=== PATIENT | male | born 1945 | race Caucasian/White ===

== ENCOUNTER → 2018-02-13 12:03 | Outpatient (CLI) | payer MEDICARE, OTHER, SELFPAY ==
[2018-02-13 12:37] LABS: Absolute Lymphocyte Count 1.09 X10^3/ul (0.83-4.51); Absolute Neutrophil Count 3.2 X10^3/uL (2.0-7.7); Basophil# 0.01 X10^3/uL; Basophil% 0.2 % (0-1); Eosinophil# 0.12 X10^3/uL; Eosinophils% 2.5 % (0-5); Hemoglobin 14.1 g/dl (13.0-16.5); Lymphocyte # 1.09 X10^3/ul (4.0); Lymphocyte % 22.4 % (19-41); Mean Corp Hgb Conc 32.8 g/gl (32-36); Mean Corpuscular Hgb 29.6 pg (27.0-32.0); Mean Corpuscular Volume 90.1 fL (80-94); Mean Platelet Vol. 9.6 fl (6.2-12.0); Monocyte# 0.47 X10^3/uL; Monocyte% 9.7 % (0-10); Neutrophil # 3.18 X10^3/uL (2.7-7.7); Neutrophil % 65.2 % (47-70); POSITIVE COUNT NO; POSITIVE DIFFERENTIAL NO; POSITIVE MORPHOLOGY NO; Platelet Count 216 K/mm3 (150-450); RBC Distribution Width SD 45.6 fl (35.1-43.9); Red Blood Count 4.77 M/mm3 (4.6-6.2); White Blood Count 4.9 K/mm3 (4.4-11.0)
[2018-02-13 13:01] LABS: ALB/GLOB Ratio 1.1 RATIO (0.9-2.4); AST(SGOT) 22 U/L (15-37); Alanine Aminotransfer ALT/SGPT 26 U/L (16-61); Albumin, Serum 3.9 g/dL (3.2-5.0); Alkaline Phosphatase 37 U/L (45-117); Anion Gap 7 (5-15); BUN 19 mg/dL (7-18); BUN/Creat Ratio 14.1 RATIO (10-20); Calcium,Total 8.8 mg/dL (8.5-10.1); Chloride 103 mmol/L (98-107); Creatinine, Serum 1.35 mg/dL (0.70-1.30); EST Glomerular Filtration Rate 55 mL/min (>60); Est Glom Filt Rate - Afr Amer 67 mL/min (>60); Globulin 3.5 g/dL (2.2-4.2); Glucose 186 mg/dL (74-106); Potassium 3.8 mmol/L (3.5-5.1); Protein, Total 7.4 g/dL (6.4-8.2); Sodium Level 140 mmol/L (136-145)
[2018-02-13 14:23] LABS: Bilirubin, Direct 0.17 mg/dL (0.00-0.30)
[2018-02-16 03:07] LABS: QNTFERON TB Ag Minus Nil Value 0 IU/mL (.); QNTFERON TB Ag Value 0.03 IU/mL (.); QNTFERON TB Mitogen Value > 10.00 IU/mL (.); QNTFERON TB Nil Value 0.03 IU/mL (.)
[2018-02-16 08:43] LABS: QNTIFERON TB Gold Negative (Negative)
== END ==
PROVIDERS: Nurse Practitioner; Visit Provider Dermatology
DX: L40.0 Psoriasis vulgaris (principal); Z79.899 Other long term (current) drug therapy; L21.8 Other seborrheic dermatitis; L57.8 Other skin changes due to chronic exposure to nonionizing radiation
CPT/HCPCS: 36415; 80053; 82248; 85025; 86480

== ENCOUNTER → 2018-07-24 13:55 | Outpatient (CLI) | payer MEDICARE, OTHER, SELFPAY ==
[2018-07-24 15:39] LABS: Hemoglobin A1c 7.4 % (4.2-6.3)
[2018-07-24 15:43] LABS: AST(SGOT) 21 U/L (15-37); Alanine Aminotransfer ALT/SGPT 35 U/L (16-61); Albumin, Serum 3.4 g/dL (3.2-5.0); Alkaline Phosphatase 35 U/L (45-117); Anion Gap 10 (5-15); BUN 18 mg/dL (7-18); BUN/Creat Ratio 12.2 RATIO (10-20); Calcium,Total 8.9 mg/dL (8.5-10.1); Chloride 99 mmol/L (98-107); Creatinine, Serum 1.47 mg/dL (0.70-1.30); EST Glomerular Filtration Rate 50 mL/min (>60); Est Glom Filt Rate - Afr Amer 61 mL/min (>60); Globulin 3.5 g/dL (2.2-4.2); Glucose 413 mg/dL (74-106); Potassium 4.3 mmol/L (3.5-5.1); Protein, Total 6.9 g/dL (6.4-8.2); Sodium Level 137 mmol/L (136-145)
== END ==
PROVIDERS: Visit Provider Nurse Practitioner
DX: E10.49 Type 1 diabetes mellitus with other diabetic neurological complication (principal)
CPT/HCPCS: 36415; 80053; 83036

== ENCOUNTER 2018-09-20 12:21 | Inpatient (IN) | payer MEDICARE, OTHER, SELFPAY ==
[2018-09-20] VITALS (14 sets, daily range): BP systolic 92–153; BP diastolic 43–86; PULSE 63–80; RESP 14–22; TEMP 36.7–36.8; O2SAT 88–99; BMI 29.0; BMI 28.3
--- NOTE | 2018-09-20 13:06 | EKG12_ITS ---
Test Reason : WEAKNESS Blood Pressure : / mmHG Vent. Rate : 064 BPM Atrial Rate : 064 BPM P-R Int : 194 ms QRS Dur : 128 ms QT Int : 458 ms P-R-T Axes : 059 -50 146 degrees QTc Int : 472 ms Normal sinus rhythm Left axis deviation Left bundle branch block Abnormal ECG Confirmed by MARY MIRANDA, MARTELL ([id number]), editor trade journal GAURAV HAWKINS ([id number]) on 09/25/2018 11:34:02 AM Referred By: RIAN Confirmed By:MARTELL HERNANDEZ MD
[2018-09-20] MEDS: 0.9% Normal Saline 1,000 ML 1000 ML IV (13:15)
[2018-09-20 13:16] LABS: Bedside Glucose 185 mg/dL (70-110)
--- NOTE | 2018-09-20 13:20 | RAD_ITS ---
STUDY: X-RAY CHEST REASON FOR EXAM: Male, 73 years old. Cough. TECHNIQUE: PA and lateral chest COMPARISON: None. FINDINGS: Left pectoral pacer device with 2 wire leads. Clear lungs are mildly hyperinflated which may reflect underlying mild COPD. Correlate any smoking history. There is a small opacity projecting at the tip of the heart in the left lower lung in the frontal view. This is most likely to represent a small pericardial fat pad. There is no apparent infiltrate in the lateral view. Pneumonia is not suspected. The lungs are otherwise clear. Normal cardiomediastinal silhouette, rayna and pleural margins. No acute osseous or upper abdominal process. RAD/Chest PA and Lateral IMPRESSION: No acute cardiopulmonary process. No convincing radiographic evidence of acute pneumonia. Electronically Signed: Varun Juan, at 14:10 EST Tel , Service support ,
[2018-09-20 13:33] LABS: AST(SGOT) 138 U/L (15-37); Alanine Aminotransfer ALT/SGPT 50 U/L (16-61); Albumin, Serum 3.1 g/dL (3.2-5.0); Alkaline Phosphatase 30 U/L (45-117); Anion Gap 9 (5-15); BUN 28 mg/dL (7-18); BUN/Creat Ratio 14.4 RATIO (10-20); Bilirubin, Direct 0.29 mg/dL (0.00-0.30); Calcium,Total 8.5 mg/dL (8.5-10.1); Chloride 107 mmol/L (98-107); Creatinine, Serum 1.94 mg/dL (0.70-1.30); EST Glomerular Filtration Rate 36 mL/min (>60); Est Glom Filt Rate - Afr Amer 44 mL/min (>60); Globulin 3.7 g/dL (2.2-4.2); Glucose 190 mg/dL (74-106); Lipase 43 U/L (73-393); Potassium 3.8 mmol/L (3.5-5.1); Protein, Total 6.8 g/dL (6.4-8.2); Sodium Level 140 mmol/L (136-145)
[2018-09-20 13:39] LABS: Absolute Lymphocyte Count 0.63 X10^3/ul (0.83-4.51); Basophil# 0.01 X10^3/uL; Basophil% 0.1 % (0-1); Hematocrit 38.7 % (40-54); Hemoglobin 12.3 g/dl (13.0-16.5); Lymphocyte # 0.63 X10^3/ul (4.0); Lymphocyte % 5.9 % (19-41); Mean Corp Hgb Conc 31.8 g/gl (32-36); Mean Corpuscular Hgb 30.4 pg (27.0-32.0); Mean Corpuscular Volume 95.8 fL (80-94); Mean Platelet Vol. 10.1 fl (6.2-12.0); Monocyte# 0.99 X10^3/uL; Monocyte% 9.3 % (0-10); Neutrophil # 9.03 X10^3/uL (2.7-7.7); Neutrophil % 84.6 % (47-70); Platelet Count 174 K/mm3 (150-450); RBC Distribution Width CV 14.3 % (11.6-14.6); RBC Distribution Width SD 49.7 fl (35.1-43.9); Red Blood Count 4.04 M/mm3 (4.6-6.2); White Blood Count 10.7 K/mm3 (4.4-11.0)
[2018-09-20 13:43] LABS: POSITIVE COUNT NO; POSITIVE DIFFERENTIAL NO; POSITIVE MORPHOLOGY NO
[2018-09-20] MEDS: 0.9% Normal Saline 1,000 ML 150 ML IV (14:10)
[2018-09-20 14:16] LABS: Lactic Acid 2.3 mmol/L (0.4-2.0)
--- NOTE | 2018-09-20 14:32 | CT_ITS ---
STUDY: CT CHEST WITHOUT CONTRAST REASON FOR EXAM: Male, 73 years old. Cough, recent falls. History of myocardial infarction and pacemaker. RADIATION DOSAGE (If Supplied By Facility): CTDIvol = ( 19.28 ) mGy, DLP = ( 689.01 ) mGycm TECHNIQUE: Transaxial imaging was performed without the administration of intravenous contrast material. Coronal and sagittal 2-D MPR Individualized dose optimization techniques were used for this CT. COMPARISON: Chest x-ray 09/20/2018 FINDINGS: Supraclavicular: Normal. Thoracic body wall soft tissues: No acute process. Left pectoral pacer device. 2.7 cm lipoma overlying the base of the scapular spine superficial to the musculature. Upper abdomen: Macrolobulated simple appearing hepatic cyst, sharply circumscribed margins, central water density, 2.4 cm. Pancreatic atrophy. No acute process. Osseous structures: Benign hemangioma of T12. Mild kyphoscoliosis. Minimal thoracic spondylosis. Mild degenerative features of the left glenohumeral joint, moderate on the right. No acute osseous process. Mediastinum: There is circumferential thickening of the wall the distal 3rd of the esophagus which may reflect presence of reflux esophagitis. There is a minimal sliding hiatal hernia. Several small lymph nodes are present within the mediastinum without acute lymphadenopathy. Small calcifications are present in the rayna bilaterally consistent with old granulomatous disease. Lungs: Generalized hyperlucency consistent with underlying COPD without ayden features of paraseptal or centrilobular emphysema. The cardiac apex, pericardial fat pad, small focus of chronic-appearing atelectasis in the lingula. Left lower lobe medial basilar, patchy groundglass airspace opacities associated with bronchial wall thickening, suspicious for developing infiltrate, subsegmental. Left lower lobe lateral basilar solid pulmonary nodule measuring 3.8 mm. Mild bronchial wall thickening in the right middle lobe and basilar segments of the right lower lobe, chronic inflammatory. The bronchial wall thickening of the left lower lobe basilar segments is more prominent. Normal central airways. Heart: Normal heart size without pericardial effusion. Three-vessel coronary atherosclerosis. Pacer wires. Aorta: Nondilated, mild arch atherosclerosis. Pulmonary arteries: Nondilated. CT/Chest without Contrast IMPRESSION: Patchy subsegmental groundglass airspace opacities associated with prominent bronchial wall thickening in the medial basilar aspect of the left lower lobe (retrocardiac) suspicious for developing pneumonia. These mild opacities are not visible on the chest x-ray. Evidence of COPD. Three-vessel coronary atherosclerosis. The apparent density at the cardiac apex on chest x-ray today is consistent with a small focus of chronic-appearing lingular atelectasis and a pericardial fat pad. Best appreciated in the CT coronal views of the chest. Electronically Signed: Varun Juan, at 15:12 EST Tel , Service support ,
--- NOTE | 2018-09-20 15:58 | PCM.HP.STD ---
Problem List (1) CAP (community acquired pneumonia) Status: Acute Qualifiers: Laterality: left Lung location: lower lobe of lung Qualified Code(s): J18.1 - Lobar pneumonia, unspecified organism (2) Atherosclerotic heart disease of [place] coronary artery without angina pectoris Status: Chronic Qualifiers: [place] vs. transplanted heart: [place] heart Qualified Code(s): I25.10 - Atherosclerotic heart disease of [place] coronary artery without angina pectoris Comment: Per [facility] 03/11/2011 [facility] [place] (3) Sick sinus syndrome Status: Chronic (4) Hyperlipidemia due to type 1 diabetes mellitus Status: Chronic Comment: Chol 171, LDL 96, HDL 53, TRI 112 Tolerating medication without side effects. Taking as directed. (5) Hypertension Status: Chronic Qualifiers: Hypertension type: essential hypertension Qualified Code(s): I10 - Essential (primary) hypertension; I10 - Essential (primary) hypertension; I10 - Essential (primary) hypertension Comment: Controlled Taking medication as directed. Is active, tries to lower salt intake. 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 A1c 8.4 States he had labs done at the [facility]. Going sl high after breakfast so will change I/c ratio to 8.4 Sl low in afternoon sl will change 12n basal to 1.1 On statin. Snacks at night On arb. BP controlled. History of Present Illness Date of Admission: 09/20/18 Chief Complaint: Fall, feeling unwell - a couple of days The patient is a 73 year old M with past medical history of CAD, history of syncope, type 1 diabetes with peripheral neuropathy, mild dementia who comes in with complaints of feeling unwell ongoing for a couple of days. Patient came for his endocrinology appointment with nurse practitioner ROMY conti and had complained of feeling unwell ongoing for a couple of days. He had a prior upper respiratory illness and occasional cough. Denied any fever or chills. Has occasional dizziness. He had a fall this morning while sitting at the edge of the bed. He denied losing consciousness. This has happened before. Denied any chest pain or worsening shortness of breath. He admits that he cannot taking in a deep breath. Vitals in the ED showed temperature of 98.0F, heart rate 79, blood pressure 92/43, respiratory rate was 18, SPO2 was 88% initially on room air, improved to 95% on 2 L of oxygen. Admitting blood work showed RBC count of 10.7, hemoglobin 12.3, platelets 174, sodium 140, potassium 3.8, chloride 107, bicarb 24, BUN 28, creatinine 1.94, baseline creatinine of 1.2, lactic acid 2.3, elevated total bilirubin to 1.20, AST 138, troponin was 0.084. 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 Left bundle branch block (Chronic) Hyperlipidemia due to type 1 diabetes mellitus (Chronic) Chol 171, LDL 96, HDL 53, TRI 112 Tolerating medication without side effects. Taking as directed. Hypertension (Chronic) Controlled Taking medication as directed. Is active, tries to lower salt intake. 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 A1c 8.4 States he had labs done at the [facility]. Going sl high after breakfast so will change I/c ratio to 8.4 Sl low in afternoon sl will change 12n basal to 1.1 On statin. Snacks at night On arb. BP controlled. Medical History: Medical History (Last Reviewed 08/21/18 @ 12:51 by Samantha Walker) Secondary pulmonary arterial hypertension (Chronic) I27.21 Atherosclerotic heart disease of [place] coronary artery without angina pectoris (Chronic) I25.10 Per [facility] 03/11/2011 [facility] [place] ferry terminal agent current use of insulin (Chronic) Z79.4 Insulin infusion pump Sick sinus syndrome (Chronic) I49.5 Hypertension (Chronic) I10 Hyperlipidemia (Chronic) E78.5 REcent labs from [facility] not available and he will have them drawn tomorrow. Diabetes type 1, controlled (Acute) E10.9 Dx : age 28 last exacerbation : DKA : 10/20 Hypoglycemic episode : 09/20 ER visit : 10/20 Left bundle branch block (Chronic) I44.7 Sebaceous cyst L72.3 BPH (benign prostatic hyperplasia) N40.0 Non-ST elevation PA (NSTEMI) I21.4 03/11/2011 [facility] [place] Seborrheic dermatitis L21.9 Acute coronary syndrome I24.9 Syncopal episodes R55 Allergies No Known Allergies Allergy (Verified 09/20/18 12:26) Home Medications: Ambulatory Orders Medication Instructions Recorded Aspirin E.C. [Ecotrin] 81 mg PO DAILY 09/20/18 Atorvastatin Calcium [Lipitor] 80 mg PO QHS 09/20/18 Buspirone HCl 10 mg PO DAILY 09/20/18 Cholecalciferol (Vitamin D3) 2,000 unit PO DAILY 09/20/18 [Vitamin D3] Donepezil HCl 10 mg PO DAILY 09/20/18 Finasteride [Proscar] 5 mg PO DAILY 09/20/18 Gabapentin [Neurontin] 400 - 800 mg PO QHS 09/20/18 Insulin Lispro [Humalog Kwikpen] 0 pump SQ UD 09/20/18 Losartan Potassium [Cozaar] 100 mg PO DAILY 09/20/18 Secukinumab [Cosentyx Syringe] 300 mg SQ QMONTH 09/20/18 Tamsulosin HCl [Flomax] 0.4 mg PO DAILY 09/20/18 Surgical History: Surgical History (Last Reviewed 08/21/18 @ 12:51 by Samantha Walker) Presence of cardiac pacemaker (Resolved) Onset Date: 07/20/15 Z95.0 07/20/[address] Del Cid @ [facility] History of appendectomy Z90.49 History of left heart catheterization Onset Date: ~2010 Z98.890 Surgical History: appendectomy, pacemaker implantation, - - Left heart cath Psychiatric History: No pertinent psych hx Lives: With Family Smoking Status: Former smoker Tobacco Use: Non-smoker Alcohol: None Drugs: None - *Family History Paternal Family History: Family History (Last Reviewed 08/21/18 @ 12:51 by Samantha Walker) Father Diabetes Mother CAD (coronary artery disease) Brother Diabetes Sister Hypothyroid History Items: Stroke Maternal Family History: Family History (Last Reviewed 08/21/18 @ 12:51 by Samantha Walker) Father Diabetes Mother CAD (coronary artery disease) Brother Diabetes Sister Hypothyroid History Items: Heart Disease - [place] Sibling Family History: Family History (Last Reviewed 08/21/18 @ 12:51 by Samantha Walker) Father Diabetes Mother CAD (coronary artery disease) Brother Diabetes Sister Hypothyroid History Items: - - Hypothyroid Review of Systems Constitutional: Reports: Anorexia, Malaise, Weakness. Denies: Chills, Fever, Night Sweats, Weight Change Eyes: Denies: Blurred vision, Cataracts, Conjunctivae Inflammation, Pain, Vision Change HEENT: Denies: Difficulty Hearing, Difficulty Swallowing, Head Aches, Hearing Changes, Sinus Congestion, Sinus Drainage Cardiovascular: Denies: Chest Pain, Claudication, Chest Pressure, Chest Tightness, Orthopnea, Palpitations, Paroxysmal Noc. Dyspnea Respiratory: Reports: Cough, Shortness of Breath, Shortness of breath at rest, Shortness of breath upon exertion. Denies: Sputum production Gastrointestinal: Denies: Abdominal Pain, Constipation, Hematemesis, Nausea, Vomiting Genitourinary: Reports: Incontinence. Denies: Dysuria, Frequency Musculoskeletal: Denies: Joint Pain, Joint stiffness, Joint swelling, Joint Tenderness Skin: Denies: Dryness, Rash, Wounds Neurological: Denies: Difficulty swallowing, Focal weakness, Numbness, Tingling Psychiatric: Denies: Anxiety, Depression, Homicidal Ideations, Suicidal Ideations Hematologic/ Lymphatic: Denies: Easy Bruising, Easy Bleeding VTE Information - Inpt Only VTE Present on Admission: No VTE Pharm Prophylaxis ordered?: Yes Patient Problems: Active and Suspected Problems (Last Reviewed 08/21/18 @ 12:51 by Samantha Walker) CAP (community acquired pneumonia) (Acute) - Physical Exam General: Alert, Oriented x3, Cooperative, No apparent distress, - - Appears comfortable on 2 L of oxygen HEENT: Atraumatic, PERRLA, EOMI, Normocephalic Oral: Moist Mucosa Neck: Supple, No JVD, Negative Carotid Bruits Lungs: Normal air movement, Diminished Cardiovascular: Regular rate, Regular Rhythm, Normal S1, Normal S2, No murmurs Abdomen: Bowel Sounds Present, Soft, Non Tender, Non-Distended, No Hepato-splenomegaly Extremities: No edema Skin: - - Superficial abrasion to the right medial knee Musculoskeletal: No Tenderness to Palpation of Joints or Extremities Lymphatic: No Cervical, Supraclavicular, or Inguinal Adenopathy Neurological: Cranial nerves II-XII grossly intact, Neuro grossly intact Psych/Mental Status: Normal Affect, Appropriate Vital Signs Temp Pulse Resp BP Pulse Ox 98.0 F 68 14 114/52 L 95 09/20/18 12:22 09/20/18 15:14 09/20/18 15:00 09/20/18 15:14 09/20/18 15:00 Oxygen Flow Rate (L/min) 2 Oxygen Delivery Method Nasal Cannula Weight: 97.522 kg Body Mass Index (BMI) 28.3 Finger Stick Blood Glucose 185 Laboratory Tests Past 24 Hrs 09/20/18 09/20/18 09/20/18 13:05 13:05 13:05 WBC 10.7 RBC 4.04 L Hgb 12.3 L Hct 38.7 L MCV 95.8 H MCH 30.4 MCHC 31.8 L RDW 14.3 RDW Differential 49.7 H Plt Count 174 MPV 10.1 Immature Gran % (Auto) 0.100 Neut % (Auto) 84.6 H Lymph % (Auto) 5.9 L [place] % (Auto) 9.3 Eos % (Auto) 0.0 Baso % (Auto) 0.1 Absolute Neuts (auto) 9.0 H Absolute Lymphs (auto) 0.63 L Total Counted Not Reportable Sodium 140 Potassium 3.8 Chloride 107 Carbon Dioxide 24.0 Anion Gap 9 BUN 28 H Creatinine 1.94 H Estim Creat Clear Calc 38.90 Est GFR (MDRD) Af Amer 44 L Est GFR (MDRD) Non-Af 36 L BUN/Creatinine Ratio 14.4 Glucose 190 H Lactic Acid Calcium 8.5 Total Bilirubin 1.20 H Direct Bilirubin 0.29 AST 138 H ALT 50 Alkaline Phosphatase 30 L Troponin I 0.084 H Total Protein 6.8 Albumin 3.1 L Globulin 3.7 Lipase 43 L Acetone Level NEGATIVE 09/20/18 13:40 WBC RBC Hgb Hct MCV MCH MCHC RDW RDW Differential Plt Count MPV Immature Gran % (Auto) Neut % (Auto) Lymph % (Auto) [place] % (Auto) Eos % (Auto) Baso % (Auto) Absolute Neuts (auto) Absolute Lymphs (auto) Total Counted Sodium Potassium Chloride Carbon Dioxide Anion Gap BUN Creatinine Estim Creat Clear Calc Est GFR (MDRD) Af Amer Est GFR (MDRD) Non-Af BUN/Creatinine Ratio Glucose Lactic Acid 2.3 H Calcium Total Bilirubin Direct Bilirubin AST ALT Alkaline Phosphatase Troponin I Total Protein Albumin Globulin Lipase Acetone Level POC Glucose 09/20/18 13:12 POC Glucose 185 H Assessment/Plan All Active Problems (Last Reviewed 08/21/18 @ 12:51 by Samantha Walker) CAP (community acquired pneumonia) (Acute) Syncope and collapse (Acute) Presence of cardiac pacemaker (Resolved 07/20/15) Diabetes type 1, controlled (Acute) 73 year old M with past medical history of CAD, history of syncope, type 1 diabetes with peripheral neuropathy, mild dementia who comes in with complaints of feeling unwell ongoing for a couple of days. He sustained a fall this morning. Denies syncope. 1. Acute hypoxic respiratory insufficiency secondary to community-acquired pneumonia, 2 L of oxygen, not on oxygen at home, will wean off oxygen to maintain SPO2 more than 94%, encourage use of incentive spirometer 2. Acute Left CAP, likely related to gram-positive organism, started on IV ceftriaxone and azithromycin, continue same, blood cultures pending, urine Legionella and streptococcal antigen Breathing treatments as needed 3. Elevated troponin, history of CAD, likely second to demand ischemia, EKG appears unchanged from before, no acute ST changes, will trend troponins 4. RAHUL secondary to dehydration, baseline creatinine 1.2, admitted creatinine 1.90, will continue on IV fluids, repeat labs in a.m. 5. Elevated Lactic acidosis secondary to hypoxia, not due to sepsis, will trend 6. History of fall, debility, unclear if syncope, not orthostatic, will continue IV fluids, PT and OT to evaluate and treat 7. Type I DM, on insulin pump, will continue insulin pump, also Accu-Cheks as well as low dose insulin sliding scales 8. Hypertension, relatively low blood pressure on admission, family states patient has been running low, on losartan 100 mg p.o. daily, will decrease losartan to 50 mg p.o. daily and monitor 9. Hyperlipidemia, on statin 10.Dementia, mild, on Aricept 11. Abrasion to the medial right knee secondary to fall, topical wound management 12. DVT prophylaxis - Heparin SC Code Visit Inpatient E&M: 49196 Init Hosp L3
[2018-09-20] MEDS: Ipratropium/Albuterol Sulfate 3 ML AMPUL.NEB INHALATION ×2 (16:01→19:12)
--- NOTE | 2018-09-20 16:01 | ED.VISSUMM ---
- ER Visit Summary Date of Service: 09/20/18 Chief Complaint: Weakness History of Present Illness: The patient is a 73 M who presents to the emergency department generalized weakness. He is from the [place] area. 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 He is a type I diabetic on an insulin pump. The patient noted to have a cough for the past 4 days. Today he felt very weak and he sustained a fall but did not injure herself in the fall. He notes polyuria polydipsia. Former smoker. Denies any fevers. Physical Examination: Afebrile noted 86% on room air blood pressure 103/51. 95% on nasal cannula. Gen: Well-nourished well-developed Head: Normocephalic atraumatic Eyes: Perrl EOMI ENT: TMs clear no rhinorrhea moist mucous membranes Neck: Supple no lymphadenopathy no JVD nontender CVS: Regular rate rhythm no murmurs normal S1-S2 Respiratory: No distress moist rhonchorous cough. Rhonchi left lower lobe chest nontender Abdomen: Soft nontender nondistended normal bowel sounds no masses Back: Nontender Extremity: Nontender no edema Skin: Normal color no rash Neuro: alert orientated ?3 CN II-XII intact normal strength sensation reflexes gait cerebellar Psych: Normal affect normal mood Test Results: EG sinus at a rate of 64. White count is normal. Lactic acid is slightly elevated. Chest x-ray appears to have a left lower lobe infiltrate however is being read as a possible fat pad. His creatinine is elevated off baseline at 1.9. Troponin 0 0.084. I suspect that this is a result of hypoxemia and elevated creatinine. No chest pain and does not show any EKG changes. Noncontrast CT shows infiltrate Emergency Department Course and Treatment: Received IV fluids. His blood pressure is better. He also received a DuoNeb Rocephin and azithromycin. Plan is admission into the hospital Impression: 1. Pneumonia 2. Hypoxemia 3. Sepsis 4. Acute kidney injury This note was generated with [employer] dictation software. It may contain incorrect words, spelling, and punctuation that were not noted in review of the chart prior to signing ED Disposition - Plan for ED Patient: Chief Complaint: Weakness Referrals: [facility] [Primary Care Provider] -
--- NOTE | 2018-09-20 16:04 | ED.DCSUM_ITS ---
- ER Visit Summary Date of Service: 09/20/18 Chief Complaint: Weakness History of Present Illness: The patient is a 73 M who presents to the emergency department generalized weakness. He is from the [place] area. 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 He is a type I diabetic on an insulin pump. The patient noted to have a cough for the past 4 days. Today he felt very weak and he sustained a fall but did not injure herself in the fall. He notes polyuria polydipsia. Former smoker. Denies any fevers. Physical Examination: Afebrile noted 86% on room air blood pressure 103/51. 95% on nasal cannula. Gen: Well-nourished well-developed Head: Normocephalic atraumatic Eyes: Perrl EOMI ENT: TMs clear no rhinorrhea moist mucous membranes Neck: Supple no lymphadenopathy no JVD nontender CVS: Regular rate rhythm no murmurs normal S1-S2 Respiratory: No distress moist rhonchorous cough. Rhonchi left lower lobe chest nontender Abdomen: Soft nontender nondistended normal bowel sounds no masses Back: Nontender Extremity: Nontender no edema Skin: Normal color no rash Neuro: alert orientated ?3 CN II-XII intact normal strength sensation reflexes gait cerebellar Psych: Normal affect normal mood Test Results: EG sinus at a rate of 64. White count is normal. Lactic acid is slightly elevated. Chest x-ray appears to have a left lower lobe infiltrate however is being read as a possible fat pad. His creatinine is elevated off baseline at 1.9. Troponin 0 0.084. I suspect that this is a result of hypoxemia and elevated creatinine. No chest pain and does not show any EKG changes. Noncontrast CT shows infiltrate Emergency Department Course and Treatment: Received IV fluids. His blood pressure is better. He also received a DuoNeb Rocephin and azithromycin. Plan is admission into the hospital Impression: 1. Pneumonia 2. Hypoxemia 3. Sepsis 4. Acute kidney injury This note was generated with [employer] dictation software. It may contain incorrect words, spelling, and punctuation that were not noted in review of the chart prior to signing ED Disposition - Plan for ED Patient: Chief Complaint: Weakness Referrals: [facility] [Primary Care Provider] -
--- NOTE | 2018-09-20 16:13 | NURSING ---
MED SURG CAP, SEPSIS PAINTSIL
--- NOTE | 2018-09-20 16:31 | ED.RN ---
PT'S INSULIN PUMP BEEPING, SAYING BASAL RATE BEING HELD. PT CHECKED OWN BS, 58. GIVEN OJ AND SANDWICH, PT REPORTS FEELING BETTER. WILL CHECK BS SHORTLY.
[2018-09-20 17:46] LABS: Reflex Lactate? Y
[2018-09-20] MEDS: Glucerna Shake 120 ML LIQUID PO ×2 (18:38→21:08)
[2018-09-20] MEDS: 0.9% Normal Saline 1,000 ML 100 ML IV (18:39)
[2018-09-20 18:47] LABS: Lactic Acid 1.2 mmol/L (0.4-2.0)
[2018-09-20 19:27] LABS: Color, Urine Yellow (Yellow); Glucose, Dipstick 50 mg/dl (Normal); Ketone-Dipstick Negative (Negative); Leukocyte Esterase-Dipstick 25 /ul (Negative); Nitrite-Dipstick Negative (Negative); Occult Blood-Urine 250 /ul (Negative); Protein-Dipstick 100 mg/dl (Negative); Urine Clarity Sl. Cloudy (Clear); Urine Urobilinogen 1 mg/dl (Normal)
[2018-09-20 19:28] LABS: Urine Bilirubin Dipstick 1 mg/dL (Negative)
[2018-09-20 20:00] LABS: Bacteria RARE /hpf (None Seen); Mucous, Urine RARE /hpf (<or=2+); Red Blood Cells-Urine 0-5 SEEN /hpf (0-5); Squamous Epithelial Cells - UA 0-5 SEEN /hpf (0-5); White Blood Cells 0-5 SEEN /hpf (0-5)
[2018-09-20] MEDS: Atorvastatin Calcium 80 MG Tablet PO (21:08)
[2018-09-20] MEDS: Heparin Injection (Vial) 5,000 UNIT/ML VIAL 5000 UNIT SC (21:08)
[2018-09-21] VITALS (16 sets, daily range): BP systolic 138–163; BP diastolic 53–70; PULSE 59–89; RESP 16–18; TEMP 36.3–36.8; O2SAT 94–96
[2018-09-21] MEDS: Fluticasone 0.05% 1 SPRAY NASAL.SRY NASAL ×3 (02:21→22:37)
[2018-09-21] MEDS: MELATONIN 10 MG TABLET 5 MG PO ×2 (02:22→22:35)
[2018-09-21] MEDS: 0.9% Normal Saline 1,000 ML 100 ML IV (05:33)
[2018-09-21] MEDS: Heparin Injection (Vial) 5,000 UNIT/ML VIAL 5000 UNIT SC ×3 (05:35→22:41)
[2018-09-21 06:37] LABS: Absolute Lymphocyte Count 0.83 X10^3/ul (0.83-4.51); Absolute Neutrophil Count 6.2 X10^3/uL (2.0-7.7); Basophil# 0.01 X10^3/uL; Basophil% 0.1 % (0-1); Eosinophil# 0.01 X10^3/uL; Eosinophils% 0.1 % (0-5); Hematocrit 35.9 % (40-54); Hemoglobin 11.4 g/dl (13.0-16.5); Lymphocyte # 0.83 X10^3/ul (4.0); Lymphocyte % 10.8 % (19-41); Mean Corp Hgb Conc 31.8 g/gl (32-36); Mean Corpuscular Hgb 30.7 pg (27.0-32.0); Mean Corpuscular Volume 96.8 fL (80-94); Mean Platelet Vol. 10.2 fl (6.2-12.0); Monocyte# 0.67 X10^3/uL; Monocyte% 8.7 % (0-10); Neutrophil # 6.19 X10^3/uL (2.7-7.7); Neutrophil % 80.2 % (47-70); Platelet Count 167 K/mm3 (150-450); RBC Distribution Width CV 14.3 % (11.6-14.6); RBC Distribution Width SD 48.7 fl (35.1-43.9); Red Blood Count 3.71 M/mm3 (4.6-6.2); White Blood Count 7.7 K/mm3 (4.4-11.0)
[2018-09-21 06:42] LABS: POSITIVE COUNT NO; POSITIVE DIFFERENTIAL NO; POSITIVE MORPHOLOGY NO
[2018-09-21 06:58] LABS: Anion Gap 8 (5-15); BUN 25 mg/dL (7-18); BUN/Creat Ratio 18.8 RATIO (10-20); Calcium,Total 8.1 mg/dL (8.5-10.1); Chloride 110 mmol/L (98-107); Creatinine, Serum 1.33 mg/dL (0.70-1.30); EST Glomerular Filtration Rate 56 mL/min (>60); Est Glom Filt Rate - Afr Amer 68 mL/min (>60); Estimated Creatinine Clearance 56.74 ml/min; Glucose 215 mg/dL (74-106); Sodium Level 145 mmol/L (136-145)
[2018-09-21] MEDS: Acetaminophen 325 MG Tablet 650 MG PO ×2 (07:59→22:33)
[2018-09-21] MEDS: Aspirin E.C. 81 MG Tablet PO (09:13)
[2018-09-21] MEDS: busPIRone 5 MG Tablet 10 MG PO (09:13)
[2018-09-21] MEDS: Losartan Potassium 50 MG Tablet PO (09:13)
[2018-09-21] MEDS: Ceftriaxone 1 GM/50 ML BAG IV (09:13)
[2018-09-21] MEDS: Finasteride 5 MG Tablet PO (09:13)
[2018-09-21] MEDS: Donepezil HCl 10 MG Tablet PO (09:13)
[2018-09-21] MEDS: Glucerna Shake 120 ML LIQUID PO ×4 (09:14→22:32)
[2018-09-21] MEDS: Tamsulosin HCl 0.4 MG Capsule PO (09:14)
[2018-09-21] MEDS: Ipratropium/Albuterol Sulfate 3 ML AMPUL.NEB INHALATION ×3 (10:56→18:35)
[2018-09-21] MEDS: Morphine 2 MG/ML Syringe IV (11:40)
[2018-09-21 11:41] LABS: Bedside Glucose 253 mg/dL (70-110)
[2018-09-21] MEDS: guaiFENesin 10 ML UDC (200MG/10ML) PO ×2 (12:15→22:39)
--- NOTE | 2018-09-21 12:41 | PCM.PROGNOTE ---
Patient Problems: Active and Suspected Problems (Last Reviewed 08/21/18 @ 12:51 by Samantha Walker) CAP (community acquired pneumonia) (Acute) Subjective: Pt reports that he is feeling better. Didn't sleep well last pm. Morphine helped with body aches and Robitussin helped with cough. He states he has had 1 fall and he actually slid OOB. Off all supplemental O2 with SpO2 of 96%. - Physical Exam General: Alert, Oriented x3, Cooperative, No apparent distress, Well developed, Well nourished, - - up in chair, brother at bedside, watching [employer] football game, appears comfortable HEENT: Atraumatic, PERRLA, EOMI, Normocephalic, EAC Clear, Lymphadenopathy - mild anterior cervical chain LAD Oral: Moist Mucosa, No Gingival or Mucosal Lesions/ Ulcerations, - - fair dentition Neck: Supple, No JVD, Negative Carotid Bruits Lungs: Clear to auscultation, Normal air movement, No rhonchi, No wheeze, No rales, - - no use of accesory mm, no SOB Cardiovascular: Regular rate, Regular Rhythm, Normal S1, Normal S2, No murmurs, No Ectopic Activity, No rub noted, No Gallop Abdomen: Bowel Sounds Present, Soft, Non Tender, Non-Distended, No Hepato-splenomegaly, No hernias noted - insulin pump needle in R abdomen Extremities: No clubbing, No cyanosis, No edema, Capillary Refill Less than 3 Seconds, No Calf Tenderness, Peripheral Pulses Normal Skin: No rashes, No breakdown Musculoskeletal: No Tenderness to Palpation of Joints or Extremities, No Muscle Wasting Lymphatic: Cervical Adenopathy Neurological: Cranial nerves II-XII grossly intact, Neuro grossly intact, - - no sensory losses in feet Psych/Mental Status: Normal Affect, Appropriate, - - very leasatn, Alert and oriented to time, place, person, mood and affect Vital Signs Temp Pulse Resp BP Pulse Ox 97.3 F L 59 L 18 163/53 H 96 09/21/18 11:30 09/21/18 11:30 09/21/18 11:30 09/21/18 11:30 09/21/18 11:30 Oxygen Flow Rate (L/min) 2 Oxygen Delivery Method Room Air Weight: 97.4 kg Body Mass Index (BMI) 28.3 Finger Stick Blood Glucose 59 Intake and Output for Last 24 Hours 09/19/18 09/20/18 09/21/18 23:59 23:59 23:59 Intake Total 3321 / 3321 Balance 3321 / 3321 Microbiology Past 72 Hours 09/20/18 17:11 Respiratory Panel (PCR) - Final Mucosa - Nasopharyngeal Rhinovirus 09/20/18 19:00 Streptococcus pneumoniae Antigen (M - Final Urine, Clean Catch 09/20/18 19:00 Legionella Antigen - Final Urine, Clean Catch Laboratory Tests Past 24 Hrs 09/20/18 09/20/18 09/20/18 13:05 13:05 13:05 WBC 10.7 RBC 4.04 L Hgb 12.3 L Hct 38.7 L MCV 95.8 H MCH 30.4 MCHC 31.8 L RDW 14.3 RDW Differential 49.7 H Plt Count 174 MPV 10.1 Immature Gran % (Auto) 0.100 Neut % (Auto) 84.6 H Lymph % (Auto) 5.9 L [place] % (Auto) 9.3 Eos % (Auto) 0.0 Baso % (Auto) 0.1 Absolute Neuts (auto) 9.0 H Absolute Lymphs (auto) 0.63 L Total Counted Not Reportable Sodium 140 Potassium 3.8 Chloride 107 Carbon Dioxide 24.0 Anion Gap 9 BUN 28 H Creatinine 1.94 H Estim Creat Clear Calc 38.90 Est GFR (MDRD) Af Amer 44 L Est GFR (MDRD) Non-Af 36 L BUN/Creatinine Ratio 14.4 Glucose 190 H Lactic Acid Calcium 8.5 Total Bilirubin 1.20 H Direct Bilirubin 0.29 AST 138 H ALT 50 Alkaline Phosphatase 30 L Troponin I 0.084 H Total Protein 6.8 Albumin 3.1 L Globulin 3.7 Lipase 43 L Urine Color Urine Clarity Urine pH Ur Specific [place] Urine Protein Urine Glucose (UA) Urine Ketones Urine Occult Blood Urine Nitrite Urine Bilirubin Urine Urobilinogen Ur Leukocyte Esterase Urine RBC Urine WBC Ur Squamous Epith Cells Urine Bacteria Urine Mucus Acetone Level NEGATIVE 09/20/18 09/20/18 09/20/18 13:40 18:10 19:00 WBC RBC Hgb Hct MCV MCH MCHC RDW RDW Differential Plt Count MPV Immature Gran % (Auto) Neut % (Auto) Lymph % (Auto) [place] % (Auto) Eos % (Auto) Baso % (Auto) Absolute Neuts (auto) Absolute Lymphs (auto) Total Counted Sodium Potassium Chloride Carbon Dioxide Anion Gap BUN Creatinine Estim Creat Clear Calc Est GFR (MDRD) Af Amer Est GFR (MDRD) Non-Af BUN/Creatinine Ratio Glucose Lactic Acid 2.3 H 1.2 Calcium Total Bilirubin Direct Bilirubin AST ALT Alkaline Phosphatase Troponin I Total Protein Albumin Globulin Lipase Urine Color Yellow Urine Clarity Sl. Cloudy Urine pH 5.0 Ur Specific [place] 1.020 Urine Protein 100 H Urine Glucose (UA) 50 H Urine Ketones Negative Urine Occult Blood 250 H Urine Nitrite Negative Urine Bilirubin 1 H Urine Urobilinogen 1 H Ur Leukocyte Esterase 25 H Urine RBC 0-5 SEEN Urine WBC 0-5 SEEN Ur Squamous Epith Cells 0-5 SEEN Urine Bacteria RARE Urine Mucus RARE Acetone Level 09/21/18 09/21/18 06:05 06:05 WBC 7.7 RBC 3.71 L Hgb 11.4 L Hct 35.9 L MCV 96.8 H MCH 30.7 MCHC 31.8 L RDW 14.3 RDW Differential 48.7 H Plt Count 167 MPV 10.2 Immature Gran % (Auto) 0.100 Neut % (Auto) 80.2 H Lymph % (Auto) 10.8 L [place] % (Auto) 8.7 Eos % (Auto) 0.1 Baso % (Auto) 0.1 Absolute Neuts (auto) 6.2 Absolute Lymphs (auto) 0.83 Total Counted Not Reportable Sodium 145 Potassium 4.0 Chloride 110 H Carbon Dioxide 27.0 Anion Gap 8 BUN 25 H Creatinine 1.33 H Estim Creat Clear Calc 56.74 Est GFR (MDRD) Af Amer 68 Est GFR (MDRD) Non-Af 56 L BUN/Creatinine Ratio 18.8 Glucose 215 H Lactic Acid Calcium 8.1 L Total Bilirubin Direct Bilirubin AST ALT Alkaline Phosphatase Troponin I Total Protein Albumin Globulin Lipase Urine Color Urine Clarity Urine pH Ur Specific [place] Urine Protein Urine Glucose (UA) Urine Ketones Urine Occult Blood Urine Nitrite Urine Bilirubin Urine Urobilinogen Ur Leukocyte Esterase Urine RBC Urine WBC Ur Squamous Epith Cells Urine Bacteria Urine Mucus Acetone Level POC Glucose 09/21/18 09/20/18 11:35 13:12 POC Glucose 253 H 185 H Medical Necessity - Tobacco Use Smoking Status: Former smoker Tobacco Use: Cigarettes Assessment/Plan All Active Problems (Last Reviewed 08/21/18 @ 12:51 by Samantha Walker) CAP (community acquired pneumonia) (Acute) Syncope and collapse (Acute) Presence of cardiac pacemaker (Resolved 07/20/15) Diabetes type 1, controlled (Acute) 1. Acute Hypoxemic Respiratory Failure 2/2 Rhinovirus +/- CAP -d/c azithro -will continue CTX for now--> if blood cx are neg will d/c tomorrow -Resp PCR is + for Rhinovirus -guaifenesin for cough -duonebs 4 x/day -wean --> now 96% on RA -strep pneumo and legionella antigens are neg 2. Lactic Acidosis-mild -resolved 3. RAHUL on CKD stage 3 -baseline Creat 1.2 -trending back down 4. DM-1 pump dependent -A1c 8.4 -has pump and continuing to manage with pump -follow with Endo as outpt 5. Indeterminate troponin -in setting of RAHUL -suspect some stress-induced ischemia--> repeat stat -EKG stable 6. CAD/HTN/HPL -continue Statin -continue Losartan -continue ASA 7. SSS -pacer dependent 8. BPH -continue Flomax 9. 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 Falls -PT/OT consulted 11. R Medial knee abrasion -topical wound care -no s/o infection 12. Dementia -continue Aricept 13. Depression -continue Buspar 14. Vitamin D Deficiency -continue replacement 15. DVT Prophylaxis -heparin sub q 16. Dispo -possible d/c tomorrow depending on PT/OT input Code Visit Inpatient E&M: 90187 Subs Hosp L3 OBSV E&M: 92707 Initial observation care L3
[2018-09-21] MEDS: 0.9% Normal Saline 1,000 ML 50 ML IV (15:10)
--- NOTE | 2018-09-21 16:42 | NURSING ---
REINFORCEMENT GIVEN ON DIET/MEALS. PT STATED @ DINNER THAT HE DIDNT WANT TO EAT BECAUSE MY SUGAR WAS HIGH
[2018-09-21] MEDS: Atorvastatin Calcium 80 MG Tablet PO (22:32)
[2018-09-22 03:13] VITALS: BP 161/79; PULSE 60; RESP 18; TEMP 36.7; O2SAT 97
[2018-09-22 04:07] VITALS: PULSE 71
[2018-09-22] MEDS: guaiFENesin 10 ML UDC (200MG/10ML) PO (04:28)
--- NOTE | 2018-09-22 05:47 | NURSING ---
pt found out that his [id number] passed. Pt would like to be dc'd [place] so he can be with his sister. Pt declined having a electron beam welder come to visit him.
[2018-09-22] MEDS: Heparin Injection (Vial) 5,000 UNIT/ML VIAL 5000 UNIT SC (05:49)
[2018-09-22 06:55] VITALS: PULSE 60; RESP 16; O2SAT 97
[2018-09-22] MEDS: Ipratropium/Albuterol Sulfate 3 ML AMPUL.NEB INHALATION (06:55)
[2018-09-22 08:00] VITALS: PULSE 60
[2018-09-22 08:19] LABS: Absolute Lymphocyte Count 0.68 X10^3/ul (0.83-4.51); Absolute Neutrophil Count 2.8 X10^3/uL (2.0-7.7); Basophil# 0.01 X10^3/uL; Basophil% 0.2 % (0-1); Eosinophil# 0.04 X10^3/uL; Hematocrit 36.5 % (40-54); Hemoglobin 11.5 g/dl (13.0-16.5); Lymphocyte # 0.68 X10^3/ul (4.0); Mean Corp Hgb Conc 31.5 g/gl (32-36); Mean Corpuscular Hgb 30.1 pg (27.0-32.0); Mean Corpuscular Volume 95.5 fL (80-94); Mean Platelet Vol. 9.5 fl (6.2-12.0); Monocyte# 0.45 X10^3/uL; Monocyte% 11.2 % (0-10); Neutrophil # 2.82 X10^3/uL (2.7-7.7); Neutrophil % 70.4 % (47-70); Platelet Count 178 K/mm3 (150-450); RBC Distribution Width CV 14.2 % (11.6-14.6); RBC Distribution Width SD 49.8 fl (35.1-43.9); Red Blood Count 3.82 M/mm3 (4.6-6.2)
[2018-09-22 08:21] LABS: POSITIVE COUNT NO; POSITIVE DIFFERENTIAL NO; POSITIVE MORPHOLOGY NO
[2018-09-22 09:11] LABS: Anion Gap 7 (5-15); BUN 18 mg/dL (7-18); BUN/Creat Ratio 17.8 RATIO (10-20); Calcium,Total 8.3 mg/dL (8.5-10.1); Chloride 109 mmol/L (98-107); Creatinine, Serum 1.01 mg/dL (0.70-1.30); EST Glomerular Filtration Rate 77 mL/min (>60); Est Glom Filt Rate - Afr Amer 93 mL/min (>60); Estimated Creatinine Clearance 74.71 ml/min; Glucose 140 mg/dL (74-106); Potassium 3.4 mmol/L (3.5-5.1); Sodium Level 143 mmol/L (136-145)
[2018-09-22] MEDS: Fluticasone 0.05% 1 SPRAY NASAL.SRY NASAL (09:52)
[2018-09-22] MEDS: Ceftriaxone 1 GM/50 ML BAG IV (09:52)
[2018-09-22] MEDS: Donepezil HCl 10 MG Tablet PO (09:52)
[2018-09-22] MEDS: Aspirin E.C. 81 MG Tablet PO (09:52)
[2018-09-22] MEDS: Losartan Potassium 50 MG Tablet PO (09:52)
[2018-09-22] MEDS: Finasteride 5 MG Tablet PO (09:52)
--- NOTE | 2018-09-22 09:54 | PCM.DC.SUM ---
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 Left bundle branch block (Chronic) Hyperlipidemia due to type 1 diabetes mellitus (Chronic) Chol 171, LDL 96, HDL 53, TRI 112 Tolerating medication without side effects. Taking as directed. Hypertension (Chronic) Controlled Taking medication as directed. Is active, tries to lower salt intake. 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 A1c 8.4 States he had labs done at the OR. Going sl high after breakfast so will change I/c ratio to 8.4 Sl low in afternoon sl will change 12n basal to 1.1 On statin. Snacks at night On arb. BP controlled. Hospital Course and Treatment Imaging Results: CT Chest Patchy subsegmental groundglass airspace opacities associated with prominent bronchial wall thickening in the medial basilar aspect of the left lower lobeEvidence of COPD. Three-vessel coronary atherosclerosis CXR No acute cardiopulmonary process. No convincing radiographic evidence of acute pneumonia. Social Work Operations: None Procedures: EKG Summary of Care Provided: Mr Sapp is a 73 year old M with past medical history of CAD, history of syncope, type 1 diabetes with peripheral neuropathy and mild dementia who presented to the ED on 09/20/18 with complaints of feeling unwell ongoing for a couple of days. Patient came to [place] for his endocrinology appointment (lives in [place] with his daughter and 7 children) with nurse practitioner ROMY Beckman and had complained of feeling unwell. He stated that this had been ongoing for a couple of days. He had a prior upper respiratory illness and occasional cough. Denied any fever or chills. He c/o occasional dizziness and had a fall this morning while sitting at the edge of the bed. He denied losing consciousness or hitting his head. He reported that he was not able to take in a deep breath. Vitals in the ED showed temperature of 98.0F, heart rate 79, blood pressure 92/43, respiratory rate was 18, SPO2 was 88% initially on room air, improved to 95% on 2 L of oxygen. he was admitted to the [facility] and was placed on CAP coverage. Viral panel came back positive for Rhinovirus and without fever, chills or infiltrate it was felt that he most likely did not have PNA and ABX were discontinued. He was weaned to RA and SpO2 was stable in the upper 90's for the rest of his stay. He was managed with supportive care otherwise. PT evaluated the pt and reported that he was safe for home without the need for further therapies. Pt was discharged home in stable condition. Patient Problems: Active and Suspected Problems (Last Reviewed 08/21/18 @ 12:51 by Samantha Walker) Viral respiratory illness (Acute) Subjective: Pt upset this am as he found out at 6 pm that his [id number] . He is anxious to get home. States that otherwise he is feeling ok other than occasional cough. - Physical Exam General: Alert, Oriented x3, Cooperative, No apparent distress, - - up to chair, PT at bedside preparing to work with him HEENT: Atraumatic, PERRLA, EOMI, Normocephalic, EAC Clear Oral: Moist Mucosa, No Gingival or Mucosal Lesions/ Ulcerations Neck: Supple, No JVD, Negative Carotid Bruits, No Nodes, Trachea Midline, Thyroid Normal Size and Texture Lungs: Clear to auscultation, Normal air movement, No rhonchi, No wheeze, No rales Cardiovascular: Regular rate, Regular Rhythm, Normal S1, Normal S2, No murmurs, No Ectopic Activity, No rub noted, No Gallop Abdomen: Bowel Sounds Present, Soft, Non Tender, Non-Distended, No Hepato-splenomegaly, No hernias noted Extremities: No clubbing, No cyanosis, No edema Skin: No rashes, No breakdown Musculoskeletal: No Tenderness to Palpation of Joints or Extremities, No Muscle Wasting Lymphatic: No Cervical, Supraclavicular, or Inguinal Adenopathy Neurological: Cranial nerves II-XII grossly intact, Neuro grossly intact, Gait narrow based and stable Psych/Mental Status: Normal Affect, Appropriate, - - pleasant but obviously upset which is appropriate for the situation, Alert and oriented to time, place, person, mood and affect Vital Signs Temp Pulse Resp BP Pulse Ox 98.1 F 60 16 161/79 H 97 09/22/18 03:13 09/22/18 06:55 09/22/18 06:55 09/22/18 03:13 09/22/18 06:55 Oxygen Flow Rate (L/min) 2 Oxygen Delivery Method Room Air Weight: 97.4 kg Body Mass Index (BMI) 28.3 Finger Stick Blood Glucose 59 Intake and Output for Last 24 Hours 09/20/18 09/21/18 09/22/18 23:59 23:59 23:59 Intake Total 5182 / 5182 349 / 349 Balance 5182 / 5182 349 / 349 Microbiology Past 72 Hours 09/20/18 17:11 Respiratory Panel (PCR) - Final Mucosa - Nasopharyngeal Rhinovirus 09/20/18 19:00 Streptococcus pneumoniae Antigen (M - Final Urine, Clean Catch 09/20/18 19:00 Legionella Antigen - Final Urine, Clean Catch Laboratory Tests Past 24 Hrs 09/21/18 09/22/18 09/22/18 13:17 08:05 08:05 WBC 4.0 L RBC 3.82 L Hgb 11.5 L Hct 36.5 L MCV 95.5 H MCH 30.1 MCHC 31.5 L RDW 14.2 RDW Differential 49.8 H Plt Count 178 MPV 9.5 Immature Gran % (Auto) 0.200 Neut % (Auto) 70.4 H Lymph % (Auto) 17.0 L [place] % (Auto) 11.2 H Eos % (Auto) 1.0 Baso % (Auto) 0.2 Absolute Neuts (auto) 2.8 Absolute Lymphs (auto) 0.68 L Total Counted Not Reportable Sodium 143 Potassium 3.4 L Chloride 109 H Carbon Dioxide 27.0 Anion Gap 7 BUN 18 Creatinine 1.01 Estim Creat Clear Calc 74.71 Est GFR (MDRD) Af Amer 93 Est GFR (MDRD) Non-Af 77 BUN/Creatinine Ratio 17.8 Glucose 140 H Calcium 8.3 L Troponin I 0.029 POC Glucose 09/21/18 11:35 POC Glucose 253 H Discharge Diet: Low fat/ Low Cholesterol, Carb Control Diet Discharge Activity: Return to Normal Activity May resume sexual activity in: No Restrictions Call your doctor if you observe: Fever of 101 or Higher, Shortness of breath, Dizziness, Chest pain Home Medications: Medications to take at Discharge Aspirin E.C. [Ecotrin] 81 mg PO DAILY 09/20/18 Atorvastatin Calcium [Lipitor] 80 mg PO QHS 09/20/18 Buspirone HCl 10 mg PO DAILY 09/20/18 Cholecalciferol (Vitamin D3) [Vitamin D3] 2,000 unit PO DAILY 09/20/18 Donepezil HCl 10 mg PO DAILY 09/20/18 Finasteride [Proscar] 5 mg PO DAILY 09/20/18 Gabapentin [Neurontin] 400 - 800 mg PO QHS 09/20/18 Insulin Lispro [Humalog Kwikpen] 0 pump SQ UD 09/20/18 Losartan Potassium [Cozaar] 100 mg PO DAILY 09/20/18 Secukinumab [Cosentyx Syringe] 300 mg SQ QMONTH 09/20/18 Tamsulosin HCl [Flomax] 0.4 mg PO DAILY 09/20/18 Primary Care Physician: [facility] [Primary Care Provider] - Disposition: Home Patient Condition:: Stable Medical Necessity - Tobacco Use Smoking Status: Former smoker Tobacco Use: Cigarettes Meaningful Use Info Meaningful Use Diagnoses (Choose all that apply): None applicable
[2018-09-22 10:00] VITALS: BP 170/69; PULSE 68; RESP 18; TEMP 36.6; O2SAT 97
--- NOTE | 2018-09-22 10:03 | DS.PCM_ITS ---
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 Left bundle branch block (Chronic) Hyperlipidemia due to type 1 diabetes mellitus (Chronic) Chol 171, LDL 96, HDL 53, TRI 112 Tolerating medication without side effects. Taking as directed. Hypertension (Chronic) Controlled Taking medication as directed. Is active, tries to lower salt in take. 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 A1c 8.4 States he had labs done at the [place]. Going sl high after breakfast so will change I/c ratio to 8.4 Sl low in afternoon sl will change 12n basal to 1.1 On statin. Snacks at night On arb. BP controlled. Hospital Course and Treatment Imaging Results: CT Chest Patchy subsegmental groundglass airspace opacities associated with prominent bronchial wall thickening in the medial basilar aspect of the left lower lobeEvidence of COPD. Three-vessel coronary atherosclerosis CXR No acute cardiopulmonary process. No convincing radiographic evidence of acute pneumonia. Social Work Operations: None Procedures: EKG Summary of Care Provided: Mr Sapp is a 73 year old M with past medical history of CAD, history of syncope, type 1 diabetes with peripheral neuropathy and mild dementia who presented to the ED on 09/20/18 with complaints of feeling unwell ongoing for a couple of days. Patient came to [place] for his endocrinology appointment (lives in [place] with his daughter and 7 children) with nurse practitioner ROMY Beckman and had complained of feeling unwell. He stated that this had been ongoing for a couple of days. He had a prior upper respiratory illness and occasional cough. Denied any fever or chills. He c/o occasional dizziness and had a fall this morning while sitting at the edge of the bed. He denied losing consciousness or hitting his head. He reported that he was not able to take in a deep breath. Vitals in the ED showed temperature of 98.0F, heart rate 79, blood pressure 92/43, respiratory rate was 18, SPO2 was 88% initially on room air, improved to 95% on 2 L of oxygen. he was admitted to the [facility] and was placed on CAP coverage. Viral panel came back positive for Rhinovirus and without fever, chills or infiltrate it was felt that he most likely did not have PNA and ABX were discontinued. He was weaned to RA and SpO2 was stable in the upper 90's for the rest of his stay. He was managed with supportive care otherwise. PT evaluated the pt and reported that he was safe for home without the need for further therapies. Pt was discharged home in stable condition. Patient Problems: Active and Suspected Problems (Last Reviewed 08/21/18 @ 12:51 by Samantha Walker) Viral respiratory illness (Acute) Subjective: Pt upset this am as he found out at 6 pm that his [id number] . He is anxious to get home. States that otherwise he is feeling ok other than occasional cough. - Physical Exam General: Alert, Oriented x3, Cooperative, No apparent distress, - - up to chair, PT at bedside preparing to work with him HEENT: Atraumatic, PERRLA, EOMI, Normocephalic, EAC Clear Oral: Moist Mucosa, No Gingival or Mucosal Lesions/ Ulcerations Neck: Supple, No JVD, Negative Carotid Bruits, No Nodes, Trachea Midline, Thyroid Normal Size and Texture Lungs: Clear to auscultation, Normal air movement, No rhonchi, No wheeze, No rales Cardiovascular: Regular rate, Regular Rhythm, Normal S1, Normal S2, No murmurs, No Ectopic Activity, No rub noted, No Gallop Abdomen: Bowel Sounds Present, Soft, Non Tender, Non-Distended, No Hepato-spleno megaly, No hernias noted Extremities: No clubbing, No cyanosis, No edema Skin: No rashes, No breakdown Musculoskeletal: No Tenderness to Palpation of Joints or Extremities, No Muscle Wasting Lymphatic: No Cervical, Supraclavicular, or Inguinal Adenopathy Neurological: Cranial nerves II-XII grossly intact, Neuro grossly intact, Gait narrow based and stable Psych/Mental Status: Normal Affect, Appropriate, - - pleasant but obviously upset which is appropriate for the situation, Alert and oriented to time, place, person, mood and affect Vital Signs Temp Pulse Resp BP Pulse Ox 98.1 F 60 16 161/79 H 97 09/22/18 03:13 09/22/18 06:55 09/22/18 06:55 09/22/18 03:13 09/22/18 06:55 Oxygen Flow Rate (L/min) 2 Oxygen Delivery Method Room Air Weight: 97.4 kg Body Mass Index (BMI) 28.3 Finger Stick Blood Glucose 59 Intake and Output for Last 24 Hours 09/20/18 09/21/18 09/22/18 23:59 23:59 23:59 Intake Total 5182 / 5182 349 / 349 Balance 5182 / 5182 349 / 349 Microbiology Past 72 Hours 09/20/18 17:11 Respiratory Panel (PCR) - Final Mucosa - Nasopharyngeal Rhinovirus 09/20/18 19:00 Streptococcus pneumoniae Antigen (M - Final Urine, Clean Catch 09/20/18 19:00 Legionella Antigen - Final Urine, Clean Catch Laboratory Tests Past 24 Hrs 09/21/18 09/22/18 09/22/18 13:17 08:05 08:05 WBC 4.0 L RBC 3.82 L Hgb 11.5 L Hct 36.5 L MCV 95.5 H MCH 30.1 MCHC 31.5 L RDW 14.2 RDW Differential 49.8 H Plt Count 178 MPV 9.5 Immature Gran % (Auto) 0.200 Neut % (Auto) 70.4 H Lymph % (Auto) 17.0 L [place] % (Auto) 11.2 H Eos % (Auto) 1.0 Baso % (Auto) 0.2 Absolute Neuts (auto) 2.8 Absolute Lymphs (auto) 0.68 L Total Counted Not Reportable Sodium 143 Potassium 3.4 L Chloride 109 H Carbon Dioxide 27.0 Anion Gap 7 BUN 18 Creatinine 1.01 Estim Creat Clear Calc 74.71 Est GFR (MDRD) Af Amer 93 Est GFR (MDRD) Non-Af 77 BUN/Creatinine Ratio 17.8 Glucose 140 H Calcium 8.3 L Troponin I 0.029 POC Glucose 11/17/18 11:35 POC Glucose 253 H Discharge Diet: Low fat/ Low Cholesterol, Carb Control Diet Discharge Activity: Return to Normal Activity May resume sexual activity in: No Restrictions Call your doctor if you observe: Fever of 101 or Higher, Shortness of breath, Dizziness, Chest pain Home Medications: Medications to take at Discharge Aspirin E.C. [Ecotrin] 81 mg PO DAILY 09/20/18 Atorvastatin Calcium [Lipitor] 80 mg PO QHS 09/20/18 Buspirone HCl 10 mg PO DAILY 09/20/18 Cholecalciferol (Vitamin D3) [Vitamin D3] 2,000 unit PO DAILY 09/20/18 Donepezil HCl 10 mg PO DAILY 09/20/18 Finasteride [Proscar] 5 mg PO DAILY 09/20/18 Gabapentin [Neurontin] 400 - 800 mg PO QHS 09/20/18 Insulin Lispro [Humalog Kwikpen] 0 pump SQ UD 09/20/18 Losartan Potassium [Cozaar] 100 mg PO DAILY 09/20/18 Secukinumab [Cosentyx Syringe] 300 mg SQ QMONTH 09/20/18 Tamsulosin HCl [Flomax] 0.4 mg PO DAILY 09/20/18 Primary Care Physician: [facility] [Primary Care Provider] - Disposition: Home Patient Condition:: Stable Medical Necessity - Tobacco Use Smoking Status: Former smoker Tobacco Use: Cigarettes Meaningful Use Info Meaningful Use Diagnoses (Choose all that apply): None applicable
--- NOTE | 2018-09-22 11:26 | DCINST_ITS ---
- Discharge Diagnoses Current Active Problems: Current Active and Chronic Problems (Last Reviewed 08/21/18 @ 12:51 by Samantha Walker) Viral respiratory illness (Acute) You will use the following diet at home:: Calorie/Carbohydrate Controlled (specify 1200, 1400, etc), Cardiac Your food should be the consistency of: Regular Your liquids should be the consistency of: Regular/Thin Discharge Activity: Return to Normal Activity May resume sexual activity in: No Restrictions Call your doctor if you observe: Fever of 101 or Higher, Shortness of breath, Dizziness, Chest pain Allergies/Adverse Reactions: Allergies No Known Allergies Allergy (Verified 09/20/18 12:26) Medications to take at Discharge Aspirin E.C. [Ecotrin] 81 mg PO DAILY 09/20/18 Atorvastatin Calcium [Lipitor] 80 mg PO QHS 09/20/18 Buspirone HCl 10 mg PO DAILY 09/20/18 Cholecalciferol (Vitamin D3) [Vitamin D3] 2,000 unit PO DAILY 09/20/18 Donepezil HCl 10 mg PO DAILY 09/20/18 Finasteride [Proscar] 5 mg PO DAILY 09/20/18 Gabapentin [Neurontin] 400 - 800 mg PO QHS 09/20/18 Insulin Lispro [Humalog Kwikpen] 0 pump SQ UD 09/20/18 Losartan Potassium [Cozaar] 100 mg PO DAILY 09/20/18 Secukinumab [Cosentyx Syringe] 300 mg SQ QMONTH 09/20/18 Tamsulosin HCl [Flomax] 0.4 mg PO DAILY 09/20/18 Fluticasone 0.05% [Flonase Nasal [place]] 1 spray NASAL BID nasal.sry 09/22/18 [facility] [[facility] Provider] - Test Results: Test results from this visit will be discussed in further detail at your follow- up appointment, if applicable.
[2018-09-22] MEDS: busPIRone 5 MG Tablet 10 MG PO (12:00)
[2018-09-22] MEDS: Tamsulosin HCl 0.4 MG Capsule PO (12:00)
--- NOTE | 2018-09-27 09:26 | CASEMGMT ---
[facility] Discharge Follow-up Phone Call: JANI: Darien Strata: 3 Call Date: 09/27/18 Discharge Date: 09/22/18 Time of Call: 1626 Duration: 3 minutes ? Admitting Diagnosis: Rhinovirus URTI This RN CALOS contacted pt via telephone in regard to followup s/p discharge. Pt receptive to call and stated he has been doing well since discharge. Denied any breathing issues, questions regarding his discharge instructions and health status, or difficulty with his medications. Pt states he lives with his daughter and seven grandchildren who are available to help him as needed. Pt states he has been driving without difficulty. Pt denied any further questions, concerns or needs.
== END 2018-09-22 12:09 | disposition home or self-care (01) | DRG 189 ==
LOC: ED 14:21 → MS3 16:38
PROVIDERS: Admitting Provider Internal Medicine; Emergency Provider Emergency Medicine; Visit Provider Internal Medicine
DX: J96.01 Acute respiratory failure with hypoxia (principal); N17.9 Acute kidney failure, unspecified; E87.2 Acidosis; J20.6 Acute bronchitis due to rhinovirus; I25.10 Atherosclerotic heart disease of native coronary artery without angina pectoris; E10.42 Type 1 diabetes mellitus with diabetic polyneuropathy; E86.0 Dehydration; F03.90 Unspecified dementia, unspecified severity, without behavioral disturbance, psychotic disturbance, mood disturbance, and anxiety; E78.5 Hyperlipidemia, unspecified; N40.0 Benign prostatic hyperplasia without lower urinary tract symptoms; E55.9 Vitamin D deficiency, unspecified; Z96.41 Presence of insulin pump (external) (internal); S80.211A Abrasion, right knee, initial encounter; W19.XXXA Unspecified fall, initial encounter; Z87.891 Personal history of nicotine dependence; Z79.4 Long term (current) use of insulin; Z95.0 Presence of cardiac pacemaker; I27.21 Secondary pulmonary arterial hypertension; I44.7 Left bundle-branch block, unspecified; F32.9 Major depressive disorder, single episode, unspecified; I10 Essential (primary) hypertension
CPT/HCPCS: 36415; 71046; 71250; 80048; 80076; 81001; 82009; 82962; 83605; 83690; 84484; 85025; 87040; 87449; 87633; 93005; 94640; 97162; 97166; 97530; 97802; 99284; J7030; J0696

== ENCOUNTER 2019-02-03 13:33 | Emergency (ER) | payer MEDICARE, OTHER, SELFPAY ==
[2019-01-17 09:50] VITALS: BMI 29.1
[2019-02-03 13:35] VITALS: BP 169/102; PULSE 60; RESP 14; TEMP 36.4; O2SAT 99; BMI 29.0
[2019-02-03 13:46] LABS: Bedside Glucose 220 mg/dL (70-110)
--- NOTE | 2019-02-03 14:23 | EKG12_ITS ---
Test Reason : Blood Pressure : / mmHG Vent. Rate : 060 BPM Atrial Rate : 060 BPM P-R Int : 158 ms QRS Dur : 138 ms QT Int : 496 ms P-R-T Axes : 046 -58 071 degrees QTc Int : 496 ms Normal sinus rhythm Left axis deviation Left bundle branch block Abnormal ECG Confirmed by FABIAN MIRANDA, THEODORA ([id number]), metropolitan editor HUSSEIN FLANNERY ([id number]) on 02/07/2019 11:27:53 AM Referred By: RIAN Confirmed By:THEODORA PERALTA MD
--- NOTE | 2019-02-03 14:26 | ED.DCSUM_ITS ---
- ER Visit Summary Date of Service: 02/03/19 Chief Complaint: Dizziness, hyperglycemia History of Present Illness: The patient is a 73 M who presents with dizziness and hyperglycemia that began this morning. Patient states his dizziness feels like he is off balance. Patient states that he has had episodes of hypoglycemia in the past but has never had dizziness with it. Patient denies any headaches. Patient admits to some urinary frequency but denies any dysuria or hematuria. Patient denies any polydipsia. Patient denies any fevers or chills. Patient admits to nausea but denies any vomiting. Physical Examination: Vital signs are stable. Patient is afebrile. Patient is in no acute distress. Oral mucosa is pink and moist. Neck is supple. Trachea is midline. There is no JVD noted. Heart was regular rate and rhythm. Lungs are clear and equal bilateral. Abdomen is soft. Bowel sounds are normal. There is no tenderness. There is no guarding noted. Skin is warm dry. Cranial nerves II through XII are intact. There are no focal motor or sensory deficits noted. The remaining physical exam is within normal limits. Test Results: CBC showed a slight anemia with a hemoglobin of 12.8. Metabolic profile shows slightly elevated glucose of 242. Urinalysis showed ketones of 50 and glucose of 1000 but no evidence of urinary tract infection. Troponin was less than 0.015. Serum ketones were negative. EKG showed normal sinus rhythm with a rate of 60. There is a left bundle branch block pattern noted. There are no acute ST or T wave changes. CT scan of the brain was obtained. There is no acute intracranial abnormality. Emergency Department Course and Treatment: Patient was given a dose of Antivert here. Patient felt better and was able to ambulate on reevaluation. Patient was given a prescription for Antivert. Patient was instructed to continue to monitor his blood sugars. Patient was instructed to follow-up with his primary care physician in 5-7 days. Patient was instructed to return if worse in any way. Patient and his family understood and were agreeable with the plan. All questions were answered. Disposition: Discharge home Impression: 1. Vertigo 2. Hyperglycemia This note was generated with [employer] software. It may contain incorrect words, spelling, and punctuation that were not noted in review of the chart prior to signing ED Disposition - Plan for ED Patient: Disposition: Home or Assisted Living Diagnosis: Hyperglycemia, Vertigo Instructions: ED Hyperglycemia Diabetic, ED Vertigo Unspecified Prescriptions: Meclizine HCl [Antivert] 25 mg PO TID PRN PRN #20 tab PRN Reason: Dizziness [facility]errals: [facility] [Primary [facility] Provider] - 3-5 Days
[2019-02-03 14:44] VITALS: BP 144/62; BP 147/58; BP 154/65; PULSE 60; PULSE 62; PULSE 71
[2019-02-03 14:48] LABS: Bacteria 0 SEEN /hpf (None Seen); Mucous, Urine 0 SEEN /hpf (<or=2+); Red Blood Cells-Urine 0 SEEN /hpf (0-5); Squamous Epithelial Cells - UA 0 SEEN /hpf (0-5); White Blood Cells 0 SEEN /hpf (0-5)
[2019-02-03 14:51] LABS: Color, Urine Yellow (Yellow); Glucose, Dipstick 1000 mg/dl (Normal); Ketone-Dipstick 50 mg/dl (Negative); Leukocyte Esterase-Dipstick Negative /ul (Negative); Nitrite-Dipstick Negative (Negative); Occult Blood-Urine Negative /ul (Negative); Protein-Dipstick 30 mg/dl (Negative); Specific Gravity, Urine 1.005 (1.002-1.030); Urine Bilirubin Dipstick Negative (Negative); Urine Clarity Clear (Clear); Urine Urobilinogen Normal (Normal)
[2019-02-03 14:55] LABS: Absolute Lymphocyte Count 0.74 X10^3/ul (0.83-4.51); Absolute Neutrophil Count 5.7 X10^3/uL (2.0-7.7); Basophil# 0.02 X10^3/uL; Basophil% 0.3 % (0-1); Eosinophil# 0.03 X10^3/uL; Eosinophils% 0.4 % (0-5); Hematocrit 38.6 % (40-54); Hemoglobin 12.8 g/dl (13.0-16.5); Lymphocyte # 0.74 X10^3/ul (4.0); Lymphocyte % 10.5 % (19-41); Mean Corp Hgb Conc 33.2 g/gl (32-36); Mean Corpuscular Hgb 29.8 pg (27.0-32.0); Mean Corpuscular Volume 89.8 fL (80-94); Mean Platelet Vol. 9.4 fl (6.2-12.0); Monocyte# 0.57 X10^3/uL; Monocyte% 8.1 % (0-10); Neutrophil # 5.68 X10^3/uL (2.7-7.7); Neutrophil % 80.6 % (47-70); POSITIVE COUNT NO; POSITIVE DIFFERENTIAL NO; POSITIVE MORPHOLOGY NO; Platelet Count 226 K/mm3 (150-450); RBC Distribution Width CV 13.8 % (11.6-14.6); RBC Distribution Width SD 44.9 fl (35.1-43.9); White Blood Count 7.1 K/mm3 (4.4-11.0)
[2019-02-03 15:03] LABS: AST(SGOT) 29 U/L (15-37); Alanine Aminotransfer ALT/SGPT 29 U/L (16-61); Albumin, Serum 3.4 g/dL (3.2-5.0); Alkaline Phosphatase 31 U/L (45-117); Anion Gap 6 (5-15); BUN 20 mg/dL (7-18); Calcium,Total 8.3 mg/dL (8.5-10.1); Chloride 105 mmol/L (98-107); Creatinine, Serum 1.05 mg/dL (0.70-1.30); EST Glomerular Filtration Rate 74 mL/min (>60); Est Glom Filt Rate - Afr Amer 89 mL/min (>60); Estimated Creatinine Clearance 71.87 ml/min; Globulin 3.3 g/dL (2.2-4.2); Glucose 242 mg/dL (74-106); Potassium 4.3 mmol/L (3.5-5.1); Protein, Total 6.7 g/dL (6.4-8.2); Sodium Level 136 mmol/L (136-145)
[2019-02-03] MEDS: Meclizine HCl 25 MG Tablet PO (16:10)
[2019-02-03 16:13] VITALS: BP 148/65; PULSE 61; RESP 14; O2SAT 92
--- NOTE | 2019-02-03 16:22 | CT_ITS ---
STUDY: CT BRAIN WITHOUT CONTRAST REASON FOR EXAM: Male, 73 years old. Dizziness and hyperglycemia RADIATION DOSAGE (If Supplied By Facility): CTDIvol = ( 44.99 ) mGy, DLP = ( 762.36 ) mGycm TECHNIQUE: Transaxial CT imaging of the brain was performed without administration of intravenous contrast material. Individualized dose optimization techniques were used for this CT. COMPARISON: No relevant priors. FINDINGS: Normal soft tissue structures. Normal calvarium. Bilateral lens replacements. Normal size ventricles and extra-axial spaces for the patient's age. There are areas of decreased attenuation within the white matter tracts of the supratentorial brain, consistent with microvascular disease changes. Normal age-related changes of the basal ganglia. Normal brainstem. Normal cerebellum. There is no intracranial hemorrhage. There are no findings of an acute ischemic infarction. Normal visualized paranasal sinuses. CT/Brain/Head without Contrast IMPRESSION: No CT evidence of acute infarct or hemorrhage. If there is clinical concern for hyperacute ischemia that is not evident by CT, MRI should be considered if possible. Electronically Signed: Gilbert Chery MD at 17:10 EDT Tel , Service support ,
== END 2019-02-03 17:37 | disposition home or self-care (01) ==
PROVIDERS: Emergency Provider Emergency Medicine
DX: R42 Dizziness and giddiness (principal); E11.65 Type 2 diabetes mellitus with hyperglycemia; I10 Essential (primary) hypertension; E78.00 Pure hypercholesterolemia, unspecified; N40.0 Benign prostatic hyperplasia without lower urinary tract symptoms; I44.7 Left bundle-branch block, unspecified
CPT/HCPCS: 70450; 80053; 81001; 82009; 82962; 84484; 85025; 93005; 99285; J7030; A4216

== ENCOUNTER 2019-03-16 19:42 | Emergency (ER) | payer MEDICARE, OTHER, SELFPAY ==
[2019-03-16 19:44] VITALS: BP 123/58; PULSE 63; RESP 16; TEMP 36.5; O2SAT 94; BMI 28.5
--- NOTE | 2019-03-16 20:23 | RAD_ITS ---
STUDY: X-RAY - PELVIS AND RIGHT HIP REASON FOR EXAM: Male, 74 years old. Trauma TECHNIQUE: 3 views of the pelvis and hip. COMPARISON: None. FINDINGS: There is a non-specific bowel gas pattern. A small spring is seen overlying the mid pelvic region. Normal bilateral iliac wings, sacroiliac joints and visualized sacrum. Normal bilateral superior and inferior pubic rami. Normal pubic symphysis. Normal bilateral ischial tuberosities. There are mild arthritic changes of the left and right hips. There is no evidence of fracture, dislocation, or lytic or blastic osseous process. The soft tissues are unremarkable. RAD/HIP, UNI W/ Pelvis 2-3 Views IMPRESSION: Mild arthritic changes of the left and right hips. There is no evidence of fracture of the right hip or bony pelvis. Electronically Signed: Campos Gonzalez MD at 20:41 EDT , Service support ,
--- NOTE | 2019-03-16 21:07 | DCINST.ED_ITS ---
ED Disposition - Plan for ED Patient: Instructions: ED Contusion Hip Prescriptions: Hydrocodone Bitart/Apap 5-325 [[place] 5MG-325MG] 1 tablet PO Q6H PRN PRN 3 Days #10 tablet PRN Reason: Pain [facility]errals: [facility] [Primary [facility] Provider] -
--- NOTE | 2019-03-16 21:10 | ED.VISSUMM ---
- ER Visit Summary Date of Service: 03/16/19 Chief Complaint: Right hip pain History of Present Illness: The patient is a 74 M presenting with right hip pain. Patient states this started on . He states he was stepping off a boat and fell out of the boat hitting his right hip on the concrete. He did not hit his head or lose consciousness. He has been walking with a cane but states the pain has been progressively worsening. He denies other injuries. He has not taken anything for the pain at home other than ibuprofen. He is not on anticoagulants. Physical Examination: Vitals are stable. Patient is afebrile. Alert no acute distress. HEENT exam is unremarkable. Neck is nontender Lungs are clear and equal bilaterally. Heart is regular rate and rhythm. Abdomen is soft nontender nondistended. Extremities right lateral hip tenderness to palpation. No pain with logrolling. Skin is warm and dry. No focal neurologic deficit. Remainder of exam is unremarkable. Emergency Department Course and Treatment: Right hip x-ray shows mild arthritic changes of the left and right hips. There is no evidence of fracture of the right hip or bony pelvis. Patient was given [place] in the ED. He is able to ambulate with his cane with a limp. He declines admission for MRI. He will follow-up with his doctor tomorrow. He is advised importance of close follow-up. He is advised to return to ED for worsening complaints. Disposition: Discharge home Impression: Right hip contusion This note was generated with [employer] dictation software. It may contain incorrect words, spelling, and punctuation that were not noted in review of the chart prior to signing ED Disposition - Plan for ED Patient: Instructions: ED Contusion Hip Prescriptions: Hydrocodone Bitart/Apap 5-325 [[place] 5MG-325MG] 1 tablet PO Q6H PRN PRN 3 Days #10 tablet PRN Reason: Pain [facility]errals: [facility] [Primary [facility]] -
[2019-03-16] MEDS: HYDROcodone Bitartrate/Apap 5/325 Tablet PO (21:18)
[2019-03-16 21:20] VITALS: BP 149/100; PULSE 66; RESP 17
== END 2019-03-16 21:29 | disposition home or self-care (01) ==
LOC: ED 20:17
PROVIDERS: Emergency Provider Emergency Medicine
DX: S70.01XA Contusion of right hip, initial encounter (principal); V94.0XXA Hitting object or bottom of body of water due to fall from watercraft, initial encounter; Y93.9 Activity, unspecified; Y92.89 Other specified places as the place of occurrence of the external cause; Y99.9 Unspecified external cause status; I25.10 Atherosclerotic heart disease of native coronary artery without angina pectoris; E11.9 Type 2 diabetes mellitus without complications; I10 Essential (primary) hypertension; E78.00 Pure hypercholesterolemia, unspecified; Z72.0 Tobacco use
CPT/HCPCS: 73502; 99283

== ENCOUNTER 2019-03-17 14:11 | Emergency (ER) | payer MEDICARE, OTHER, SELFPAY ==
[2019-03-16 19:44] VITALS: BMI 28.5
[2019-03-17 14:12] VITALS: BP 146/76; PULSE 63; RESP 16; TEMP 36.2; O2SAT 96; BMI 29.5
--- NOTE | 2019-03-17 14:40 | ED.DCSUM_ITS ---
History of Present Illness Chief Complaint: Lower Extremity Injury Informant: Patient Occurred: Days Onset: Days Location: Day right groin yesterday right greater trochanteric region Current Severity: Mild Maximum Severity: Moderate Worsened by: Weightbearing Relieved by: Rest Associated Symptoms: Negative for: Parasthesia, Weakness, Loss of Funtion Narrative: Patient is an elderly male with multiple medical problems who was seen yesterday and had x-rays of his hip which were read as negative for any acute pathology. X-rays were reviewed and they reveal arthritis. Patient denies fever, chills night sweats. Patient denies dysuria, frequency, urgency hematuria. Patient denies trauma since yesterday. Patient denies symptoms of claudication. Prior similar symptoms: Yes Recent Illness/Hospitalization: Yes Past Medical History - Allergies and Home Meds Allergies/Adverse Reactions: Allergies No Known Allergies Allergy (Verified 02/03/19 13:35) Primary Care Physician: [place] [Primary Care Provider] - Prior records reviewed: Yes Surgical History: appendectomy, pacemaker implantation, - - Left heart cath Lives: Alone Smoking Status: Former smoker Alcohol: None - Family History Paternal Family History: Family History (Last Reviewed 01/08/19 @ 13:22 by Dorothy Mcbride) Father Diabetes Mother CAD (coronary artery disease) Brother Diabetes Sister Hypothyroid Family History: Reports: Stroke Maternal Family History: Family History (Last Reviewed 01/08/19 @ 13:22 by Dorothy Mcbride) Father Diabetes Mother CAD (coronary artery disease) Brother Diabetes Sister Hypothyroid Family History: Reports: Heart Disease - [place] Sibling Family History: Family History (Last Reviewed 01/08/19 @ 13:22 by Dorothy Mcbride) Father Diabetes Mother CAD (coronary artery disease) Brother Diabetes Sister Hypothyroid Family History: Reports: - - Hypothyroid Review of Systems General: Denies: Chills, Fever, Malaise, Sweats Genitourinary: Denies: Dysuria, Hematuria, Frequency Musculoskeletal: Reports: Extremity Pain - Right groin. Denies: Myalgias, Arthralgias, Neck pain, Back pain, Swelling Skin: Denies: Rash, Wounds Neurological: Denies: Weakness, Parasthesia, Numbness Physical Exam Vital Signs/Narrative: Vital Signs Temp Pulse Resp BP Pulse Ox 03/17/19 14:12 97.2 F L 63 16 146/76 H 96 Inital Vital Signs reviewed: Yes - Extremity Exam Right Pelvis: Negative for: Abrasion, Contusion, Deformity, Edema, Hematoma, Limited ROM, - Right Hip: Negative for: Abrasion, Contusion, Deformity, Edema, Hematoma, Limited ROM, - - There is pain palpation over the right greater trochanteric bursa. Right Femur: Negative for: Abrasion, Contusion, Deformity, Edema, Hematoma, Limited ROM, - - She complains of no discomfort with flexion extension of the hip. Minimal discomfort with axial loading. Right Knee: Negative for: Abrasion, Contusion, Deformity, Edema, Hematoma, Limited ROM, - Right Tib fib: Negative for: Abrasion, Contusion, Deformity, Edema, Hematoma, Limited ROM, - Right Foot: Negative for: Abrasion, Contusion, Deformity, Edema, Hematoma, Limited ROM, - General: Well nourished, Well developed Head: Normocephalic, Atraumatic Cardiovascular: Regular rate, Regular rhythm, No murmurs, Normal S1, Normal S2 Respiratory: No distress, CTA bilaterally Skin: Normal color, No rash, - - There is stigmata of peripheral arterial disease Neurological: Alert, Oriented x3, Cranial nerves II-XII grossly intact, Normal Strength, Normal Sensation, Normal DTR Psychological: Normal affect Diagnostic/Tx/Re-eval - Medical Decision Making Patient states he fell. When seen yesterday he complained of pain laterally. Today he complains of pain in the groin. In my opinion patient most likely has a traumatic bursitis from his fall causing his lateral pain and the groin pain is secondary to arthritic changes involving the hip joints. Patient was given treatment options. He does not wish systemic steroids because his blood sugars become markedly elevated and difficult to control. Last time he was injected with a steroid he required hospitalization because of elevated blood sugar. He is not a candidate for NSAIDs either. Recommend he follow-up with his primary care physician and orthopedist. ED Disposition - Plan for ED Patient: Disposition: Home or Assisted Living Diagnosis: Osteoarthritis of right hip Instructions: ED Degenerative Joint Disease [facility]errals: [facility] [Primary [facility]] - As Needed
[2019-03-17 15:06] VITALS: BP 139/61; PULSE 60; RESP 15; O2SAT 97
== END 2019-03-17 15:09 | disposition home or self-care (01) ==
LOC: ED 14:47
PROVIDERS: Emergency Provider Emergency Medicine
DX: M16.11 Unilateral primary osteoarthritis, right hip (principal); Z87.891 Personal history of nicotine dependence; Z95.0 Presence of cardiac pacemaker
CPT/HCPCS: 99282

== ENCOUNTER 2020-03-28 19:10 | Emergency (ER) | payer MEDICARE, SELFPAY ==
[2020-03-23 14:58] VITALS: BMI 29.2
[2020-03-28 19:12] VITALS: BP 157/80; PULSE 60; RESP 16; TEMP 36.7; O2SAT 94; BMI 29.7
--- NOTE | 2020-03-28 19:37 | CT_ITS ---
STUDY: CT BRAIN WITHOUT CONTRAST REASON FOR EXAM: Male, 75 years old. PT STATED FALL, LACERATION TO FOREHEAD RADIATION DOSAGE (If Supplied By Facility): CTDIvol = ( 44.99 ) mGy, DLP = ( 779.24 ) mGycm TECHNIQUE: Transaxial CT imaging of the brain was performed without administration of intravenous contrast material. Individualized dose optimization techniques were used for this CT. COMPARISON: Prior study of 02/03/2019 FINDINGS: There is scalp swelling of the left frontal region. Normal calvarium. There is mild cerebral atrophy with widening of the extra-axial spaces and ventricular dilatation. There are areas of decreased attenuation within the white matter tracts of the supratentorial brain, consistent with microvascular disease changes. Normal basal ganglia and thalami. Normal brainstem. Normal cerebellum. There is no intracranial hemorrhage. There are no findings of an acute ischemic infarction. Normal visualized paranasal sinuses. CT/Brain/Head without Contrast IMPRESSION: Chronic involutional changes of the brain. There is no evidence of intracranial hemorrhage or calvarial fracture. Findings are similar to the previous study. Electronically Signed: Campos Gonzalez MD at 20:33 EDT , Service support ,
[2020-03-28 19:42] VITALS: RESP 16
--- NOTE | 2020-03-28 19:42 | ED.VIS.GEN ---
History of Present Illness Chief Complaint: Fall Informant: Patient Onset: Today Narrative: Patient misstepped and fell down he tried to brace himself with his bilateral forearms extended. He ended up with his hands underneath his chest and his face hit the concrete. He notes abrasions to the nose and the mid forehead. He notes a skin tear to the right dorsum of the wrist. He has a slight amount of discomfort in the right wrist but most of his concern is of the left wrist where he has problems supinating and putting pressure on the wrist. He also notes bilateral knee abrasions. He tells me his last tetanus shot was about 5 years ago. No loss of consciousness. He denies any neck pain or back pain. No chest pain or abdominal pain. Past Medical History - Allergies and Home Meds Allergies/Adverse Reactions: Allergies No Known Allergies Allergy (Verified 03/28/20 19:12) Primary Care Physician: [place] [Primary Care Provider] - Surgical History: appendectomy, pacemaker implantation, - - Left heart cath Smoking Status: Former smoker - Family History Paternal Family History: Family History (Last Reviewed 03/23/20 @ 14:[address] Jake Vital MD) Father Diabetes Arthritis Cancer CVA (cerebral vascular accident) Skin cancer Mother CAD (coronary artery disease) Arthritis Parkinsons disease Brother Diabetes Kidney disease Sister Hypothyroid Family History: Reports: Stroke Maternal Family History: Family History (Last Reviewed 03/23/20 @ 14:[address] Jake Vital MD) Father Diabetes Arthritis Cancer CVA (cerebral vascular accident) Skin cancer Mother CAD (coronary artery disease) Arthritis Parkinsons disease Brother Diabetes Kidney disease Sister Hypothyroid Family History: Reports: Heart Disease - [place] Sibling Family History: Family History (Last Reviewed 03/23/20 @ 14:[address] Jake Vital MD) Father Diabetes Arthritis Cancer CVA (cerebral vascular accident) Skin cancer Mother CAD (coronary artery disease) Arthritis Parkinsons disease Brother Diabetes Kidney disease Sister Hypothyroid Family History: Reports: - - Hypothyroid Review of Systems General: Denies: Chills, Fever, Sweats Eyes: Denies: Visual changes - bilaterally, Diplopia ENT: Denies: Rhinorrhea, Sore throat Cardiovascular: Denies: Chest pain, Palpitations Respiratory: Denies: Dyspnea, Cough, Dyspnea on exertion Gastrointestinal: Denies: Abdominal pain, Nausea, Vomiting, Diarrhea, Melena, Hematochezia Genitourinary: Denies: Dysuria, Hematuria, Frequency Musculoskeletal: Denies: Back pain, Extremity Pain Skin: Denies: Rash, Wounds Neurological: Denies: Headache, Weakness, Numbness Physical Exam Vital Signs/Narrative: Vital Signs Temp Pulse Resp BP Pulse Ox 03/28/20 19:12 98.0 F 60 16 157/80 H 94 Inital Vital Signs reviewed: Yes General: Well nourished, Well developed, No Acute Distress Head: Normocephalic, Trauma - There is a large mid forehead skin abrasion. There is abrasion to the nose. No septal hematoma Eyes: Perrl, EOMI ENT: Moist mucous membranes, No rhinorrhea Neck: Supple, Nontender Cardiovascular: Regular rate, Regular rhythm, No murmurs Respiratory: No distress, CTA bilaterally, Chest nontender Abdomen: Soft, Nontender, Nondistended, Normal bowel sounds Back: Nontender, Normal Inspection Extremities: Tenderness - Bilateral knee abrasions without effusion or tenderness to palpation and is able to bear weight. Left greater than right wrist pain at the level of the distal radius. Mild swelling on the left. There is a 1 cm skin tear on the right dorsum of the wrist. Skin: Normal color, No rash Neurological: Alert, Oriented x3, Cranial nerves II-XII grossly intact, Normal Strength, Normal Sensation Psychological: Normal affect, Normal Mood Diagnostic/Tx/Re-eval - Medical Decision Making X-rays of bilateral wrist were negative. CT of the head was negative. His wounds were cleansed and dressed. No sutures were needed. We will place a left Velcro splint on the left wrist. He states he does not want one for the right. ED Disposition - Plan for ED Patient: Disposition: Home or Assisted Living Diagnosis: Fall, Strain of both wrists, Facial abrasion, Forehead contusion, Knee abrasion, Tear of skin of right wrist Instructions: ED SOFT TISSUE CONTUSION, ED Abrasion, ED Sprain Wrist [facility]errals[facility] [Primary [facility]] - 10-14 Days if not better
--- NOTE | 2020-03-28 20:26 | RAD_ITS ---
STUDY: X-RAY - RIGHT WRIST REASON FOR EXAM: Male, 75 years old. Fall today. Tried to catch himself, injuring bilateral wrists. Right wrist pain. TECHNIQUE: 3 view(s) of the wrist were obtained. COMPARISON: None. FINDINGS: Normal visualized distal radius and ulna. Normal radiocarpal articulation. Normal distal radioulnar articulation. Normal carpal bones. Normal carpal articulations. Normal carpometacarpal articulation of the thumb. Normal second through fifth carpometacarpal articulations. Normal visualized metacarpal bones. The soft tissue structures are unremarkable. RAD/Wrist min 3 Views IMPRESSION: Normal x-ray examination of the wrist. Electronically Signed: Campos Gonzalez MD at 20:56 EDT , Service support ,
--- NOTE | 2020-03-28 20:26 | RAD_ITS ---
STUDY: X-RAY - LEFT WRIST REASON FOR EXAM: Male, 75 years old. Fall today. Tried to catch himself, injuring bilateral wrists. Left wrist pain. TECHNIQUE: 3 view(s) of the wrist were obtained. COMPARISON: None. FINDINGS: Normal visualized distal radius and ulna. Normal radiocarpal articulation. Normal distal radioulnar articulation. Normal carpal bones. Normal carpal articulations. Normal carpometacarpal articulation of the thumb. Normal second through fifth carpometacarpal articulations. Normal visualized metacarpal bones. The soft tissue structures are unremarkable. RAD/Wrist min 3 Views IMPRESSION: Normal x-ray examination of the wrist. Electronically Signed: Campos Gonzalez MD at 20:58 EDT , Service support ,
[2020-03-28 21:11] VITALS: PULSE 74; RESP 15; O2SAT 97
== END 2020-03-28 21:19 | disposition home or self-care (01) ==
PROVIDERS: Emergency Provider Emergency Medicine
DX: S66.912A Strain of unspecified muscle, fascia and tendon at wrist and hand level, left hand, initial encounter (principal); S66.911A Strain of unspecified muscle, fascia and tendon at wrist and hand level, right hand, initial encounter; W19.XXXA Unspecified fall, initial encounter; S00.83XA Contusion of other part of head, initial encounter; S00.81XA Abrasion of other part of head, initial encounter; S80.219A Abrasion, unspecified knee, initial encounter; S61.511A Laceration without foreign body of right wrist, initial encounter; Z95.0 Presence of cardiac pacemaker
CPT/HCPCS: 70450; 73110; 99283

== ENCOUNTER 2020-06-02 13:44 | Emergency (ER) | payer OTHER, MEDICARE, SELFPAY ==
[2020-04-20 10:24] VITALS: BMI 29.7
[2020-06-02 13:46] VITALS: BP 130/70; PULSE 64; RESP 16; TEMP 37.2; O2SAT 96; BMI 29.8
--- NOTE | 2020-06-02 14:12 | RAD_ITS ---
STUDY: X-RAY CHEST REASON FOR EXAM: Male, 75 years old. SHORT OF BREATH, CONFUSION, DIABETIC TECHNIQUE: Single AP portable view of the chest. COMPARISON: Comparison is made with prior examination dated 09/20/2018. FINDINGS: EKG electrodes are seen. The lungs are clear and expanded. There is no demonstrated pleural abnormality. Normal size heart. Normal mediastinum and rayna. Normal visualized pulmonary arteries. There is atherosclerotic calcification of the aortic arch with tortuosity. Normal visualized thoracic spine. A left-sided chamber pacemaker is seen. Normal visualized ribs, clavicles, and shoulders. There is no demonstrated abnormality of the visualized soft tissue structures of the upper abdomen. RAD/Chest 1 View (Portable) IMPRESSION: No acute abnormality is seen. Electronically Signed: Diogenes Mitchell, at 15:27 EDT , Service support ,
--- NOTE | 2020-06-02 14:12 | EKG12_ITS ---
Test Reason : SOB/COUGH Blood Pressure : / mmHG Vent. Rate : 060 BPM Atrial Rate : 060 BPM P-R Int : 180 ms QRS Dur : 146 ms QT Int : 472 ms P-R-T Axes : 026 -58 108 degrees QTc Int : 472 ms Normal sinus rhythm Left axis deviation Left bundle branch block Abnormal ECG Confirmed by MARY MIRANDA, MARTELL ([id number]), deputy editor in chief HUSSEIN FLANNERY ([id number]) on 06/08/2020 8:48:37 AM Referred By: HENRI Confirmed By:MARTELL HERNANDEZ MD
--- NOTE | 2020-06-02 14:13 | ED.DCSUM_ITS ---
History of Present Illness Chief Complaint: General Illness Informant: Patient, Family Onset: Weeks Context: Gradual Onset Current Severity: Mild Maximum Severity: Moderate Narrative: Patient presents with daughter secondary to generalized weakness and intermittent low blood pressures. She states she last visited him 2 weeks ago and noted that he was weak and was having difficulty walking. She states on the phone he is not quite been himself and been intermittently confused. She visited again today and noted symptoms were still ongoing and brought him to the emergency room. He does have a blood pressure cuff at home that he will use intermittently. Blood pressures have been reading in the 80s and 90s systolic. They are not sure if the cuff is accurate. Patient denies recent fall. He denies chest pain or shortness of breath. He denies cough. No nausea, vomiting, or diarrhea. He does report urinary frequency at night. - Past Medical History (1) Atherosclerotic heart disease of [place] coronary artery without angina pectoris Status: Chronic (2) Diabetes Status: Chronic (3) Essential (primary) hypertension Status: Chronic (4) History of permanent cardiac pacemaker placement Status: Chronic Comment: 07/20/2015 (5) Hyperlipidemia Status: Chronic (6) Left bundle branch block Status: Chronic (7) Sick sinus syndrome Status: Chronic Past Medical History - Allergies and Home Meds Allergies/Adverse Reactions: Allergies No Known Allergies Allergy (Verified 06/02/20 13:46) Primary Care Physician: [place] [place] [Primary Care Provider] - Prior records reviewed: Yes Surgical History: appendectomy, pacemaker implantation, - - Left heart cath Lives: Alone Smoking Status: Former smoker - Family History Paternal Family History: Family History (Last Reviewed 04/20/20 @ 10:[address] Jake Vital MD) Father Diabetes Arthritis Cancer CVA (cerebral vascular accident) Skin cancer Mother CAD (coronary artery disease) Arthritis Parkinsons disease Brother Diabetes Kidney disease Sister Hypothyroid Family History: Reports: Stroke Maternal Family History: Family History (Last Reviewed 04/20/20 @ 10:[address] Jake Vital MD) Father Diabetes Arthritis Cancer CVA (cerebral vascular accident) Skin cancer Mother CAD (coronary artery disease) Arthritis Parkinsons disease Brother Diabetes Kidney disease Sister Hypothyroid Family History: Reports: Heart Disease - [place] Sibling Family History: Family History (Last Reviewed 04/20/20 @ 10:[address] Jake Vital MD) Father Diabetes Arthritis Cancer CVA (cerebral vascular accident) Skin cancer Mother CAD (coronary artery disease) Arthritis Parkinsons disease Brother Diabetes Kidney disease Sister Hypothyroid Family History: Reports: - - Hypothyroid Review of Systems General: Denies: Chills, Fever Eyes: Denies: Visual changes - bilaterally ENT: Denies: Bilateral ear pain Cardiovascular: Denies: Chest pain, Palpitations Respiratory: Denies: Dyspnea, Cough Gastrointestinal: Denies: Abdominal pain, Nausea, Vomiting, Diarrhea Musculoskeletal: Reports: Back pain. Denies: Extremity Pain Skin: Denies: Rash Neurological: Reports: Weakness Hematologic: Denies: Easy bruising, Easy bleeding Allergy: Denies: Uticaria Physical Exam Vital Signs/Narrative: Vital Signs Temp Pulse Resp BP Pulse Ox 06/02/20 13:46 98.9 F 64 16 130/70 H 96 Inital Vital Signs reviewed: Yes General: Well nourished, Well developed Head: Normocephalic ENT: Moist mucous membranes Neck: Supple Cardiovascular: Regular rate, Regular rhythm Respiratory: No distress, CTA bilaterally Abdomen: Soft, Nontender, Normal bowel sounds Back: Nontender Extremities: Nontender Skin: Normal color Neurological: Alert, Oriented x3, Normal Strength, Normal Sensation, - - No focal neurologic deficits. Psychological: Normal affect Diagnostic/Tx/Re-eval Impressions Chest X-Ray 06/02/20 14:12 IMPRESSION: No acute abnormality is seen. Electronically Signed: Diogenes Stephen, at 15:27 EDT , Service support , 06/02/20 14:12 Chest 1 View (Portable) [RAD] Stat Laboratory Results 06/02/20 06/02/20 06/02/20 14:26 14:41 14:41 WBC 4.7 RBC 4.05 L Hgb 12.4 L Hct 37.4 L MCV 92.3 MCH 30.6 MCHC 33.2 RDW Std Deviation 47.5 H RDW Coeff of Digna 14.1 Plt Count 212 MPV 9.4 Immature Gran % (Auto) 0.200 Neut % (Auto) 59.7 Lymph % (Auto) 19.3 Lipscomb % (Auto) 17.0 H Eos % (Auto) 3.2 Baso % (Auto) 0.6 Absolute Neuts (auto) 2.8 Absolute Lymphs (auto) 0.91 Nucleated RBC % 0 Sodium 139 Potassium 4.0 Chloride 108 H Carbon Dioxide 27.0 Anion Gap 4 L BUN 44 H Creatinine 1.31 H Estim Creat Clear Calc 54.30 Est GFR (MDRD) Af Amer 69 Est GFR (MDRD) Non-Af 57 L BUN/Creatinine Ratio 33.6 H Glucose 42 L* Calcium 9.0 Troponin I < 0.015 Urine Color Urine Clarity Urine pH Ur Specific [place] Urine Protein Urine Glucose (UA) Urine Ketones Urine Occult Blood Urine Nitrite Urine Bilirubin Urine Urobilinogen Ur Leukocyte Esterase Urine RBC Urine WBC Ur Squamous Epith Cells Urine Bacteria Urine Mucus COVID-19 (VISHNU) Negative POC Glucose 06/02/20 06/02/20 15:30 16:30 WBC RBC Hgb Hct MCV MCH MCHC RDW Std Deviation RDW Coeff of Digna Plt Count MPV Immature Gran % (Auto) Neut % (Auto) Lymph % (Auto) Lipscomb % (Auto) Eos % (Auto) Baso % (Auto) Absolute Neuts (auto) Absolute Lymphs (auto) Nucleated RBC % Sodium Potassium Chloride Carbon Dioxide Anion Gap BUN Creatinine Estim Creat Clear Calc Est GFR (MDRD) Af Amer Est GFR (MDRD) Non-Af BUN/Creatinine Ratio Glucose Calcium Troponin I Urine Color Yellow Urine Clarity Clear Urine pH 6.0 Ur Specific [place] 1.010 Urine Protein Negative Urine Glucose (UA) Normal Urine Ketones Negative Urine Occult Blood Negative Urine Nitrite Negative Urine Bilirubin Negative Urine Urobilinogen Normal Ur Leukocyte Esterase Negative Urine RBC 0 SEEN Urine WBC 0 SEEN Ur Squamous Epith Cells 0 SEEN Urine Bacteria 0 SEEN Urine Mucus 0 SEEN COVID-19 (VISHNU) POC Glucose 32 L* - EKG Initial EKG Interpretation: Sinus Rhythm - Sinus at 60 with left bundle branch block. No acute ischemia. Unchanged when compared to prior. - Medical Decision Making Patient's blood sugar was reportedly 74 in triage on arrival. By the time blood work was obtained blood sugars were in the 30s and 40s. He was given D50 and a meal. Patient states his blood sugars were high this morning in the 340 range. He gave himself insulin to cover this and then did not eat his lunch. In addition to this his creatinine is elevated and I believe he is dehydrated. He is given a liter of IV fluids. We did check the patient's blood glucose meter as well as his home blood pressure cuff against ours to ensure that they are working appropriately. Patient is to keep a journal of his blood sugars, blood pressures, and how he is feeling and follow-up with his doctor within the next several days. Patient and daughter at bedside are updated and in agreement with this plan. ED Disposition - Plan for ED Patient: Disposition: Home or Assisted Living Diagnosis: Hypoglycemia, Generalized weakness Instructions: ED Weakness UKO, ED HYPOGLYCEMIA Insulin Rxn [facility] [Primary Care Provider] - 3-5 Days
[2020-06-02] MEDS: 0.9% Normal Saline 1,000 ML 15 ML IV (14:44)
[2020-06-02 14:57] LABS: Absolute Lymphocyte Count 0.91 X10^3/uL (0.83-4.51); Absolute Neutrophil Count 2.8 X10^3/uL (2.0-7.7); Basophil# 0.03 X10^3/uL; Basophil% 0.6 % (0-1); Eosinophil# 0.15 X10^3/uL; Eosinophils% 3.2 % (0-5); Hematocrit 37.4 % (40-54); Hemoglobin 12.4 g/dL (13.0-16.5); Lymphocyte # 0.91 X10^3/ul (4.0); Lymphocyte % 19.3 % (19-41); Mean Corp Hgb Conc 33.2 g/dL (32-36); Mean Corpuscular Hgb 30.6 pg (27.0-32.0); Mean Corpuscular Volume 92.3 fL (80-94); Mean Platelet Vol. 9.4 fl (6.2-12.0); NRBC Flagged by Analyzer 0 % (0-5); Neutrophil # 2.81 X10^3/uL (2.7-7.7); Neutrophil % 59.7 % (47-70); Platelet Count 212 K/mm3 (150-450); RBC Distribution Width CV 14.1 % (11.6-14.6); RBC Distribution Width SD 47.5 fl (35.1-43.9); Red Blood Count 4.05 M/mm3 (4.6-6.2); White Blood Count 4.7 K/mm3 (4.4-11.0)
[2020-06-02 15:29] LABS: Anion Gap 4 (5-15); BUN 44 mg/dL (7-18); BUN/Creat Ratio 33.6 RATIO (10-20); Chloride 108 mmol/L (98-107); Creatinine, Serum 1.31 mg/dL (0.70-1.30); EST Glomerular Filtration Rate 57 mL/min (>60); Est Glom Filt Rate - Afr Amer 69 mL/min (>60); Glucose 42 mg/dL (74-106); Sodium Level 139 mmol/L (136-145)
[2020-06-02 15:35] LABS: Bedside Glucose 32 mg/dL (70-110)
[2020-06-02] MEDS: Dextrose 50%-Water 25 GM/50 ML DISP.SYRIN IV (15:37)
[2020-06-02 16:36] VITALS: BP 156/54; PULSE 65; RESP 18; O2SAT 96
[2020-06-02 16:47] LABS: Bacteria 0 SEEN /hpf (None Seen); Mucous, Urine 0 SEEN /hpf (<or=2+); Red Blood Cells-Urine 0 SEEN /hpf (0-5); Squamous Epithelial Cells - UA 0 SEEN /hpf (0-5); White Blood Cells 0 SEEN /hpf (0-5)
[2020-06-02 16:51] LABS: Color, Urine Yellow (Yellow); Glucose, Dipstick Normal (Normal); Ketone-Dipstick Negative (Negative); Leukocyte Esterase-Dipstick Negative /ul (Negative); Nitrite-Dipstick Negative (Negative); Occult Blood-Urine Negative /ul (Negative); Protein-Dipstick Negative (Negative); Urine Bilirubin Dipstick Negative (Negative); Urine Clarity Clear (Clear); Urine Urobilinogen Normal (Normal)
[2020-06-02 18:43] VITALS: BP 134/59; PULSE 63; RESP 18
[2020-06-02 18:47] VITALS: BP 134/59; PULSE 67; RESP 17
== END 2020-06-02 18:54 | disposition home or self-care (01) ==
PROVIDERS: Emergency Provider Emergency Medicine
DX: E11.649 Type 2 diabetes mellitus with hypoglycemia without coma (principal); R53.1 Weakness; I25.10 Atherosclerotic heart disease of native coronary artery without angina pectoris; I10 Essential (primary) hypertension; E78.5 Hyperlipidemia, unspecified; Z79.4 Long term (current) use of insulin; Z79.899 Other long term (current) drug therapy; Z87.891 Personal history of nicotine dependence
CPT/HCPCS: 71045; 80048; 81001; 82962; 84484; 85025; 87635; 93005; 94799; 96361; 96374; 99284; J7030; J7040; A4216; U0003

== ENCOUNTER 2020-12-30 09:09 | Outpatient (RCR) | payer MEDICARE, SELFPAY | END 2020-12-30 23:59 | LOC: IMMUN 09:09 | PROVIDERS: Visit Provider Family Medicine | DX: Z23 Encounter for immunization (principal) | CPT/HCPCS: 0011A; 0012A; 91301 ==

== ENCOUNTER 2021-04-07 18:54 | Emergency (ER) | payer MEDICARE, SELFPAY ==
[2021-02-04 13:39] VITALS: BMI 29.9
[2021-04-07 18:55] VITALS: BP 182/87; PULSE 65; RESP 15; TEMP 36.4; O2SAT 98; BMI 29.8
--- NOTE | 2021-04-07 19:14 | EX.ED.DYSGE1 ---
HPI History of Present Illness Chief Complaint: Rash Informant: patient Onset/Context/Timing Onset: Days (8) Context: Gradual Onset Timing: Continuous Quality: painful/sore Location: right scalp and neck Current Severity: Severe Maximum Severity: Severe Worsened by: touching area Relieved by: Nothing Associated Symptoms Associated Symptoms: none Narrative Narrative: Patient has had a painful rash on the right side of his scalp and neck that has been present now for about 8 days. 2 days ago he was seen at [facility] urgent care, they told him it look like shingles and no prescriptions were given. He states he needs something for the pain because he cannot tolerate it. He denies any other symptoms. There has been no discharge from the rash. He had chickenpox long ago, and had the shingles vaccine last year. He is not sure which vaccine he received. He is a type I diabetic. He denies any recent illness or injury. He denies any vision changes or eye pain/symptoms, same with his ear no changes or symptoms/pain there. [facility] Medical History (Updated 04/07/21 @ 19:[address] 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 Essential (primary) hypertension History of non-ST elevation myocardial infarction (NSTEMI) (2010) Hyperlipidemia Hyperlipidemia due to type 1 diabetes mellitus Left bundle branch block correction current use of insulin Sebaceous cyst Seborrheic dermatitis Secondary pulmonary arterial hypertension Sick sinus syndrome Syncopal episodes Syncope and collapse Home Medications aspirin 81 mg PO DAILY 09/20/18 [History Last Taken 03/16/19] atorvastatin 80 mg PO QHS 09/20/18 [History Last Taken 03/15/19] losartan 100 mg PO DAILY 09/20/18 [History Last Taken 03/16/19] tamsulosin 0.4 mg PO DAILY 09/20/18 [History Last Taken 03/16/19] gabapentin 400 mg capsule 400 mg PO BID cap 03/23/20 [History Last Taken Unknown] glucagon HCl 1 mg solution for injection 1 mg SC Q20M PRN 03/23/20 [History Last Taken Unknown] insulin lispro 100 unit/mL subcutaneous solution See Rx Instructions SC DAILY ml 03/23/20 [History Last Taken Unknown] menthol 4 % topical cream % TOPICAL 03/23/20 [History Last Taken Unknown] finasteride 5 mg PO DAILY 03/28/20 [History Last Taken Unknown] tremafya SC DIRECTED 12/10/20 [History Last Taken Unknown] hydrocodone-acetaminophen 1 tab PO Q6H PRN PRN 4 Days #16 tablet 04/07/21 [Rx Last Taken Unknown] Allergy/AdvReac Type Severity Reaction Status Date / Time No Known Allergies Allergy Verified 04/07/21 18:57 Family History Father Diabetes Arthritis Cancer CVA (cerebral vascular accident) Skin cancer Mother CAD (coronary artery disease) Arthritis Parkinsons disease Brother Diabetes Kidney disease Sister Hypothyroid Surgical History (Updated 02/16/21 @ 18:11 by Aria Guajardo) H/O hernia repair History of appendectomy History of left heart catheterization (2010) 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) Social History (Updated 02/04/21 @ 14:[address] Jake Vital MD) Smoking Status: Former smoker second hand exposure: No alcohol intake: current alcohol intake frequency: a few times a month substance use type: does not use caffeine: Yes what type of physical activity do you participate in: other frequency: 1-2 times per week ROS ROS ED Constitutional Constitutional ED: Denies chills or fever(s) Eyes Eyes: Denies change in vision, diplopia, discharge from eye(s), eye pain or irritation ENT ENT ED: Denies discharge from eye(s), ear pain, headache(s), lip swelling, mouth pain or sore throat Musculoskeletal Musculoskeletal: Reports other Details: pain at rash location, no extremity pain or myalgias Integumentary Reports rash; Denies abscess or Abrasions Neurologic Neurologic: Reports paresthesias; Denies headache(s) or weakness EXAM Physical Exam Const Vital Signs: 04/07/21 18:55 Temperature 97.6 F L Temperature Source Temporal Pulse Rate 65 Respiratory Rate 15 Blood Pressure 182/87 H Blood Pressure Mean 118 Pulse Ox 98 Oxygen Delivery Method Room Air Positive well nourished and well developed General Appearance ED: well developed and NAD HEENT Reports external ears normal, EAC's normal and TM's clear HEENT Narrative: Tenderness right parieto-occipital scalp and right lateral neck, where there is papular erythematous very tender superficially rash with a couple of scabbed vesicles. Does not go beyond the midline anteriorly or posteriorly. No facial or ear involvement. tenderness; Negative for trauma Tympanic Membrane ED: Yes TM's clear Eyes PERRL and EOMs intact bilaterally Eyes Narrative: Normal conjunctivae. No gross abnormality on conjunctivae or cornea bilaterally. Neck no lymphadenopathy and supple Neck Narrative: Tender at rash only superficially. No abscess. General: tenderness Chest Wall inspection of chest normal and palpation of chest normal Resp normal respiratory effort and clear to auscultation bilaterally Neuro oriented x3 and CN's II-XII intact bilaterally Neuro Narrative: Decrease sensation in feet, chronic, stable Sensorium / Orientation: alert Motor Exam: strength 5/5 throughout Psych mental status grossly normal and activity/motor behavior normal Skin Skin Narrative: Rash noted to right posterior parietal scalp and right lateral neck. See above. No rash noted elsewhere. MDM MDM MDM Narrative Medical decision making narrative: Clinically this rash is consistent with herpes zoster into bordering dermatomes. It does not appear to involve the ear at all, although pulling on the ear moves the scalp posteriorly on which the rash exists, causing pain there. His EAC is normal. His eye and face are normal and he does not appear to have zoster ophthalmicus. He is outside of the window that steroids and Valtrex will be helpful. He is given some hydrocodone and prescription for it, we discussed constipation and taking a stool softener, and follow-up. He is comfortable with that plan. Discharge Plan Triage Chief Complaint: Rash ED Provider: Isaac Paulino Dx/Rx/DC Orders Clinical Impression: Herpes zoster Instructions: ED Shingles (Herpes Zoster) Prescriptions: New hydrocodone-acetaminophen [hydrocodone-acetaminophen] 1 TABLET tablet 1 tab PO Q6H PRN PRN (Reason: Pain) 4 Days Qty: 16 RF: 0 No Action menthol 4 % cream TOPICAL RF: 0 Glucagon (HCl) Emergency Kit 1 mg recon soln 1 mg SC Q20M PRN (Reason: blood sugar) RF: 0 insulin lispro [Humalog U-100 Insulin] 100 unit/mL solution See Rx Instructions SC DAILY RF: 0 tremafya SC DIRECTED RF: 0 losartan 100 MG tablet 100 mg PO DAILY RF: 0 atorvastatin 80 MG tablet 80 mg PO QHS RF: 0 tamsulosin 0.4 MG capsule 0.4 mg PO DAILY RF: 0 aspirin 81 MG tablet 81 mg PO DAILY RF: 0 gabapentin 400 mg capsule 400 mg PO BID RF: 0 finasteride 5 MG tablet 5 mg PO DAILY RF: 0 [facility] [facility] [facility] [[facility]] - 1-2 Weeks Disposition Disposition: Home, self care
[2021-04-07] MEDS: HYDROcodone Bitartrate/Apap 5/325 Tablet PO (19:23)
== END 2021-04-07 19:34 | disposition home or self-care (01) ==
LOC: ED 19:29
PROVIDERS: Emergency Provider Emergency Medicine
DX: B02.9 Zoster without complications (principal); I25.10 Atherosclerotic heart disease of native coronary artery without angina pectoris; I10 Essential (primary) hypertension; E78.5 Hyperlipidemia, unspecified; E10.40 Type 1 diabetes mellitus with diabetic neuropathy, unspecified; Z79.4 Long term (current) use of insulin; Z79.899 Other long term (current) drug therapy; Z87.891 Personal history of nicotine dependence
CPT/HCPCS: 99282

== ENCOUNTER 2021-04-12 13:26 | Emergency (ER) | payer MEDICARE, SELFPAY ==
[2021-04-12 13:27] VITALS: BP 159/72; PULSE 68; RESP 15; TEMP 36.4; O2SAT 95; BMI 29.2
--- NOTE | 2021-04-12 14:00 | EX.ED.DYSGE1 ---
HPI History of Present Illness Chief Complaint: Rash Informant: patient Narrative Narrative: Patient is a 76-year-old male with history of type 1 diabetes mellitus with neuropathy resenting with continued painful rash associated with shingles. The rash been present for over 10 days. Patient was seen in our ER 4 days ago for the same complaint. At that time he was diagnosed with shingles and given a prescription for Vilas. Patient is already on gabapentin for his peripheral neuropathy. He has associated headache from his scalp lesions and pain. Denies any fever or chills. Is been members at the bedside is worried there is anything else I can do for him. His PCP is in [place] through the [place]. patient has chronic ringing in his ears which is unchanged. He denies any pain in his ears. He denies any vision changes. No other complaints. 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 Essential (primary) hypertension History of non-ST elevation myocardial infarction (NSTEMI) (2010) Hyperlipidemia Hyperlipidemia due to type 1 diabetes mellitus Left bundle branch block terminal manager current use of insulin Sebaceous cyst Seborrheic dermatitis Secondary pulmonary arterial hypertension Sick sinus syndrome Syncopal episodes Syncope and collapse Home Medications aspirin 81 mg PO DAILY 09/20/18 [History Last Taken 03/16/19] atorvastatin 80 mg PO QHS 09/20/18 [History Last Taken 03/15/19] losartan 100 mg PO DAILY 09/20/18 [History Last Taken 03/16/19] tamsulosin 0.4 mg PO DAILY 09/20/18 [History Last Taken 03/16/19] gabapentin 400 mg capsule 400 mg PO BID cap 03/23/20 [History Last Taken Unknown] glucagon HCl 1 mg solution for injection 1 mg SC Q20M PRN 03/23/20 [History Last Taken Unknown] insulin lispro 100 unit/mL subcutaneous solution See Rx Instructions SC DAILY ml 03/23/20 [History Last Taken Unknown] menthol 4 % topical cream % TOPICAL 03/23/20 [History Last Taken Unknown] finasteride 5 mg PO DAILY 03/28/20 [History Last Taken Unknown] tremafya SC DIRECTED 12/10/20 [History Last Taken Unknown] hydrocodone-acetaminophen 1 tab PO Q6H PRN PRN 4 Days #16 tablet 04/07/21 [Rx Last Taken Unknown] flash glucose sensor #2 ea 04/08/21 [Rx Last Taken Unknown] hydrocodone-acetaminophen 1 tab PO Q6H PRN 3 Days #12 tab 04/12/21 [Rx Last Taken Unknown] Allergy/AdvReac Type Severity Reaction Status Date / Time No Known Allergies Allergy Verified 04/12/21 13:30 Family History Father Diabetes Arthritis Cancer CVA (cerebral vascular accident) Skin cancer Mother CAD (coronary artery disease) Arthritis Parkinsons disease Brother Diabetes Kidney disease Sister Hypothyroid Surgical History H/O hernia repair History of appendectomy History of left heart catheterization (2010) 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) Social History Smoking Status: Former smoker second hand exposure: No alcohol intake: current alcohol intake frequency: a few times a month substance use type: does not use caffeine: Yes what type of physical activity do you participate in: other frequency: 1-2 times per week ROS ROS ED Constitutional Constitutional ED: Denies chills, fever(s) or malaise Eyes Eyes: Denies blurry vision or loss of vision ENT ENT ED: Denies rhinorrhea or sore throat Cardiovascular Cardiovascular: Denies chest pain or dizziness Respiratory/Chest Respiratory/Chest: Denies cough or dyspnea Gastrointestinal Gastrointestinal: Denies nausea or vomiting Genitourinary Genitourinary ED: Denies dysuria or hematuria Musculoskeletal Musculoskeletal: Denies arthralgias or myalgias Integumentary Reports rash; Denies wounds Neurologic Neurologic: Reports headache(s); Denies focal weakness, paresthesias or weakness Psychiatric Psychiatric: Denies anxiety or behavioral changes EXAM Physical Exam Const Vital Signs: 04/12/21 13:27 Temperature 97.6 F L Temperature Source Temporal Pulse Rate 68 Respiratory Rate 15 Blood Pressure 159/72 H Blood Pressure Mean 101 Pulse Ox 95 Oxygen Delivery Method Room Air Positive well nourished, well developed and no apparent distress General Appearance ED: well developed HEENT Reports normocephalic HEENT Narrative: Cerumen impaction including the right panic membrane. Normal left tympanic membrane. Normal ear canals. atraumatic; Negative for tenderness Nose: no nasal discharge General Ear: hearing grossly impaired External Ear: external ears normal Mouth ED: Yes moist mucous membranes abnormal Mouth: moist mucous membranes abnormal Eyes PERRL and EOMs intact bilaterally Neck full ROM, no lymphadenopathy, supple, no meningeal signs and no JVD Neck Narrative: Normal range of motion Chest Wall inspection of chest normal Resp normal respiratory effort and normal air movement Cardio regular rate and regular rhythm GI normal to inspection, nondistended, normoactive bowel sounds Extremity normal to inspection and full ROM Neuro oriented x3 and no focal motor deficits Sensorium / Orientation: alert Psych mental status grossly normal and thought process normal Skin no wounds Skin Narrative: Erythematous, crusted over vesicular lesions extended from the right occipital scalp, over the right neck and towards the right shoulder. It is in a dermatomal distribution. It does not appear superinfected. There is no associated drainage. Rash is consistent with shingles. MDM MDM MDM Narrative Medical decision making narrative: Patient evaluated for painful rash on the right scalp, neck and shoulder. It is consistent with herpes zoster. I do not think it superinfected at this time. The lesions appear to be crusting over. He does not have any systemic symptoms. Patient be given another prescription for Vilas for pain control and instructed to increase his gabapentin. He is given referral to dermatology. He is encouraged to follow-up with his primary care doctor. He is counseled that this could take weeks if not months to resolve. At this time he is too far out to benefit from antiviral therapy. Patient is counseled on signs and symptoms requiring return to the emergency room. Patient verbalizes agreement and understand this plan. Patient discharged home in stable and improved condition. Discharge Plan Triage Chief Complaint: Rash ED Provider: Sasha Manzano Dx/Rx/DC Orders Clinical Impression: Herpes zoster Instructions: ED Shingles (Herpes Zoster) Prescriptions: New hydrocodone-acetaminophen 5-325 mg tablet 1 tab PO Q6H PRN (Reason: pain) 3 Days Qty: 12 RF: 0 No Action menthol 4 % cream TOPICAL RF: 0 Glucagon (HCl) Emergency Kit 1 mg recon soln 1 mg SC Q20M PRN (Reason: blood sugar) RF: 0 insulin lispro [Humalog U-100 Insulin] 100 unit/mL solution See Rx Instructions SC DAILY RF: 0 tremafya SC DIRECTED RF: 0 losartan 100 MG tablet 100 mg PO DAILY RF: 0 atorvastatin 80 MG tablet 80 mg PO QHS RF: 0 tamsulosin 0.4 MG capsule 0.4 mg PO DAILY RF: 0 aspirin 81 MG tablet 81 mg PO DAILY RF: 0 gabapentin 400 mg capsule 400 mg PO BID RF: 0 finasteride 5 MG tablet 5 mg PO DAILY RF: 0 hydrocodone-acetaminophen [hydrocodone-acetaminophen] 1 TABLET tablet 1 tab PO Q6H PRN PRN (Reason: Pain) 4 Days Qty: 16 RF: 0 (DME) FreeStyle Wilma 2 Sensor Kit See Rx Instructions .ROUTE .MEDSUPPLY Qty: 2 RF: 8 Primary Care Provider: [facility],[place] Referrals: Haim Beltre MD [STAFF PHYSICIAN] - [facility],[place] [Primary Care Provider] - Activity Restrictions/Additional Instructions: Increase your gabapentin to 3 times a day to help with the pain. Take daily MiraLAX or other stool softener to help with opioid and induced constipation. Follow-up with your primary care doctor and I have also referred you to a inside technical sales representative to follow-up with for your shingles. You may try [id number] topical lidocaine spray or ointments to help with the pain as well. Disposition Disposition: Home, self care
[2021-04-12] MEDS: HYDROcodone Bitartrate/Apap 5/325 Tablet PO (14:20)
[2021-04-12 14:30] VITALS: RESP 18
== END 2021-04-12 14:31 | disposition home or self-care (01) ==
PROVIDERS: Emergency Provider Emergency Medicine
DX: B02.9 Zoster without complications (principal); E10.40 Type 1 diabetes mellitus with diabetic neuropathy, unspecified; I25.10 Atherosclerotic heart disease of native coronary artery without angina pectoris; I10 Essential (primary) hypertension; E78.5 Hyperlipidemia, unspecified; Z79.4 Long term (current) use of insulin; Z79.899 Other long term (current) drug therapy; Z87.891 Personal history of nicotine dependence
CPT/HCPCS: 99283

== ENCOUNTER 2021-04-19 12:48 | Emergency (ER) | payer OTHER, MEDICARE, SELFPAY ==
[2021-04-19 12:49] VITALS: BP 179/66; PULSE 61; RESP 16; TEMP 36.6; O2SAT 95; BMI 29.8
--- NOTE | 2021-04-19 13:11 | EX.ED.DYSGE1 ---
HPI History of Present Illness Chief Complaint: Headache Narrative Narrative: The patient has zoster involving the right side of his head and neck for 3 weeks indicates he has diabetes insulin-dependent well generally well controlled he has basically been doing well at home but has persistent intense pain related to the zoster he has been seen by his physicians he states he was told to continue with his gabapentin for the zoster pain for the last 3 weeks he has had intermittent increases of the pain and the gabapentin not helping today the pain intensified and he was brought in. 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 Essential (primary) hypertension History of non-ST elevation myocardial infarction (NSTEMI) (2010) Hyperlipidemia Hyperlipidemia due to type 1 diabetes mellitus Left bundle branch block detention current use of insulin Sebaceous cyst Seborrheic dermatitis Secondary pulmonary arterial hypertension Sick sinus syndrome Syncopal episodes Syncope and collapse Home Medications aspirin 81 mg PO DAILY 09/20/18 [History Last Taken 03/16/19] atorvastatin 80 mg PO QHS 09/20/18 [History Last Taken 03/15/19] losartan 100 mg PO DAILY 09/20/18 [History Last Taken 03/16/19] tamsulosin 0.4 mg PO DAILY 09/20/18 [History Last Taken 03/16/19] gabapentin 400 mg capsule 400 mg PO BID cap 03/23/20 [History Last Taken Unknown] glucagon HCl 1 mg solution for injection 1 mg SC Q20M PRN 03/23/20 [History Last Taken Unknown] insulin lispro 100 unit/mL subcutaneous solution See Rx Instructions SC DAILY ml 03/23/20 [History Last Taken Unknown] menthol 4 % topical cream % TOPICAL 03/23/20 [History Last Taken Unknown] finasteride 5 mg PO DAILY 03/28/20 [History Last Taken Unknown] tremafya SC DIRECTED 12/10/20 [History Last Taken Unknown] hydrocodone-acetaminophen 1 tab PO Q6H PRN PRN 4 Days #16 tablet 04/07/21 [Rx Last Taken Unknown] flash glucose sensor #2 ea 04/08/21 [Rx Last Taken Unknown] hydrocodone-acetaminophen 1 tab PO Q6H PRN 3 Days #12 tab 04/12/21 [Rx Last Taken Unknown] ondansetron 4 mg PO Q8H PRN PRN #10 tab 04/19/21 [Rx Last Taken Unknown] oxycodone-acetaminophen 1 tab PO Q6H PRN PRN 5 Days #20 tablet 04/19/21 [Rx Last Taken Unknown] Allergy/AdvReac Type Severity Reaction Status Date / Time No Known Allergies Allergy Verified 04/19/21 12:52 Family History Father Diabetes Arthritis Cancer CVA (cerebral vascular accident) Skin cancer Mother CAD (coronary artery disease) Arthritis Parkinsons disease Brother Diabetes Kidney disease Sister Hypothyroid Surgical History H/O hernia repair History of appendectomy History of left heart catheterization (2010) 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) Social History Smoking Status: Former smoker second hand exposure: No alcohol intake: current alcohol intake frequency: a few times a month substance use type: does not use caffeine: Yes what type of physical activity do you participate in: other frequency: 1-2 times per week ROS ROS ED ROS Narrative Right-sided scalp and neck pain related to zoster otherwise no complaints Constitutional Constitutional ED: Reports subjective, sweats and other; Denies chills, fever(s) or weight loss Eyes Eyes: Denies blurry vision or change in vision ENT ENT ED: Denies ear pain Cardiovascular Cardiovascular: Denies chest pain or palpitations Respiratory/Chest Respiratory/Chest: Denies dyspnea Gastrointestinal Gastrointestinal: Denies abdominal pain, nausea or vomiting Genitourinary Genitourinary ED: Denies dysuria or hematuria Musculoskeletal Musculoskeletal: Denies arthralgias or myalgias Integumentary Reports rash; Denies abscess Neurologic Neurologic: Denies weakness Psychiatric Psychiatric: Denies anxiety or depression Endocrine Endocrinology: Denies polydipsia or polyuria Allergic/Immunologic Allergic/Immunologic ED: Denies urticaria EXAM Physical Exam Narrative Exam Narrative: The patient's vital signs are unremarkable physical exam is unremarkable neurologic exam unremarkable NIH 0 he has healed scabbed zoster lesions to the right side of his scalp down the right side of the neck stops at the level of the clavicle there is no active lesions his neck is supple his HEENT exam is otherwise unremarkable his mental status functional status neurologic status and tone unremarkable Const Vital Signs: 04/19/21 12:49 Temperature 97.9 F Temperature Source Oral Pulse Rate 61 Respiratory Rate 16 Blood Pressure 179/66 H Blood Pressure Mean 103 Pulse Ox 95 Oxygen Delivery Method Room Air MDM MDM MDM Narrative Medical decision making narrative: I had a long conversation with the patient discussed differential discussed brain CT scan does not wish to proceed with that he simply wants of the for the pain he reports the gabapentin is not helping, at this time is treated with morphine Zofran be discharged on Percocet he will follow up outpatient providers tomorrow and return for change in symptomatology he again assures me other than the pain he feels fine and yesterday was able to sleep for a long period of time for the first time in and he wants to go home Home stable Final impression herpes zoster 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 Discharge Plan Triage Chief Complaint: Headache ED Provider: Bienvenido Toussaint Dx/Rx/DC Orders Clinical Impression: HZV (herpes zoster virus) post herpetic neuralgia Instructions: ED Shingles (Herpes Zoster) Prescriptions: New oxycodone-acetaminophen [oxycodone-acetaminophen] 1 TABLET tablet 1 tab PO Q6H PRN PRN (Reason: pain) 5 Days Qty: 20 RF: 0 ondansetron [ondansetron] 4 MG tablet 4 mg PO Q8H PRN PRN (Reason: Nausea) Qty: 10 RF: 0 No Action menthol 4 % cream TOPICAL RF: 0 Glucagon (HCl) Emergency Kit 1 mg recon soln 1 mg SC Q20M PRN (Reason: blood sugar) RF: 0 insulin lispro [Humalog U-100 Insulin] 100 unit/mL solution See Rx Instructions SC DAILY RF: 0 tremafya SC DIRECTED RF: 0 losartan 100 MG tablet 100 mg PO DAILY RF: 0 atorvastatin 80 MG tablet 80 mg PO QHS RF: 0 tamsulosin 0.4 MG capsule 0.4 mg PO DAILY RF: 0 aspirin 81 MG tablet 81 mg PO DAILY RF: 0 gabapentin 400 mg capsule 400 mg PO BID RF: 0 finasteride 5 MG tablet 5 mg PO DAILY RF: 0 hydrocodone-acetaminophen [hydrocodone-acetaminophen] 1 TABLET tablet 1 tab PO Q6H PRN PRN (Reason: Pain) 4 Days Qty: 16 RF: 0 hydrocodone-acetaminophen 5-325 mg tablet 1 tab PO Q6H PRN (Reason: pain) 3 Days Qty: 12 RF: 0 (DME) [employer] 2 Sensor Kit See Rx Instructions .ROUTE .MEDSUPPLY Qty: 2 RF: 8 [facility] Care Provider: [facility] Referrals: [facility] [Primary Care Provider] -
[2021-04-19] MEDS: Ketorolac 15 MG/ML Vial IV (13:21)
[2021-04-19] MEDS: Ondansetron 4 MG/2 ML Vial IV (13:21)
[2021-04-19] MEDS: morphine 8 MG/ML Syringe IV (13:21)
[2021-04-19 14:10] VITALS: BP 171/77; PULSE 61; RESP 18; O2SAT 96
== END 2021-04-19 14:11 | disposition home or self-care (01) ==
LOC: ED 13:20
PROVIDERS: Emergency Provider Emergency Medicine
DX: B02.29 Other postherpetic nervous system involvement (principal); I25.10 Atherosclerotic heart disease of native coronary artery without angina pectoris; I10 Essential (primary) hypertension; E78.5 Hyperlipidemia, unspecified; E10.9 Type 1 diabetes mellitus without complications; Z79.4 Long term (current) use of insulin; Z79.899 Other long term (current) drug therapy; Z87.891 Personal history of nicotine dependence
CPT/HCPCS: 96361; 96374; 96375; 99285; J7040; A4216; J2405

== ENCOUNTER 2021-05-02 23:58 | Emergency (ER) | payer OTHER, MEDICARE, SELFPAY ==
[2021-04-29 14:32] VITALS: BMI 29.8
[2021-05-02 23:58] VITALS: BP 142/82; PULSE 60; RESP 18; TEMP 36.3; O2SAT 100; BMI 29.1
--- NOTE | 2021-05-03 01:21 | EDS_ITS ---
HPI History of Present Illness Chief Complaint: Other, Pain/Inj Onset/Context/Timing Onset: Days and Weeks Current Severity: Severe Maximum Severity: Severe Narrative Narrative: Patient is a 76-year-old male multiple comorbidities including diabetes and heart disease who presents to the emergency department with persistent shingles pain. The patient is been seen here 4 times for similar c omplaints. He states that he was on analgesics which did seem to help, but is not had any for 5 days. He states over the past 2 days, the pain is come back. He describes it as a burning pain on the back of his neck. He denies fever or chills. He denies chest pain or shortness of breath. He does have an appointment with this physician on Sunday. 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 Essential (primary) hypertension History of non-ST elevation myocardial infarction (NSTEMI) (2010) Hyperlipidemia Hyperlipidemia due to type 1 diabetes mellitus Left bundle branch block shelter current use of insulin Sebaceous cyst Seborrheic dermatitis Secondary pulmonary arterial hypertension Sick sinus syndrome Syncopal episodes Syncope and collapse Home Medications aspirin 81 mg PO QHS 09/20/18 [History Last Taken 03/16/19] atorvastatin 80 mg PO QHS 09/20/18 [History Last Taken 03/15/19] losartan 100 mg PO DAILY 09/20/18 [History Last Taken 03/16/19] tamsulosin 0.4 mg PO DAILY 09/20/18 [History Last Taken 03/16/19] gabapentin 400 mg capsule 400 mg PO BID cap 03/23/20 [History Last Taken Unknown] glucagon HCl 1 mg solution for injection 1 mg SC Q20M PRN 03/23/20 [History Last Taken Unknown] insulin lispro 100 unit/mL subcutaneous solution See Rx Instructions SC DAILY ml 03/23/20 [History Last Taken Unknown] menthol 4 % topical cream 1 applic TOPICAL DAILY 03/23/20 [History Last Taken Unknown] finasteride 5 mg PO DAILY 03/28/20 [History Last Taken Unknown] tremafya SC DIRECTED 12/10/20 [History Last Taken Unknown] flash glucose sensor #2 ea 04/08/21 [Rx Last Taken Unknown] ondansetron 4 mg PO Q8H PRN PRN #10 tab 04/19/21 [Rx Last Taken Unknown] oxycodone-acetaminophen 1 tab PO Q6H PRN PRN 5 Days #20 tablet 04/19/21 [Rx Last Taken Unknown] oxycodone-acetaminophen 1 tab PO Q6H PRN PRN 3 Days #12 tablet 05/03/21 [Rx Last Taken Unknown] Allergy/AdvReac Type Severity Reaction Status Date / Time No Known Allergies Allergy Verified 04/29/21 14:32 Family History Father Diabetes Arthritis Cancer CVA (cerebral vascular accident) Skin cancer Mother CAD (coronary artery disease) Arthritis Parkinsons disease Brother Diabetes Kidney disease Sister Hypothyroid Surgical History H/O hernia repair History of appendectomy History of left heart catheterization (2010) 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) Social History Smoking Status: Former smoker second hand exposure: No alcohol intake: current alcohol intake frequency: a few times a month substance use type: does not use caffeine: Yes what type of physical activity do you participate in: other frequency: 1-2 times per week ROS ROS ED Constitutional Constitutional ED: Denies chills or fever(s) Eyes Eyes: Denies blurry vision or change in vision ENT ENT ED: Denies ear pain or sore throat Cardiovascular Cardiovascular: Denies chest pain or palpitations Respiratory/Chest Respiratory/Chest: Denies cough, dyspnea or dyspnea on exertion Gastrointestinal Gastrointestinal: Denies abdominal pain, nausea or vomiting Genitourinary Genitourinary ED: Denies dysuria or urinary frequency Musculoskeletal Musculoskeletal: Denies arthralgias or myalgias Integumentary Denies rash Neurologic Neurologic: Denies headache(s) or paresthesias Psychiatric Psychiatric: Denies anxiety or depression Endocrine Endocrinology: Denies polydipsia or polyuria Allergic/Immunologic Allergic/Immunologic ED: Denies urticaria EXAM Physical Exam Const Vital Signs: 05/02/21 23:58 Temperature 97.3 F L Temperature Source Temporal Pulse Rate 60 Respiratory Rate 18 Blood Pressure 142/82 H Blood Pressure Mean 102 Pulse Ox 100 Oxygen Delivery Method Room Air Positive well nourished and well developed General Appearance ED: well developed HEENT Reports normocephalic, head/scalp atraumatic and moist mucous membranes HEENT Narrative: Patient had shingles outbreak the posterior neck and upper right shoulder. They are well-healed. He is very sensitive to any touch. There is normal pulses. There is no abscess. Eyes PERRL and EOMs intact bilaterally Neck no lymphadenopathy and supple General: Negative for tenderness Chest Wall inspection of chest normal Resp normal respiratory effort and clear to auscultation bilaterally Cardio regular rate, regular rhythm and no murmurs GI normal to inspection, nondistended, normoactive bowel sounds Palpation: Negative for tender, guarding or rebound tenderness present Back/Spine no CVA tenderness Cervical Spine: Negative for cervical spine tenderness Thoracic Spine / Upper Back: Negative for thoracic spinal tenderness Extremity normal to inspection General Extremety ED: Negative for tenderness Neuro oriented x3 and CN's II-XII intact bilaterally Neuro Narrative: No focal deficits appreciated. Sensorium / Orientation: alert Psych mental status grossly normal Skin no rashes or lesions noted, no wounds and skin turgor normal MDM MDM MDM Narrative Medical decision making narrative: Patient presents with exacerbation of postherpetic neuralgia. He is given a dose of IM morphine. I am to start the patient on low-dose gabapentin and short course of analgesics until he can follow-up with his primary care. He is comfortable with this. Impression 1. Postherpetic neuralgia Discharge Plan Triage Chief Complaint: Other, Pain/Inj ED Provider: Elio De Dios Dx/Rx/DC Orders Clinical Impression: HZV (herpes zoster virus) post herpetic neuralgia Instructions: ED Shingles (Herpes Zoster) Prescriptions: New oxycodone-acetaminophen [oxycodone-acetaminophen] 1 TABLET tablet 1 tab PO Q6H PRN PRN (Reason: Pain) 3 Days Qty: 12 RF: 0 No Action menthol 4 % cream 1 applic TOPICAL DAILY RF: 0 Glucagon (HCl) Emergency Kit 1 mg recon soln 1 mg SC Q20M PRN (Reason: blood sugar) RF: 0 insulin lispro [Humalog U-100 Insulin] 100 unit/mL solution See Rx Instructions SC DAILY RF: 0 tremafya SC DIRECTED RF: 0 losartan 100 MG tablet 100 mg PO DAILY RF: 0 atorvastatin 80 MG tablet 80 mg PO QHS RF: 0 tamsulosin 0.4 MG capsule 0.4 mg PO DAILY RF: 0 aspirin 81 MG tablet 81 mg PO QHS RF: 0 gabapentin 400 mg capsule 400 mg PO BID RF: 0 finasteride 5 MG tablet 5 mg PO DAILY RF: 0 oxycodone-acetaminophen [oxycodone-acetaminophen] 1 TABLET tablet 1 tab PO Q6H PRN PRN (Reason: pain) 5 Days Qty: 20 RF: 0 ondansetron [ondansetron] 4 MG tablet 4 mg PO Q8H PRN PRN (Reason: Nausea) Qty: 10 RF: 0 (DME) [employer]ma 2 Sensor Kit See Rx Instructions .ROUTE .MEDSUPPLY Qty: 2 RF: 8 [facility] Care Provider[facility] [facility] [facility] [Primary Care Provider] -
[2021-05-03] MEDS: Morphine 4 MG/ML Syringe 6 MG IM (01:30)
== END 2021-05-03 03:38 | disposition home or self-care (01) ==
LOC: ED 05-03 01:39
PROVIDERS: Emergency Provider Emergency Medicine
DX: B02.29 Other postherpetic nervous system involvement (principal); I25.10 Atherosclerotic heart disease of native coronary artery without angina pectoris; I10 Essential (primary) hypertension; E78.5 Hyperlipidemia, unspecified; E10.49 Type 1 diabetes mellitus with other diabetic neurological complication; Z79.4 Long term (current) use of insulin; Z79.899 Other long term (current) drug therapy; Z87.891 Personal history of nicotine dependence
CPT/HCPCS: 96372; 99283

== ENCOUNTER 2021-05-27 12:24 | Emergency (ER) | payer OTHER, MEDICARE, SELFPAY ==
[2021-05-27 12:25] VITALS: RESP 16
[2021-05-27 12:26] VITALS: BP 99/46; PULSE 65; RESP 20; TEMP 36.6; O2SAT 100; BMI 30.7
[2021-05-27 12:53] LABS: Absolute Lymphocyte Count 0.48 X10^3/uL (0.83-4.51); Absolute Neutrophil Count 2.8 X10^3/uL (2.0-7.7); Basophil# 0.03 X10^3/uL; Basophil% 0.8 % (0-1); Eosinophil# 0.09 X10^3/uL; Eosinophils% 2.3 % (0-5); Hematocrit 30.5 % (40-54); Hemoglobin 9.8 g/dL (13.0-16.5); Lymphocyte # 0.48 X10^3/ul (0.83-4.51); Lymphocyte % 12.1 % (19-41); Mean Corp Hgb Conc 32.1 g/dL (32-36); Mean Corpuscular Hgb 30.3 pg (27.0-32.0); Mean Corpuscular Volume 94.4 fL (80-94); Mean Platelet Vol. 9.1 fl (6.2-12.0); Monocyte# 0.57 X10^3/uL; Monocyte% 14.4 % (0-10); NRBC Flagged by Analyzer 0 % (0-5); Neutrophil # 2.78 X10^3/uL (2.7-7.7); Neutrophil % 69.9 % (47-70); POSITIVE DIFFERENTIAL YES; Platelet Count 211 K/mm3 (150-450); RBC Distribution Width SD 48.2 fl (35.1-43.9); Red Blood Count 3.23 M/mm3 (4.6-6.2)
[2021-05-27 13:05] LABS: Anion Gap 8 (5-15); BUN 30 mg/dL (7-18); BUN/Creat Ratio 19.2 RATIO (10-20); Calcium,Total 8.8 mg/dL (8.5-10.1); Chloride 106 mmol/L (98-107); Creatinine, Serum 1.56 mg/dL (0.70-1.30); EST Glomerular Filtration Rate 46 mL/min (>60); Est Glom Filt Rate - Afr Amer 56 mL/min (>60); Estimated Creatinine Clearance 44.91 ml/min; Glucose 69 mg/dL (74-106); Sodium Level 140 mmol/L (136-145)
[2021-05-27 13:09] LABS: Differential Indicated SCAN CRITERIA MET
[2021-05-27 13:16] LABS: Platelet Estimate ADEQUATE (ADEQ); Red Cell Morphology NORM C+C NORMAL (NORM C&C)
[2021-05-27 13:26] LABS: Bedside Glucose 150 mg/dL (70-110)
[2021-05-27 14:29] VITALS: BP 151/52; PULSE 64; RESP 18; O2SAT 97
[2021-05-27 15:10] LABS: Bacteria 0 SEEN /hpf (None Seen); Mucous, Urine 0 SEEN /hpf (<or=2+); Red Blood Cells-Urine 0 SEEN /hpf (0-5)
[2021-05-27 15:13] LABS: Color, Urine Yellow (Yellow); Glucose, Dipstick 50 mg/dl (Normal); Ketone-Dipstick Negative (Negative); Leukocyte Esterase-Dipstick 25 /ul (Negative); Nitrite-Dipstick Negative (Negative); Occult Blood-Urine Negative /ul (Negative); Protein-Dipstick 15 mg/dl (Negative); Urine Bilirubin Dipstick Negative (Negative); Urine Clarity Clear (Clear); Urine Urobilinogen Normal (Normal)
[2021-05-27 15:20] LABS: Squamous Epithelial Cells - UA 0-5 SEEN /hpf (0-5); White Blood Cells 0-5 SEEN /hpf (0-5)
--- NOTE | 2021-05-27 15:24 | EX.ED.DYSGE1 ---
HPI History of Present Illness Chief Complaint: Hypoglycemia Informant: patient, family and EMS Onset/Context/Timing Onset: Today Narrative Narrative: Patient drove himself to local hardware store today, and while he was shopping in the aisle, he started to feel a little lightheaded. It progressively got worse, and he was feeling weak, went to the store clerk cashier and asked for a place to sit down, and they called EMS to help him. He did not fully pass out, EMS checked his blood sugar and it was low. They gave him an IV and D50, and brought it up and it is lower now in the ER. The patient is awake. He has no other focal symptoms. He has an insulin pump, he has not turned it off which we did here. Information that was obtained later --the patient had a blood sugar of 80 before he went to bed last night and then when he woke up it was 330, so as a result of this he injected a dose of Humalog in addition to the insulin pump that he has. He ate breakfast, but it was mainly eggs and suarez with no other carbohydrate containing foods or beverages. 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 Essential (primary) hypertension History of non-ST elevation myocardial infarction (NSTEMI) (2010) Hyperlipidemia Hyperlipidemia due to type 1 diabetes mellitus Left bundle branch block shelter current use of insulin Sebaceous cyst Seborrheic dermatitis Secondary pulmonary arterial hypertension Sick sinus syndrome Syncopal episodes Syncope and collapse Home Medications aspirin 81 mg PO QHS 09/20/18 [History Last Taken 03/16/19] atorvastatin 80 mg PO QHS 09/20/18 [History Last Taken 03/15/19] losartan 100 mg PO DAILY 09/20/18 [History Last Taken 03/16/19] tamsulosin 0.4 mg PO DAILY 09/20/18 [History Last Taken 03/16/19] gabapentin 400 mg capsule 400 mg PO BID cap 03/23/20 [History Last Taken Unknown] glucagon HCl 1 mg solution for injection 1 mg SC Q20M PRN 03/23/20 [History Last Taken Unknown] insulin lispro 100 unit/mL subcutaneous solution See Rx Instructions SC DAILY ml 03/23/20 [History Last Taken Unknown] menthol 4 % topical cream 1 applic TOPICAL DAILY 03/23/20 [History Last Taken Unknown] finasteride 5 mg PO DAILY 03/28/20 [History Last Taken Unknown] flash glucose sensor #2 ea 04/08/21 [Rx Last Taken Unknown] guselkumab [Tremfya] 100 mg SUBCUT X1 05/27/21 [History Last Taken Unknown] walker #1 ea 05/27/21 [Rx Last Taken Unknown] Allergy/AdvReac Type Severity Reaction Status Date / Time No Known Allergies Allergy Verified 05/27/21 12:25 Family History Father Diabetes Arthritis Cancer CVA (cerebral vascular accident) Skin cancer Mother CAD (coronary artery disease) Arthritis Parkinsons disease Brother Diabetes Kidney disease Sister Hypothyroid Surgical History H/O hernia repair History of appendectomy History of left heart catheterization (2010) 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) Social History Smoking Status: Former smoker second hand exposure: No alcohol intake: current alcohol intake frequency: a few times a month substance use type: does not use caffeine: Yes what type of physical activity do you participate in: other frequency: 1-2 times per week EXAM Physical Exam Const Vital Signs: 05/27/21 12:25 05/27/21 12:26 05/27/21 14:29 Temperature 97.8 F Temperature Source Oral Pulse Rate 65 64 Respiratory Rate 16 20 H 18 Respiratory Effort Normal Non-Labored Respiratory Pattern Normal Blood Pressure 99/46 L 151/52 H Blood Pressure Mean 63 85 Pulse Ox 100 97 Oxygen Delivery Method Room Air Room Air 05/27/21 15:52 Temperature Temperature Source Pulse Rate 63 Respiratory Rate 17 Respiratory Effort Respiratory Pattern Blood Pressure 124/96 H Blood Pressure Mean Pulse Ox 97 Oxygen Delivery Method MDM MDM MDM Narrative Medical decision making narrative: The work-up is unremarkable, he has chronic renal insufficiency, urine shows no evidence of infection. Given the history I suspect this was iatrogenic hypoglycemia due to getting too much insulin. After we had him drink orange juice and eat something, we got his sugar up to 150. We explained to the patient that if he feels hypoglycemic, the first thing he needs to do is turn off his insulin pump and check his blood sugar. He was under the impression that the insulin pump should never ever be turned off. I advised him to turn it off, check his sugar until he recovers, and then he may resume it as I advise he can do now. Family states that he has been in the ER recurrently recently, many times due to falls. He walks with a cane, he states he has weak legs, and is able to get around with a cane but does have falls. He lives on his own, performs activities of daily living on his own, and drives. He states he was going to visit his brother after his trip to the hardware store today. The family is pushing for admission for rehab. However, after discussing with the hospitalist, they agree that given his abilities at this time, he will not be a candidate for inpatient rehab. His primary care is the [facility] clinic at [place]. I am having social work to meet with them to see if they can help arrange for outpatient evaluation. He has never had an MRI of his low back for instance, to see if spinal stenosis is present which could cause his muscle weakness. There is no indication for that emergently today, nor is there medical reason to admit him at this time. I did write him for a walker and encouraged him to use it as initially he was very resistant to this. Lab Data Attestation: I reviewed the patient's lab results. Labs: Laboratory Results - last 24 hr 05/27/21 05/27/21 05/27/21 12:37 12:37 13:22 WBC 4.0 L RBC 3.23 L Hgb 9.8 L Hct 30.5 L MCV 94.4 H MCH 30.3 MCHC 32.1 RDW Std Deviation 48.2 H RDW Coeff of Digna 14.0 Plt Count 211 MPV 9.1 Immature Gran % (Auto) 0.500 Neut % (Auto) 69.9 Lymph % (Auto) 12.1 L [place] % (Auto) 14.4 H Eos % (Auto) 2.3 Baso % (Auto) 0.8 Absolute Neuts (auto) 2.8 Absolute Lymphs (auto) 0.48 L Nucleated RBC % 0 Differential Comment Platelet Estimate ADEQUATE RBC Morphology NORM C+C Sodium 140 Potassium 4.0 Chloride 106 Carbon Dioxide 26.0 Anion Gap 8 BUN 30 H Creatinine 1.56 H Estim Creat Clear Calc 44.91 Est GFR (MDRD) Af Amer 56 L Est GFR (MDRD) Non-Af 46 L BUN/Creatinine Ratio 19.2 Glucose 69 L Calcium 8.8 Urine Color Urine Clarity Urine pH Ur Specific [place] Urine Protein Urine Glucose (UA) Urine Ketones Urine Occult Blood Urine Nitrite Urine Bilirubin Urine Urobilinogen Ur Leukocyte Esterase Urine RBC Urine WBC Ur Squamous Epith Cells Urine Bacteria Urine Mucus POC Glucose 150 H 05/27/21 15:05 WBC RBC Hgb Hct MCV MCH MCHC RDW Std Deviation RDW Coeff of Digna Plt Count MPV Immature Gran % (Auto) Neut % (Auto) Lymph % (Auto) [place] % (Auto) Eos % (Auto) Baso % (Auto) Absolute Neuts (auto) Absolute Lymphs (auto) Nucleated RBC % Differential Comment Platelet Estimate RBC Morphology Sodium Potassium Chloride Carbon Dioxide Anion Gap BUN Creatinine Estim Creat Clear Calc Est GFR (MDRD) Af Amer Est GFR (MDRD) Non-Af BUN/Creatinine Ratio Glucose Calcium Urine Color Yellow Urine Clarity Clear Urine pH 6.0 Ur Specific [place] 1.010 Urine Protein 15 H Urine Glucose (UA) 50 H Urine Ketones Negative Urine Occult Blood Negative Urine Nitrite Negative Urine Bilirubin Negative Urine Urobilinogen Normal Ur Leukocyte Esterase 25 H Urine RBC 0 SEEN Urine WBC 0-5 SEEN Ur Squamous Epith Cells 0-5 SEEN Urine Bacteria 0 SEEN Urine Mucus 0 SEEN POC Glucose Discharge Plan Triage Chief Complaint: Hypoglycemia ED Provider: Isaac Paulino Dx/Rx/DC Orders Clinical Impression: Hypoglycemic reaction to insulin, Muscle weakness of lower extremity Instructions: ED Diabetic Insulin Reaction Prescriptions: New (DME) mingo Misc See Rx Instructions .ROUTE .MEDSUPPLY Qty: 1 RF: 0 No Action menthol 4 % cream 1 applic TOPICAL DAILY RF: 0 Glucagon (HCl) Emergency Kit 1 mg recon soln 1 mg SC Q20M PRN (Reason: blood sugar) RF: 0 insulin lispro [Humalog U-100 Insulin] 100 unit/mL solution See Rx Instructions SC DAILY RF: 0 losartan 100 MG tablet 100 mg PO DAILY RF: 0 atorvastatin 80 MG tablet 80 mg PO QHS RF: 0 tamsulosin 0.4 MG capsule 0.4 mg PO DAILY RF: 0 aspirin 81 MG tablet 81 mg PO QHS RF: 0 gabapentin 400 mg capsule 400 mg PO BID RF: 0 finasteride 5 MG tablet 5 mg PO DAILY RF: 0 Tremfya 100 mg/mL Syringe 100 mg SUBCUT X1 RF: 0 (DME) [employer] Wilma 2 Sensor Kit See Rx Instructions .ROUTE .MEDSUPPLY Qty: 2 RF: 8 [facility] [facility] [Primary Care Provider] - As soon as possible Disposition Disposition: Home, Self Care
[2021-05-27 15:52] VITALS: BP 124/96; PULSE 63; RESP 17; O2SAT 97
[2021-05-27 17:30] LABS: Bedside Glucose 122 mg/dL (70-110)
--- NOTE | 2021-05-27 17:47 | CM.ED ---
CESAR Note Referral Source: MD Referral Reason: In home services for support CESAR was advised by MD that patient's daughter is requesting to speak to social work for support. CESAR met with patient and his daughter. Patient gave consent to speak to his daughter. Patient's daughter, Barbi, resides in [place]. She is active in patient's care however she said that patient has good days and bad days. Barbi said that she has told patient that he should not drive anymore and he has agreed to that. [facility] [facility] Barbi said that she called [facility] and patient does not qualify as he is not on medicaid and the programs he would be eligible for are wait list. Barbi inquired about assistance to determine how patient is functioning at home and could help with cleaning. CESAR explained that assistance for cleaning is self pay which is approximately $20/hour. Barbi said that she has had the discussion with patient about beginning to look for assisted living. Patient said that his landlords like him and he enjoys where he lives. CESAR provided emotional support. CESAR provided the following information: 1) C[facility]AR called [facility] [place] and left voice mail for Cinthya who is Sandi Mosquera's nurse and explained patient was seen today at the Emergency Room. Requested follow up appointment via voice mail. Provided [facility] with patient's phone number. CESAR also told daughter, Barbi, to follow up with patient's [facility] provider for appointment and she verbalized understanding. CESAR encouraged patient's daughter to speak to patient's PCP about home health referral. 2) wrote prescription for walker. CESAR spoke to patient and his daughter and they had no preference regarding DME providers. CESAR called [facility] and spoke to Felicity. CESAR faxed the prescription to Felicity and on the fax said to call family with the copay prior to filling the request. CESAR also had told Felicity to call family for copay amount. Felicity said that since it was late in the day the prescription for a walker could not be filled today. Confirmation of fax received. [facility] will follow up with family. Family aware. 3)CESAR provided patient's daughter with information on [facility] but she had already contacted them 4) CESAR discussed the [facility] and their role. Patient and daughter in agreement with referral. CESAR sent email to Crispin Hickman RN Clinical [employer] making the referral. 5) SW provided patient with information on Senior Program through [facility] which includes discounts for DME through [employer]. Patient in agreement with referral. 6) SW spoke to patient about Senior Outreach Referral Form through [employer]. Patient in agreement with referral to Senior Outreach. Fax sent to [employer] and fax confirmation received. 7) SW educated patient and family on the [facility] transportation assistance program and provided them with handout information on program. 8) SW discussed medic alert badge and patient and daughter said that patient has medic alert at home. Daughter and patient said that it would be hooked up today. SW reviewed all the information provided. Family and patient appreciative. No further issues or concerns voiced. RN and MD updated. Laisha MEDEL
[2021-05-30 12:29] LABS: Pathologist Review Reviewed
--- NOTE | 2021-05-31 11:19 | CM.ED ---
CESAR Note: SW received email from [facility] provider, Crispin. Crispin advised that they do not serve [facility]. SW then called patient and inquired as to how he is feeling. He said that he is feeling so much better. SW explained that CCN does not go to [place] however, this loan underwriter had made referral for him to [facility] Senior Outreach program so their staff will be contacting him. Patient verbalized understanding. Again, patient said that he is feeling so much better. No issues or concerns voiced by patient. Plan: Patient has been referred to [facility] for Senior Outreach Program Laisha MEDEL
== END 2021-05-27 17:37 | disposition home or self-care (01) ==
PROVIDERS: Emergency Provider Emergency Medicine
DX: E10.649 Type 1 diabetes mellitus with hypoglycemia without coma (principal); T38.3X5A Adverse effect of insulin and oral hypoglycemic [antidiabetic] drugs, initial encounter; M62.81 Muscle weakness (generalized); I25.10 Atherosclerotic heart disease of native coronary artery without angina pectoris; I10 Essential (primary) hypertension; E78.5 Hyperlipidemia, unspecified; E10.40 Type 1 diabetes mellitus with diabetic neuropathy, unspecified; Z79.4 Long term (current) use of insulin; Z96.41 Presence of insulin pump (external) (internal); Z79.899 Other long term (current) drug therapy; Z87.891 Personal history of nicotine dependence
CPT/HCPCS: 80048; 81001; 82962; 85025; 99284; A4216

== ENCOUNTER → 2021-07-12 14:05 | Outpatient (CLI) | payer MEDICARE, SELFPAY ==
[2021-07-12 15:00] LABS: Absolute Lymphocyte Count 0.64 X10^3/uL (0.83-4.51); Basophil# 0.03 X10^3/uL; Basophil% 0.7 % (0-1); Eosinophil# 0.15 X10^3/uL; Eosinophils% 3.4 % (0-5); Hematocrit 35.6 % (40-54); Hemoglobin 11.6 g/dL (13.0-16.5); Lymphocyte # 0.64 X10^3/ul (0.83-4.51); Lymphocyte % 14.7 % (19-41); Mean Corp Hgb Conc 32.6 g/dL (32-36); Mean Corpuscular Hgb 30.6 pg (27.0-32.0); Mean Corpuscular Volume 93.9 fL (80-94); Mean Platelet Vol. 9.7 fl (6.2-12.0); Monocyte# 0.55 X10^3/uL; Monocyte% 12.6 % (0-10); NRBC Flagged by Analyzer 0 % (0-5); Neutrophil # 2.97 X10^3/uL (2.7-7.7); Neutrophil % 68.4 % (47-70); Platelet Count 211 K/mm3 (150-450); RBC Distribution Width CV 13.6 % (11.6-14.6); RBC Distribution Width SD 46.3 fl (35.1-43.9); Red Blood Count 3.79 M/mm3 (4.6-6.2); White Blood Count 4.4 K/mm3 (4.4-11.0)
[2021-07-12 15:34] LABS: Vitamin B12 384 pg/mL (211-911)
[2021-07-16 05:07] LABS: QNTFERON TB Mitogen Value 0.55 IU/mL (.); QNTFERON TB1+ Ag Value 0.07 IU/mL (.); QNTFERON TB2+ Ag Value 0.05 IU/mL (.)
[2021-07-16 13:58] LABS: QNTIFERON TB Positive Criteria Indeterminate (Negative)
== END ==
PROVIDERS: Dermatology; Referring Provider Nurse Practitioner Family; Visit Provider Nurse Practitioner Family
DX: E55.9 Vitamin D deficiency, unspecified (principal); M62.81 Muscle weakness (generalized); Z79.899 Other long term (current) drug therapy
CPT/HCPCS: 36415; 82306; 82607; 85025; 86480

== ENCOUNTER → 2021-10-14 12:20 | Outpatient (CLI) | payer MEDICARE, SELFPAY ==
[2021-10-18 14:09] LABS: QNTFERON TB Mitogen Value 1.84 IU/mL (.); QNTFERON TB Nil Value 0.04 IU/mL (.); QNTFERON TB1+ Ag Value 0.06 IU/mL (.); QNTFERON TB2+ Ag Value 0.07 IU/mL (.)
[2021-10-18 15:33] LABS: QNTIFERON TB Positive Criteria Negative (Negative)
== END ==
PROVIDERS: PCP Internal Medicine Endocrinology, Diabetes & Metabolism; Referring Provider Dermatology; Visit Provider Dermatology
DX: Z79.899 Other long term (current) drug therapy (principal)
CPT/HCPCS: 36415; 86480

== ENCOUNTER 2021-11-10 10:30 | Outpatient (RCR) | payer MEDICARE, SELFPAY ==
--- NOTE | 2021-07-27 15:55 | HP.PTEVAL ---
Patient's Visit Information CONSUELO NEVILLE is a 76 year old M referred to Physical Therapy by JAVID Hood with a diagnosis of Generalized weakness.. Date of Evaluation: 07/27/21 Physical Therapist: Luther Warner, GENESIST, OCS, CSCS - Visit Plan Frequency: 3x /Week Duration: 6 Months Plan: 3x/week for 4-6 weeks for. Balance safety education and recommend use of wh walker. strengthening LE and core and progress to home as tolerated. Gait progression distance,s teps to tolerance and as safety allows. Montior need for further recommendations on AD depending on how leg giving out improves. - Subjective Has electric WC that sons bought him and uses ti to get back to PT. Legs are getting weaker. They really went weak as he had shingles and was down about two months in beginning of the summer and he could not walk. Was at [employer] and used WC to get him there. Tried to go to bathroom and ont he way back his legs stopped working and peopole had to hold him up and drag to chair. That was not a long walk. Then it happened again. Went to [facility] ont [facility] [address] home and could not walk all the way in and legs gave out. That did not happen prior to that day. It was just wekness. That was about a month ago. Has been walking about 150 feet since and get tired. No regular ex. Lives alone, one story that he needs. One big step to get in and he uses cane and doorframe. Basic ADLs are done I, he walks in the house. Has a fall here and there. legs gave out at the hardware store one time. Crawled out to the [employer] and they called the squad, had low sugar at the time. Is on pump for diabetes. Doctor at [place] wanted MRI done in town. Diabetic doctor ordering MRI. Spends day watching TV. Sleep is OK. Not employed. Pain is not an issue. Uses a straight cane to get around. Shower and bath I. LB hurts now and then. Feet have neuroapthy and takes gabapentin. - Objective Electric zero turn WC to get back to PT today I with some difficulty with controls as it is new for him but he can control it I with UE. Has wh walker but does not use. Sit to stadn trasnfer requires UE I. bed trasnfer I. Stand without AD I but wobbly. romberg eo 30, ec wobbly and 22. Stadn with cane mod I. UE AROM WNL and strength 4-. Walk with cane mod I at first for 120 feet then started to get weak in legs and needed Min A for catching toe and feeling like legs giving out. reflexes 2/3 patella B and 0/3 achilles. Sensation LE forefeet numb and feet at deficit, ankle up WNL to gross light touch. Strength ankles 4- with good aROM, knees 4- with AROM WNL, Very tight in HS and quads and hip flexors.. Hip strength abd 3, ext 3, flexion 3+. Posture is hunched FW and some hip flexion and knee flexion. - SLR, - slump test. No tremors or tonal abnormalities. - Hoffmans. - Balance/Special Test Scores Functional Gait Assessment Score: 14 % Disability: 53.3400 Lower Extremity Functional Score: 21 - Goals Goal 1:: Walk in and out of PT with cane without fatigue and I Goal Time Frame: 4-6 Weeks Goal 2:: FGA to diminish fallr isk Goal Time Frame: 4-6 Weeks Goal 3:: I( appropirate ex to limit future problems Goal Time Frame: 4-6 Weeks Goal 4:: LEFS 50 score to improve mobility. Goal Time Frame: 4-6 Weeks - Rehabilitation Potential Physical Therapy Diagnosis: Weakness LE neruopathic vs sedentary. Rehabilitation Potential: Questionable - Anticipated Interventions Patient/Client Instruction: Educate patient on: Condition, Risk Factors For the Purpose of:: To improve gait and locomotor functions, To improve safety with gait, To improve safety Therapeutic Exercise to Include: Strength training, Gait and locomotor training For the Purpose of:: To increase tolerance to activity/condition/position, To improve gait and locomotor functions, To improve balance, To improve safety with gait, To improve safety Thank you for the opportunity to evaluate your patient. For Medicare and Medicare HMO plans, please review the plan of care and approve it. It will need to be FAXED BACK to us at [phone] for Medicare purposes. For Medicare only, by signing this I certify the plan of care. Please let me know if there are questions or concerns regarding this plan of care. Physician Signature: Date:
--- NOTE | 2021-09-08 11:29 | HP.PTREVAL ---
Gina An, ELVA-C, It has been my pleasure to treat CONSUELO Amado COVERT over the last 12 visits for Generalized weakness.. Please see the progress note below for an update on the physical therapy plan of care! Subjective: Im about a half. Feeling a little stronger but not much. Not using scooter anymore. Will use it at trade show this weekend. Still not getting around like he wants to. No falls lately. Using cane to get around most of time but not needed when he feels good. Does HEP 2-3x/week. To electronics maintenance technician in October. Objective/Function: Feeling OK but blood glucose alarm off at 68 today and given apple juice. Walks with cane today somewhat unsteady but i hate that walker . Walks without it for. FGa today. FGA is +5 today. Trasnfers I. Gait with cane mod I today. Overall better as he came in without scooter today compared to day one but still unsteady(blood sugar vs balanec). Still some work to do with balance and progress but improved. Appropriate to continue with fair prognosis with HEP compliance. Goals appropriate for another POC. Pt had 2 apple juice and serving of cookies today to bring sugar from 64 up to 85 by the time he left. Then was walking much better. Plan Plan: continue 2x/week for 4 weeks, emphasized HEP to patient 5-6x/week. work on gait balance and progress strengthening. Balance/Gait/Functional tests - Balance/Special Test Scores Functional Gait Assessment Score: 19 % Disability: 36.6700 Lower Extremity Functional Score: 23 Goals Goal 1:: Walk in and out of PT with cane without fatigue and I Goal Time Frame: 4-6 Weeks Goal Progress: Goal Met Goal 2:: FGA to diminish fallr isk Goal Time Frame: 4-6 Weeks Goal Progress: Progressing Goal 3:: I( appropirate ex to limit future problems Goal Time Frame: 4-6 Weeks Goal Progress: now and then compliant Goal 4:: LEFS 50 score to improve mobility. Goal Time Frame: 4-6 Weeks Goal Progress: Not Progressing Anticipated Interventions Patient/Client Instruction: Educate patient on: Condition, Risk Factors For the Purpose of:: To improve gait and locomotor functions, To improve safety with gait, To improve safety Therapeutic Exercise to Include: Strength training, Gait and locomotor training For the Purpose of:: To increase tolerance to activity/condition/position, To improve gait and locomotor functions, To improve balance, To improve safety with gait, To improve safety Please do not hesitate to contact me at [phone] by phone or if you have questions or concerns regarding this new plan of care! Sincerely, Luther Warner, DPT, OCS, CSCS
--- NOTE | 2021-09-08 11:38 | HP.PTREVAL_ITS ---
Gina An, ELVA-C, It has been my pleasure to treat CONSUELO Amado COVERT over the last 12 visits for Generalized weakness.. Please see the progress note below for an update on the physical therapy plan of care! Subjective: Im about a half. Feeling a little stronger but not much. Not using scooter anymore. Will use it at trade show this weekend. Still not getting around like he wants to. No falls lately. Using cane to get around most of time but not needed when he feels good. Does HEP 2-3x/week. To transfusion nurse in October. Objective/Function: Feeling OK but blood glucose alarm off at 68 today and given apple juice. Walks with cane today somewhat unsteady but i hate that walker . Walks without it for. FGa today. FGA is +5 today. Trasnfers I. Gait with cane mod I today. Overall better as he came in without scooter today compared to day one but still unsteady(blood sugar vs balanec). Still some work to do w ith balance and progress but improved. Appropriate to continue with fair prognosis with HEP compliance. Goals appropriate for another POC. Pt had 2 apple juice and serving of cookies today to bring sugar from 64 up to 85 by the time he left. Then was walking much better. Left with Blood glucose at 100. Plan Plan: continue 2x/week for 4 weeks, emphasized HEP to patient 5-6x/week. work on gait balance and progress strengthening. Balance/Gait/Functional tests - Balance/Special Test Scores Functional Gait Assessment Score: 19 % Disability: 36.6700 Lower Extremity Functional Score: 23 Goals Goal 1:: Walk in and out of PT with cane without fatigue and I Goal Time Frame: 4-6 Weeks Goal Progress: Goal Met Goal 2:: FGA to diminish fallr isk Goal Time Frame: 4-6 Weeks Goal Progress: Progressing Goal 3:: I( appropirate ex to limit future problems Goal Time Frame: 4-6 Weeks Goal Progress: now and then compliant Goal 4:: LEFS 50 score to improve mobility. Goal Time Frame: 4-6 Weeks Goal Progress: Not Progressing Anticipated Interventions Patient/Client Instruction: Educate patient on: Condition, Risk Factors For the Purpose of:: To improve gait and locomotor functions, To improve safety with gait, To improve safety Therapeutic Exercise to Include: Strength training, Gait and locomotor training For the Purpose of:: To increase tolerance to activity/condition/position, To improve gait and locomotor functions, To improve balance, To improve safety with gait, To improve safety Please do not hesitate to contact me at [phone] by phone or if you have questions or concerns regarding this new plan of care! Sincerely, Luther Warner, DPT, OCS, CSCS
--- NOTE | 2021-10-11 11:21 | HP.PTREVAL_ITS ---
Gina An, ELVA-C, It has been my pleasure to treat CONSUELO Amado COVERT over the last 20 visits for Generalized weakness.. Please see the progress note below for an update on the physical therapy plan of care! Subjective: Feeling better than 3 weeks. Getting around easier. No falls an dno cane or walker needed. Activities at home by himself are normal. HEP: im doing some of them, step ups and dialy sink exercises. [facility]. Objective/Function: FGA improved again and patient moving around smoother and with less hesitation. I with gait in and out of PT. Steps are reciprocal with 1- 2 rails but still tends to put half of foot on step. Overall impriving mobility and willing to continue to work toward I [address] program which is appropriate with fair prognosis. Plan Plan: 2x/week for 3-4 weeks to work on getting patient I in gym with LE and core strengthening machines and attempt progression to I. Ensure patient continue with current standing HEP. Balance/Gait/Functional tests - Balance/Special Test Scores Functional Gait Assessment Score: 22 % Disability: 26.6700 Lower Extremity Functional Score: 39 TUG Test Time Seconds: 12 Tug Test: <20 sec.=mostly independent 30 Second Chair Rise Test Seconds: 8 Goals Goal 1:: Walk in and out of PT with cane without fatigue and I Goal Time Frame: 4-6 Weeks Goal Progress: Goal Met Goal 2:: FGA to diminish fallr isk Goal Time Frame: 4-6 Weeks Goal Progress: Goal Met Goal 3:: I( appropirate ex to limit future problems Goal Time Frame: 4-6 Weeks Goal Progress: Goal Met Goal 4:: LEFS 50 score to improve mobility. Goal Time Frame: 4-6 Weeks Goal Progress: improved. Goal 5:: 12 on 20 sec sit to stand test and <10 sec TUG Goal Time Frame: 2-4 Weeks Goal 6:: I approp Gym program to be then completed via [address] for core adn LE strength. Goal Time Frame: 2-4 Weeks Anticipated Interventions Patient/Client Instruction: Educate patient on: Condition, Risk Factors For the Purpose of:: To improve gait and locomotor functions, To improve safety with gait, To improve safety Therapeutic Exercise to Include: Strength training, Gait and locomotor training For the Purpose of:: To increase tolerance to activity/condition/position, To improve gait and locomotor functions, To improve balance, To improve safety with gait, To improve safety Please do not hesitate to contact me at [phone] by phone or if you have questions or concerns regarding this new plan of care! Sincerely, Luther Warner, DPT, OCS, CSCS
--- NOTE | 2021-11-10 11:05 | HP.PTDCSUM ---
It has been my pleasure to treat CONSUELO Amado COVERT referred by Gina An, ELVA-C, with the diagnosis of Generalized weakness. for a total of 28 visit(s). Discharge Date: 11/10/21 Please see the following information for a summary of their discharge status. Subjective: I am in no unusual pain. To doctor on the 11/14. getting better and can walk better. No falls lately. One LOB when sugar went low. Activities are pretty normal. Is a [employer] member adn can continue himself. Back hurts pretty regularly and doctor said R LE Pain Intensity (Out of 10): Unrated % Improvement: 75 Objective/Function: TUG improved by 2 seconds. 30 sec sit to stadn by 2 reps. Pt feels comfortable doing exercises in the gym on his own and adding back ext ex. Ready to be done. Goal 1:: Walk in and out of PT with cane without fatigue and I Goal Progress: Goal Met Goal 2:: FGA to diminish fallr isk Goal Progress: Goal Met Goal 3:: I( appropirate ex to limit future problems Goal Progress: Goal Met Goal 4:: LEFS 50 score to improve mobility. Goal Progress: improved. Goal 5:: 12 on 20 sec sit to stand test and <10 sec TUG Goal Progress: Progressing Goal 6:: I approp Gym program to be then completed via [employer] for core adn LE strength. Goal Progress: Goal Met Plan: d/c Discharge Comments: Pt to continue I in gym via [employer]. If there are questions or concerns regarding this patient's physical therapy, please feel free to call me at [phone]. Thank you for the referral of this patient. Sincerely, Luther Warner, DPT, OCS, CSCS Balance/Gait/Functional tests - Balance/Special Test Scores Functional Gait Assessment Score: 22 % Disability: 26.6700 Lower Extremity Functional Score: 57 TUG Test Time Seconds: 11 Tug Test: <20 sec.=mostly independent 30 Second Chair Rise Test Seconds: 10
== END 2021-11-10 19:00 | disposition home or self-care (01) ==
LOC: PT 10:30
PROVIDERS: PCP Internal Medicine Endocrinology, Diabetes & Metabolism; Referring Provider Nurse Practitioner Family; Visit Provider Nurse Practitioner Family
DX: M62.81 Muscle weakness (generalized) (principal)
CPT/HCPCS: 97110; 97162; 97164

== ENCOUNTER 2022-01-24 16:23 | Outpatient (CLI) | payer MEDICARE, SELFPAY ==
--- NOTE | 2022-01-24 16:35 | RAD_ITS ---
STUDY: CHEST SERIES OF 1541 HOURS ON 01/24/2022 REASON FOR EXAM: 76-year-old male with dyspnea on exertion. TECHNIQUE: A standard PA and lateral chest series was performed per protocol. COMPARISON: 06/02/2020. FINDINGS: Mild demineralization. No cardiomegaly. No heart failure. Dual lead left-sided pacemaker with distal leads in expected positions. No pulmonary infiltrates, atelectasis, effusion, or pulmonary mass lesions. Borderline emphysema. Mild bosselation of the right hemidiaphragm--normal variant. No significant interval change since the previous study of 06/02/2020. RAD/Chest PA and Lateral IMPRESSION: 1. Borderline emphysema. 2. No pulmonary infiltrates, atelectasis, effusion, or pulmonary mass lesions. 3. No cardiomegaly or heart failure. 4. Dual lead pacemaker with distal leads in expected positions, unchanged since the previous study of 06/02/2020. Electronically Signed: Bradly Daniel MD at 21:24 EDT ,
[2022-01-24 17:12] LABS: Absolute Lymphocyte Count 0.62 X10^3/uL (0.83-4.51); Absolute Neutrophil Count 3.2 X10^3/uL (2.0-7.7); Basophil# 0.03 X10^3/uL; Basophil% 0.6 % (0-1); Eosinophil# 0.13 X10^3/uL; Eosinophils% 2.8 % (0-5); Hematocrit 37.8 % (40-54); Hemoglobin 13.1 g/dL (13.0-16.5); Lymphocyte # 0.62 X10^3/ul (0.83-4.51); Lymphocyte % 13.4 % (19-41); Mean Corp Hgb Conc 34.7 g/dL (32-36); Mean Corpuscular Hgb 30.7 pg (27.0-32.0); Mean Corpuscular Volume 88.5 fL (80-94); Mean Platelet Vol. 9.2 fl (6.2-12.0); Monocyte# 0.61 X10^3/uL; Monocyte% 13.2 % (0-10); NRBC Flagged by Analyzer 0 % (0-5); Neutrophil # 3.23 X10^3/uL (2.7-7.7); Neutrophil % 69.8 % (47-70); Platelet Count 208 K/mm3 (150-450); RBC Distribution Width CV 14.2 % (11.6-14.6); RBC Distribution Width SD 45.4 fl (35.1-43.9); Red Blood Count 4.27 M/mm3 (4.6-6.2); White Blood Count 4.6 K/mm3 (4.4-11.0)
[2022-01-24 17:26] LABS: Anion Gap 4 (5-15); BUN 22 mg/dL (7-18); Calcium,Total 9.2 mg/dL (8.5-10.1); Chloride 109 mmol/L (98-107); Creatinine, Serum 1.47 mg/dL (0.70-1.30); EST Glomerular Filtration Rate 50 mL/min (>60); Est Glom Filt Rate - Afr Amer 60 mL/min (>60); Glucose 221 mg/dL (74-106); Magnesium 2.4 mg/dL (1.6-2.6); Potassium 4.7 mmol/L (3.5-5.1); Sodium Level 141 mmol/L (136-145)
[2022-01-24 17:28] LABS: BNP,B-Type NATRIURETIC PEPTIDE 77.2 pg/mL (0-100)
== END 2022-01-24 23:59 | disposition home or self-care (01) ==
LOC: RAD 16:27 → LAB 16:48
PROVIDERS: PCP Internal Medicine Endocrinology, Diabetes & Metabolism; Referring Provider Nurse Practitioner Gerontology; Visit Provider Nurse Practitioner Gerontology
DX: R06.00 Dyspnea, unspecified (principal)
CPT/HCPCS: 36415; 71046; 80048; 83735; 83880; 85025

== ENCOUNTER → 2022-03-30 | Outpatient (CLI) | payer MEDICARE, SELFPAY ==
--- NOTE | 2022-03-30 10:41 | ECHOD_ITS ---
Reason For Study: MENDOZA Procedure This was a 2D Doppler, Color Flow transthoracic echocardiogram. Exam performed in department. Left Ventricle Normal LV size. Mild concentric left ventricular hypertrophy. Left ventricular systolic function is normal. The estimated ejection fraction is 55 %. Stage 1 diastolic dysfunction. No regional wall motion abnormalities noted. Right Ventricle Normal RV size. ICD or pacer leads identified within the right ventricle. Normal systolic function. Atria Normal left atrium. Normal right atrium. Bubble contrast study negative for right to left interatrial shunt. Mitral Valve Normal mitral valve. Tricuspid Valve Normal tricuspid valve. Mild tricuspid valve insufficiency. Aortic Valve Normal aortic valve. Pulmonic Valve Normal pulmonic valve. Great Vessels Normal aortic root. The pulmonary artery is normal size. Normal inferior vena cava. Pericardium/Pleural No pericardial effusion. Medication 22 gauge I.V. with prn adaptor inserted into left arm. Performed a rapid injection of agitated mix of 9 cc saline and 1cc air to assess for atrial septal defect. MMode/2D Measurements & Calculations LVIDd: 4.4 cm IVSd: 1.3 cm Ao root diam: 3.5 cm LVIDs: 2.6 cm LVPWd: 1.4 cm RVDd: 2.8 cm FS: 40.9 % LAV(MOD-sp2): 53.9 ml LVAd ap4: 24.0 cm2 SV(MOD-sp4): 5.5 ml LVLd ap4: 6.5 cm EDV(MOD-sp4): 74.1 ml EDV(sp4-el): 75.7 ml LVAs ap4: 23.8 cm2 LVLs ap4: 7.1 cm ESV(MOD-sp4): 68.6 ml ESV(sp4-el): 68.0 ml EF(MOD-sp4): 7.4 % EF(sp4-el): 10.2 % SV(sp4-el): 7.7 ml LA A4 area: 14.3 cm2 RA A4 area: 11.3 cm2 Doppler Measurements & Calculations MV E max jerome: 62.4 cm/sec Lat Peak E' Jerome: 48.7 cm/sec Med Peak E' Jerome: 6.5 cm/sec MV A max jerome: 93.6 cm/sec E/E' lat: 1.3 E/E' med: 9.6 MV E/A: 0.67 Ao V2 max: 116.5 cm/sec PA V2 max: 136.8 cm/sec TR max jerome: 217.1 cm/sec Ao max P.4 mmHg TR max P.8 mmHg ECHO/Echo Complete Interpretation Summary Normal LV size. Left ventricular systolic function is normal. The estimated ejection fraction is 55 %. Bubble contrast study negative for right to left interatrial shunt. Stage 1 diastolic dysfunction. Mild concentric left ventricular hypertrophy. Ordering Physician: Gricel Etienne Referring Physician: Gricel Etienne Performed By: Ruby Albert RCS
== END | disposition home or self-care (01) ==
LOC: CVS 10:39
PROVIDERS: PCP Internal Medicine Endocrinology, Diabetes & Metabolism; Referring Provider Nurse Practitioner Gerontology; Visit Provider Nurse Practitioner Gerontology
DX: R06.09 Other forms of dyspnea (principal)
CPT/HCPCS: 93306

== ENCOUNTER → 2022-11-17 | Outpatient (CLI) | payer OTHER, SELFPAY ==
[2022-11-17 12:32] LABS: Hematocrit 34.2 % (40-54); Mean Corp Hgb Conc 32.2 g/dL (32-36); Mean Corpuscular Hgb 31.3 pg (27.0-32.0); Mean Corpuscular Volume 97.2 fL (80-94); Mean Platelet Vol. 9.6 fl (6.2-12.0); Platelet Count 224 K/mm3 (150-450); RBC Distribution Width CV 13.5 % (11.6-14.6); RBC Distribution Width SD 48.1 fl (35.1-43.9); Red Blood Count 3.52 M/mm3 (4.6-6.2); White Blood Count 5.8 K/mm3 (4.4-11.0)
[2022-11-17 13:07] LABS: Anion Gap 5 (5-15); BUN 39 mg/dL (7-18); BUN/Creat Ratio 20.7 RATIO (10-20); Calcium,Total 9.3 mg/dL (8.5-10.1); Chloride 106 mmol/L (98-107); Creatinine, Serum 1.88 mg/dL (0.70-1.30); EST Glomerular Filtration Rate 37 mL/min (>60); Est Glom Filt Rate - Afr Amer 45 mL/min (>60); Glucose 103 mg/dL (74-106); Magnesium 2.3 mg/dL (1.6-2.6); Potassium 3.9 mmol/L (3.5-5.1); Sodium Level 136 mmol/L (136-145)
== END | disposition home or self-care (01) ==
PROVIDERS: PCP Internal Medicine Endocrinology, Diabetes & Metabolism; Visit Provider Nurse Practitioner Family
DX: R11.10 Vomiting, unspecified (principal); E10.649 Type 1 diabetes mellitus with hypoglycemia without coma; R19.7 Diarrhea, unspecified; R42 Dizziness and giddiness; M62.81 Muscle weakness (generalized)
CPT/HCPCS: 36415; 80048; 83735; 85027

== ENCOUNTER 2022-11-19 12:48 | Observation (INO) | payer OTHER, SELFPAY ==
[2022-11-19] VITALS (7 sets, daily range): BP systolic 113–141; BP diastolic 48–86; PULSE 60–69; RESP 15–18; TEMP 35.9–36.6; O2SAT 97–100; BMI 31.9
--- NOTE | 2022-11-19 13:24 | CT_ITS ---
INDICATION: Dizziness EXAMINATION: CT BRAIN - CT Head or Brain W/O Contrast Injection TECHNIQUE: Multiple axial images were obtained of the head without intravenous contrast. A radiation dose optimization technique was used for this scan. IV Contrast dosage and agent: None. COMPARISON: March 28, 2020 FINDINGS: BRAIN PARENCHYMA: No intra- or extra-axial hemorrhage. No evidence of acute infarct. No intracranial mass or mass effect. There is preservation of the carranza/white matter interface. Posterior fossa structures are unremarkable. CSF SPACES: Appropriate for age. No hydrocephalus. Basal cisterns are patent. CALVARIUM, SKULL BASE, PARANASAL SINUSES AND MASTOID AIR CELLS: Clear. No discrete lytic or blastic abnormalities. ORBITS: Both globes, extraocular muscles, optic nerves and retrobulbar fat appear unremarkable. CT/Brain/Head without Contrast IMPRESSION: No acute intracranial process. Electronically Signed: Lyndsey Linares MD at 14:07 EST ,
--- NOTE | 2022-11-19 13:26 | EKG12_ITS ---
Test Reason : DIZZINESS Blood Pressure : / mmHG Vent. Rate : 060 BPM Atrial Rate : 060 BPM P-R Int : 254 ms QRS Dur : 140 ms QT Int : 450 ms P-R-T Axes : 000 -59 103 degrees QTc Int : 450 ms Atrial-paced rhythm with prolonged AV conduction Left axis deviation Left bundle branch block Abnormal ECG Confirmed by MARY MIRANDA, MARTELL ([id number]), editorial cartoonist HUSSEIN FLANNERY ([id number]) on 11/21/2022 9:29:43 AM Referred By: Confirmed By:MARTELL HERNANDEZ MD
--- NOTE | 2022-11-19 13:33 | EX.ED.DYSGE1 ---
HPI History of Present Illness Chief Complaint: Weakness Informant: patient Onset/Context/Timing Onset: Yesterday Context: Gradual Onset Timing: Continuous Quality: Lightheaded, spinning sensation Location: Generalized Worsened by: Standing Relieved by: Rest Narrative Narrative: Patient presents with dizziness that began yesterday. Patient states that it has gradually gotten worse. Patient states he is worse with standing and better when he lays flat. Patient describes it as feeling lightheaded but also describes it as a spinning sensation. Patient states his symptoms are generalized. Patient states he fell yesterday. Patient states his symptoms are similar to a prior episode of vertigo he has had in the past. Patient is diabetic. Patient states EMS checked his blood sugar and it was 212. His insulin pump read 145 at that time. Patient admits to some shortness of breath. Patient admits to some nausea and vomiting with the dizziness. Patient denies any fevers or chills. Patient denies any headaches. Patient denies any tinnitus or hearing changes. 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 Sebaceous cyst Seborrheic dermatitis Secondary pulmonary arterial hypertension Sick sinus syndrome Syncopal episodes Syncope and collapse Vitamin D deficiency Home Medications aspirin 81 mg tablet,delayed release 81 mg PO QHS 09/20/18 [History Last Taken 03/16/19] atorvastatin 80 mg tablet 80 mg PO QHS 09/20/18 [History Last Taken 03/15/19] tamsulosin 0.4 mg capsule 0.4 mg PO DAILY 09/20/18 [History Last Taken 03/16/19] gabapentin 400 mg capsule 400 mg PO BID 03/23/20 [History Last Taken Unknown] glucagon HCl 1 mg solution for injection (Glucagon (HCl) Emergency Kit) 1 mg subcut Q20M PRN blood sugar 03/23/20 [History Last Taken Unknown] insulin lispro 100 unit/mL subcutaneous solution (Humalog U-100 Insulin) See Rx Instructions subcut DAILY 03/23/20 [History Last Taken Unknown] menthol 4 % topical cream 1 applic topical DAILY 03/23/20 [History Last Taken Unknown] finasteride 5 mg tablet 5 mg PO DAILY 03/28/20 [History Last Taken Unknown] flash glucose sensor (FreeStyle [place] 2 Sensor kit) #2 ea 04/08/21 [Rx Last Taken Unknown] walker #1 ea 05/27/21 [Rx Last Taken Unknown] blood sugar diagnostic (Jule Gameuch Verio test strips) #150 ea 10/31/21 [Rx Last Taken Unknown] ferrous sulfate 325 mg (65 mg iron) tablet 325 mg PO DAILY 01/06/22 [History Last Taken Unknown] amlodipine 5 mg tablet 5 mg PO DAILY 01/25/22 [History Last Taken Unknown] spironolactone 25 mg tablet 25 mg PO DAILY 01/25/22 [History Last Taken Unknown] guselkumab 100 mg/mL subcutaneous syringe (Tremfya) 100 mg subcut Q8W 04/04/22 [History Last Taken Unknown] acetaminophen 500 mg tablet 500 mg PO Q6H PRN 07/03/22 [History Last Taken Unknown] losartan 100 mg tablet 50 mg PO BID 11/08/22 [History Last Taken Unknown] Allergy/AdvReac Type Severity Reaction Status Date / Time No Known Allergies Allergy Verified 11/19/22 12:52 Family History (Reviewed 10/06/22 @ 10:08 by Ayden Castaneda AMM[employer]ITION COMPONENTS INSPECTOR, AMMUNITION COMPONENTS INSPECTOR-C) Father Diabetes Arthritis Cancer CVA (cerebral vascular accident) Skin cancer Mother CAD (coronary artery disease) Arthritis Parkinsons disease Brother Diabetes Kidney disease Sister Hypothyroid Surgical History H/O hernia repair History of appendectomy History of left heart catheterization (2010) 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) Social History Smoking Status: Former smoker how long ago did patient quit smokin second hand exposure: No alcohol intake: current alcohol intake frequency: holidays/special occasions only substance use type: does not use caffeine: Yes Type: coffee Number of servings: 2 what type of physical activity do you participate in: other frequency: 1-2 times per week ROS ROS ED Constitutional Constitutional ED: Denies chills or fever(s) Eyes Eyes: Denies blurry vision or change in vision ENT ENT ED: Denies rhinorrhea or sore throat Cardiovascular Cardiovascular: Denies chest pain or palpitations Respiratory/Chest Respiratory/Chest: Reports dyspnea; Denies cough Gastrointestinal Gastrointestinal: Reports nausea and vomiting Genitourinary Genitourinary ED: Denies dysuria or hematuria Musculoskeletal Musculoskeletal: Reports back pain; Denies neck pain Integumentary Denies abscess or rash Neurologic Neurologic: Denies headache(s) or weakness Allergic/Immunologic Allergic/Immunologic ED: Denies mouth swelling or urticaria EXAM Physical Exam Const Vital Signs: 11/19/22 12:50 11/19/22 12:53 11/19/22 14:07 Temperature 96.7 F L Temperature Source Temporal Pulse Rate 63 Pulse Rate [Lying] 60 Pulse Rate [Sitting (for 1 minute prior to obtaining)] 68 Pulse Rate [Standing (for 1 minute prior to obtaining)] 66 Respiratory Rate 18 Respiratory Effort Short of Breath Blood Pressure 137/60 H Blood Pressure [Lying] 116/63 Blood Pressure [Sitting (for 1 minute prior to obtaining)] 117/61 Blood Pressure [Standing (for 1 minute prior to obtaining)] 113/48 L Blood Pressure Mean 85 Blood Pressure Mean [Lying] 80 Blood Pressure Mean [Sitting (for 1 minute prior to obtaining)] 79 Blood Pressure Mean [Standing (for 1 minute prior to obtaining)] 69 Pulse Ox 100 Oxygen Delivery Method Room Air 11/19/22 14:55 Temperature Temperature Source Pulse Rate 60 Pulse Rate [Lying] Pulse Rate [Sitting (for 1 minute prior to obtaining)] Pulse Rate [Standing (for 1 minute prior to obtaining)] Respiratory Rate 15 Respiratory Effort Blood Pressure Blood Pressure [Lying] Blood Pressure [Sitting (for 1 minute prior to obtaining)] Blood Pressure [Standing (for 1 minute prior to obtaining)] Blood Pressure Mean Blood Pressure Mean [Lying] Blood Pressure Mean [Sitting (for 1 minute prior to obtaining)] Blood Pressure Mean [Standing (for 1 minute prior to obtaining)] Pulse Ox 98 Oxygen Delivery Method Room Air Positive well nourished and well developed General Appearance ED: well developed and NAD HEENT Reports moist mucous membranes Eyes PERRL and EOMs intact bilaterally Eyes Narrative: There is some mild nystagmus with right lateral gaze. This did reproduce patient's dizziness. Neck supple and no JVD Resp normal respiratory effort and clear to auscultation bilaterally Cardio regular rate and regular rhythm GI normal to inspection, nondistended, normoactive bowel sounds and non-tender Palpation: soft Extremity normal to inspection General Extremety ED: Negative for edema or tenderness General Extremity: Negative for edema Neuro oriented x3, CN's II-XII intact bilaterally and no sensory deficits noted Sensorium / Orientation: alert Motor Exam: strength 5/5 throughout Psych mental status grossly normal Skin no rashes or lesions noted MDM MDM MDM Narrative Medical decision making narrative: Patient was given normal saline. CBC was obtained and was reviewed. There is mild anemia with hemoglobin of 11.1 and hematocrit 33.7. Prior outpatient results were reviewed and were consistent. Comprehensive metabolic profile was obtained. BUN was slightly elevated at 39 and creatinine was 1.75. Prior outpatient labs were reviewed and were similar to today's values. Glucose was 143. Electrolytes were within normal limits. Anion gap was normal. High-sensitivity troponin was obtained and was reviewed. This was normal at 7. Urinalysis was obtained and was reviewed. There is no evidence of urinary tract infection or hematuria. CT scan of the brain was obtained. There is no acute intracranial abnormality. This was interpreted by the radiologist and was independently reviewed by myself. EKG was obtained. On my interpretation, there is a paced rhythm with a rate of 60. There is a left bundle branch block pattern noted. There are no acute ST or T wave changes noted. DC interval was 254 ms. QRS interval was 140 ms. QTc interval was 450 ms. There is left axis deviation at -59. Patient was given a dose of Valium and Tylenol. On reevaluation, patient states his dizziness is better. Patient will be ambulated to make sure he can ambulate without difficulty. Patient was unsteady with ambulation. Nurse reported the patient almost fell while trying to ambulate. Patient does live at home by himself. Because of this, case was discussed with the hospitalist. She will admit the patient for observation. Patient understood and was agreeable with the plan. All questions were answered. Lab Data Attestation: I reviewed the patient's lab results. Labs: Laboratory Results - last 24 hr 11/19/22 11/19/22 11/19/22 13:08 13:08 14:20 WBC 4.7 RBC 3.50 L Hgb 11.1 L Hct 33.7 L MCV 96.3 H MCH 31.7 MCHC 32.9 RDW Std Deviation 47.9 H RDW Coeff of Digna 13.6 Plt Count 220 MPV 9.3 Immature Gran % (Auto) 0.400 Neut % (Auto) 68.7 Lymph % (Auto) 12.2 L [place] % (Auto) 13.9 H Eos % (Auto) 4.2 Baso % (Auto) 0.6 Absolute Neuts (auto) 3.3 Absolute Lymphs (auto) 0.58 L Nucleated RBC % 0 Differential Comment SCANNED Sodium 138 Potassium 4.3 Chloride 109 H Carbon Dioxide 23.0 Anion Gap 6 BUN 39 H Creatinine 1.75 H Estim Creat Clear Calc 39.42 Est GFR (MDRD) Af Amer 49 L Est GFR (MDRD) Non-Af 40 L BUN/Creatinine Ratio 22.3 H Glucose 143 H Calcium 9.0 Total Bilirubin 0.40 AST 11 L ALT 20 Alkaline Phosphatase 34 L Troponin I High Sens 7 Total Protein 6.9 Albumin 3.3 Globulin 3.6 Albumin/Globulin Ratio 0.9 Urine Color Yellow Urine Clarity Clear Urine pH 6.0 Ur Specific [place] 1.010 Urine Protein Negative Urine Glucose (UA) Normal Urine Ketones Negative Urine Occult Blood Negative Urine Nitrite Negative Urine Bilirubin Negative Urine Urobilinogen Normal Ur Leukocyte Esterase Negative Urine RBC 0 SEEN Urine WBC 0 SEEN Ur Squamous Epith Cells 0 SEEN Urine Bacteria 0 SEEN Urine Mucus 0 SEEN Radiography Diagnostic Testing: Clinical Impression(s) from Imaging Studies Brain CT 11/19/22 13:24 IMPRESSION: No acute intracranial process. Electronically Signed: Lyndsey Linares MD at 14:07 EST , EKG Initial EKG: Attestation: I personally reviewed and interpreted this EKG as follows: Interpretation: Paced (At 60), LBBB and Non-Specific ST Changes Prior EKG tracings: available for review Prior: Unchanged (06/02/2020) Discharge Plan Dx/Rx/DC Orders Clinical Impression: Vertigo, Ataxia Disposition Disposition: [facility]
[2022-11-19 13:43] LABS: Absolute Lymphocyte Count 0.58 X10^3/uL (0.83-4.51); Absolute Neutrophil Count 3.3 X10^3/uL (2.0-7.7); Basophil# 0.03 X10^3/uL; Basophil% 0.6 % (0-1); Eosinophils% 4.2 % (0-5); Hematocrit 33.7 % (40-54); Hemoglobin 11.1 g/dL (13.0-16.5); Lymphocyte # 0.58 X10^3/ul (0.83-4.51); Lymphocyte % 12.2 % (19-41); Mean Corp Hgb Conc 32.9 g/dL (32-36); Mean Corpuscular Hgb 31.7 pg (27.0-32.0); Mean Corpuscular Volume 96.3 fL (80-94); Mean Platelet Vol. 9.3 fl (6.2-12.0); Monocyte# 0.66 X10^3/uL; Monocyte% 13.9 % (0-10); NRBC Flagged by Analyzer 0 % (0-5); Neutrophil # 3.25 X10^3/uL (2.7-7.7); Neutrophil % 68.7 % (47-70); POSITIVE DIFFERENTIAL YES; Platelet Count 220 K/mm3 (150-450); RBC Distribution Width CV 13.6 % (11.6-14.6); RBC Distribution Width SD 47.9 fl (35.1-43.9); White Blood Count 4.7 K/mm3 (4.4-11.0)
[2022-11-19 14:02] LABS: ALB/GLOB Ratio 0.9 RATIO (0.9-2.4); AST(SGOT) 11 U/L (15-37); Alanine Aminotransfer ALT/SGPT 20 U/L (16-61); Albumin, Serum 3.3 g/dL (3.2-5.0); Alkaline Phosphatase 34 U/L (45-117); Anion Gap 6 (5-15); BUN 39 mg/dL (7-18); BUN/Creat Ratio 22.3 RATIO (10-20); Chloride 109 mmol/L (98-107); Creatinine, Serum 1.75 mg/dL (0.70-1.30); EST Glomerular Filtration Rate 40 mL/min (>60); Est Glom Filt Rate - Afr Amer 49 mL/min (>60); Estimated Creatinine Clearance 39.42 ml/min; Globulin 3.6 g/dL (2.2-4.2); Glucose 143 mg/dL (74-106); Potassium 4.3 mmol/L (3.5-5.1); Protein, Total 6.9 g/dL (6.4-8.2); Sodium Level 138 mmol/L (136-145); Troponin-I HS 7 pg/mL (3.0-78.0)
[2022-11-19 14:33] LABS: Differential Indicated SCAN CRITERIA MET
[2022-11-19 14:33] LABS: Bacteria 0 SEEN /hpf (None Seen); Mucous, Urine 0 SEEN /hpf (<or=2+); Red Blood Cells-Urine 0 SEEN /hpf (0-5); Squamous Epithelial Cells - UA 0 SEEN /hpf (0-5); White Blood Cells 0 SEEN /hpf (0-5)
[2022-11-19 14:38] LABS: Color, Urine Yellow (Yellow); Glucose, Dipstick Normal (Normal); Ketone-Dipstick Negative (Negative); Leukocyte Esterase-Dipstick Negative /ul (Negative); Nitrite-Dipstick Negative (Negative); Occult Blood-Urine Negative /ul (Negative); Protein-Dipstick Negative (Negative); Urine Bilirubin Dipstick Negative (Negative); Urine Clarity Clear (Clear); Urine Urobilinogen Normal (Normal)
[2022-11-19] MEDS: 0.9% Normal Saline 1,000 ML 1000 ML IV (14:46)
[2022-11-19 14:49] LABS: Differential Comment SCANNED
[2022-11-19] MEDS: diazePAM 5 MG Tablet 2.5 MG PO (15:31)
[2022-11-19] MEDS: Acetaminophen 500 MG Tablet 1000 MG PO (16:14)
--- NOTE | 2022-11-19 16:22 | ED.RN ---
this nurse and pt daughter attempted to walk pt. Pt very unsteady and stating My legs feel like jello. Assisted back to bed x2 assist.
--- NOTE | 2022-11-19 16:33 | NURSING ---
MED SURG OBS WHITE VERTIGO, ATAXIA
--- NOTE | 2022-11-19 17:50 | PCM.HP.STD ---
HPI - General General Date of Admission: 11/19/22 Date of Service: 11/19/22 Chief Complaint: Vertigo, dizziness. HPI Narrative GThe patient is a 77 y/o M w/ PMHx: Nonobstructive CAD, SANJANA, CKD stage III unclear subtype, Obesity, CAD, Chronic normocytic anemia, BPH, Diabetes mellitus type II, HTN, HLD, Hx Syncopal events, Hx sick sinus syndrome s/p pacemaker status, Former tobacco use who presents to the [facility] ED on 11/19/22 with history of onset of dizziness with lightheadedness and spinning type sensation worse with activity with fall the day prior similar to a previous episode of benign positional vertigo in the past with called EMS secondary to recurrent symptoms with blood sugar at that time to 12 although his insulin pump at that time reportedly read 145 with associated nausea and emesis but no recent URI type symptoms otherwise nor any recent hearing changes or marked headaches prompting eventual ED evaluation. He does report that his symptoms are somewhat improved if he rests but worse with any activity attempts. Patient is also reports that recently he does not live near his [id number] and son who live in the room and has been less active as they had 7 children to constantly keep him moving and since then feels more achy and does have some lumbar back discomfort. He notes he does not drive anymore but is interested in activities which were discussed at length and encouraged him to look into possible rides for Silver sneakers. Work-up in the ED included T96.7, heart rate 63, BP 137/60, respiratory rate 18, under percent room air, orthostatic vital signs with unchanged marked heart rate, unchanged marked blood pressure assessment, CBC with WBCs 4.7, 11.1, MCV 96.3, platelet 220 with lymphopenia, CMP with chloride 109, BUN/creat 39/1.75, glucose 143, AST 11, alk phos 34 otherwise not marked appearing, initial troponin 7, CT of the brain with no acute intracranial findings, EKG with paced rhythm with left bundle branch block with no acute evidence of ischemia, rapid COVID and influenza antigens negative, urinalysis unremarkable. In the ED patient ministered 1 L normal saline well as Tylenol 1000 mg p.o. x1 and Valium 2.5 mg p.o. x1. In the ED patient initially improved with Valium and plan discharge to home with follow-up with primary care however upon attempted ambulation patient had recurrent vertiginous symptoms prompting decision for short course admission. 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 Essential (primary) hypertension History of non-ST elevation myocardial infarction (NSTEMI) (2010) Hyperlipidemia Hyperlipidemia due to type 1 diabetes mellitus Left bundle branch block care home current use of insulin Sebaceous cyst Seborrheic dermatitis Secondary pulmonary arterial hypertension Sick sinus syndrome Syncopal episodes Syncope and collapse Vitamin D deficiency Home Medications aspirin 81 mg tablet,delayed release 81 mg PO QHS 09/20/18 [History Last Taken 11/18/22] atorvastatin 80 mg tablet 80 mg PO QHS 09/20/18 [History Last Taken 11/18/22] tamsulosin 0.4 mg capsule 0.4 mg PO DAILY 09/20/18 [History Last Taken 11/18/22] gabapentin 400 mg capsule 400 mg PO BID 03/23/20 [History Last Taken 11/18/22] glucagon HCl 1 mg solution for injection (Glucagon (HCl) Emergency Kit) 1 mg subcut Q20M PRN blood sugar 03/23/20 [History Last Taken Unknown] insulin lispro 100 unit/mL subcutaneous solution (Humalog U-100 Insulin) See Rx Instructions subcut DAILY 03/23/20 [History Last Taken Unknown] menthol 4 % topical cream 1 applic topical DAILY 03/23/20 [History Last Taken Unknown] finasteride 5 mg tablet 5 mg PO DAILY 03/28/20 [History Last Taken 11/18/22] flash glucose sensor (FreeStyle Wilma 2 Sensor kit) #2 ea 04/08/21 [Rx Last Taken Unknown] walker #1 ea 05/27/21 [Rx Last Taken Unknown] blood sugar diagnostic ([employer] [facility] Verio test strips) #150 ea 10/31/21 [Rx Last Taken Unknown] ferrous sulfate 325 mg (65 mg iron) tablet 325 mg PO DAILY 01/06/22 [History Last Taken 11/18/22] amlodipine 5 mg tablet 5 mg PO DAILY 01/25/22 [History Last Taken 11/18/22] spironolactone 25 mg tablet 25 mg PO DAILY 01/25/22 [History Last Taken Unknown] guselkumab 100 mg/mL subcutaneous syringe (Tremfya) 100 mg subcut Q8W 04/04/22 [History Last Taken Unknown] acetaminophen 500 mg tablet 500 mg PO Q6H PRN pain 07/03/22 [History Last Taken 11/19/22] losartan 100 mg tablet 50 mg PO BID 11/08/22 [History Last Taken 11/18/22] Allergy/AdvReac Type Severity Reaction Status Date / Time No Known Allergies Allergy Verified 11/19/22 12:52 Family History (Reviewed 10/06/22 @ 10:08 by Ayden Castaneda REHABILITATION ENGINEER, REHABILITATION ENGINEER-C) Father Diabetes Arthritis Cancer CVA (cerebral vascular accident) Skin cancer Mother CAD (coronary artery disease) Arthritis Parkinsons disease Brother Diabetes Kidney disease Sister Hypothyroid Surgical History H/O hernia repair History of appendectomy History of left heart catheterization (2010) 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) Social History (Updated 11/19/22 @ 17:[address] Shazia Acosta MD) household members: none Smoking Status: Former smoker how long ago did patient quit smokin second hand exposure: No alcohol intake: current alcohol intake frequency: holidays/special occasions only substance use type: does not use caffeine: Yes Type: coffee Number of servings: 2 what type of physical activity do you participate in: other frequency: 1-2 times per week ROS ROS Narrative Admission Review of Systems: CONSTITUTIONAL: No weight loss, fever, chills, +weakness or fatigue. HEENT: + Vertiginous symptoms. Eyes: No visual loss, blurred vision, double vision or yellow sclerae. Ears, Nose, Throat: No hearing loss, sneezing, congestion, runny nose or sore throat. SKIN: No rash or itching, lesions, wounds. CARDIOVASCULAR: No chest pain, chest pressure or chest discomfort, palpitations, edema, orthopnea, syncopal events. RESPIRATORY: No shortness of breath, cough or sputum, wheezing, hemoptysis. GASTROINTESTINAL: + anorexia, nausea, vomiting, No diarrhea, abdominal pain, melena, BRBPR. GENITOURINARY: No dysuria, frequency, urgency or retention. NEUROLOGICAL:+ Vertiginous symptoms. No headache, syncope, paralysis, ataxia, numbness or tingling in the extremities, focal weakness, change in bowel or bladder control, seizure. MUSCULOSKELETAL: + muscle, back pain, joint pain or stiffness. HEMATOLOGIC: + anemia, bleeding or bruising. LYMPHATICS: No enlarged nodes. No history of splenectomy. PSYCHIATRIC: No history of depression or anxiety. ENDOCRINOLOGIC: No reports of sweating, cold or heat intolerance. No polyuria or polydipsia. ALLERGIES: No history of asthma, hives, eczema or rhinitis. Vital Signs Vital Signs Vital Signs: 11/19/22 12:50 11/19/22 12:53 11/19/22 14:07 Temperature 96.7 F L Temperature Source Temporal Pulse Rate 63 Pulse Rate [Lying] 60 Pulse Rate [Sitting (for 1 minute prior to obtaining)] 68 Pulse Rate [Standing (for 1 minute prior to obtaining)] 66 Respiratory Rate 18 Respiratory Effort Short of Breath Blood Pressure 137/60 H Blood Pressure [Lying] 116/63 Blood Pressure [Sitting (for 1 minute prior to obtaining)] 117/61 Blood Pressure [Standing (for 1 minute prior to obtaining)] 113/48 L Blood Pressure Mean 85 Blood Pressure Mean [Lying] 80 Blood Pressure Mean [Sitting (for 1 minute prior to obtaining)] 79 Blood Pressure Mean [Standing (for 1 minute prior to obtaining)] 69 Pulse Ox 100 Oxygen Delivery Method Room Air 11/19/22 14:55 11/19/22 16:00 Temperature Temperature Source Pulse Rate 60 67 Pulse Rate [Lying] Pulse Rate [Sitting (for 1 minute prior to obtaining)] Pulse Rate [Standing (for 1 minute prior to obtaining)] Respiratory Rate 15 15 Respiratory Effort Blood Pressure 141/86 H Blood Pressure [Lying] Blood Pressure [Sitting (for 1 minute prior to obtaining)] Blood Pressure [Standing (for 1 minute prior to obtaining)] Blood Pressure Mean 104 Blood Pressure Mean [Lying] Blood Pressure Mean [Sitting (for 1 minute prior to obtaining)] Blood Pressure Mean [Standing (for 1 minute prior to obtaining)] Pulse Ox 98 98 Oxygen Delivery Method Room Air Room Air Weight Weight: 235 lb 7.259 oz Body Mass Index (BMI) 31.9 Physical Exam Narrative Physical Examination: General: Awake, alert, oriented x 3 and cooperative, seated upright in the ED bed, notes feeling improved, able to sit upright with no nystagmus or any recurrent significant vertiginous symptoms, still feeling fatigued and mildly nauseated but less than initial ED evaluation Skin: Normal color, normal turgor, no icterus, no cyanosis except for mild bilateral lower extremity chronic venous stasis skin changes. HEENT: AT/NC, EOMI, PERRLA, dry MM, no carotid bruits or JVD noted. Lungs: Mildly diminished, greater bases, poor effort, no rales, ronchi or wheezing. Heart: Paced/regular rate and rhythm; no gallop, rub audible. Abdomen: Soft, obese, NTTP, ND, mildly hyperactive BS, no HSM. Extremities: No cyanosis, clubbing, or larry, see skin a. Neurological: Patient awake, alert, oriented as noted, cognitive function intact; pupils equally reactive to light and accommodation, cranial nerves II-XII grossly normal, moving all 4 extremities, no focal deficits, strength moderately globally creased but improving secondary to recent significant vertiginous symptoms, no reproducible nystagmus or vertiginous symptoms at this time. Psychiatric: Affect appears fatigued, no acute evidence of depressive or anxiety feelings. Results Lab / Micro Data Result Diagrams: 11/19/22 13:08 11/19/22 13:08 Labs: Laboratory Results - last 24 hr 11/19/22 13:08: WBC 4.7, RBC 3.50 L, Hgb 11.1 L, Hct 33.7 L, MCV 96.3 H, MCH 31.7, MCHC 32.9, RDW Std Deviation 47.9 H, RDW Coeff of Digna 13.6, Plt Count 220, MPV 9.3, Immature Gran % (Auto) 0.400, Neut % (Auto) 68.7, Lymph % (Auto) 12.2 L, [place] % (Auto) 13.9 H, Eos % (Auto) 4.2, Baso % (Auto) 0.6, Absolute Neuts (auto) 3.3, Absolute Lymphs (auto) 0.58 L, Nucleated RBC % 0, Differential Comment SCANNED 11/19/22 13:08: Sodium 138, Potassium 4.3, Chloride 109 H, Carbon Dioxide 23.0, Anion Gap 6, BUN 39 H, Creatinine 1.75 H, Estim Creat Clear Calc 39.42, Est GFR (MDRD) Af Amer 49 L, Est GFR (MDRD) Non-Af 40 L, BUN/Creatinine Ratio 22.3 H, Glucose 143 H, Calcium 9.0, Total Bilirubin 0.40, AST 11 L, ALT 20, Alkaline Phosphatase 34 L, Troponin I High Sens 7, Total Protein 6.9, Albumin 3.3, Globulin 3.6, Albumin/Globulin Ratio 0.9 11/19/22 14:20: Urine Color Yellow, Urine Clarity Clear, Urine pH 6.0, Ur Specific [place] 1.010, Urine Protein Negative, Urine Glucose (UA) Normal, Urine Ketones Negative, Urine Occult Blood Negative, Urine Nitrite Negative, Urine Bilirubin Negative, Urine Urobilinogen Normal, Ur Leukocyte Esterase Negative, Urine RBC 0 SEEN, Urine WBC 0 SEEN, Ur Squamous Epith Cells 0 SEEN, Urine Bacteria 0 SEEN, Urine Mucus 0 SEEN Micro: Microbiology 11/19/22 14:20 Nasal Secretion SARS-CoV-2 & FLU Antigen (Rapid) - Final Radiology Impression Brain CT 11/19/22 13:24 IMPRESSION: No acute intracranial process. Electronically Signed: Lyndsey Linares MD at 14:07 EST , Assessment & Plan Assessment/Plan (1) Vertigo: PLAN: Plan The patient is a 77 y/o M w/ PMHx: Nonobstructive CAD, SANJANA, CKD stage III unclear subtype, Obesity, CAD, Chronic normocytic anemia, BPH, Diabetes mellitus type II, HTN, HLD, Hx Syncopal events, Hx sick sinus syndrome s/p pacemaker status, Former tobacco use who presents to the [facility] ED on 11/19/22 with history of onset of dizziness with lightheadedness and spinning type sensation worse with activity with fall the day prior similar to a previous episode of benign positional vertigo in the past with called EMS secondary to recurrent symptoms with blood sugar at that time to 12 although his insulin pump at that time reportedly read 145 with associated nausea and emesis but no recent URI type symptoms otherwise nor any recent hearing changes or marked headaches prompting eventual ED evaluation. #1. Falls, vertigo with previous history benign positional vertigo: EKG in ED w/ paced rhythm with left bundle branch block with no acute evidence of ischemia, CT of the brain with no acute intracranial finding, troponin 7. Will admit to [facility], will initiate low-dose meclizine scheduled regimen although if not effective may transition to low-dose Valium maintain on fall precautions, continue judicious hydration, as needed antiemetic regimen, PT/OT consultation to ascertain stability and discharge needs or potentially if necessary to arrange vestibular therapy. If ongoing symptoms despite intervention although this presentation is consistent with his prior presentations with BPPV if not resolved may necessitate MRI if pacemaker compatible. #2. Chronic Kidney Disease Stage III, unclear subtype: Admission BUN/Cr 39/1.75, baseline renal function since 2020 1.4-1.8, repeat BMP in AM. #3. Chronic normocytic anemia/iron deficiency anemia: Admission hemoglobin 11.1, stable, baseline appears primarily previously 11-12, most recently prior 11/17/2022 hemoglobin 11, continue to trend, continue iron supplementation. #4. Diabetes mellitus type II with chronic neuropathy: Following with Dr. Vital with pump in place, Will continue home insulin pump regimen per its current protocol, ADA diet, accu check assessment per his pump only with continued sliding scale per his pump regimen, continue patient home gabapentin regimen. #5. Nonobstructive CAD: History of prior NSTEMI 2010, cardiac catheterization at that time with moderate disease in the LAD with medical therapy recommended, will continue aspirin, statin, hypertensive regimen as noted. #6. Hypertension: Continue home regimen including losartan, amlodipine, spironolactone with hold parameters as needed, PRN hydralazine. #7. Hyperlipidemia: We will continue patient on statin therapy. #8. BPH: We will continue patient home Flomax and finasteride regimen however cautiously given presentation history. #9. History sick sinus syndrome: Status post pacemaker placement. #10. Former tobacco use: Encourage continued tobacco cessation. #11. Obesity: Weight loss and lifestyle changes encouraged. #12. SANJANA: CPAP nightly. #13. DVT prophylaxis: SCDs, Lovenox. #14. CODE status: Patient RAVINDER is his [id number] who is present as well as a son and living will is currently in place. Discussed CODE status at length including difference between FULL code, DNR-CCA and DNR-CC status. Following discussions about the differences in these status, requested Full Code status. Advanced Care Planning Face to Face Time: 17 minutes. Admission Evaluation Time spent evaluating chart, patient history, patient evaluation, care planning and discussion with specialists: 56 minutes. Charges/Coding Visit Charges Inpatient E&M: 03937 Init Hosp L2 Procedures Hospitalists Procedures: 46407 Advncd Care Plan 30 Min
[2022-11-19] MEDS: Meclizine 12.5 MG Tablet PO ×2 (17:57→21:34)
[2022-11-19] MEDS: 0.9% Normal Saline 1,000 ML 100 ML IV (17:57)
[2022-11-19] MEDS: 0.9% Saline Lock 10 ML Syringe IV (17:58)
--- NOTE | 2022-11-19 20:00 | NURSING ---
BG 207, pt states he will receive 2.8u of insulin per insulin pump.
[2022-11-19 20:16] LABS: Bedside Glucose 207 mg/dL (74-106)
[2022-11-19] MEDS: Atorvastatin Calcium 80 MG Tablet PO (21:34)
[2022-11-19] MEDS: Aspirin E.C. 81 MG Tablet PO (21:34)
[2022-11-19] MEDS: Losartan Potassium 50 MG Tablet PO (21:34)
[2022-11-19] MEDS: Gabapentin 400 MG Capsule PO (21:36)
[2022-11-20] MEDS: 0.9% Normal Saline 1,000 ML 100 ML IV ×2 (02:15→11:50)
[2022-11-20 02:19] VITALS: BP 141/58; PULSE 64; RESP 18; TEMP 36.7; O2SAT 99
[2022-11-20] MEDS: Meclizine 12.5 MG Tablet PO ×2 (05:46→14:27)
[2022-11-20 06:11] LABS: Bedside Glucose 79 mg/dL (74-106)
[2022-11-20 06:41] LABS: Absolute Lymphocyte Count 0.54 X10^3/uL (0.83-4.51); Absolute Neutrophil Count 2.9 X10^3/uL (2.0-7.7); Basophil# 0.03 X10^3/uL; Basophil% 0.7 % (0-1); Eosinophil# 0.21 X10^3/uL; Eosinophils% 4.9 % (0-5); Hematocrit 31.3 % (40-54); Hemoglobin 10.3 g/dL (13.0-16.5); Lymphocyte # 0.54 X10^3/ul (0.83-4.51); Lymphocyte % 12.6 % (19-41); Mean Corp Hgb Conc 32.9 g/dL (32-36); Mean Corpuscular Hgb 31.4 pg (27.0-32.0); Mean Corpuscular Volume 95.4 fL (80-94); Mean Platelet Vol. 9.6 fl (6.2-12.0); NRBC Flagged by Analyzer 0 % (0-5); Neutrophil # 2.89 X10^3/uL (2.7-7.7); Neutrophil % 67.3 % (47-70); POSITIVE DIFFERENTIAL YES; Platelet Count 200 K/mm3 (150-450); RBC Distribution Width CV 13.4 % (11.6-14.6); RBC Distribution Width SD 47.6 fl (35.1-43.9); Red Blood Count 3.28 M/mm3 (4.6-6.2); White Blood Count 4.3 K/mm3 (4.4-11.0)
[2022-11-20 06:58] LABS: Differential Indicated SCAN CRITERIA MET
[2022-11-20 07:17] LABS: ALB/GLOB Ratio 0.9 RATIO (0.9-2.4); AST(SGOT) 9 U/L (15-37); Alanine Aminotransfer ALT/SGPT 19 U/L (16-61); Albumin, Serum 2.9 g/dL (3.2-5.0); Alkaline Phosphatase 29 U/L (45-117); Anion Gap 9 (5-15); BUN 33 mg/dL (7-18); BUN/Creat Ratio 24.4 RATIO (10-20); Calcium,Total 8.4 mg/dL (8.5-10.1); Chloride 112 mmol/L (98-107); Creatinine, Serum 1.35 mg/dL (0.70-1.30); EST Glomerular Filtration Rate 55 mL/min (>60); Est Glom Filt Rate - Afr Amer 66 mL/min (>60); Estimated Creatinine Clearance 51.09 ml/min; Globulin 3.3 g/dL (2.2-4.2); Glucose 73 mg/dL (74-106); Potassium 4.8 mmol/L (3.5-5.1); Protein, Total 6.2 g/dL (6.4-8.2); Sodium Level 143 mmol/L (136-145)
[2022-11-20 08:19] VITALS: BP 127/56; PULSE 62; RESP 17; TEMP 36.6; O2SAT 96
--- NOTE | 2022-11-20 08:42 | PN.HOSP_ITS ---
Subjective Subjective Dizziness improved but did feel dizzy when he got up earlier today. Objective Data Objective Data Vital Signs: Vital Signs Temp Pulse Resp BP Pulse Ox O2 Del Method 36.7 C 64 18 141/58 H 99 Room Air 11/20/22 02:19 11/20/22 02:19 11/20/22 02:19 11/20/22 02:19 11/20/22 02:19 11/20/22 02:19 Oxygen Delivery Method Room Air Weight: 104.7 kg Body Mass Index (BMI) 31.9 Intake & Output: Intake and Output for Last 24 Hours 11/18/22 11/19/22 11/20/22 23:59 23:59 23:59 Intake Total 1000 / 1500 1930 / 1930 Output Total 1950 / 1949 Balance 1000 / 900 - / 20 Lab / Micro Data Result Diagrams: 11/20/22 05:38 11/20/22 05:38 Labs: Laboratory Results - last 24 hr 11/19/22 13:08: WBC 4.7, RBC 3.50 L, Hgb 11.1 L, Hct 33.7 L, MCV 96.3 H, MCH 31.7, MCHC 32.9, RDW Std Deviation 47.9 H, RDW Coeff of Digna 13.6, Plt Count 220, MPV 9.3, Immature Gran % (Auto) 0.400, Neut % (Auto) 68.7, Lymph % (Auto) 12.2 L , [place] % (Auto) 13.9 H, Eos % (Auto) 4.2, Baso % (Auto) 0.6, Absolute Neuts (auto) 3.3, Absolute Lymphs (auto) 0.58 L, Nucleated RBC % 0, Differential Comment SCANNED 11/19/22 13:08: Sodium 138, Potassium 4.3, Chloride 109 H, Carbon Dioxide 23.0, Anion Gap 6, BUN 39 H, Creatinine 1.75 H, Estim Creat Clear Calc 39.42, Est GFR (MDRD) Af Amer 49 L, Est GFR (MDRD) Non-Af 40 L, BUN/Creatinine Ratio 22.3 H, Glucose 143 H, Calcium 9.0, Total Bilirubin 0.40, AST 11 L, ALT 20, Alkaline Phosphatase 34 L, Troponin I High Sens 7, Total Protein 6.9, Albumin 3.3, Globulin 3.6, Albumin/Globulin Ratio 0.9 11/19/22 14:20: Urine Color Yellow, Urine Clarity Clear, Urine pH 6.0, Ur Specif ic [place] 1.010, Urine Protein Negative, Urine Glucose (UA) Normal, Urine Ketones Negative, Urine Occult Blood Negative, Urine Nitrite Negative, Urine Bilirubin Negative, Urine Urobilinogen Normal, Ur Leukocyte Esterase Negative, Urine RBC 0 SEEN, Urine WBC 0 SEEN, Ur Squamous Epith Cells 0 SEEN, Urine Bacteria 0 SEEN, Urine Mucus 0 SEEN 11/19/22 19:53: POC Glucose 207 H 11/20/22 05:38: WBC 4.3 L, RBC 3.28 L, Hgb 10.3 L, Hct 31.3 L, MCV 95.4 H, MCH 31.4, MCHC 32.9, RDW Std Deviation 47.6 H, RDW Coeff of Digna 13.4, Plt Count 200, MPV 9.6, Immature Gran % (Auto) 0.500, Neut % (Auto) 67.3, Lymph % (Auto) 12.6 L , [place] % (Auto) 14.0 H, Eos % (Auto) 4.9, Baso % (Auto) 0.7, Absolute Neuts (auto) 2.9, Absolute Lymphs (auto) 0.54 L, Nucleated RBC % 0, Diff Path Review March11/20/22 05:38: Sodium 143, Potassium 4.8, Chloride 112 H, Carbon Dioxide 22.0, Anion Gap 9, BUN 33 H, Creatinine 1.35 H, Estim Creat Clear Calc 51.09, Est GFR (MDRD) Af Amer 66, Est GFR (MDRD) Non-Af 55 L, BUN/Creatinine Ratio 24.4 H, Glucose 73 L, Calcium 8.4 L, Total Bilirubin 0.50, AST 9 L, ALT 19, Alkaline Phosphatase 29 L, Total Protein 6.2 L, Albumin 2.9 L, Globulin 3.3, Albumin/Globulin Ratio 0.9 11/20/22 05:48: POC Glucose 79 Micro: Microbiology 11/19/22 14:20 Nasal Secretion SARS-CoV-2 & FLU Antigen (Rapid) - Final Radiography Diagnostic Testing: Radiology Impression Brain CT 11/19/22 13:24 IMPRESSION: No acute intracranial process. Electronically Signed: Lyndsey Linares MD at 14:07 EST , Physical Exam Const alert and no apparent distress HEENT HEENT Narrative: Right lateral nystagmus. [place] performed bilaterally and was negative bilaterally for any reproducible dizziness. Assessment & Plan Assessment/Plan (1) Vertigo: PLAN: Falls, vertigo with previous history benign positional vertigo: EKG in ED w/ paced rhythm with left bundle branch block with no acute evidence of ischemia, CT of the brain with no acute intracranial finding, troponin 7. Will admit to [place], will initiate low-dose meclizine scheduled regimen although if not effective may transition to low-dose Valium maintain on fall precautions, continue judicious hydration, as needed antiemetic regimen, PT/OT consultation to ascertain stability and discharge needs or potentially if necessary to arrange vestibular therapy. If ongoing symptoms despite intervention although this presentation is consistent with his prior presentations with BPPV if not resolved may necessitate MRI if pacemaker compatible. Seen by therapy and recommended outpatient therapy for vestibular rehab. Will discharge with as needed meclizine. PLAN: Plan Chronic conditions * Chronic Kidney Disease Stage III, unclear subtype: Admission BUN/Cr 39/1.75, baseline renal function since 2020 1.4-1.8, repeat BMP in AM. * Chronic normocytic anemia/iron deficiency anemia: Admission hemoglobin 11.1, stable, baseline appears primarily previously 11-12, most recently prior 11/17/2022 hemoglobin 11, continue to trend, continue iron supplementation. * Diabetes mellitus type II with chronic neuropathy: Following with Dr. Vital with pump in place, Will continue home insulin pump regimen per its current protocol, ADA diet, accu check assessment per his pump only with continued sliding scale per his pump regimen, continue patient home gabapentin regimen. * Nonobstructive CAD: History of prior NSTEMI 2010, cardiac catheterization at that time with moderate disease in the LAD with medical therapy recommended, will continue aspirin, statin, hypertensive regimen as noted. * Hypertension: Continue home regimen including losartan, amlodipine, spironolactone with hold parameters as needed, PRN hydralazine. * Hyperlipidemia: We will continue patient on statin therapy. * BPH: We will continue patient home Flomax and finasteride regimen however cautiously given presentation history. * History sick sinus syndrome: Status post pacemaker placement. * Former tobacco use: Encourage continued tobacco cessation. * Obesity: Weight loss and lifestyle changes encouraged. * SANJANA: CPAP nightly. CODE status: Patient RAVINDER is his [id number] who is present as well as a son and living will is currently in place. Discussed CODE status at length including difference between FULL code, DNR-CCA and DNR-CC status. Following discussions about the differences in these status, requested Full Code status.
[2022-11-20] MEDS: Enoxaparin 40 MG/0.4 ML Syringe SC (08:50)
[2022-11-20] MEDS: Tamsulosin HCl 0.4 MG Capsule PO (08:50)
[2022-11-20] MEDS: Losartan Potassium 50 MG Tablet PO (08:50)
[2022-11-20] MEDS: Gabapentin 400 MG Capsule PO (08:50)
[2022-11-20] MEDS: amLODIPine 5 MG Tablet PO (08:50)
[2022-11-20] MEDS: Finasteride 5 MG Tablet PO (08:51)
[2022-11-20] MEDS: Spironolactone 25 MG Tablet PO (08:51)
[2022-11-20] MEDS: Insulin Bolus Pump SC (08:54)
[2022-11-20 11:53] VITALS: O2SAT 95
[2022-11-20 12:25] LABS: Bedside Glucose 142 mg/dL (74-106)
[2022-11-20 13:38] LABS: Pathologist Review Reviewed
[2022-11-20 14:35] VITALS: BP 133/67; PULSE 77; RESP 15; TEMP 36.5; O2SAT 94
--- NOTE | 2022-11-20 14:39 | NURSING ---
DAUGHTER GALI IS BRINGING PTS INSULILN IN. PT ASKING ABOUT LUNCH INSULIN, BLOOD SUGAR WAS 142. THIS NURSE HAD ASKED EARLIER WHO WAS PTS ORDERING DR FOR INSULIN SO, IF NEEDED, WE COULD GET ORDERS FOR INSULIN BASED ON WHAT HE CURRENTLY USES.
--- NOTE | 2022-11-20 15:14 | PCM.DC ---
Discharge Instructions Diet Discharge Diet: 1999 Calorie Control Diet Follow Up Care Test Results: Test results from this visit will be discussed in further detail at your follow-up appointment, if applicable. Discharge Plan Admission Admit Date/Time: 11/19/22 16:27 Primary Reason for Your Visit: vertigo Attending Provider: Luther Griffin Primary Care Provider: [facility],[place] Consulting Providers: Shazia Acosta Discharge Orders/Prescriptions Prescriptions: New meclizine 12.5 mg Tablet 12.5 mg PO TID PRN (Reason: dizziness) Qty: 20 0RF Continued menthol 4 % cream 1 applic TOPICAL DAILY Glucagon (HCl) Emergency Kit 1 mg recon soln 1 mg SC Q20M PRN (Reason: blood sugar) Rx Instructions: until target blood sugar attained insulin lispro [Humalog U-100 Insulin] 100 unit/mL solution See Rx Instructions SC DAILY Rx Instructions: via pump subcut daily; ferrous sulfate 325 mg (65 mg iron) tablet 325 mg PO DAILY acetaminophen 500 mg tablet 500 mg PO Q6H PRN (Reason: pain) atorvastatin 80 MG tablet 80 mg PO QHS tamsulosin 0.4 MG capsule 0.4 mg PO DAILY aspirin 81 MG tablet 81 mg PO QHS gabapentin 400 mg capsule 400 mg PO BID finasteride 5 MG tablet 5 mg PO DAILY (DME) walker Misc See Rx Instructions .ROUTE .MEDSUPPLY Qty: 1 0RF Rx Instructions: As directed Tremfya 100 mg/mL syringe 100 mg SUBCUT Q8W Rx Instructions: every 8 weeks (DME) FreeStyle Wilma 2 Sensor Kit See Rx Instructions .ROUTE .MEDSUPPLY Qty: 2 8RF Rx Instructions: As directed (DME) OneTouch Verio test strips Strip See Rx Instructions .ROUTE .MEDSUPPLY Qty: 150 12RF Rx Instructions: 5 times daily spironolactone 25 mg tablet 25 mg PO DAILY Hold Instructions: dizzy after vomiting and diarrhea Rx Instructions: pt. states this has been discontinued amlodipine 5 mg tablet 5 mg PO DAILY losartan 100 mg tablet 50 mg PO BID Other Ambulatory Orders: Physical Therapy Evaluation (Routine) Location: None Selected Ordered By: Dr. Luther Griffin Referrals / Follow Up: [facility] [Primary Care Provider] - Within 2 Weeks Disposition Disposition (needs filled in before D/C Order can be placed): Home, Self Care
--- NOTE | 2022-11-20 15:19 | DS.PCM_ITS ---
Providers Date of Admission: 11/19/22 Primary Care Physician: [facility] Reason For Visit: VERTIGO, SUSPECTED BPPV Diagnosis Discharge Diagnosis (1) Vertigo: Status: Acute Code(s): R42 - Dizziness and giddiness Plan: Falls, vertigo with previous history benign positional vertigo: EKG in ED w/ paced rhythm with left bundle branch block with no acute evidence of ischemia, CT of the brain with no acute intracranial finding, troponin 7. Will admit to [facility], will initiate low-dose meclizine scheduled regimen although if not effective may transition to low-dose Valium maintain on fall precautions, continue charito cious hydration, as needed antiemetic regimen, PT/OT consultation to ascertain stability and discharge needs or potentially if necessary to arrange vestibular therapy. If ongoing symptoms despite intervention although this presentation is consistent with his prior presentations with BPPV if not resolved may necessitate MRI if pacemaker compatible. Seen by therapy and recommended outpatient therapy for vestibular rehab. Will discharge with as needed meclizine. Plan Chronic conditions * Chronic Kidney Disease Stage III, unclear subtype: Admission BUN/Cr 39/1.75, baseline renal function since 2020 1.4-1.8, repeat BMP in AM. * Chronic normocytic anemia/iron deficiency anemia: Admission hemoglobin 11.1, stable, baseline appears primarily previously 11-12, most recently prior 11/17/2022 hemoglobin 11, continue to trend, continue iron supplementation. * Diabetes mellitus type II with chronic neuropathy: Following with Dr. Vital with pump in place, Will continue home insulin pump regimen per its current protocol, ADA diet, accu check assessment per his pump only with continued sliding scale per his pump regimen, continue patient home gabapentin regimen. * Nonobstructive CAD: History of prior NSTEMI 2010, cardiac catheterization at that time with moderate disease in the LAD with medical therapy recommended, will continue aspirin, statin, hypertensive regimen as noted. * Hypertension: Continue home regimen including losartan, amlodipine, sp ironolactone with hold parameters as needed, PRN hydralazine. * Hyperlipidemia: We will continue patient on statin therapy. * BPH: We will continue patient home Flomax and finasteride regimen however ca utiously given presentation history. * History sick sinus syndrome: Status post pacemaker placement. * Former tobacco use: Encourage continued tobacco cessation. * Obesity: Weight loss and lifestyle changes encouraged. * SANJANA: CPAP nightly. CODE status: Patient HCPOA is his [id number] who is present as well as a son and living will is currently in place. Discussed CODE status at length including difference between FULL code, DNR-CCA and DNR-CC status. Following discussions about the differences in these status, requested Full Code status. Medications at Discharge Home Medications aspirin 81 mg tablet,delayed release 81 mg PO QHS 09/20/18 atorvastatin 80 mg tablet 80 mg PO QHS 09/20/18 tamsulosin 0.4 mg capsule 0.4 mg PO DAILY 09/20/18 gabapentin 400 mg capsule 400 mg PO BID 03/23/20 glucagon HCl 1 mg solution for injection (Glucagon (HCl) Emergency Kit) 1 mg subcut Q20M PRN blood sugar 03/23/20 insulin lispro 100 unit/mL subcutaneous solution (Humalog U-100 Insulin) See Rx Instructions subcut DAILY 03/23/20 menthol 4 % topical cream 1 applic topical DAILY 03/23/20 finasteride 5 mg tablet 5 mg PO DAILY 03/28/20 flash glucose sensor (Rotech HealthcareStyle Wilma 2 Sensor kit) #2 ea 04/08/21 walker #1 ea 05/27/21 blood sugar diagnostic (OneTouch Verio test strips) #150 ea 10/31/21 ferrous sulfate 325 mg (65 mg iron) tablet 325 mg PO DAILY 01/06/22 amlodipine 5 mg tablet 5 mg PO DAILY 01/25/22 spironolactone 25 mg tablet 25 mg PO DAILY 01/25/22 guselkumab 100 mg/mL subcutaneous syringe (Tremfya) 100 mg subcut Q8W 04/04/22 acetaminophen 500 mg tablet 500 mg PO Q6H PRN pain 07/03/22 losartan 100 mg tablet 50 mg PO BID 11/08/22 meclizine 12.5 mg tablet 12.5 mg PO TID PRN dizziness #20 tabs 11/20/22 Hospital Course Operations None Procedures None Summary of Care Provided Minutes Spent on Discharge: 28 Weight / BMI Weight Weight: 104.7 kg Body Mass Index (BMI) 31.9 ABG / Lab / Microbiology Data Result Diagrams: 11/20/22 05:38 11/20/22 05:38 Laboratory: Laboratory Results - last 24 hr 11/19/22 19:53: POC Glucose 207 H 11/20/22 05:38: WBC 4.3 L, RBC 3.28 L, Hgb 10.3 L, Hct 31.3 L, MCV 95.4 H, MCH 31.4, MCHC 32.9, RDW Std Deviation 47.6 H, RDW Coeff of Digna 13.4, Plt Count 200, MPV 9.6, Immature Gran % (Auto) 0.500, Neut % (Auto) 67.3, Lymph % (Auto) 12.6 L , [place] % (Auto) 14.0 H, Eos % (Auto) 4.9, Baso % (Auto) 0.7, Absolute Neuts (auto) 2.9, Absolute Lymphs (auto) 0.54 L, Nucleated RBC % 0, Diff Path Review Reviewed 11/20/22 05:38: Sodium 143, Potassium 4.8, Chloride 112 H, Carbon Dioxide 22.0, Anion Gap 9, BUN 33 H, Creatinine 1.35 H, Estim Creat Clear Calc 51.09, Est GFR (MDRD) Af Amer 66, Est GFR (MDRD) Non-Af 55 L, BUN/Creatinine Ratio 24.4 H, Glucose 73 L, Calcium 8.4 L, Total Bilirubin 0.50, AST 9 L, ALT 19, Alkaline Phosphatase 29 L, Total Protein 6.2 L, Albumin 2.9 L, Globulin 3.3, Albumin/Globulin Ratio 0.9 11/20/22 05:48: POC Glucose 79 11/20/22 11:46: POC Glucose 142 H Microbiology: Microbiology 11/19/22 14:20 Nasal Secretion SARS-CoV-2 & FLU Antigen (Rapid) - Final D/C Instructions Discharge Diet: 1999 Calorie Control Diet Meaningful Use Info Meaningful Use Diagnoses (Choose all that apply): None applicable Discharge Plan Admission Admit Date/Time: 11/19/22 16:27 Primary Reason for Your Visit: vertigo Attending Provider: Luther Griffin Primary Care Provider: [facility] Consulting Providers: Shazia Acosta Discharge Orders/Prescriptions Prescriptions: New meclizine 12.5 mg Tablet 12.5 mg PO TID PRN (Reason: dizziness) Qty: 20 0RF Continued menthol 4 % cream 1 applic TOPICAL DAILY Glucagon (HCl) Emergency Kit 1 mg recon soln 1 mg SC Q20M PRN (Reason: blood sugar) Rx Instructions: until target blood sugar attained insulin lispro [Humalog U-100 Insulin] 100 unit/mL solution See Rx Instructions SC DAILY Rx Instructions: via pump subcut daily; ferrous sulfate 325 mg (65 mg iron) tablet 325 mg PO DAILY acetaminophen 500 mg tablet 500 mg PO Q6H PRN (Reason: pain) atorvastatin 80 MG tablet 80 mg PO QHS tamsulosin 0.4 MG capsule 0.4 mg PO DAILY aspirin 81 MG tablet 81 mg PO QHS gabapentin 400 mg capsule 400 mg PO BID finasteride 5 MG tablet 5 mg PO DAILY (DME) mingo Sol See Rx Instructions .ROUTE .MEDSUPPLY Qty: 1 0RF Rx Instructions: As directed Tremfya 100 mg/mL syringe 100 mg SUBCUT Q8W Rx Instructions: every 8 weeks (DME) FreeStyle Wilma 2 Sensor Kit See Rx Instructions .ROUTE .MEDSUPPLY Qty: 2 8RF Rx Instructions: As directed (DME) OneTouch Verio test strips Strip See Rx Instructions .ROUTE .MEDSUPPLY Qty: 150 12RF Rx Instructions: 5 times daily spironolactone 25 mg tablet 25 mg PO DAILY Hold Instructions: dizzy after vomiting and diarrhea Rx Instructions: pt. states this has been discontinued amlodipine 5 mg tablet 5 mg PO DAILY losartan 100 mg tablet 50 mg PO BID Other Ambulatory Orders: Physical Therapy Evaluation (Routine) Location: None Selected Ordered By: Dr. Luther Griffin Referrals / [facility] [Primary Care Provider] - Within 2 Weeks Disposition Disposition (needs filled in before D/C Order can be placed): Home, Self Care Charges/Coding Visit Charges Inpatient E&M: 63113 Disch Hosp
--- NOTE | 2022-11-20 16:03 | CASEMGMT ---
RN CM in to pt room to discuss dc planning. Pt is agreeable to vestibular therapy at [facility]. He states he does not drive and is agreeable to using the [facility] transportation. Provided pt with signed rx. Pt denies further needs.
== END 2022-11-20 16:36 | disposition home or self-care (01) ==
LOC: ED 16:34 → MS3 16:39
PROVIDERS: Admitting Provider Family Medicine; Emergency Provider Emergency Medicine
DX: R27.0 Ataxia, unspecified (principal); E10.40 Type 1 diabetes mellitus with diabetic neuropathy, unspecified; E10.22 Type 1 diabetes mellitus with diabetic chronic kidney disease; N18.30 Chronic kidney disease, stage 3 unspecified; I25.10 Atherosclerotic heart disease of native coronary artery without angina pectoris; E78.5 Hyperlipidemia, unspecified; D50.9 Iron deficiency anemia, unspecified; I12.9 Hypertensive chronic kidney disease with stage 1 through stage 4 chronic kidney disease, or unspecified chronic kidney disease; I44.7 Left bundle-branch block, unspecified; R06.02 Shortness of breath; Z87.891 Personal history of nicotine dependence; I25.2 Old myocardial infarction; N40.0 Benign prostatic hyperplasia without lower urinary tract symptoms; Z79.899 Other long term (current) drug therapy; Z79.82 Long term (current) use of aspirin; E66.9 Obesity, unspecified; Z68.31 Body mass index [BMI] 31.0-31.9, adult; G47.33 Obstructive sleep apnea (adult) (pediatric)
CPT/HCPCS: 36415; 70450; 80053; 81001; 82962; 84484; 85025; 87428; 93005; 96360; 96361; 96372; 97162; 97166; 99221; 99285; J7030; A4216; G0378

== ENCOUNTER 2022-12-11 15:06 | Inpatient (IN) | payer MEDICARE, SELFPAY ==
[2022-12-11] VITALS (7 sets, daily range): BP systolic 111–128; BP diastolic 63–71; PULSE 60–71; RESP 14–26; TEMP 36.6–36.8; O2SAT 96–100; BMI 31.1; BMI 31.7
--- NOTE | 2022-12-11 15:20 | CT_ITS ---
STUDY: CT BRAIN WITHOUT CONTRAST REASON FOR EXAM: Male, 77 years old. Vertigo, aphasia RADIATION DOSAGE (If Supplied By Facility): CTDIvol = ( 44.99 ) mGy, DLP = ( 812.98 ) mGycm TECHNIQUE: Transaxial CT imaging of the brain was performed without administration of intravenous contrast material. Individualized dose optimization techniques were used for this CT. COMPARISON: Comparison is made with prior study dated 05/19/2023. FINDINGS: Normal soft tissue structures. Normal calvarium. There is mild cerebral atrophy with widening of the extra-axial spaces and ventricular dilatation. There are areas of decreased attenuation within the white matter tracts of the supratentorial brain, consistent with microvascular disease changes. Normal basal ganglia and thalami. Normal brainstem. Normal cerebellum. There is no intracranial hemorrhage. There are no findings of an acute ischemic infarction. Atherosclerotic calcification of the vertebral arteries and cavernous portions of the internal carotid arteries bilaterally. Normal visualized paranasal sinuses. CT/Brain/Head without Contrast IMPRESSION: Chronic involutional changes of the brain. Electronically Signed: Diogenes Mitchell MD at 15:45 EST ,
--- NOTE | 2022-12-11 15:21 | EKG12_ITS ---
Test Reason : WEAKNESS Blood Pressure : / mmHG Vent. Rate : 060 BPM Atrial Rate : 060 BPM P-R Int : 236 ms QRS Dur : 138 ms QT Int : 442 ms P-R-T Axes : 068 -54 102 degrees QTc Int : 442 ms Atrial-paced rhythm with prolonged AV conduction Left axis deviation Left bundle branch block Abnormal ECG Confirmed by MARY MIRANDA, MARTELL ([id number]), video effects editor HUSSEIN FLANNERY ([id number]) on 12/12/2022 8:41:22 AM Referred By: GEORGE Confirmed By:MARTELL HERNANDEZ MD
[2022-12-11] MEDS: 0.9% Normal Saline 1,000 ML 1000 ML IV (15:24)
[2022-12-11 15:33] LABS: Absolute Lymphocyte Count 0.61 X10^3/uL (0.83-4.51); Basophil# 0.04 X10^3/uL; Basophil% 0.7 % (0-1); Eosinophil# 0.17 X10^3/uL; Hematocrit 32.7 % (40-54); Hemoglobin 10.4 g/dL (13.0-16.5); Lymphocyte # 0.61 X10^3/ul (0.83-4.51); Lymphocyte % 10.9 % (19-41); Mean Corp Hgb Conc 31.8 g/dL (32-36); Mean Corpuscular Hgb 31.2 pg (27.0-32.0); Mean Corpuscular Volume 98.2 fL (80-94); Mean Platelet Vol. 9.7 fl (6.2-12.0); Monocyte# 0.81 X10^3/uL; Monocyte% 14.5 % (0-10); NRBC Flagged by Analyzer 0 % (0-5); Neutrophil # 3.95 X10^3/uL (2.7-7.7); Neutrophil % 70.5 % (47-70); Platelet Count 218 K/mm3 (150-450); RBC Distribution Width CV 13.8 % (11.6-14.6); RBC Distribution Width SD 49.4 fl (35.1-43.9); Red Blood Count 3.33 M/mm3 (4.6-6.2); White Blood Count 5.6 K/mm3 (4.4-11.0)
--- NOTE | 2022-12-11 15:37 | RAD_ITS ---
STUDY: X-RAY CHEST REASON FOR EXAM: Male, 77 years old. CAD TECHNIQUE: Single AP portable view of the chest. COMPARISON: Comparison is made with prior study dated 01/25/2000. FINDINGS: EKG electrodes are seen. Hyperinflation. The lungs are clear. There is no demonstrated pleural abnormality. Normal size heart. A left-sided dual-chamber pacemaker is seen. Normal mediastinum and rayna. Normal visualized pulmonary arteries. There is atherosclerotic calcification of the aortic arch with tortuosity. Normal visualized thoracic spine. Normal visualized ribs, clavicles, and shoulders. There is no demonstrated abnormality of the visualized soft tissue structures of the upper abdomen. RAD/Chest 1 View (Portable) IMPRESSION: Hyperinflation. The lungs are clear. There has been no change since prior study. Electronically Signed: Diogenes Mitchell MD at 15:51 EST ,
[2022-12-11 15:59] LABS: ALB/GLOB Ratio 0.9 RATIO (0.9-2.4); AST(SGOT) 81 U/L (15-37); Alanine Aminotransfer ALT/SGPT 40 U/L (16-61); Albumin, Serum 3.4 g/dL (3.2-5.0); Alkaline Phosphatase 32 U/L (45-117); Anion Gap 6 (5-15); BUN 42 mg/dL (7-18); BUN/Creat Ratio 22.6 RATIO (10-20); Calcium,Total 8.9 mg/dL (8.5-10.1); Chloride 113 mmol/L (98-107); Creatinine, Serum 1.86 mg/dL (0.70-1.30); EST Glomerular Filtration Rate 38 mL/min (>60); Est Glom Filt Rate - Afr Amer 46 mL/min (>60); Estimated Creatinine Clearance 37.08 ml/min; Globulin 3.7 g/dL (2.2-4.2); Glucose 141 mg/dL (74-106); Potassium 4.4 mmol/L (3.5-5.1); Protein, Total 7.1 g/dL (6.4-8.2); Sodium Level 141 mmol/L (136-145)
[2022-12-11 16:01] LABS: Troponin-I HS 15074 pg/mL (3.0-78.0)
--- NOTE | 2022-12-11 16:09 | EX.ED.DYSGE1 ---
HPI History of Present Illness Chief Complaint: Neuro S/Sx Narrative Narrative: 77-year-old male past medical history of pacemaker, vertigo for which she is being treated with a rehabilitation presents with multiple complaints, feeling of tiredness, and difficulty concentrating/finding words at times since , almost 5 days ago. He denies any headache. He states that he went to rehab for his vertigo today, and they commented that he did not look well. He states he feels very tired and fatigued. He denies any chest pain or shortness of breath, no fevers or chills, no cough, no dysuria or hematuria, no exacerbating or alleviating factors. He denies any leg swelling, he just states that he does not feel well. He thought maybe he was having difficulty with speech a few days ago, but he lives at home alone and does not really have anyone to talk to during the day. 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 MENDOZA (dyspnea on exertion) Essential (primary) hypertension Herpes zoster History of non-ST elevation myocardial infarction (NSTEMI) (2010) Hyperlipidemia Hyperlipidemia due to type 1 diabetes mellitus Hypoglycemic reaction to insulin HZV (herpes zoster virus) post herpetic neuralgia Insulin pump titration Left bundle branch block joint terminal attack controller current use of insulin Muscle weakness of lower extremity Obesity Obstructive sleep apnea Presence of insulin pump Sebaceous cyst Seborrheic dermatitis Secondary pulmonary arterial hypertension Sick sinus syndrome Syncopal episodes Syncope and collapse Type 1 diabetes mellitus without complications Vertigo Vitamin D deficiency Home Medications aspirin 81 mg tablet,delayed release 81 mg PO QHS 09/20/18 [History Last Taken 11/18/22] atorvastatin 80 mg tablet 80 mg PO QHS 09/20/18 [History Last Taken 11/18/22] tamsulosin 0.4 mg capsule 0.4 mg PO DAILY 09/20/18 [History Last Taken 11/18/22] gabapentin 400 mg capsule 400 mg PO BID 03/23/20 [History Last Taken 11/18/22] glucagon HCl 1 mg solution for injection (Glucagon (HCl) Emergency Kit) 1 mg subcut Q20M PRN blood sugar 03/23/20 [History Last Taken Unknown] insulin lispro 100 unit/mL subcutaneous solution (Humalog U-100 Insulin) See Rx Instructions subcut DAILY 03/23/20 [History Last Taken Unknown] menthol 4 % topical cream 1 applic topical DAILY 03/23/20 [History Last Taken Unknown] finasteride 5 mg tablet 5 mg PO DAILY 03/28/20 [History Last Taken 11/18/22] flash glucose sensor (FreeStyle Wilma 2 Sensor kit) #2 ea 04/08/21 [Rx Last Taken Unknown] walker #1 ea 05/27/21 [Rx Last Taken Unknown] blood sugar diagnostic (The Simpleuch Verio test strips) #150 ea 10/31/21 [Rx Last Taken Unknown] ferrous sulfate 325 mg (65 mg iron) tablet 325 mg PO DAILY 01/06/22 [History Last Taken 11/18/22] amlodipine 5 mg tablet 5 mg PO DAILY 01/25/22 [History Last Taken 11/18/22] spironolactone 25 mg tablet 25 mg PO DAILY 01/25/22 [History Last Taken Unknown] guselkumab 100 mg/mL subcutaneous syringe (Tremfya) 100 mg subcut Q8W 04/04/22 [History Last Taken Unknown] acetaminophen 500 mg tablet 500 mg PO Q6H PRN pain 07/03/22 [History Last Taken 11/19/22] losartan 100 mg tablet 50 mg PO BID 11/08/22 [History Last Taken 11/18/22] meclizine 12.5 mg tablet 12.5 mg PO TID PRN dizziness #20 tabs 11/20/22 [Rx Last Taken Unknown] Allergy/AdvReac Type Severity Reaction Status Date / Time No Known Allergies Allergy Verified 12/11/22 15:12 Family History Father Diabetes Arthritis Cancer CVA (cerebral vascular accident) Skin cancer Mother CAD (coronary artery disease) Arthritis Parkinsons disease Brother Diabetes Kidney disease Sister Hypothyroid Surgical History H/O hernia repair History of appendectomy History of left heart catheterization (2010) 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) Social History household members: none Smoking Status: Former smoker how long ago did patient quit smokin second hand exposure: No alcohol intake: current alcohol intake frequency: holidays/special occasions only substance use type: does not use caffeine: Yes Type: coffee Number of servings: 2 what type of physical activity do you participate in: other frequency: 1-2 times per week ROS ROS ED ROS Narrative Constitutional: No fever, no chills. Positive fatigue and malaise. HEENT: No sore throat. No neck pain. No loss of vision. No rhinorrhea. Cardiovascular: No chest pain. No palpitations. No pedal edema. Respiratory: No cough, no shortness of breath. Abdominal: No abdominal pain. No nausea. No vomiting. Genitourinary: No dysuria. No hematuria. Musculoskeletal: No myalgias. No arthralgias. Neurologic: No headaches. No dizziness. No lightheadedness. Problems with concentration, sometimes has problems finding words. Skin: No rash. No change in color. Psychiatric: No depression. No anxiety. EXAM Physical Exam Narrative Exam Narrative: Afebrile. Vital signs noted. HEENT: Normocephalic. Atraumatic. PERRL, EOMI. Neck soft and supple. No point tenderness or step off. Cardiovascular: Regular rate and rhythm with borderline bradycardia. No murmurs, rubs, or gallops appreciated. Respiratory: No tachypnea. Lungs clear to auscultation bilaterally. Gastrointestinal: Abdomen soft, nontender, with normoactive bowel sounds. No rebound or guarding. Neurological: Awake. Alert. Nonfocal, nonlateralizing. NIH stroke scale is 0. Skin: No rash. Normal color. No pallor. Musculoskeletal: No pedal edema. Full range of motion extremities. Const Vital Signs: 12/11/22 15:09 12/11/22 15:22 12/11/22 16:23 Temperature 98.1 F Temperature Source Oral Pulse Rate 60 64 Respiratory Rate 18 14 Respiratory Effort Normal Respiratory Pattern Normal Blood Pressure 112/71 112/63 Blood Pressure Mean 84 79 Pulse Ox 98 96 Oxygen Delivery Method Room Air Room Air MDM MDM MDM Narrative Medical decision making narrative: Comprehensive work-up was pursued. His NIH stroke scale is 0. I am not concerned for lateralizing stroke, and he is outside the 24-hour window for tPA. CT of the brain was obtained. I reviewed the imaging and interpreted as no evidence of hemorrhage. I reviewed the radiology report which shows chronic involutional changes of the brain. Chest x-ray interpreted by myself shows no pneumothorax or pneumonia. I reviewed his laboratory work and he has normal white count of 5.6, hemoglobin stable but anemic at 10.4, platelet count normal at 218. CMP shows chloride slightly elevated at 113 with a normal sodium of 141 and a normal potassium of 4.4. Glucose is appropriately elevated at 141 with a normal anion gap of 6. His BUN is elevated at 42 and he has a chronic kidney injury with a creatinine of 1.86 today. Of most significance is his high-sensitivity troponin which is elevated at 15,074. I do think this is too high to be attributed to his chronic kidney injury/renal insufficiency. EKG was obtained and interpreted by myself which shows a paced rhythm at 60 bpm. He was given an aspirin and started on heparin. I discussed the patient with Dr. Rodriguez on for cardiology. He agrees with aspirin and heparin including bolus. I then discussed patient with Dr. Acosta for admission to the PCU. Patient is in stable condition. Lab Data Attestation: I reviewed the patient's lab results. Labs: Laboratory Results - last 24 hr 12/11/22 12/11/22 12/11/22 15:25 15:25 16:10 WBC 5.6 RBC 3.33 L Hgb 10.4 L Hct 32.7 L MCV 98.2 H MCH 31.2 MCHC 31.8 L RDW Std Deviation 49.4 H RDW Coeff of Digna 13.8 Plt Count 218 MPV 9.7 Immature Gran % (Auto) 0.400 Neut % (Auto) 70.5 H Lymph % (Auto) 10.9 L [place] % (Auto) 14.5 H Eos % (Auto) 3.0 Baso % (Auto) 0.7 Absolute Neuts (auto) 4.0 Absolute Lymphs (auto) 0.61 L Nucleated RBC % 0 PT 14.5 INR 1.2 APTT 29.1 Sodium 141 Potassium 4.4 Chloride 113 H Carbon Dioxide 22.0 Anion Gap 6 BUN 42 H Creatinine 1.86 H Estim Creat Clear Calc 37.08 Est GFR (MDRD) Af Amer 46 L Est GFR (MDRD) Non-Af 38 L BUN/Creatinine Ratio 22.6 H Glucose 141 H Calcium 8.9 Total Bilirubin 0.40 AST 81 H ALT 40 Alkaline Phosphatase 32 L Troponin I High Sens 21907 H* Total Protein 7.1 Albumin 3.4 Globulin 3.7 Albumin/Globulin Ratio 0.9 Radiography Diagnostic Testing: Clinical Impression(s) from Imaging Studies Brain CT 12/11/22 15:20 IMPRESSION: Chronic involutional changes of the brain. Electronically Signed: Diogenes Mitchell MD at 15:45 EST , Chest X-Ray 12/11/22 15:37 IMPRESSION: Hyperinflation. The lungs are clear. There has been no change since prior study. Electronically Signed: Diogenes Mitchell MD at 15:51 EST , Discharge Plan Dx/Rx/DC Orders Clinical Impression: Non-ST elevation RI (NSTEMI), Malaise and fatigue, Difficulty concentrating, Chronic kidney disease (CKD) Disposition Disposition: Acute Care [facility]
[2022-12-11 16:29] LABS: International Normalized Ratio 1.2; Partial Thromboplast Time 29.1 Seconds (24.1-36.2); Prothrombin Time (Protime)PT. 14.5 SECONDS (11.7-14.9)
[2022-12-11] MEDS: Aspirin 81 MG TAB.CHEW 324 MG PO (16:31)
[2022-12-11] MEDS: Heparin Injection (Vial) 5,000 UNIT/ML VIAL 4000 UNIT IV (16:32)
[2022-12-11] MEDS: HEPARIN/D5w 25,000 UNITS 25,000 UNITS/250 ML IV.SOLN. 10 UNITS CONT INF (16:32)
--- NOTE | 2022-12-11 16:38 | ED.RN ---
HEPARIN IV PUSH 4000U VERIFIED BY Pratima BLUM RN. HEPARIN DRIP 1000U/HR VERIFIED BY BOSSMAN ECKERT
--- NOTE | 2022-12-11 16:53 | PCM.HP.STD ---
HPI - General General Date of Admission: 12/11/22 Date of Service: 12/11/22 Chief Complaint: Fatigue, malaise, possible altered speech versus expressive. HPI Narrative The patient is a 77 y/o M w/ PMHx: Nonobstructive CAD, SANJANA, CKD stage III unclear subtype, Obesity, CAD, Chronic normocytic anemia, BPH, Diabetes mellitus type II, HTN, HLD, Hx Syncopal events, Hx sick sinus syndrome s/p pacemaker status, Former tobacco use, recent 11/19/22-11/20/22 admission for vertigious sypmtoms with improvement with discharge to home with course of meclizine who now re-presents to the [facility] ED on 12/11/22 with history of increased fatigue, difficulty concentrating and finding words since nearly of the week prior with no headache and upon evaluation for therapy today for his vertiginous symptoms appeared significantly unwell although denied any recent chest discomfort, dyspnea, fevers or chills, cough, dysuria and prompting referral to the ED for evaluation. Patient reported at ED initial presentation that he felt as though he was having some difficulty with his speech a few days ago but he does not really talk to a lot of people as he lives at home alone. Per ED physician NIH stroke scale was 0 however patient was outside the 24-hour window for tPA. Work-up in the ED included T98.1, heart rate 60, BP 112/71, respiratory rate 18, 98% oxygenation, CBC WC 5.6, hemoglobin 10.4, MCV 98.2, platelet 218 with lymphopenia, unremarkable coags, CMP with chloride 113, BUN/creatinine 42/1.86, glucose 141, AST/ALT 81/40, alk phos 32, T. bili 0.41, troponin 26148, chest x-ray with hyperinflation with no acute cardiopulmonary findings, CT brain with chronic involutional changes with no evidence of any recent acute ischemic infarct or subacute infarct, EKG with paced rhythm with no acute evidence of ischemia. Patient was discussed with kennel manager dog track Dr. Rodriguez with plan administration of aspirin and initiation of heparin drip with planned evaluation. 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 MENDOZA (dyspnea on exertion) Essential (primary) hypertension Herpes zoster History of non-ST elevation myocardial infarction (NSTEMI) (2010) Hyperlipidemia Hyperlipidemia due to type 1 diabetes mellitus Hypoglycemic reaction to insulin HZV (herpes zoster virus) post herpetic neuralgia Insulin pump titration Left bundle branch block USP current use of insulin Muscle weakness of lower extremity Obesity Obstructive sleep apnea Presence of insulin pump Sebaceous cyst Seborrheic dermatitis Secondary pulmonary arterial hypertension Sick sinus syndrome Syncopal episodes Syncope and collapse Type 1 diabetes mellitus without complications Vertigo Vitamin D deficiency Home Medications aspirin 81 mg tablet,delayed release 81 mg PO QHS HEART HEALTH 09/20/18 [History Last Taken 12/11/22] atorvastatin 80 mg tablet 80 mg PO QHS CHOLESTEROL 09/20/18 [History Last Taken 12/10/22] tamsulosin 0.4 mg capsule 0.4 mg PO DAILY PROSTATE 09/20/18 [History Last Taken 12/11/22] gabapentin 400 mg capsule 400 mg PO BID PAIN 03/23/20 [History Last Taken 12/11/22] glucagon HCl 1 mg solution for injection (Glucagon (HCl) Emergency Kit) 1 mg subcut Q20M PRN blood sugar 03/23/20 [History Last Taken 1 Year Ago ~12/11/21] insulin lispro 100 unit/mL subcutaneous solution (Humalog U-100 Insulin) See Rx Instructions subcut DAILY DM 03/23/20 [History Last Taken 12/11/22] finasteride 5 mg tablet 5 mg PO DAILY . 03/28/20 [History Last Taken 12/11/22] amlodipine 5 mg tablet 5 mg PO DAILY . 01/25/22 [History Last Taken 12/11/22] acetaminophen 500 mg tablet 500 mg PO Q6H PRN pain 07/03/22 [History Last Taken 12/11/22] losartan 100 mg tablet 50 mg PO BID . 11/08/22 [History Last Taken 12/11/22] meclizine 12.5 mg tablet 12.5 mg PO TID PRN dizziness #20 tabs 11/20/22 [Rx Last Taken 12/11/22] diazepam 2 mg tablet 2 mg PO TID PRN PRN Vertigo 12/11/22 [History Last Taken 12/11/22] Allergy/AdvReac Type Severity Reaction Status Date / Time No Known Allergies Allergy Verified 12/11/22 15:12 Family History Father Diabetes Arthritis Cancer CVA (cerebral vascular accident) Skin cancer Mother CAD (coronary artery disease) Arthritis Parkinsons disease Brother Diabetes Kidney disease Sister Hypothyroid Surgical History H/O hernia repair History of appendectomy History of left heart catheterization (2010) 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) Social History household members: none Smoking Status: Former smoker how long ago did patient quit smokin second hand exposure: No alcohol intake: current alcohol intake frequency: holidays/special occasions only substance use type: does not use caffeine: Yes Type: coffee Number of servings: 2 what type of physical activity do you participate in: other frequency: 1-2 times per week ROS ROS Narrative Admission Review of Systems: CONSTITUTIONAL: No weight loss, fever, chills, +weakness or fatigue. HEENT: + Recent prior vertiginous symptoms improved since prior presentation. Eyes: No visual loss, blurred vision, double vision or yellow sclerae. Ears, Nose, Throat: No hearing loss, sneezing, congestion, runny nose or sore throat. SKIN: No rash or itching, lesions, wounds. CARDIOVASCULAR: No chest pain, chest pressure or chest discomfort, palpitations, edema, orthopnea, syncopal events. RESPIRATORY: No shortness of breath, cough or sputum, wheezing, hemoptysis. GASTROINTESTINAL: + anorexia, No nausea, vomiting, diarrhea, abdominal pain, melena, BRBPR. GENITOURINARY: No dysuria, frequency, urgency or retention. NEUROLOGICAL:+ Recent prior vertiginous symptoms improved since prior presentation, subjective report of possible expressive aphasia, No headache, syncope, paralysis, ataxia, numbness or tingling in the extremities, focal weakness, change in bowel or bladder control, seizure. MUSCULOSKELETAL: + muscle, back pain, joint pain or stiffness. HEMATOLOGIC: + anemia, bleeding or bruising. LYMPHATICS: No enlarged nodes. No history of splenectomy. PSYCHIATRIC: No history of depression or anxiety. ENDOCRINOLOGIC: No reports of sweating, cold or heat intolerance. No polyuria or polydipsia. ALLERGIES: No history of asthma, hives, eczema or rhinitis. Vital Signs Vital Signs Vital Signs: 12/11/22 15:09 12/11/22 15:22 12/11/22 16:23 Temperature 98.1 F Temperature Source Oral Pulse Rate 60 64 Respiratory Rate 18 14 Respiratory Effort Normal Respiratory Pattern Normal Blood Pressure 112/71 112/63 Blood Pressure Mean 84 79 Pulse Ox 98 96 Oxygen Delivery Method Room Air Room Air Weight Weight: 229 lb 15.074 oz Body Mass Index (BMI) 31.1 Physical Exam Narrative HearingPhysical Examination: General: Awake, alert, oriented x 3 and cooperative, seated upright in the ED bed, extremely fatigued no obvious evidence of any expressive aphasia at this time. Skin: Normal color, normal turgor, no icterus, no cyanosis except for mild bilateral lower extremity chronic venous stasis skin changes. HEENT: AT/NC, EOMI, PERRLA, mildly dry MM, no carotid bruits or JVD noted. Lungs: Mildly diminished, greater bases, poor effort, no rales, ronchi or wheezing. Heart: Paced/regular rate and rhythm; no gallop, rub audible. Abdomen: Soft, obese, NTTP, ND, normal BS, no HSM. Extremities: No cyanosis, no clubbing, no marked peripheral pitting edema, see skin Neurological: Patient awake, alert, oriented as noted, cognitive function intact; pupils equally reactive to light and accommodation, cranial nerves II-XII grossly normal, moving all 4 extremities, no focal deficits, strength moderately to severely global decrease secondary to acute presentation with significant fatigue, malaise. Psychiatric: Affect appears fatigued, no acute evidence of depressive or anxiety feelings. Results Lab / Micro Data Result Diagrams: 12/11/22 15:25 12/11/22 15:25 Labs: Laboratory Results - last 24 hr 12/11/22 15:25: WBC 5.6, RBC 3.33 L, Hgb 10.4 L, Hct 32.7 L, MCV 98.2 H, MCH 31.2, MCHC 31.8 L, RDW Std Deviation 49.4 H, RDW Coeff of Digna 13.8, Plt Count 218, MPV 9.7, Immature Gran % (Auto) 0.400, Neut % (Auto) 70.5 H, Lymph % (Auto) 10.9 L, [place] % (Auto) 14.5 H, Eos % (Auto) 3.0, Baso % (Auto) 0.7, Absolute Neuts (auto) 4.0, Absolute Lymphs (auto) 0.61 L, Nucleated RBC % 0 12/11/22 15:25: Sodium 141, Potassium 4.4, Chloride 113 H, Carbon Dioxide 22.0, Anion Gap 6, BUN 42 H, Creatinine 1.86 H, Estim Creat Clear Calc 37.08, Est GFR (MDRD) Af Amer 46 L, Est GFR (MDRD) Non-Af 38 L, BUN/Creatinine Ratio 22.6 H, Glucose 141 H, Calcium 8.9, Total Bilirubin 0.40, AST 81 H, ALT 40, Alkaline Phosphatase 32 L, Troponin I High Sens 68714 H*, Total Protein 7.1, Albumin 3.4, Globulin 3.7, Albumin/Globulin Ratio 0.9 12/11/22 16:10: PT 14.5, INR 1.2, APTT 29.[address] 12/11/22 15:20 IMPRESSION: Chronic involutional changes of the brain. Electronically Signed: Diogenes Mitchell MD at 15:45 EST , Chest X-Ray 12/11/22 15:37 IMPRESSION: Hyperinflation. The lungs are clear. There has been no change since prior study. Electronically Signed: Diogenes Mitchell MD at 15:51 EST , Assessment & Plan Assessment/Plan (1) Non-ST elevation ID (NSTEMI): PLAN: Plan The patient is a 77 y/o M w/ PMHx: Nonobstructive CAD, SANJANA, CKD stage III unclear subtype, Obesity, CAD, Chronic normocytic anemia, BPH, Diabetes mellitus type II, HTN, HLD, Hx Syncopal events, Hx sick sinus syndrome s/p pacemaker status, Former tobacco use, recent 11/19/22-11/20/22 admission for vertigious sypmtoms with improvement with discharge to home with course of meclizine who now re-presents to the [facility] ED on 12/11/22 with history of increased fatigue, difficulty concentrating and finding words since nearly of the week prior with no headache and upon evaluation for therapy today for his vertiginous symptoms appeared significantly unwell although denied any recent chest discomfort, dyspnea, fevers or chills, cough, dysuria and prompting referral to the ED for evaluation. #1. Acute NSTEMI presumed type I: EKG in ED w/ paced rhythm with no acute evidence of, CXR w/ no acute cardiopulmonary. Trop elevated, 11/09/2006 for. Will admit to PCU, maintain on a monitored bed, continue serial cardiac enzymes and EKGs. Obtain magnesium level upon admission. Continue heparin drip initiated in the ED. Continue medical management. Echocardiogram requested. Cardiology consulted, will continue judicious hydration overnight in case of planned cardiac catheterization with n.p.o. status at midnight. ASA, NG, morphine. #2. Altered speech, potential expressive aphasia with recent vertiginous symptoms concerning for possible stroke LOW SUSPICION, suspect secondary to primarily #1; however, given symptoms reported as ongoing for at least 2 to 3 days would expect subacute findings on CT head and there are no findings: EKG in ED w/ paced rhythm no acute evidence of ischemia, CT of the brain with no acute intracranial finding nor any evidence of any recent subacute findings. To be cautious however we will plan repeat CT of the head in 24 hours and in the interim we will maintain on judicious hydration. Given timeline we will continue his hypertensive regimen as well as a statin therapy. Will maintain on aspirin as well as heparin drip is noted. Repeat echo given acute NSTEMI requested and as noted above. PT/OT/ST consulted. May consider neurology consultation in addition #3. Chronic Kidney Disease Stage III, unclear subtype: Admission BUN/Cr 42/1.86, baseline renal function since 2020 1.4-1.8, repeat BMP in AM. #4. Chronic normocytic anemia/iron deficiency anemia: Admission hemoglobin 10.4, stable, baseline appears primarily previously 11-12, most recently prior mildly decreased from prior, if continues to trend downward will obtain guaiac to be cautious, will continue iron supplementation. #5. Diabetes mellitus type II with chronic neuropathy: Following with Dr. Vital with pump in place, Will continue home insulin pump regimen per its current protocol, ADA diet, accu check assessment per his pump only with continued sliding scale per his pump regimen, continue patient home gabapentin regimen. #6. Nonobstructive CAD: History of prior NSTEMI 2010, cardiac catheterization at that time with moderate disease in the LAD with medical therapy recommended, current presentation is noted #1 with acute NSTEMI, will continue aspirin, statin, ARB, not on BB therapy, unclear if issues prior with bradycardia, has pacemaker status, will hold on addition pending Cardiology assessment given #1 as noted. #7. Hypertension: Continue home regimen including losartan, amlodipine, spironolactone with hold parameters as needed, PRN hydralazine. #8. Hyperlipidemia: We will continue patient on statin therapy. #9. BPH: We will continue patient home Flomax and finasteride regimen however cautiously given presentation history. #10. History sick sinus syndrome: Status post pacemaker placement, interrogation requested. #11. Former tobacco use: Encourage continued tobacco cessation. #12. Obesity: Weight loss and lifestyle changes encouraged. #13. SANJANA: CPAP nightly. #14. DVT prophylaxis: SCDs, heparin drip is noted. #15. CODE status: Patient RAVINDER is his [id number] who is present as well as a son and living will is currently in place. Discussed CODE status at length including difference between FULL code, DNR-CCA and DNR-CC status. Following discussions about the differences in these status, requested Full Code status. Admission Evaluation Time spent evaluating chart, patient history, patient evaluation, care planning and discussion with specialists: 75 minutes. Charges/Coding Visit Charges Inpatient E&M: 46802 Init Hosp L3
--- NOTE | 2022-12-11 17:20 | CON.PCM.CA_ITS ---
Assessment & Plan Assessment/Plan (1) Non-ST elevation [place] (NSTEMI): PLAN: He does have a history of a non-ST elevation myocardial infarction. My recommendation at this time would be cardiac catheterization in a.m. He will be started on intravenous heparin and aspirin. Risk benefits alternatives of been explained to him he understands and agrees to proceed. (2) History of permanent cardiac pacemaker placement: PLAN: He does have a history of a permanent pacemaker implantation. The plan will be to continue him on the current medical therapy as well as device evaluation. No major changes will be made. (3) Essential (primary) hypertension: PLAN: He has a history of hypertension and his blood pressure appears to be under fair control. I will not recommend any particular changes at this time. Thank you for allowing me to participate in the care of your patient. Please don't hesitate to call if any issues arise. HPI Consult Data Date of Consult: 12/11/22 HPI Narrative HPI Narrative: CONSUELO NEVILLE, is a 77 M who presents for a visit to the emergency room, he complains of nausea generalized not feeling well and shortness of breath. He was recently admitted to the hospital in November of this year and was treated as an outpatient for dizziness with meclizine and apparently had some minimal improvement. He has a history of non-ST elevation myocardial infarction in 2010 while in [place].? His cardiac catheterization had demonstrated moderate disease in the left anterior descending artery and medical therapy was recommended.? In 2014 he had a syncopal episode and required a dual-chamber pacemaker to be placed for sick sinus syndrome.? He also has a history of hypertension, hyperlipidemia, and diabetes type 1. He?now re-presents to the [facility] emergency room with increasing fatigue, difficulty concentrating and finding words but denied any headache or chest discomfort. He was mildly short of breath and had some nausea. Initially there was concern as to whether he had had a cerebrovascular event but his NIH stroke scale was 0. Work-up in the ED included T98.1, heart rate 60, BP 112/71, respiratory rate 18, 98% oxygenation, CBC WC 5.6, hemoglobin 10.4, MCV 98.2, platelet 218 with lymphopenia, unremarkable coags, CMP with chloride 113, BUN/creatinine 42/1.86, glucose 141, AST/ALT 81/40, alk phos 32, T. bili 0.41, troponin 73468, chest x-ray with hyperinflation with no acute cardiopulmonary findings, CT brain with chronic involutional changes with no evidence of any recent acute ischemic infarct or subacute infarct, EKG with paced rhythm with no acute evidence of ischemia.? [facility] Medical History (Updated 12/11/22 @ 17:[address] 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 MENDOZA (dyspnea on exertion) Essential (primary) hypertension Herpes zoster History of non-ST elevation myocardial infarction (NSTEMI) (2010) Hyperlipidemia Hyperlipidemia due to type 1 diabetes mellitus Hypoglycemic reaction to insulin HZV (herpes zoster virus) post herpetic neuralgia Insulin pump titration 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 Muscle weakness of lower extremity Obesity Obstructive sleep apnea Presence of insulin pump Sebaceous cyst Seborrheic dermatitis Secondary pulmonary arterial hypertension Sick sinus syndrome Syncopal episodes Syncope and collapse Type 1 diabetes mellitus without complications Vertigo Vitamin D deficiency Home Medications aspirin 81 mg tablet,delayed release 81 mg PO QHS 09/20/18 [History Last Taken 11/18/22] atorvastatin 80 mg tablet 80 mg PO QHS 09/20/18 [History Last Taken 11/18/22] tamsulosin 0.4 mg capsule 0.4 mg PO DAILY 09/20/18 [History Last Taken 11/18/22] gabapentin 400 mg capsule 400 mg PO BID 03/23/20 [History Last Taken 11/18/22] glucagon HCl 1 mg solution for injection (Glucagon (HCl) Emergency Kit) 1 mg subcut Q20M PRN blood sugar 03/23/20 [History Last Taken Unknown] insulin lispro 100 unit/mL subcutaneous solution (Humalog U-100 Insulin) See Rx Instructions subcut DAILY 03/23/20 [History Last Taken Unknown] menthol 4 % topical cream 1 applic topical DAILY 03/23/20 [History Last Taken Unknown] finasteride 5 mg tablet 5 mg PO DAILY 03/28/20 [History Last Taken 11/18/22] flash glucose sensor (FreeStyle Wilma 2 Sensor kit) #2 ea 04/08/21 [Rx Last Taken Unknown] mingo #1 ea 05/27/21 [Rx Last Taken Unknown] blood sugar diagnostic (OneTouch Verio test strips) #150 ea 10/31/21 [Rx Last Taken Unknown] ferrous sulfate 325 mg (65 mg iron) tablet 325 mg PO DAILY 01/06/22 [History Last Taken 11/18/22] amlodipine 5 mg tablet 5 mg PO DAILY 01/25/22 [History Last Taken 11/18/22] spironolactone 25 mg tablet 25 mg PO DAILY 01/25/22 [History Last Taken Unknown] guselkumab 100 mg/mL subcutaneous syringe (Tremfya) 100 mg subcut Q8W 04/04/22 [History Last Taken Unknown] acetaminophen 500 mg tablet 500 mg PO Q6H PRN pain 07/03/22 [History Last Taken 11/19/22] losartan 100 mg tablet 50 mg PO BID 11/08/22 [History Last Taken 11/18/22] meclizine 12.5 mg tablet 12.5 mg PO TID PRN dizziness #20 tabs 11/20/22 [Rx Last Taken Unknown] Allergy/AdvReac Type Severity Reaction Status Date / Time No Known Allergies Allergy Verified 12/11/22 15:12 Family History Father Diabetes Arthritis Cancer CVA (cerebral vascular accident) Skin cancer Mother CAD (coronary artery disease) Arthritis Parkinsons disease Brother Diabetes Kidney disease Sister Hypothyroid Surgical History (Updated 12/11/22 @ 17:[address] Erik Rodriguez MD) H/O hernia repair History of appendectomy History of left heart catheterization (2010) 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) Social History household members: none Smoking Status: Former smoker how long ago did patient quit smokin second hand exposure: No alcohol intake: current alcohol intake frequency: holidays/special occasions only substance use type: does not use caffeine: Yes Type: coffee Number of servings: 2 what type of physical activity do you participate in: other frequency: 1-2 times per week ROS Constitutional Constitutional: Denies fever(s) or weight loss Eyes Eyes: Reports systems reviewed and no addt'l complaints, except as documented ENT HEENT: Reports systems reviewed and no addt'l complaints, except as documented Cardiovascular Cardiovascular: Reports dyspnea at rest and dyspnea on exertion; Denies chest pain at rest, chest pain with activity, edema, palpitations or paroxysmal nocturnal dyspnea Respiratory/Chest Respiratory/Chest: Reports shortness of breath at rest and shortness of breath with exertion; Denies dyspnea on exertion or productive cough Gastrointestinal Gastrointestinal: Reports nausea; Denies change in bowel habits, vomiting or weight changes Genitourinary Genitourinary: Denies difficulty urinating Musculoskeletal Musculoskeletal: Denies joint stiffness or muscle weakness Integumentary Integumentary: Denies lesions Neurologic Neurologic: Denies dizziness or syncope Psychiatric Psychiatric: Denies anxiety Endocrine Endocrinology: Denies excessive sweating or fatigue Hematologic/Lymphatic Hematologic/Lymphatic: Denies anemia Allergic/Immunologic Allergic/Immunologic: Denies seasonal rhinorrhea Physical Exam Const alert, oriented x3 and no apparent distress General Appearance: cooperative HEENT hearing grossly normal bilaterally Head and Scalp: atraumatic Eyes EOMs intact bilaterally Neck General: normal visual inspection Chest inspection of chest normal and palpation of chest normal Resp normal respiratory effort Auscultation: clear to auscultation bilaterally Cardio regular rate, regular rhythm, S1 normal heart sound and S2 normal heart sound Jugular Venous Distention: JVD GI normal to inspection, nondistended, normoactive bowel sounds Extremity normal capillary refill and no pedal edema Peripheral Pulses: Yes pulses 2+ throughout and femoral pulses present Skin no rashes or lesions noted Neuro oriented x3 and CN's II-XII intact bilaterally Psych Appearance: grossly normal and appropriate Risk Stratification Risk Stratification Applicable: Yes Age >/= 65: Yes >/= 3 CAD Risk Factors (HTN, HLD, DM, family hx of CAD, or current smoker): Yes Aspirin Use in the Past 7 Days: Yes Severe Angina (>/= episodes in 24 hours): No EKG ST Changes >/= 0.5mm: No Positive Cardiac Marker: Yes MACO Risk Stratification Score: 4 MACO % Risk: 20% Risk Objective Data Vital Signs: Vital Signs Temp Pulse Resp BP Pulse Ox O2 Del Method 98.1 F 64 14 112/63 96 Room Air 12/11/22 15:09 12/11/22 16:23 12/11/22 16:23 12/11/22 16:23 12/11/22 16:23 12/11/22 16:23 Oxygen Delivery Method Room Air Weight: 229 lb 15.074 oz Body Mass Index (BMI) 31.1 Lab / Micro Data Result Diagrams: 12/11/22 15:25 12/11/22 15:25 Labs: Laboratory Results - last 24 hr 12/11/22 15:25: WBC 5.6, RBC 3.33 L, Hgb 10.4 L, Hct 32.7 L, MCV 98.2 H, MCH 31.2, MCHC 31.8 L, RDW Std Deviation 49.4 H, RDW Coeff of Digna 13.8, Plt Count 218, MPV 9.7, Immature Gran % (Auto) 0.400, Neut % (Auto) 70.5 H, Lymph % (Auto) 10.9 L, Power % (Auto) 14.5 H, Eos % (Auto) 3.0, Baso % (Auto) 0.7, Absolute Neuts (auto) 4.0, Absolute Lymphs (auto) 0.61 L, Nucleated RBC % 0 12/11/22 15:25: Sodium 141, Potassium 4.4, Chloride 113 H, Carbon Dioxide 22.0, Anion Gap 6, BUN 42 H, Creatinine 1.86 H, Estim Creat Clear Calc 37.08, Est GFR (MDRD) Af Amer 46 L, Est GFR (MDRD) Non-Af 38 L, BUN/Creatinine Ratio 22.6 H, Glucose 141 H, Calcium 8.9, Total Bilirubin 0.40, AST 81 H, ALT 40, Alkaline Phosphatase 32 L, Troponin I High Sens 71712 H*, Total Protein 7.1, Albumin 3.4, Globulin 3.7, Albumin/Globulin Ratio 0.9 12/11/22 16:10: PT 14.5, INR 1.2, APTT 29.1 Cardiology Labs/Tests 12/11/22 15:25: WBC 5.6, RBC 3.33 L, Hgb 10.4 L, Hct 32.7 L, MCV 98.2 H, MCH 31.2, MCHC 31.8 L, Plt Count 218, MPV 9.7, Immature Gran % (Auto) 0.400, Neut % (Auto) 70.5 H, Lymph % (Auto) 10.9 L, Power % (Auto) 14.5 H, Eos % (Auto) 3.0, Baso % (Auto) 0.7, Absolute Neuts (auto) 4.0, Nucleated RBC % 0 12/11/22 15:25: Sodium 141, Potassium 4.4, Chloride 113 H, Carbon Dioxide 22.0, Anion Gap 6, BUN 42 H, Creatinine 1.86 H, Est GFR (MDRD) Af Amer 46 L, Est GFR (MDRD) Non-Af 38 L, BUN/Creatinine Ratio 22.6 H, Glucose 141 H, Calcium 8.9, Total Bilirubin 0.40 12/11/22 16:10: PT 14.5, INR 1.2, APTT 29.1 Rhythm: EKG: ECHO: Stress Test: Cardiac Cath: PCI: CT Surgery: Holter monitor: EPS: PPM: CXR: Chest CT Scan: Radiography Diagnostic Testing: Radiology Impression Brain CT 12/11/22 15:20 IMPRESSION: Chronic involutional changes of the brain. Electronically Signed: Diogenes Mitchell MD at 15:45 EST , Chest X-Ray 12/11/22 15:37 IMPRESSION: Hyperinflation. The lungs are clear. There has been no change since prior study. Electronically Signed: Diogenes Mitchell MD at 15:51 EST ,
[2022-12-11 17:30] LABS: Bedside Glucose 87 mg/dL (74-106)
[2022-12-11 17:57] LABS: Magnesium 2.5 mg/dL (1.6-2.6)
--- NOTE | 2022-12-11 17:57 | ECHOD_ITS ---
Reason For Study: DYSPNEA Procedure This was a 2D Doppler, Color Flow transthoracic echocardiogram. Exam performed portable in patient room. Left Ventricle Normal LV size. Apical false tendon noted. Mild segmental systolic dysfunction (see wall motion). The estimated ejection fraction is 50 %. Infero-Basal: Hypokinetic. Posterior-Basal: Hypokinetic. The rest of the wall segments are normal. Mid-Inferior: Hypokinetic. Right Ventricle Normal RV size. ICD or pacer leads identified within the right ventricle. Normal systolic function. Atria Normal left atrium. Normal right atrium. Mitral Valve Normal mitral valve. Tricuspid Valve Normal tricuspid valve. Aortic Valve Normal aortic valve. Pulmonic Valve Normal pulmonic valve. Great Vessels Normal aortic root. The pulmonary artery is normal size. Normal inferior vena cava. Pericardium/Pleural No pericardial effusion. MMode/2D Measurements & Calculations LVIDd: 5.2 cm IVSd: 1.2 cm LVAd ap4: 34.2 cm2 LVIDs: 3.7 cm LVPWd: 1.1 cm LVLd ap4: 8.3 cm FS: 29.4 % EDV(MOD-sp4): 112.9 ml EDV(sp4-el): 120.0 ml LVAs ap4: 19.4 cm2 LVLs ap4: 6.6 cm ESV(MOD-sp4): 47.7 ml ESV(sp4-el): 48.6 ml EF(MOD-sp4): 57.8 % EF(sp4-el): 59.5 % SV(MOD-sp4): 65.3 ml SV(sp4-el): 71.4 ml LA dimension(2D): 3.3 cm Time Measurements MV dec time: 0.24 sec Doppler Measurements & Calculations MV E max jerome: 55.5 cm/sec Lat Peak E' Jerome: 12.6 cm/sec Med Peak E' Jerome: 5.9 cm/sec MV A max jerome: 67.6 cm/sec E/E' lat: 4.4 E/E' med: 9.5 MV E/A: 0.82 MV V2 max: 95.2 cm/sec MV dec slope: 233.0 cm/sec2 Ao V2 max: 147.3 cm/sec MV max P.6 mmHg Ao max P.7 mmHg MV V2 mean: 63.4 cm/sec Ao V2 mean: 96.8 cm/sec MV mean P.7 mmHg Ao mean P.5 mmHg MV V2 VTI: 36.3 cm Ao V2 VTI: 30.2 cm AV (velocity ratio): 0.56 LV V1 max: 80.9 cm/sec TR max jerome: 236.9 cm/sec LV V1 max P.6 mmHg TR max P.4 mmHg LV V1 mean P.4 mmHg LV V1 mean: 55.9 cm/sec LV V1 VTI: 17.0 cm ECHO/Echo Complete Interpretation Summary Normal LV size. The estimated ejection fraction is 50 %. Mild segmental systolic dysfunction (see wall motion). ICD or pacer leads identified within the right ventricle. Ordering Physician: Erik Rodriguez Referring Physician: [facility] Performed By: Ruby Albert RCS
[2022-12-11 19:01] LABS: Bedside Glucose 85 mg/dL (74-106)
[2022-12-11 19:57] LABS: Bacteria 0 SEEN /hpf (None Seen); Mucous, Urine 0 SEEN /hpf (<or=2+); Red Blood Cells-Urine 0 SEEN /hpf (0-5); Squamous Epithelial Cells - UA 0 SEEN /hpf (0-5); White Blood Cells 0 SEEN /hpf (0-5)
[2022-12-11 19:59] LABS: Glucose, Dipstick Normal (Normal); Ketone-Dipstick Negative (Negative); Leukocyte Esterase-Dipstick Negative /ul (Negative); Nitrite-Dipstick Negative (Negative); Occult Blood-Urine Negative /ul (Negative); Protein-Dipstick 30 mg/dl (Negative); Specific Gravity, Urine 1.015 (1.002-1.030); Urine Bilirubin Dipstick Negative (Negative); Urine Urobilinogen Normal (Normal)
[2022-12-11 20:23] LABS: Color, Urine Yellow (Yellow); Urine Clarity Clear (Clear)
--- NOTE | 2022-12-11 20:29 | EKG12_ITS ---
Test Reason : AM EKG Blood Pressure : / mmHG Vent. Rate : 060 BPM Atrial Rate : 060 BPM P-R Int : 238 ms QRS Dur : 136 ms QT Int : 450 ms P-R-T Axes : 055 -53 109 degrees QTc Int : 450 ms Atrial-paced rhythm with prolonged AV conduction Left axis deviation Left bundle branch block Abnormal ECG When compared with ECG of 11-DEC-2022 21:10, MANUAL COMPARISON REQUIRED, DATA IS UNCONFIRMED Confirmed by MARY MIRANDA, MARTELL ([id number]), greeting card editor HUSSEIN FLANNERY ([id number]) on 12/12/2022 2:04:39 PM Referred By: LAURA Confirmed By:MARTELL HERNANDEZ MD
[2022-12-11] MEDS: 0.9% Normal Saline 1,000 ML 100 ML IV (21:02)
[2022-12-11 22:01] LABS: Troponin-I HS 24826 pg/mL (3.0-78.0)
[2022-12-11] MEDS: Atorvastatin Calcium 80 MG Tablet PO (23:00)
[2022-12-11] MEDS: Losartan Potassium 50 MG Tablet PO (23:00)
[2022-12-11] MEDS: Aspirin E.C. 81 MG Tablet PO (23:00)
[2022-12-11] MEDS: Gabapentin 400 MG Capsule PO (23:23)
[2022-12-11 23:38] LABS: Partial Thromboplast Time 93.4 Seconds (24.1-36.2)
[2022-12-12] VITALS (22 sets, daily range): BP systolic 115–138; BP diastolic 57–75; PULSE 58–72; RESP 12–18; TEMP 36.2–36.7; O2SAT 92–100; BMI 31.7
[2022-12-12 00:16] LABS: Troponin-I HS 21516 pg/mL (3.0-78.0)
[2022-12-12 02:47] LABS: Absolute Lymphocyte Count 0.64 X10^3/uL (0.83-4.51); Absolute Neutrophil Count 3.5 X10^3/uL (2.0-7.7); Basophil# 0.02 X10^3/uL; Basophil% 0.4 % (0-1); Eosinophil# 0.18 X10^3/uL; Eosinophils% 3.6 % (0-5); Hemoglobin 9.6 g/dL (13.0-16.5); Lymphocyte # 0.64 X10^3/ul (0.83-4.51); Lymphocyte % 12.7 % (19-41); Mean Corpuscular Hgb 30.8 pg (27.0-32.0); Mean Corpuscular Volume 99.4 fL (80-94); Mean Platelet Vol. 9.5 fl (6.2-12.0); Monocyte# 0.66 X10^3/uL; Monocyte% 13.1 % (0-10); NRBC Flagged by Analyzer 0 % (0-5); Neutrophil # 3.51 X10^3/uL (2.7-7.7); Neutrophil % 69.6 % (47-70); Platelet Count 188 K/mm3 (150-450); RBC Distribution Width CV 13.9 % (11.6-14.6); RBC Distribution Width SD 50.1 fl (35.1-43.9); Red Blood Count 3.12 M/mm3 (4.6-6.2)
[2022-12-12 03:07] LABS: ALB/GLOB Ratio 0.9 RATIO (0.9-2.4); AST(SGOT) 63 U/L (15-37); Alanine Aminotransfer ALT/SGPT 34 U/L (16-61); Albumin, Serum 2.9 g/dL (3.2-5.0); Alkaline Phosphatase 28 U/L (45-117); Anion Gap 5 (5-15); BUN 36 mg/dL (7-18); BUN/Creat Ratio 24.8 RATIO (10-20); Calcium,Total 8.3 mg/dL (8.5-10.1); Chloride 115 mmol/L (98-107); Cholesterol 89 mg/dL (200); Creatinine, Serum 1.45 mg/dL (0.70-1.30); EST Glomerular Filtration Rate 50 mL/min (>60); Est Glom Filt Rate - Afr Amer 61 mL/min (>60); Estimated Creatinine Clearance 47.57 ml/min; Globulin 3.4 g/dL (2.2-4.2); Glucose 186 mg/dL (74-106); High Density Lipoprotein 36 mg/dL; Potassium 4.6 mmol/L (3.5-5.1); Protein, Total 6.3 g/dL (6.4-8.2); Sodium Level 142 mmol/L (136-145); Triglycerides 99 mg/dL; Very Low Density Lipoprotein 20 mg/dL (5-40)
[2022-12-12 03:26] LABS: Troponin-I HS 20457 pg/mL (3.0-78.0)
--- NOTE | 2022-12-12 05:55 | EKG12_ITS ---
Test Reason : Blood Pressure : / mmHG Vent. Rate : 061 BPM Atrial Rate : 061 BPM P-R Int : 236 ms QRS Dur : 142 ms QT Int : 470 ms P-R-T Axes : 000 -47 112 degrees QTc Int : 473 ms Atrial-paced rhythm with prolonged AV conduction Left axis deviation Left bundle branch block Abnormal ECG When compared with ECG of 12-DEC-2022 05:42, No significant change was found Confirmed by SUKUMAR MIRANDA, IDRIS ([id number]), film and video editor HUSSEIN FLANNERY ([id number]) on 12/15/2022 12:53:19 P M Referred By: Karla Confirmed By:GISELLE PATINO MD
--- NOTE | 2022-12-12 07:00 | CT_ITS ---
STUDY: CT BRAIN WITHOUT CONTRAST REASON FOR EXAM: Male, 77 years old patient with signs and symptoms of acute CVA. RADIATION DOSAGE (If Supplied By Facility): CTDIvol = ( 44.99 ) mGy, DLP = ( 812.98 ) mGycm TECHNIQUE: Transaxial CT imaging of the brain was performed without administration of intravenous contrast material. Multiplanar reformations are submitted for interpretation. Individualized dose optimization techniques were used for this CT. COMPARISON: No relevant priors. FINDINGS: Normal soft tissue structures. Normal calvarium. There is mild cerebral atrophy with widening of the extra-axial spaces and ventricular dilatation. There are areas of decreased attenuation within the white matter tracts of the supratentorial brain, consistent with microvascular disease changes. Normal basal ganglia and thalami. Normal brainstem. Normal cerebellum. There is no intracranial hemorrhage. There is mild atherosclerotic calcification of the intracranial arteries. Normal visualized paranasal sinuses. CT/Brain/Head without Contrast IMPRESSION: 1. Chronic involutional changes of the brain. 2. No CT evidence of acute intracranial hemorrhage. Electronically Signed: Silvana Guzman MD at 7:08 EST ,
[2022-12-12] MEDS: 0.9% Normal Saline 1,000 ML 100 ML IV (07:04)
--- NOTE | 2022-12-12 07:09 | NURSING ---
blood sugar 110 on patient personal monitor.
[2022-12-12] MEDS: amLODIPine 5 MG Tablet PO (08:05)
[2022-12-12] MEDS: Losartan Potassium 50 MG Tablet PO ×2 (08:07→22:14)
[2022-12-12 08:51] LABS: Partial Thromboplast Time 35.1 Seconds (24.1-36.2)
--- NOTE | 2022-12-12 09:00 | PCM.PN.CARD ---
Subjective Subjective Patient seen and evaluated. Objective Data Vital Signs: Vital Signs Temp Pulse Resp BP Pulse Ox O2 Del Method FiO2 97.5 F L 60 13 125/61 H 95 Room Air 25 12/12/22 08:08 12/12/22 08:08 12/12/22 08:08 12/12/22 08:08 12/12/22 08:35 12/12/22 08:35 12/12/22 03:30 Oxygen Delivery Method Room Air Weight: 233 lb 7.512 oz Body Mass Index (BMI) 31.7 Intake & Output: Intake and Output for Last 24 Hours 12/10/22 12/11/22 12/12/22 23:59 23:59 23:59 Intake Total 1072.17 / 1072.17 1045.33 / 1045.33 Output Total 150 / 150 Balance 1072.17 / 1022.17 895.33 / 895.33 Lab / Micro Data Result Diagrams: 12/12/22 02:37 12/12/22 02:37 Labs: Laboratory Results - last 24 hr 12/11/22 15:25: WBC 5.6, RBC 3.33 L, Hgb 10.4 L, Hct 32.7 L, MCV 98.2 H, MCH 31.2, MCHC 31.8 L, RDW Std Deviation 49.4 H, RDW Coeff of Digna 13.8, Plt Count 218, MPV 9.7, Immature Gran % (Auto) 0.400, Neut % (Auto) 70.5 H, Lymph % (Auto) 10.9 L, [place] % (Auto) 14.5 H, Eos % (Auto) 3.0, Baso % (Auto) 0.7, Absolute Neuts (auto) 4.0, Absolute Lymphs (auto) 0.61 L, Nucleated RBC % 0 12/11/22 15:25: Sodium 141, Potassium 4.4, Chloride 113 H, Carbon Dioxide 22.0, Anion Gap 6, BUN 42 H, Creatinine 1.86 H, Estim Creat Clear Calc 37.08, Est GFR (MDRD) Af Amer 46 L, Est GFR (MDRD) Non-Af 38 L, BUN/Creatinine Ratio 22.6 H, Glucose 141 H, Calcium 8.9, Total Bilirubin 0.40, AST 81 H, ALT 40, Alkaline Phosphatase 32 L, Troponin I High Sens 78668 H*, Total Protein 7.1, Albumin 3.4, Globulin 3.7, Albumin/Globulin Ratio 0.9 12/11/22 15:25: Magnesium 2.5 12/11/22 16:10: PT 14.5, INR 1.2, APTT 29.1 12/11/22 17:13: POC Glucose 87 12/11/22 18:40: POC Glucose 85 12/11/22 19:52: Urine Color Yellow, Urine Clarity Clear, Urine pH 6.0, Ur Specific Pickett 1.015, Urine Protein 30 H, Urine Glucose (UA) Normal, Urine Ketones Negative, Urine Occult Blood Negative, Urine Nitrite Negative, Urine Bilirubin Negative, Urine Urobilinogen Normal, Ur Leukocyte Esterase Negative, Urine RBC 0 SEEN, Urine WBC 0 SEEN, Ur Squamous Epith Cells 0 SEEN, Urine Bacteria 0 SEEN, Urine Mucus 0 SEEN 12/11/22 21:15: Troponin I [place] Sens 64730 H* 12/11/22 23:00: Troponin I High Sens 23866 H* 12/11/22 23:00: APTT 93.4 H* 12/12/22 02:37: WBC 5.0, RBC 3.12 L, Hgb 9.6 L, Hct 31.0 L, MCV 99.4 H, MCH 30.8, MCHC 31.0 L, RDW Std Deviation 50.1 H, RDW Coeff of Digna 13.9, Plt Count 188, MPV 9.5, Immature Gran % (Auto) 0.600, Neut % (Auto) 69.6, Lymph % (Auto) 12.7 L, [place] % (Auto) 13.1 H, Eos % (Auto) 3.6, Baso % (Auto) 0.4, Absolute Neuts (auto) 3.5, Absolute Lymphs (auto) 0.64 L, Nucleated RBC % 0 12/12/22 02:37: Sodium 142, Potassium 4.6, Chloride 115 H, Carbon Dioxide 22.0, Anion Gap 5, BUN 36 H, Creatinine 1.45 H, Estim Creat Clear Calc 47.57, Est GFR (MDRD) Af Amer 61, Est GFR (MDRD) Non-Af 50 L, BUN/Creatinine Ratio 24.8 H, Glucose 186 H, Calcium 8.3 L, Total Bilirubin 0.40, AST 63 H, ALT 34, Alkaline Phosphatase 28 L, Total Protein 6.3 L, Albumin 2.9 L, Globulin 3.4, Albumin/Globulin Ratio 0.9, Triglycerides 99, Cholesterol 89, LDL Cholesterol 33, VLDL Cholesterol 20, HDL Cholesterol 36 L 12/12/22 02:37: Troponin I High Sens 98688 H* 12/12/22 08:05: APTT 35.1 Cardiology Labs/Tests 12/11/22 15:25: WBC 5.6, RBC 3.33 L, Hgb 10.4 L, Hct 32.7 L, MCV 98.2 H, MCH 31.2, MCHC 31.8 L, Plt Count 218, MPV 9.7, Immature Gran % (Auto) 0.400, Neut % (Auto) 70.5 H, Lymph % (Auto) 10.9 L, [place] % (Auto) 14.5 H, Eos % (Auto) 3.0, Baso % (Auto) 0.7, Absolute Neuts (auto) 4.0, Nucleated RBC % 0 12/11/22 15:25: Sodium 141, Potassium 4.4, Chloride 113 H, Carbon Dioxide 22.0, Anion Gap 6, BUN 42 H, Creatinine 1.86 H, Est GFR (MDRD) Af Amer 46 L, Est GFR (MDRD) Non-Af 38 L, BUN/Creatinine Ratio 22.6 H, Glucose 141 H, Calcium 8.9, Total Bilirubin 0.40 12/11/22 15:25: Magnesium 2.5 12/11/22 16:10: PT 14.5, INR 1.2, APTT 29.1 12/11/22 19:52: Urine Color Yellow, Urine Clarity Clear, Urine pH 6.0, Ur Specific Pickett 1.015, Urine Protein 30 H, Urine Glucose (UA) Normal, Urine Ketones Negative, Urine Occult Blood Negative, Urine Nitrite Negative, Urine Bilirubin Negative, Urine Urobilinogen Normal, Ur Leukocyte Esterase Negative, Urine RBC 0 SEEN, Urine WBC 0 SEEN 12/11/22 23:00: APTT 93.4 H* 12/12/22 02:37: WBC 5.0, RBC 3.12 L, Hgb 9.6 L, Hct 31.0 L, MCV 99.4 H, MCH 30.8, MCHC 31.0 L, Plt Count 188, MPV 9.5, Immature Gran % (Auto) 0.600, Neut % (Auto) 69.6, Lymph % (Auto) 12.7 L, [place] % (Auto) 13.1 H, Eos % (Auto) 3.6, Baso % (Auto) 0.4, Absolute Neuts (auto) 3.5, Nucleated RBC % 0 12/12/22 02:37: Sodium 142, Potassium 4.6, Chloride 115 H, Carbon Dioxide 22.0, Anion Gap 5, BUN 36 H, Creatinine 1.45 H, Est GFR (MDRD) Af Amer 61, Est GFR (MDRD) Non-Af 50 L, BUN/Creatinine Ratio 24.8 H, Glucose 186 H, Calcium 8.3 L, Total Bilirubin 0.40, Triglycerides 99, Cholesterol 89, LDL Cholesterol 33, VLDL Cholesterol 20, HDL Cholesterol 36 L 12/12/22 08:05: APTT 35.1 Rhythm: EKG: ECHO: Stress Test: Cardiac Cath: PCI: CT Surgery: Holter monitor: EPS: PPM: CXR: Chest CT Scan: Radiography Diagnostic Testing: Radiology Impression Brain CT 12/11/22 15:20 IMPRESSION: Chronic involutional changes of the brain. Electronically Signed: Diogenes Mitchell MD at 15:45 EST , Chest X-Ray 12/11/22 15:37 IMPRESSION: Hyperinflation. The lungs are clear. There has been no change since prior study. Electronically Signed: Diogenes Mitchell MD at 15:51 EST , Brain CT 12/12/22 07:00 IMPRESSION: 1. Chronic involutional changes of the brain. 2. No CT evidence of acute intracranial hemorrhage. Electronically Signed: Silvana Guzman MD at 7:08 EST Reading Location ID and State: [facility] / [place] , Service support , Physical Exam Const alert, oriented x3 and no apparent distress General Appearance: cooperative HEENT hearing grossly normal bilaterally Head and Scalp: atraumatic Eyes EOMs intact bilaterally Neck General: normal visual inspection Chest inspection of chest normal and palpation of chest normal Resp normal respiratory effort Auscultation: clear to auscultation bilaterally Cardio regular rate, regular rhythm, S1 normal heart sound and S2 normal heart sound Jugular Venous Distention: JVD GI normal to inspection, nondistended, normoactive bowel sounds Extremity normal capillary refill and no pedal edema Peripheral Pulses: Yes pulses 2+ throughout and femoral pulses present Skin no rashes or lesions noted Neuro oriented x3 and CN's II-XII intact bilaterally Psych Appearance: grossly normal and appropriate Assessment & Plan Assessment/Plan (1) Non-ST elevation [place] (NSTEMI): PLAN: He does have a history of a non-ST elevation myocardial infarction. Cardiac catheterization today demonstrated the following: Normal left main coronary artery. Left anterior descending artery with diffuse 50 to 60% proximal and mid stenosis and a calcified vessel. Left circumflex artery with mild nonobstructive diffuse disease. Dominant right coronary artery with high-grade proximal 95% stenosis. Mid 60% stenosis is noted. Mild diffuse distal disease is noted. Left ventricular ejection fraction with estimated ejection fraction of approximately 45% with severe hypokinesis of the basal inferior wall and mild anterior hypokinesis. We will recommend PCI for the above. (2) History of permanent cardiac pacemaker placement: PLAN: He does have a history of a permanent pacemaker implantation. The plan will be to continue him on the current medical therapy as well as device evaluation. No major changes will be made. (3) Essential (primary) hypertension: PLAN: He has a history of hypertension and his blood pressure appears to be under fair control. I will not recommend any particular changes at this time. Thank you for allowing me to participate in the care of your patient. Please don't hesitate to call if any issues arise.
--- NOTE | 2022-12-12 09:13 | CL.D_ITS ---
Patient Name: CONSUELO NEVILLE Study Date: 12/12/2022 Performing: Erik Rodriguez MD Ht: 72 inches 182.88 cm : 1945 Wt: 233.47 lbs 105.9 kg Age: 77 Gender: male BSA: 2.28 PROCEDURE(S) PERFORMED DC01-(56075)LHC/COR/LV CLINICAL PROFILE AND INDICATIONS Indications: Suspected CAD Heart Failure: NYHA Class: 2, Newly Diagnosed: Yes, Heart Failure Type: Diastolic Stress/Imaging Stress/Image Study Performed: No CAD Presentations: Non-STEMI. 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 RECOMMENDATIONS Referred for immediate PCI DESCRIPTION OF PROCEDURE The patient arrived to the procedure lab. The risks and benefits of the procedure as well as a full description of our services here and current unavailability of surgical backup were fully explained to the patient and/or their significant other prior to the catheterization. The Timeout was completed, verifying the correct patient and procedure. The patient's procedural site was prepped and draped in the usual fashion. Local anesthetic was given subcutaneously to right radial region with Lidocaine 2%. Using a modified Seldinger technique, arterial access was obtained via the right radial artery, a 6Fr sheath was inserted. Right Coronary Artery selective angiography was then performed in multiple views using a 5 Fr. 4.0 [place] catheter. Left Ventriculography was performed in HENDERSON projection using a 5 Fr. Pigtail catheter. LV to AO pullback pressures were then recorded. CORONARY ANGIOGRAPHY DOMINANCE: Right Dominant LEFT HEART ASSESSMENT Left Ventricular Ejection Fraction: by LV Gram 45 % Anterior Hypokinesis - Mild. Inferior Basal Hypokinesis - Severe. Inferior Mid Hypokinesis - Severe Depressed Left Ventricular systolic function LEFT MAIN: Mild calcification, No significant disease noted LEFT ANTERIOR DESCENDING ARTERY: There is moderate calcification noted in the proximal and mid left anterior descending artery with mild calcification noted distally. Moderate stenosis is noted estimated at between 50 and 70% in the proximal and mid segments. CIRCUMFLEX ARTERY: Mild luminal irregularities less than 30% RIGHT CORONARY ARTERY: PROX RCA: Proximal high-grade 95% stenosis noted in mid segment 60% stenosis present and mild distal disease. COMPLICATIONS PROCEDURE MEDICATIONS Fentanyl 50 mcg IV Versed 1 mg IV Oxygen: 2 L/min via nasal cannula Heparin given IA 12/12/2022 08:49:08 Verapamil 2.5mg, Ntg 100mcgs, 3000 units of Heparin given IA 12/12/2022 08:49:08 SUMMARY OF HEMODYNAMIC DATA Time AIR REST ECG 08:26:57 Art 162/52 (80) 08:39:55 AO 107/48 (71) SA 08:50:39 LV 110/10, 20 08:55:51 LV 107/9, 16 08:55:57 LV 106/13, 23 08:56:51 LV 100/12, 20 08:56:58 LVp 104/11, 19 08:57:06 AOp 112/48 (73) 08:57:11 Signed By Erik Rodriguez MD On 12/12/2022 09:12:45 Erik Rodriguez MD
--- NOTE | 2022-12-12 10:50 | CASEMGMT ---
Tertiary facilities in-network with patient's insurance: [facility], [facility], [facility], [facility],
--- NOTE | 2022-12-12 11:15 | EKG12_ITS ---
Test Reason : CP ADMIT Blood Pressure : / mmHG Vent. Rate : 060 BPM Atrial Rate : 060 BPM P-R Int : 208 ms QRS Dur : 138 ms QT Int : 452 ms P-R-T Axes : 069 -54 108 degrees QTc Int : 452 ms Normal sinus rhythm Left axis deviation Left bundle branch block Abnormal ECG When compared with ECG of 11-DEC-2022 15:22, MANUAL COMPARISON REQUIRED, DATA IS UNCONFIRMED Confirmed by MARY MIRANDA, MARTELL ([id number]), clinical editor HUSSEIN FLANNERY ([id number]) on 12/12/2022 2:06:18 PM Referred By: Confirmed By:MARTELL HERNANDEZ MD
[2022-12-12 12:20] LABS: Bedside Glucose 162 mg/dL (74-106)
[2022-12-12] MEDS: Tamsulosin HCl 0.4 MG Capsule PO (12:59)
[2022-12-12] MEDS: Ferrous Sulfate 325 MG Tablet PO (12:59)
[2022-12-12] MEDS: Finasteride 5 MG Tablet PO (12:59)
[2022-12-12] MEDS: Gabapentin 400 MG Capsule PO ×2 (13:00→22:13)
[2022-12-12] MEDS: Spironolactone 25 MG Tablet PO (13:00)
--- NOTE | 2022-12-12 13:16 | CL.I_ITS ---
Patient Name: CONSUELO NEVILLE Study Date: 12/12/2022 Performing: Jeremiah Mendes MD Ht: 72 inches 182.88 cm : 1945 Wt: 233.8 lbs 105.9 kg Age: 77 Gender: male BSA: 2.28 PROCEDURE(S) PERFORMED IC12-(51212/[id number])DANIEL W/WO PTCA, SINGLE CORONARY ARTERY CLINICAL PROFILE AND CO-MORBIDITIES Indications: Suspected CAD Heart Failure: NYHA Class: 2, Newly Diagnosed: Yes, Heart Failure Type: Diastolic Stress/Imaging Stress/Image Study Performed: No CAD Presentations: Non-STEMI. Symptom onset Date/Time: 12/11/22 Time Not Available CONCLUSIONS Successful DANIEL to pRCA RECOMMENDATIONS DESCRIPTION OF PROCEDURE The patient arrived to the procedure lab. The risks and benefits of the procedure as well as a full description of our services here and current unavailability of surgical backup were fully explained to the patient and/or their significant other prior to the catheterization. The Timeout was completed, verifying the correct patient and procedure. The patient's procedural site was prepped and draped in the usual fashion. Local anesthetic was given subcutaneously to right radial region with Lidocaine 2% Using a modified Seldinger technique,arterial access was obtained via the right radial artery, a 6Fr sheath was inserted. Right Coronary Artery selective angiography was then performed in multiple views using a 5 Fr. 4.0 [place] catheter. Left Ventriculography was performed in HENDERSON projection using a 5 Fr. Pigtail catheter. LV to AO pullback pressures were then recorded.The images were reviewed and options discussed. A decision was then made to proceed with an Intervention, IVUS or other adjunct procedure. JR4 Guide catheter was inserted and engaged into the RCA. BMW [place] Guide wire was advanced to the RCA. Emerge 3.0 x 12 Balloon catheter was inserted. Drug Eluting stent was advanced across the lesion in the right coronary, proximal. PTCA balloon inflated at 8 atms for 14 secs. PTCA balloon inflated at 8 atms for 10 secs. PTCA balloon inflated at 6 atms for 3 secs. PTCA balloon inflated at 14 atms for 26 secs. Angiogram performed post balloon dilatation. Resolute [place] 3.5 x 26 Drug Eluting stent was inserted. Drug Eluting stent was removed intact, failed to cross lesion Emerge 3.5 x 12 Balloon catheter was inserted. Balloon catheter was advanced across lesion in the right coronary, proximal. PTCA balloon inflated at 10 atms for 9 secs. PTCA balloon inflated at 6 atms for 11 secs. PTCA balloon inflated at 6 atms for 5 secs. PTCA balloon inflated at 6 atms for 5 secs. PTCA balloon inflated at 10 atms for 11 secs. PTCA balloon inflated at 10 atms for 24 secs. Angiogram performed post balloon dilatation. NC Emerge 3.50 x 20 Balloon catheter was inserted. Balloon catheter was advanced across lesion in the right coronary, proximal. Angiogram performed pre balloon dilatation. PTCA balloon inflated at 18 atms for 35 secs. Resolute [place] 3.5 x 26 Drug Eluting stent was reinserted Drug Eluting stent was removed intact, failed to cross lesion Runthrough Guide wire was inserted as a jennifer wire Resolute Fermín 3.5 x 26 Drug Eluting stent was reinserted Guideliner Guide catheter was inserted and engaged into the RCA. Emerge 3.0 x 12 Balloon catheter was reinserted Balloon catheter was advanced across lesion in the right coronary, proximal. PTCA balloon inflated at 6 atms for 25 secs. Resolute [place] 3.5 x 26 Drug Eluting stent was reinserted Drug Eluting stent was advanced across the lesion in the right coronary, proximal. Angiogram performed post stent deployment. NC Emerge 3.50 x 20 Balloon catheter was reinserted Balloon catheter was advanced across lesion in the right coronary, proximal. Angiogram performed post balloon dilatation. The arterial sheath was pulled and a TR Band was applied for hemostasis INTERVENTION INFORMATION LESION SITE: RCA (Proximal) Lesion Complexity: High/C, chronic total occlusion: No, lesion at bifurcation: No, thrombus present: No, lesion length: 20 mm, culprit lesion: Yes, Previously treated lesion: No Pre Stenosis: 99 % Pre intervention MACO flow: 3 PROCEDURE: Drug Eluting Stent with pre and post dilatation Post Stenosis: 0 % Post intervention MACO flow: 3 Lesion Devices: Cordis 6 Fr JR4 100cm Guide Catheter Chavez .014 190cm BMW [place] Straight Gabriele Sci EMERGE MR 3.00x12 BALLOON Medtronic Resolute Fermín RX DANIEL 3.5x26 Gabriele Sci NC EMERGE MR 3.50x20 BALLOON Terumo .014 180cm Runthrough Extra Floppy straight Vascular Solutions 6 Swazi GuideLiner Lesion Devices: Gabriele Sci EMERGE MR 3.50x12 BALLOON COMPLICATIONS No Complications PROCEDURE MEDICATIONS Fentanyl 50 mcg IV Versed 1 mg IV Fentanyl 25 mcg IV Versed 1 mg IV Fentanyl 25 mcg IV Oxygen: 2 L/min via nasal cannula Brilinta 180 mg PO @ 12/12/2022 09:10:11 Heparin given IA 12/12/2022 08:49:08 Heparin 6000 unit(s) IV 12/12/2022 10:00:38 Heparin 1000 unit(s) IV 12/12/2022 10:24:08 Nitro 200 mcg IC 12/12/2022 10:52:09 Verapamil 2.5mg, Ntg 100mcgs, 3000 units of Heparin given IA 12/12/2022 08:49:08 SUMMARY OF HEMODYNAMIC DATA Time AIR REST ECG 08:26:57 Art 162/52 (80) 08:39:55 AO 107/48 (71) SA 08:50:39 LV 110/10, 20 08:55:51 LV 107/9, 16 08:55:57 LV 106/13, 23 08:56:51 LV 100/12, 20 08:56:58 LVp 104/11, 19 08:57:06 AOp 112/48 (73) 08:57:11 Signed By Jeremiah Mendes MD On 12/12/2022 13:15:59 Jeremiah Mendes MD
--- NOTE | 2022-12-12 14:00 | CASEMGMT ---
[facility] Face to Face with patient for initial transition planning/care coordination assessment. RN CM introduced self and role at [facility]. Patient lying in bed, alert and oriented, daughter and friends at bedside. Patient willing to participate in assessment and is able to answer all questions appropriately. Care providers, pharmacy, and demographics verified. Patient wishes to discharge home, will monitor progress with therapy, may benefit from Outpt vs HHC. Patient states he has no further needs or concerns at this time. CM to follow for discharge planning needs that may arise. PCP: [facility] Specialists: King galley stripper Preferred Pharmacy: [facility] Insurance: [employer] Prescription Benefit: [employer] Living Will/HPOA: yes daughter Barbi Hall LNOK: daughter Living Arrangements: Patient lives alone in a 2 story home with bed and bath on first floor. Patient states he is independent at home. Transportation: daughter, friends DME/HHC: Patient has built in shower chair, cane, grab bars, walker, cpap, pulse ox, glucometer, and insulin pump at home. Patient denies previous HHC or SNF. Will monitor progress with therapy for possible HHC or outpatient therapy. Patient was currently attending outpatient therapy at [facility] for vestibular therapy. Disposition Plan: Patient to discharge home with family support and follow-up plans in place. Will monitor for HHC vs outpatient therapy. Taisha NAGEL, RN, CM
--- NOTE | 2022-12-12 14:07 | CRPHASE1 ---
Patient Communication Former Patient:: Phase I Guide to Cardiac Rehab Given to Patient:: Yes Cardiac Rehab Facility Choice List Given to Patient:: Yes Horizontal Drill Operator:: Yasemin Mendes Cardiac Rehabilitation Info Cardiac Rehabilitation Program Information: Cardiac Rehab The cardiac rehab team at [facility] consists of highly skilled exercise physiologists, nurses, respiratory therapists and physicians working together with you. Our purpose is to help you have a full recovery and achieve the goals you set for yourself. Over the years many of our patients have returned to activities they assumed they would never do again! We can help restore your confidence and motivation to make lifestyle changes that can have a significant impact on your health and quality of life! We can help answer questions and concerns you may have about exercise, lifestyle, medications, diet, stress and anxiety which are common following a hospitalization. WE monitor ECG and vital signs during exercise and discuss your progress with you and report to your physician(s). Cardiac Rehab is proven to help reduce readmissions, improve functional capacity and lower recurrence of problems with your heart. Our Cardiac Rehab program is Certified by the [employer] of Cardio-Vascular and Pulmonary Rehabilitation (AACVPR) and Accredited by the [employer] through our [facility]. You can contact us at . We invite you to call us with your questions or to get started in our program. If you have other questions or concerns be sure to ask your physician/provider during your follow-up visit. WE look forward to seeing you!
--- NOTE | 2022-12-12 14:08 | CRPH1.INSTRU ---
General Education CAD and cardiac anatomy and function:: Patient communicates acknowledgment Explanation of diagnoses and procedures:: Patient communicates acknowledgment Sign/Symptoms of ME:: Patient communicates acknowledgment Antiplatelet therapy: Patient communicates acknowledgment Dyslipidemia Patient Dyslipidemia Risk Factors Are:: Total Cholesterol Recommendations Include:: Therapeutic Lifestyle Change dietary guidelines Dyslipidemia Response Code:: Patient communicates acknowledgment Overweight/Obesity Overweight/Obesity:: Patient communicates acknowledgment Hypertension Recommendations Include:: Maintain BP <130/85, BP <130/80 if diabetic, Moderation of ETOH Hypertension:: Patient communicates acknowledgment Heart Disease Patient Heart Disease Risk Factors Are:: Family history of heart disease < 65 years old, Previous cardiac event Heart Disease Response Code:: Patient communicates acknowledgment Diabetes Patient Diabetes Risk Factors Are:: Elevated blood sugars Recommendations Include:: Maintain fasting blood sugars 70-110 md/dL Diabetes:: Patient communicates acknowledgment Stress Patient Stress Risk Factors Are:: Patient denies stress as a risk factor
--- NOTE | 2022-12-12 14:29 | CHAPLAIN ---
Type of Pastoral Visit _x__ Initial Visit ___ Follow-up Visit ___ On-call Visit ___ General Patient Visit ___ Spiritual Assessment ___ Family Conference ___ Bereavement ___ Rapid Response ___ Code Blue ___ Other (describe below) Pastoral Care Referral From _x__ Patient ___ Family ___ Nurse ___ Physician ___ Contemporary Or Modern Dancer ___ Hand I Blocker ___ Other (describe below) Sacrament/Intervention ___ Active listening ___ Anointing ___ Presybeterian ___ Bereavement ___ Communion ___ Julia exploration ___ ___ Life review ___ Prayer ___ Reconciliation ___ Sacrament of Sick _x__ Supportive presence ___ Wedding ___ Other (describe below) Pastoral Comments introduction of self and role of manager discovery with offer of support; pt had numerous staff and visitors during this time so this manager discovery will attempt a return visit at another more suitable time
--- NOTE | 2022-12-12 15:36 | PN.HOSP_ITS ---
Reason for Visit Reason for Visit: Diagnoses Essential (primary) hypertension (12/11/22) Non-ST elevation (NSTEMI) myocardial infarction (12/11/22) Presence of cardiac pacemaker (12/11/22) Subjective Subjective Patient seen and examined. He had no active complaints. Review of systems is otherwise negative. Objective Data Objective Data Vital Signs: Vital Signs Temp Pulse Resp BP Pulse Ox O2 Del Method FiO2 97.5 F L 62 18 125/57 H 98 Room Air 25 12/12/22 14:45 12/12/22 14:45 12/12/22 14:45 12/12/22 14:45 12/12/22 14:45 12/12/22 14:45 12/12/22 03:30 Oxygen Delivery Method Room Air Weight: 233 lb 7.512 oz Body Mass Index (BMI) 31.7 Intake & Output: Intake and Output for Last 24 Hours 12/10/22 12/11/22 12/12/22 23:59 23:59 23:59 Intake Total 1072.17 / 1072.17 1683.66 / 1683.66 Output Total 750 / 750 Balance 1072.17 / 1022.17 933.66 / 933.66 Lab / Micro Data Result Diagrams: 12/12/22 02:37 12/12/22 02:37 Labs: Laboratory Results - last 24 hr 12/11/22 15:25: Sodium 141, Potassium 4.4, Chloride 113 H, Carbon Dioxide 22.0, Anion Gap 6, BUN 42 H, Creatinine 1.86 H, Estim Creat Clear Calc 37.08, Est GFR (MDRD) Af Amer 46 L, Est GFR (MDRD) Non-Af 38 L, BUN/Creatinine Ratio 22.6 H, Glucose 141 H, Calcium 8.9, Total Bilirubin 0.40, AST 81 H, ALT 40, Alkaline Phosphatase 32 L, Troponin I High Sens 46292 H*, Total Protein 7.1, Albumin 3.4, Globulin 3.7, Albumin/Globulin Ratio 0.9 12/11/22 15:25: Magnesium 2.5 12/11/22 16:10: PT 14.5, INR 1.2, APTT 29.1 12/11/22 17:13: POC Glucose 87 12/11/22 18:40: POC Glucose 85 12/11/22 19:52: Urine Color Yellow, Urine Clarity Clear, Urine pH 6.0, Ur Specific [place] 1.015, Urine Protein 30 H, Urine Glucose (UA) Normal, Urine Ketones Negative, Urine Occult Blood Negative, Urine Nitrite Negative, Urine Bilirubin Negative, Urine Urobilinogen Normal, Ur Leukocyte Esterase Negative, Urine RBC 0 SEEN, Urine WBC 0 SEEN, Ur Squamous Epith Cells 0 SEEN, Urine Bacteria 0 SEEN, Urine Mucus 0 SEEN 12/11/22 21:15: Troponin I High Sens 89545 H* 12/11/22 23:00: Troponin I High Sens [id number] H* 12/11/22 23:00: APTT 93.4 H* 12/12/22 02:37: WBC 5.0, RBC 3.12 L, Hgb 9.6 L, Hct 31.0 L, MCV 99.4 H, MCH 30.8, MCHC 31.0 L, RDW Std Deviation 50.1 H, RDW Coeff of Digna 13.9, Plt Count 188, MPV 9.5, Immature Gran % (Auto) 0.600, Neut % (Auto) 69.6, Lymph % (Auto) 12.7 L, [place] % (Auto) 13.1 H, Eos % (Auto) 3.6, Baso % (Auto) 0.4, Absolute Neuts (auto) 3.5, Absolute Lymphs (auto) 0.64 L, Nucleated RBC % 0 12/12/22 02:37: Sodium 142, Potassium 4.6, Chloride 115 H, Carbon Dioxide 22.0, Anion Gap 5, BUN 36 H, Creatinine 1.45 H, Estim Creat Clear Calc 47.57, Est GFR (MDRD) Af Amer 61, Est GFR (MDRD) Non-Af 50 L, BUN/Creatinine Ratio 24.8 H, Glucose 186 H, Calcium 8.3 L, Total Bilirubin 0.40, AST 63 H, ALT 34, Alkaline Phosphatase 28 L, Total Protein 6.3 L, Albumin 2.9 L, Globulin 3.4, Albumin/Gl obulin Ratio 0.9, Triglycerides 99, Cholesterol 89, LDL Cholesterol 33, VLDL Cholesterol 20, HDL Cholesterol 36 L 12/12/22 02:37: Troponin I High Sens [id number] H* 12/12/22 08:05: APTT 35.1 12/12/22 11:52: POC Glucose 162 H Radiography Diagnostic Testing: Radiology Impression Brain CT 12/11/22 15:20 IMPRESSION: Chronic involutional changes of the brain. Electronically Signed: Diogenes Mitchell MD at 15:45 EST , Chest X-Ray 12/11/22 15:37 IMPRESSION: Hyperinflation. The lungs are clear. There has been no change since prior study. Electronically Signed: Diogenes Mitchell MD at 15:51 EST , Brain CT 12/12/22 07:00 IMPRESSION: 1. Chronic involutional changes of the brain. 2. No CT evidence of acute intracranial hemorrhage. Electronically Signed: Silvana Guzman MD at 7:08 EST , Physical Exam Const alert and oriented x3 HEENT head/scalp atraumatic, moist oral mucous membranes and oropharynx normal Head and Scalp: normocephalic Mouth: oral and palatal mucosa normal Eyes PERRL, EOMs intact bilaterally and conjunctivae normal Neck no lymphadenopathy, supple and no JVD Resp normal respiratory effort, no retractions, no use of accessory muscles and clear to auscultation bilaterally Cardio regular rate, regular rhythm, S1 normal heart sound, S2 normal heart sound and no murmurs GI normal to inspection, nondistended, normoactive bowel sounds, soft to palpation, non-tender and non-distended Extremity normal to inspection, full ROM and no clubbing, cyanosis or edema Neuro oriented x3, CN's II-XII intact bilaterally, moves all extremities and no focal motor deficits Sensorium / Orientation: awake and alert Motor Exam: strength 5/5 throughout Psych affect normal Assessment & Plan Assessment/Plan (1) Non-ST elevation HI (NSTEMI): PLAN: Plan #Nonstemi * s/p cardiac cath which showed severe obstructive single vessel disease involving the proximal right coronary artery and moderate disease involving the mid right coronary artert and moderate disease of the left anterior descending artery. * had PCI to the RCA * on aspirin, statin and brilinta * on cardiology on board * 2D echo ordered * #Hypertension: on amlodipine and losartan as well as spironolactone #CKD stage IIIB: Cr at baseline. Will monitor. DVT prophylaxis; lovenox. Charges/Coding Visit Charges Inpatient E&M: 33834 Subs Hosp L2
[2022-12-12 18:06] LABS: Bedside Glucose 214 mg/dL (74-106)
[2022-12-12 21:35] LABS: Bedside Glucose 226 mg/dL (74-106)
[2022-12-12] MEDS: MELATONIN 3 MG TABLET PO (22:13)
[2022-12-12] MEDS: TICAGRELOR 90 MG TABLET PO (22:13)
[2022-12-12] MEDS: Atorvastatin Calcium 80 MG Tablet PO (22:14)
[2022-12-12] MEDS: Aspirin E.C. 81 MG Tablet PO (22:14)
--- NOTE | 2022-12-13 01:15 | NURSING ---
This rn assuming care of pt at this time.
[2022-12-13 02:05] VITALS: BP 120/62; PULSE 60; RESP 18; TEMP 37; O2SAT 97
[2022-12-13 02:07] VITALS: BMI 31.7
[2022-12-13 05:40] VITALS: BP 117/50; PULSE 63; RESP 16; TEMP 36.9; O2SAT 98
[2022-12-13 06:53] LABS: Hematocrit 29.7 % (40-54); Hemoglobin 9.6 g/dL (13.0-16.5); Mean Corp Hgb Conc 32.3 g/dL (32-36); Mean Corpuscular Hgb 31.6 pg (27.0-32.0); Mean Corpuscular Volume 97.7 fL (80-94); Mean Platelet Vol. 9.6 fl (6.2-12.0); Platelet Count 211 K/mm3 (150-450); RBC Distribution Width CV 13.6 % (11.6-14.6); RBC Distribution Width SD 48.8 fl (35.1-43.9); Red Blood Count 3.04 M/mm3 (4.6-6.2)
[2022-12-13 07:01] LABS: Bedside Glucose 174 mg/dL (74-106)
--- NOTE | 2022-12-13 07:14 | PN.CARD_ITS ---
Subjective Subjective The patient was seen and evaluated. Appears to doing much better this morning. Objective Data Vital Signs: Vital Signs Temp Pulse Resp BP Pulse Ox O2 Del Method FiO2 98.4 F 63 16 117/50 L 98 Room Air 25 12/13/22 05:40 12/13/22 05:40 12/13/22 05:40 12/13/22 05:40 12/13/22 05:40 12/13/22 05:40 12/13/22 02:08 Oxygen Delivery Method Room Air Weight: 235 lb 10.786 oz Body Mass Index (BMI) 31.7 Intake & Output: Intake and Output for Last 24 Hours 12/11/22 12/12/22 12/13/22 23:59 23:59 23:59 Intake Total 1072.17 / 1072.17 2363.66 / 2363.66 120 / 120 Output Total 750 / 750 Balance 1072.17 / 1022.17 1613.66 / 1613.66 120 / 120 Lab / Micro Data Result Diagrams: 12/13/22 06:15 12/12/22 02:37 Labs: Laboratory Results - last 24 hr 12/12/22 08:05: APTT 35.1 12/12/22 11:52: POC Glucose 162 H 12/12/22 16:02: POC Glucose 214 H 12/12/22 21:17: POC Glucose 226 H 12/13/22 06:15: WBC 5.0, RBC 3.04 L, Hgb 9.6 L, Hct 29.7 L, MCV 97.7 H, MCH 31.6, MCHC 32.3, RDW Std Deviation 48.8 H, RDW Coeff of Digna 13.6, Plt Count 211, MPV 9.6 12/13/22 06:39: POC Glucose 174 H Cardiology Labs/Tests 12/12/22 08:05: APTT 35.1 12/13/22 06:15: WBC 5.0, RBC 3.04 L, Hgb 9.6 L, Hct 29.7 L, MCV 97.7 H, MCH 31.6, MCHC 32.3, Plt Count 211, MPV 9.6 Rhythm: EKG: ECHO: Stress Test: Cardiac Cath: PCI: CT Surgery: Holter monitor: EPS: PPM: CXR: Chest CT Scan: Radiography Diagnostic Testing: Radiology Impression Echocardiogram 12/11/22 17:57 Interpretation Summary Normal LV size. The estimated ejection fraction is 50 %. Mild segmental systolic dysfunction (see wall motion). ICD or pacer leads identified within the right ventricle. Ordering Physician: Erik Rodriguez Referring Physician: [facility] Performed By: Ruby Albert RCS Physical Exam Const alert and oriented x3 HEENT head/scalp atraumatic, moist oral mucous membranes and oropharynx normal Head and Scalp: normocephalic Mouth: oral and palatal mucosa normal Eyes PERRL, EOMs intact bilaterally and conjunctivae normal Neck no lymphadenopathy, supple and no JVD Resp normal respiratory effort, no retractions, no use of accessory muscles and clear to auscultation bilaterally Cardio regular rate, regular rhythm, S1 normal heart sound, S2 normal heart sound and no murmurs GI normal to inspection, nondistended, normoactive bowel sounds, soft to palpation, non-tender and non-distended Extremity normal to inspection, full ROM and no clubbing, cyanosis or edema Neuro oriented x3, CN's II-XII intact bilaterally, moves all extremities and no focal motor deficits Sensorium / Orientation: awake and alert Motor Exam: strength 5/5 throughout Psych affect normal Assessment & Plan Assessment/Plan (1) History of coronary artery stent placement: PLAN: He has a history of coronary artery disease status post PCI. He is doing well the plan is to continue the current medical therapy without any major changes. He will be discharged for outpatient follow-up. (2) History of permanent cardiac pacemaker placement: PLAN: He is status post permanent pacemaker implantation. His pacemaker will be interrogated at his office visit. (3) Essential (primary) hypertension: PLAN: His blood pressure remains under good control. I would recommend that he continue with his amlodipine, losartan, and spironolactone. We will follow-up in office. Thank you for allowing me to participate in the care of your patient. Please don't hesitate to call if any issues arise.
[2022-12-13 07:21] LABS: ALB/GLOB Ratio 0.9 RATIO (0.9-2.4); AST(SGOT) 38 U/L (15-37); Alanine Aminotransfer ALT/SGPT 29 U/L (16-61); Alkaline Phosphatase 28 U/L (45-117); Anion Gap 5 (5-15); BUN 33 mg/dL (7-18); BUN/Creat Ratio 23.9 RATIO (10-20); Calcium,Total 8.8 mg/dL (8.5-10.1); Chloride 114 mmol/L (98-107); Creatinine, Serum 1.38 mg/dL (0.70-1.30); EST Glomerular Filtration Rate 53 mL/min (>60); Est Glom Filt Rate - Afr Amer 64 mL/min (>60); Estimated Creatinine Clearance 49.98 ml/min; Globulin 3.4 g/dL (2.2-4.2); Glucose 177 mg/dL (74-106); Potassium 4.5 mmol/L (3.5-5.1); Protein, Total 6.4 g/dL (6.4-8.2); Sodium Level 141 mmol/L (136-145)
[2022-12-13 08:18] VITALS: O2SAT 98
[2022-12-13 09:49] VITALS: BP 106/65; PULSE 66; RESP 16; TEMP 36.7; O2SAT 100
[2022-12-13] MEDS: amLODIPine 5 MG Tablet PO (09:54)
[2022-12-13] MEDS: TICAGRELOR 90 MG TABLET PO (09:54)
[2022-12-13] MEDS: Losartan Potassium 50 MG Tablet PO (09:54)
[2022-12-13] MEDS: Finasteride 5 MG Tablet PO (09:54)
[2022-12-13] MEDS: Tamsulosin HCl 0.4 MG Capsule PO (09:54)
[2022-12-13] MEDS: Ferrous Sulfate 325 MG Tablet PO (09:54)
[2022-12-13] MEDS: Spironolactone 25 MG Tablet PO (09:54)
[2022-12-13] MEDS: Gabapentin 400 MG Capsule PO (09:54)
--- NOTE | 2022-12-13 10:00 | EKG12_ITS ---
Test Reason : PCI Blood Pressure : / mmHG Vent. Rate : 060 BPM Atrial Rate : 060 BPM P-R Int : 236 ms QRS Dur : 134 ms QT Int : 464 ms P-R-T Axes : 039 -60 088 degrees QTc Int : 464 ms Atrial-paced rhythm with prolonged AV conduction Left axis deviation Left bundle branch block Abnormal ECG When compared with ECG of 12-DEC-2022 05:42, No significant change was found Confirmed by MARY MIRANDA, MARTELL ([id number]), editorial clerk HUSSEIN FLANNERY ([id number]) on 12/14/2022 12:36:52 PM Referred By: Confirmed By:MARTELL HERNANDEZ MD
--- NOTE | 2022-12-13 10:44 | DCINST_ITS ---
Discharge Instructions Diet Discharge Diet: Low fat / Low cholesterol Activity Discharge Activity: Return to Normal Activity Weight Bearing Status: Weight bearing as tolerated Dressing / Incision Call your doctor if you observe: Fever of 101 or Higher, Shortness of breath, Chest pain and Increased palpitations (irregular heartbeat) Follow Up Care Test Results: Test results from this visit will be discussed in further detail at your follow- up appointment, if applicable. Discharge Plan Admission Admit Date/Time: 12/11/22 16:59 Primary Reason for Your Visit: nonstemi Attending Provider: Iona Cedeno Primary Care Provider: [place], [place] Consulting Providers: Erik Rodriguez ; Shazia Acosta Instructions Patient Instructions: Heart Attack Dc, Exercising After a Heart Attack Discharge Orders/Prescriptions Prescriptions: New spironolactone 25 mg Tablet 25 mg PO DAILY Qty: 30 2RF Brilinta 90 mg Tablet 90 mg PO BID Qty: 60 2RF Continued Glucagon (HCl) Emergency Kit 1 mg recon soln 1 mg SC Q20M PRN (Reason: blood sugar) Rx Instructions: until target blood sugar attained insulin lispro [Humalog U-100 Insulin] 100 unit/mL solution See Rx Instructions SC DAILY Rx Instructions: via pump subcut daily; acetaminophen 500 mg tablet 500 mg PO Q6H PRN (Reason: pain) atorvastatin 80 MG tablet 80 mg PO QHS tamsulosin 0.4 MG capsule 0.4 mg PO DAILY aspirin 81 MG tablet 81 mg PO QHS gabapentin 400 mg capsule 400 mg PO BID finasteride 5 MG tablet 5 mg PO DAILY meclizine 12.5 mg Tablet 12.5 mg PO TID PRN (Reason: dizziness) Qty: 20 0RF diazepam 2 mg tablet 2 mg PO TID PRN PRN (Reason: Vertigo) Label Comments: 2 mg orally 3 times daily as needed As Needed for Vertigo amlodipine 5 mg tablet 5 mg PO DAILY losartan 100 mg tablet 50 mg PO BID Referrals / Follow Up: Ayden Castaneda NP, [employer] [Med Staff - Adv Practice Prof] - 12/28/22 10:00 am [place], [place] [Primary Care Provider] - Within 2 Weeks Disposition Disposition (needs filled in before D/C Order can be placed): Home, Self Care
--- NOTE | 2022-12-13 10:44 | DS.PCM_ITS ---
Providers Date of Admission: 12/11/22 Date of Discharge: 12/13/22 Primary Care Physician: [facility] Consultations 12/11/22 20:29 Consult: Cardiology Routine Consulting Provider: Erik Rodriguez Reason for Consult: NSTEMI EMERGENT Consult: No MD Notified: Yes Date Notified: 12/11/22 Time Notified: 17:00 Method of Notification: ED Physician Initiated Reason For Visit: NSTEMI, ? 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 * had PCI to the RCA * on aspirin, statin and brilinta * on cardiology on board * 2D echo ordered * #Hypertension: on amlodipine and losartan as well as spironolactone #CKD stage IIIB: Cr at baseline. Will monitor. DVT prophylaxis; lovenox. Medications at Discharge Home Medications aspirin 81 mg tablet,delayed release 81 mg PO QHS HEART HEALTH 09/20/18 atorvastatin 80 mg tablet 80 mg PO QHS CHOLESTEROL 09/20/18 tamsulosin 0.4 mg capsule 0.4 mg PO DAILY PROSTATE 09/20/18 gabapentin 400 mg capsule 400 mg PO BID nerve pain 03/23/20 glucagon HCl 1 mg solution for injection (Glucagon (HCl) Emergency Kit) 1 mg subcut Q20M PRN blood sugar 03/23/20 insulin lispro 100 unit/mL subcutaneous solution (Humalog U-100 Insulin) See Rx Instructions subcut DAILY DM 03/23/20 finasteride 5 mg tablet 5 mg PO DAILY prostate 03/28/20 amlodipine 5 mg tablet 5 mg PO DAILY blood pressure 01/25/22 acetaminophen 500 mg tablet 500 mg PO Q6H PRN pain 07/03/22 losartan 100 mg tablet 50 mg PO BID blood pressure 11/08/22 meclizine 12.5 mg tablet 12.5 mg PO TID PRN dizziness #20 tabs 11/20/22 diazepam 2 mg tablet 2 mg PO TID PRN PRN Vertigo 12/11/22 spironolactone 25 mg tablet 25 mg PO DAILY #30 tabs 12/13/22 ticagrelor 90 mg tablet (Brilinta) 90 mg PO BID #60 tabs 12/13/22 Hospital Course Operations None Procedures 2-D Echocardiogram and Cardiac catheterization Summary of Care Provided Minutes Spent on Discharge: 48 Hospital Course: Patient is a 77-year-old male with an extensive past medical history as outlined was admitted through the ED on 12/11/2022 with a complaint of generalized weakness and not feeling well as well as shortness of breath and nausea. Patient had recently been admitted in the hospital in November 2022 and treated for dizziness. This had resolved and he had been discharged home. With this episode he said he went for therapy and was feeling tired and had difficulty concentrating and difficulty finding words. He denied any chest pain but did admit to some shortness of breath and some nausea. There was a concern for possible stroke but when he came into the ED he was noted to have markedly elevated troponin of 15,000. Chest x-ray showed hyperinflation and CT of the brain showed no evidence of acute stroke. EKG showed a paced rhythm with no acute evidence of ischemia. He was admitted and managed for non-STEMI. Cardiology was consulted. He was placed on heparin drip and aspirin as well as high intensity statin. He had cardiac cath which showed severe obstructive single-vessel disease involving the proximal right coronary artery and moderate disease of the mid right coronary artery as well as moderate disease of the left anterior descending artery. Patient had PCI with placement of drug-eluting stents in the proximal right coronary artery. Postop course was uncomplicated and he remained stable. He had 2D echo which showed EF of 50% with mild segmental systolic dysfunction and normal left ventricular size with ICD or pacer leads identified within the right ventricle. He remained stable and was discharged on p.o. aspirin, Brilinta and high intensity statin. He was also discharged on spironolactone and losartan as well as amlodipine. He is to follow-up with his primary care doctor and cardiology within 1 to 2 weeks. Patient seen and examined prior to discharge. He felt well and had no active complaints. He had an uneventful night. Review of symptoms otherwise negative. Labs and vitals reviewed. Medication reviewed and reconciled. Physical Exam Const alert and oriented x3 General Appearance: cooperative and well kempt Orientation / Consciousness: awake Exam Limitations: no limitations HEENT normocephalic, head/scalp atraumatic, hearing grossly normal bilaterally, moist oral mucous membranes and oropharynx normal Mouth: oral and palatal mucosa normal Eyes PERRL, EOMs intact bilaterally and conjunctivae normal Neck no lymphadenopathy, supple and no JVD Resp normal respiratory effort, no retractions, no use of accessory muscles and clear to auscultation bilaterally Cardio regular rate, regular rhythm, S1 normal heart sound, S2 normal heart sound and no murmurs GI normal to inspection, nondistended, normoactive bowel sounds, soft to palpation, non-tender and non-distended Extremity normal to inspection, full ROM and no clubbing, cyanosis or edema Neuro oriented x3, CN's II-XII intact bilaterally, moves all extremities and no focal motor deficits Sensorium / Orientation: awake and alert Motor Exam: strength 5/5 throughout Psych affect normal Weight / BMI Weight Weight: 235 lb 10.786 oz Body Mass Index (BMI) 31.7 ABG / Lab / Microbiology Data Result Diagrams: 12/13/22 06:15 12/13/22 06:15 Laboratory: Laboratory Results - last 24 hr 12/12/22 11:52: POC Glucose 162 H 12/12/22 16:02: POC Glucose 214 H 12/12/22 21:17: POC Glucose 226 H 12/13/22 06:15: WBC 5.0, RBC 3.04 L, Hgb 9.6 L, Hct 29.7 L, MCV 97.7 H, MCH 31.6, MCHC 32.3, RDW Std Deviation 48.8 H, RDW Coeff of Digna 13.6, Plt Count 211, MPV 9.6 12/13/22 06:15: Sodium 141, Potassium 4.5, Chloride 114 H, Carbon Dioxide 22.0, Anion Gap 5, BUN 33 H, Creatinine 1.38 H, Estim Creat Clear Calc 49.98, Est GFR (MDRD) Af Amer 64, Est GFR (MDRD) Non-Af 53 L, BUN/Creatinine Ratio 23.9 H, Glucose 177 H, Calcium 8.8, Total Bilirubin 0.90, AST 38 H, ALT 29, Alkaline Phosphatase 28 L, Total Protein 6.4, Albumin 3.0 L, Globulin 3.4, Albumin/Globulin Ratio 0.9 12/13/22 06:39: POC Glucose 174 H Radiography Diagnostic Testing: Radiology Impression Echocardiogram 12/11/22 17:57 Interpretation Summary Normal LV size. The estimated ejection fraction is 50 %. Mild segmental systolic dysfunction (see wall motion). ICD or pacer leads identified within the right ventricle. Ordering Physician: Erik Rodriguez Referring Physician: [facility] Performed By: Ruby Albert RCS D/C Instructions Discharge Diet: Low fat / Low cholesterol Weight Bearing Status: Weight bearing as tolerated Call your doctor if you observe: Fever of 101 or Higher, Shortness of breath, Chest pain and Increased palpitations (irregular heartbeat) Meaningful Use Info Meaningful Use Diagnoses (Choose all that apply): AMI AMI/Post PCI/Angioplasty Aspirin given w/in 24hrs of arrival?: Yes ASA at discharge?: Yes Antiplatelet Therapy at Discharge:: Yes Statins at discharge?: Yes Cheo/ARB at discharge?: Yes Beta Mp at discharge?: No Reason Beta Mp not ordered:: Drug Interaction (has pacemaker in place) Done w/ Acute WA measure.: Yes Documented LVEF (%): 50 Discharge Plan Admission Admit Date/Time: 12/11/22 16:59 Primary Reason for Your Visit: nonstemi Attending Provider: Iona Cedeno Primary Care Provider: [facility],[place] Consulting Providers: Erik Rodriguez ; Shazia Acosta Instructions Patient Instructions: Heart Attack Dc, Exercising After a Heart Attack Discharge Orders/Prescriptions Prescriptions: New spironolactone 25 mg Tablet 25 mg PO DAILY Qty: 30 2RF Brilinta 90 mg Tablet 90 mg PO BID Qty: 60 2RF Continued Glucagon (HCl) Emergency Kit 1 mg recon soln 1 mg SC Q20M PRN (Reason: blood sugar) Rx Instructions: until target blood sugar attained insulin lispro [Humalog U-100 Insulin] 100 unit/mL solution See Rx Instructions SC DAILY Rx Instructions: via pump subcut daily; acetaminophen 500 mg tablet 500 mg PO Q6H PRN (Reason: pain) atorvastatin 80 MG tablet 80 mg PO QHS tamsulosin 0.4 MG capsule 0.4 mg PO DAILY aspirin 81 MG tablet 81 mg PO QHS gabapentin 400 mg capsule 400 mg PO BID finasteride 5 MG tablet 5 mg PO DAILY meclizine 12.5 mg Tablet 12.5 mg PO TID PRN (Reason: dizziness) Qty: 20 0RF diazepam 2 mg tablet 2 mg PO TID PRN PRN (Reason: Vertigo) Label Comments: 2 mg orally 3 times daily as needed As Needed for Vertigo amlodipine 5 mg tablet 5 mg PO DAILY losartan 100 mg tablet 50 mg PO BID Referrals / Follow Up: Ayden Castaneda NP, [employer] [Med Staff - Adv Practice Prof] - 12/28/22 10:00 [facility] [place] [Primary Care Provider] - Within 2 Weeks Disposition Disposition (needs filled in before D/C Order can be placed): Home, Self Care Charges/Coding Visit Charges Inpatient E&M: 37912 Disch Hosp >30min
--- NOTE | 2022-12-13 11:55 | PHA.DC.MC ---
Pharmacy Service has performed discharge medication reconciliation and counseling for this patient. 1. SPIRONOLACTONE 25MG PO DAILY 2. TICAGRELOR 90MG PO BID The patient's discharge medication list was reviewed for discrepancies and discrepancies were resolved. Home Medications aspirin 81 mg tablet,delayed release 81 mg PO QHS HEART HEALTH 09/20/18 atorvastatin 80 mg tablet 80 mg PO QHS CHOLESTEROL 09/20/18 tamsulosin 0.4 mg capsule 0.4 mg PO DAILY PROSTATE 09/20/18 gabapentin 400 mg capsule 400 mg PO BID nerve pain 03/23/20 glucagon HCl 1 mg solution for injection (Glucagon (HCl) Emergency Kit) 1 mg subcut Q20M PRN blood sugar 03/23/20 insulin lispro 100 unit/mL subcutaneous solution (Humalog U-100 Insulin) See Rx Instructions subcut DAILY DM 03/23/20 finasteride 5 mg tablet 5 mg PO DAILY prostate 03/28/20 amlodipine 5 mg tablet 5 mg PO DAILY blood pressure 01/25/22 acetaminophen 500 mg tablet 500 mg PO Q6H PRN pain 07/03/22 losartan 100 mg tablet 50 mg PO BID blood pressure 11/08/22 meclizine 12.5 mg tablet 12.5 mg PO TID PRN dizziness #20 tabs 11/20/22 diazepam 2 mg tablet 2 mg PO TID PRN PRN Vertigo 12/11/22 spironolactone 25 mg tablet 25 mg PO DAILY #30 tabs 12/13/22 ticagrelor 90 mg tablet (Brilinta) 90 mg PO BID #60 tabs 12/13/22 The patient was counseled on the following discharge medications and changes in medications for homegoing were reviewed. The Reason for Use, instructions for use, and potential side effects were reviewed for all new medications. The patient's questions regarding all of their medications were answered. The patient was able to verbally demonstrate an understanding of their discharge medications.
--- NOTE | 2022-12-13 12:12 | CASEMGMT ---
[facility] face to face with patient. Reviewed options for PT/OT after discharge including home health care or outpatient therapy. Pt initially states he would like home health care but upon providing pt a list of providers, pt states he would prefer outpt PT/OT at [facility] in coordination with his vestibular therapy and transportation with the [facility] van transportation. This [facility] spoke with Abbey at [facility] who states this all can be arranged. Prescription for outpt PT/OT was obtained from Dr. Cedeno and faxed to [facility] who will contact pt with appointments and corresponding transportation. Discount card for Brilinta also provided to patient. Pt denies any additional needs or concerns at this time. Robel Lopez RN CM
[2022-12-13 12:30] VITALS: BMI 31.7
[2022-12-13 12:36] LABS: Bedside Glucose 172 mg/dL (74-106)
== END 2022-12-13 14:05 | disposition home or self-care (01) | DRG 247 ==
LOC: ED 17:10 → PCU 19:38
PROVIDERS: Hospitalist; Specialist; Admitting Provider Family Medicine; Emergency Provider Emergency Medicine; Visit Provider Student in an Organized Health Care Education/Training Program
DX: I21.4 Non-ST elevation (NSTEMI) myocardial infarction (principal); R47.01 Aphasia; E10.42 Type 1 diabetes mellitus with diabetic polyneuropathy; I27.21 Secondary pulmonary arterial hypertension; I49.5 Sick sinus syndrome; E10.22 Type 1 diabetes mellitus with diabetic chronic kidney disease; N18.32 Chronic kidney disease, stage 3b; G47.33 Obstructive sleep apnea (adult) (pediatric); E78.5 Hyperlipidemia, unspecified; I12.9 Hypertensive chronic kidney disease with stage 1 through stage 4 chronic kidney disease, or unspecified chronic kidney disease; I25.10 Atherosclerotic heart disease of native coronary artery without angina pectoris; I25.2 Old myocardial infarction; R42 Dizziness and giddiness; M62.81 Muscle weakness (generalized); N40.0 Benign prostatic hyperplasia without lower urinary tract symptoms; E66.9 Obesity, unspecified; Z79.82 Long term (current) use of aspirin; Z79.899 Other long term (current) drug therapy; Z95.5 Presence of coronary angioplasty implant and graft; Z95.0 Presence of cardiac pacemaker; Z87.891 Personal history of nicotine dependence
CPT/HCPCS: 36415; 70450; 71045; 80053; 80061; 81001; 82962; 83735; 84484; 85025; 85027; 85610; 85730; 92523; 92928; 93005; 93306; 93458; 94660; 94668; 94762; 97162; 97166; 97802; 99152; 99153; 99252; 99285; J7030; Q9967; C1725; C1769; C1874; C1887; C1894; C9600; G0463

== ENCOUNTER → 2022-12-28 | Outpatient (CLI) | payer MEDICARE, SELFPAY ==
[2022-12-28 11:24] LABS: Absolute Lymphocyte Count 0.59 X10^3/uL (0.83-4.51); Absolute Neutrophil Count 4.4 X10^3/uL (2.0-7.7); Basophil# 0.04 X10^3/uL; Basophil% 0.7 % (0-1); Eosinophil# 0.26 X10^3/uL; Eosinophils% 4.3 % (0-5); Hematocrit 37.4 % (40-54); Hemoglobin 11.5 g/dL (13.0-16.5); Lymphocyte # 0.59 X10^3/ul (0.83-4.51); Lymphocyte % 9.8 % (19-41); Mean Corp Hgb Conc 30.7 g/dL (32-36); Mean Corpuscular Hgb 30.7 pg (27.0-32.0); Mean Corpuscular Volume 99.7 fL (80-94); Mean Platelet Vol. 9.2 fl (6.2-12.0); Monocyte# 0.71 X10^3/uL; Monocyte% 11.8 % (0-10); NRBC Flagged by Analyzer 0 % (0-5); Neutrophil # 4.41 X10^3/uL (2.7-7.7); Neutrophil % 72.9 % (47-70); POSITIVE DIFFERENTIAL YES; Platelet Count 276 K/mm3 (150-450); RBC Distribution Width CV 13.7 % (11.6-14.6); RBC Distribution Width SD 49.7 fl (35.1-43.9); Red Blood Count 3.75 M/mm3 (4.6-6.2)
[2022-12-28 11:50] LABS: Differential Indicated SCAN CRITERIA MET
[2022-12-28 11:51] LABS: BNP,B-Type NATRIURETIC PEPTIDE 116.2 pg/mL (0-100)
[2022-12-28 12:00] LABS: Anion Gap 4 (5-15); BUN 39 mg/dL (7-18); BUN/Creat Ratio 19.9 RATIO (10-20); Calcium,Total 9.3 mg/dL (8.5-10.1); Chloride 112 mmol/L (98-107); Creatinine, Serum 1.96 mg/dL (0.70-1.30); EST Glomerular Filtration Rate 35 mL/min (>60); Est Glom Filt Rate - Afr Amer 43 mL/min (>60); Ferritin 144 ng/mL (26-388); Glucose 238 mg/dL (74-106); Iron 71 ug/dL (65-175); Iron Binding Capacity,Total 280 ug/dL (250-450); PERCENT IRON SATURATION 25.4 % (15.0-55.0); Potassium 5.7 mmol/L (3.5-5.1); Sodium Level 138 mmol/L (136-145); T4 Free Direct 0.75 ng/dL (0.76-1.46); Thyroid Stim Hormone (TSH) 3.92 uIU/mL (0.358-3.74)
[2022-12-28 12:36] LABS: Differential Comment SCANNED
== END | disposition home or self-care (01) ==
LOC: LAB 11:05
PROVIDERS: Referring Provider Nurse Practitioner Family; Visit Provider Nurse Practitioner Family
DX: R06.00 Dyspnea, unspecified (principal); D64.9 Anemia, unspecified; R53.83 Other fatigue
CPT/HCPCS: 36415; 80048; 82728; 83540; 83550; 83880; 84439; 84443; 85025

== ENCOUNTER 2023-01-08 11:30 | Outpatient (RCR) | payer MEDICARE, SELFPAY ==
--- NOTE | 2022-11-27 12:03 | HP.PTEVAL ---
Patient's Visit Information CONSUELO NEVILLE is a 77 year old M referred to Physical Therapy by Dr. Luther Griffin DO with a diagnosis of vertigo and muscle weakness. Date of Evaluation: 11/27/22 Physical Therapist: LUANN López - Visit Plan Frequency: 2x /Week Duration: 6 Weeks Plan: 2X/ week for 6-8 weeks for horizontal saccades and head turns in sitting and progressing to standing and walking, balance activities, gait activities with HEP and stretch gastroc and increase ankle and hip strength. HEP: seated VOR (smooth pursuit horizontal) and standing heel and toe raises at the counter - Subjective Pt reports that last week he had diarrhea and vomiting and he started feeling funny and his head got dizzy. So dizzy he could not stand up. The last time he was dizzy was yesterday morning. The dizziness did not last long and took a pill and it went away. He was dizzy with rolling to his L side and the room was spinning and it went away quickly but the baseline dizziness was there and had to call the squad. Last night he could roll R and L without dizziness and woke up fine. No dizziness now. He has been unsteady for awhile. Sometimes he does good all day and other days not so good. He has been using the cane off and on depending on how he feels for the last 2 years. He had a couple of falls in the house (one cause he was dizzy). He feels that he does not have weakness in his legs. He has DM and neuropathy in his feet (he is type 1 DM). He is no pain. He has 2 steps into the kitchen and bath with no railing. - Objective Gait: Walks with WBOS, decreased stride length, increase veering, and reaches out without his cane to steady himself. He does tend to trip on his feet or cane occ as well. LE MMT: R hip flex 14 and L hip flex 8.3#. R knee ext 23 and L 28.4. R knee flex 10 and L 12.4. Pt struggles with full strength/ROM with standing heel and toe raises which will hinder his balance. Patella DTR's 1+/3. FGA: 10 (walking with one head turn pt had increase dizziness and had to hold onto the wall to steady himself. - Hallpike B for dizziness and nystagmus. Smooth pursuit in sitting X 10 seconds increases his dizziness. Seated with horizontal head turns increases his dizziness. Tight B gastroc - Balance/Special Test Scores Functional Gait Assessment Score: 10 % Disability: 66.6700 Dizziness Score: 30 - Goals Goal 1:: I HEP Goal Time Frame: 4-6 Weeks Goal 2:: Improve balance with increase in FGA score (score of 10 at the eval) Goal Time Frame: 6-8 Weeks Goal 3:: Be able to complete horizontal head turns X 1 min in sitting and standing without getting dizzy or LOB Goal Time Frame: 6-8 Weeks Goal 4:: Be able to walk back to the treatment room with more steady gait pattern with a straight cane without veering and LOB Goal Time Frame: 6-8 Weeks - Rehabilitation Potential Rehabilitation Potential: Good - Anticipated Interventions Patient/Client Instruction: Educate patient on: Condition, Plan of Care For the Purpose of:: To improve nutrient delivery to tissue, To improve muscle performance and motor function, To improve ability to perform ADL's, To increase tolerance to activity/condition/position, To improve performance and independence with ADL's, To decrease level of supervision to perform tasks, To improve ability of physical actions for home/community/work/leisure, To improve gait and locomotor functions, To increase flexibility/ROM, To improve endurance, To improve balance, To improve safety with gait, To assume or resume ADL's Therapeutic Exercise to Include: Strength training, Balance training, Body mechanics, Postural training, Flexibilty training, Gait and locomotor training, Neuromotor development, Active ROM For the Purpose of:: To improve muscle performance and motor function, To improve ability to perform ADL's, To increase tolerance to activity/condition/position, To improve performance and independence with ADL's, To decrease level of supervision to perform tasks, To improve ability of physical actions for home/community/work/leisure, To improve gait and locomotor functions, To decrease soft tissue restriction, To increase flexibility/ROM, To improve endurance, To improve balance, To improve safety with gait Functional Training to Include: Gait training For the Purpose of:: To improve gait and locomotor functions, To improve safety with gait Thank you for the opportunity to evaluate your patient. For Medicare and Medicare HMO plans, please review the plan of care and approve it. It will need to be FAXED BACK to us at [phone] for Medicare purposes. For Medicare only, by signing this I certify the plan of care. Please let me know if there are questions or concerns regarding this plan of care. Physician Signature: Date:
--- NOTE | 2023-01-05 11:28 | HP.OTEVAL ---
Patient's Visit Information CONSUELO Amado COVERT is a 77 year old M, referred to Occupational Therapy by [facility], with a diagnosis of debility, weakness. Date of Evaluation: 01/04/23 Occupational Therapist: Amelie Martin, PARISH/Aneudy, CHT - Subjective This 77 year old male was seen for OT eval with dx of Vertigo, Severe obstructive single-vessel disease involving the proximal right. coronary artery and moderate disease involving the mid right coronary. artery and moderate disease of the left anterior descending artery. ED on 12/11/2022 with a complaint of generalized weakness and not feeling well as well as shortness of breath and nausea. Patient had recently been admitted in the hospital in November 2022 and treated for dizziness. This had resolved and he had been discharged home. With this episode he said he went for Physical therapy and was feeling tired and had difficulty concentrating and difficulty finding words. per pt he had 2 day stay at [facility] following his stent. pt states the day after he got home from the hospital after his heart stent he walked around the park but the next day was to fatigued. Pt feels his strength is still weak and has noticed increase time to perform his bathing and dressing. pt would like to regain strength and endurance to perform ADLs and IADls at his PLOF. pt states medication resolved his vertigo-. pt is hopeful to initiate cardiac rehab at this time and possible return to out-pt therapy after he is finished. - ADLs Comments: pt lives alone in two story home. First floor set up with small shower lip- pt has shower chair and 1 grab bar. pt states he tries to do as much cleaning as he can but his dtr. will come and do it. Laundry is on first floor. pt does his own cooking as light meals in microwave. pt states his son picks him up to go to the grocery store. pt does mowing on 48 riding pony edger - Strength Shoulder: peak force right 14# left 10# Elbow: peak force right 18# left 12.6# Expediter Service Order: right 80# left 60# Lateral Pinch: right 12# left 10# Tripod Pinch: right 2# left 6# Strength Comments: pt demo with generalized weakness grossly throughout - Sensation Sensation Comments: denes - Quick DASH-Disab of Arm,Shoulder& Hand Quick DASH Score: 45.4525 - Rehabilitation General Assessment: pt demo with generalized weakness grossly throughout. this limits his ADLs following his stent and would benefit from cardiac rehab at this time. after discussing POC with current PT and Patient : pt agrees he would feel most comfortable with Cardiac rehab at this time and than return to [facility]. - Visit Plan General Plan: pt will initiate cardiac rehab at this time- once completed will return for OT re eval to continue with strengthening at tolerated. TEXT: Thank you for the opportunity to evaluate your patient. For Medicare and Medicare HMO plans, please review the plan of care and approve it. It will need to be FAXED BACK to us at [phone] for Medicare purposes. Please let me know if there are questions or concerns regarding this plan of care. Physician Signature: Date:
--- NOTE | 2023-01-08 11:58 | HP.PTDCSUM ---
It has been my pleasure to treat CONSUELO Amado COVERT referred by [facility], with the diagnosis of vertigo and muscle weakness for a total of 9 visit(s). Discharge Date: 01/08/23 Please see the following information for a summary of their discharge status. Subjective: Spoke with patient about lack of endurance and with his permission called Dr pineda office about Cardiac Rehab and there was an order in the computer for him to start. The nurse was going to look into someone contacting him to start cardiac rehab. % Improvement: 20 Objective/Function: Pt was SOB walking back to the treatment area and knees were starting to buckle and he was holding onto things on the way back. Spoke with pt in depth and he agrees that cardiac rehab is the best option at this point. Goal 1:: I HEP Goal Progress: Progressing Goal 2:: Improve balance with increase in FGA score (score of 10 at the eval) Goal 3:: Be able to complete horizontal head turns X 1 min in sitting and standing without getting dizzy or LOB Goal 4:: Be able to walk back to the treatment room with more steady gait pattern with a straight cane without veering and LOB Goal Progress: Progressing Goal 5:: LTG: pt. to complete 6 MWT with distance of at least 700'+ Goal Progress: Progressing Plan: DC PT at this time to cardiac rehav Discharge Comments: DC PT If there are questions or concerns regarding this patient's physical therapy, please feel free to call me at [phone]. Thank you for the referral of this patient. Sincerely, Alva West, MPT Balance/Gait/Functional tests - Balance/Special Test Scores Functional Gait Assessment Score: 8 % Disability: 73.3400 Dizziness Score: 30
== END 2023-01-08 19:00 | disposition home or self-care (01) ==
LOC: PT 11:30
DX: R42 Dizziness and giddiness (principal)
CPT/HCPCS: 97110; 97161; 97164; 97166; 97530

== ENCOUNTER → 2023-01-10 | Outpatient (CLI) | payer MEDICARE, SELFPAY ==
[2023-01-10 15:57] LABS: AST(SGOT) 16 U/L (15-37); Alanine Aminotransfer ALT/SGPT 21 U/L (16-61); Albumin, Serum 3.8 g/dL (3.2-5.0); Alkaline Phosphatase 34 U/L (45-117); Anion Gap 8 (5-15); BUN 46 mg/dL (7-18); BUN/Creat Ratio 24.6 RATIO (10-20); Calcium,Total 9.1 mg/dL (8.5-10.1); Chloride 107 mmol/L (98-107); Creatinine, Serum 1.87 mg/dL (0.70-1.30); EST Glomerular Filtration Rate 37 mL/min (>60); Est Glom Filt Rate - Afr Amer 45 mL/min (>60); Globulin 3.9 g/dL (2.2-4.2); Glucose 121 mg/dL (74-106); Potassium 4.4 mmol/L (3.5-5.1); Protein, Total 7.7 g/dL (6.4-8.2); Sodium Level 137 mmol/L (136-145)
== END | disposition home or self-care (01) ==
LOC: LAB 14:57
PROVIDERS: Visit Provider Nurse Practitioner Family
DX: E87.5 Hyperkalemia (principal)
CPT/HCPCS: 36415; 80053

== ENCOUNTER → 2023-01-17 | Outpatient (CLI) | payer MEDICARE, SELFPAY ==
--- NOTE | 2023-01-17 12:56 | CR.HP_ITS ---
CR - History & Physical - General Arrival date:: 01/17/23 Arrival time:: 12:57 Date of Referral:: 12/12/22 Date of CR Evaluation:: 01/17/23 Referring Physician: Dr. Erik Rodriguez Primary Diagnosis: NonSTEMI, PCI with coronary stent - History of Present Cardiac Event Onset Date: Enter Onset Date of cardiac illnesses in Comment field below PTCA or coronary stenting:: Yes - RCA 12/12/22 - Sleep Disorder Evaluation Hx of Sleep Apnea: No Do you snore loudly (louder than talking or can be heard through closed doors)?: No Do you often feel tired/ fatigued/ sleepy during daytime?: No Has anyone observed you stop breathing during sleep?: No History of Hypertension (for STOP score): Yes STOP Results: Negative - Medications Home Medications: Ambulatory Orders Medication Instructions Recorded aspirin 81 mg tablet,delayed 81 mg PO QHS HEART HEALTH 09/20/18 release atorvastatin 80 mg tablet 80 mg PO QHS CHOLESTEROL 09/20/18 tamsulosin 0.4 mg capsule 0.4 mg PO DAILY PROSTATE 09/20/18 gabapentin 400 mg capsule 400 mg PO BID nerve pain 03/23/20 glucagon HCl 1 mg solution for 1 mg subcut Q20M PRN blood sugar 03/23/20 injection (Glucagon (HCl) Emergency Kit) insulin lispro 100 unit/mL See Rx Instructions subcut DAILY DM 03/23/20 subcutaneous solution (Humalog U-100 Insulin) finasteride 5 mg tablet 5 mg PO DAILY prostate 03/28/20 amlodipine 5 mg tablet 5 mg PO DAILY blood pressure 01/25/22 acetaminophen 500 mg tablet 500 mg PO Q6H PRN pain 07/03/22 losartan 100 mg tablet 50 mg PO BID blood pressure 11/08/22 meclizine 12.5 mg tablet 12.5 mg PO TID PRN dizziness #20 11/20/22 tabs diazepam 2 mg tablet 2 mg PO TID PRN PRN Vertigo 12/11/22 ticagrelor 90 mg tablet (Brilinta) 90 mg PO BID #60 tabs 12/28/22 furosemide 40 mg tablet (Lasix) 40 mg PO DAILY #30 tabs 12/29/22 - Allergies Allergies/Adverse Reactions: Allergies No Known Allergies Allergy (Verified 01/10/23 13:40) Advanced Directives - Advanced Directives Power of Legal Administrative Assistant: Yes Living Will: Yes Advance Directives Information Provided: Yes Advance Directives on File: Yes DNR Order?:: No Past Medical History - Covid-19 Screening Has a serious heart condition:: Yes Diabetic:: Yes - Past Medical Illness Medical History: Past Medical History (Last Updated 01/10/23 @ 16:43 by Gina An NP-C) Acute coronary syndrome I24.9 Anemia D64.9 Atherosclerotic heart disease of [place] coronary artery without angina pectoris I25.10 DANIEL to proximal RCA on 12/12/2022; BPH (benign prostatic hyperplasia) N40.0 Chronic kidney disease (CKD) N18.9 Diabetes E11.9 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 A1c 7.4 States he had labs done at the [facility]. On statin. Snacks at night On arb. BP controlled. 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 Taking as directed. 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 Sick sinus syndrome I49.5 Syncopal episodes R55 Syncope and collapse R55 Type 1 diabetes mellitus without complications E10.9 Vertigo R42 Vitamin D deficiency E55.9 - Past Surgical History Surgical History: Past Surgical History (Last Reviewed 01/10/23 @ 16:36 by Gina An NP-C) H/O hernia repair Z98.890, Z87.19 History of appendectomy Z90.49 History of coronary artery stent placement Onset Date: 12/12/22 Z95.5 [id number] w/3.5 x 26 mm Resolute Fermín RX DANIEL 12/12/22 History of left heart catheterization Onset Date: 2010 Z98.890 History of permanent cardiac pacemaker placement Onset Date: 07/20/15 Z95.0 07/20/2015 Surgical History: appendectomy, pacemaker implantation, - - Family History Summary Family History: Family History (Last Reviewed 01/10/23 @ 16:36 by Gina An NP-C) Father Diabetes Arthritis Cancer CVA (cerebral vascular accident) Skin cancer Mother CAD (coronary artery disease) Arthritis Parkinsons disease Brother Diabetes Kidney disease Sister Hypothyroid Social History - Smoking History Smoking Status: Former smoker Years Smokin Packs Smoked per Day: 2 Hx Smoking Cessation Date: 11/05/02 - Alcohol Use Alcohol Usage: Yes - rare beer - Substance Abuse Hx Substance Use: No - Occupation Occupation (List type of work in comments):: Retired - Hobbies, Recreation, Social Activities Hobbies: Other - fishing Recreational Activities: I am able to engage in a few activities Social Environment - Status Marital Status: - Current Living Arrangements Living Environment:: Alone - Children How many children do you have?: 3 Do any of your children live nearby?: Yes - Safety Do you feel safe in your surroundings?: Yes - Assistance Do you need any assistance at home?: no Review of Systems - Review of Systems Hints: Right click = Denies (Slash). Left click = Reports (Sweet) Review of Present Symptoms: Reports: Shortness of Breath at Rest, Shortness of Breath with Exertion, Dizziness/Lightheadedness, Fatigue, Sleep - Normal. Denies: PVD, Operative Discomfort, Angina, Wound Healing, Heart Arrhythmia/Irregularities, Appetite - Normal, Appetite - Special Diet, Sexual Changes - Pain Is Patient Pain Free?: No Pain Location: back, lower extremity Pain Level: 07/15 Risk Factor Assessment - Vital Signs Pulse Ox: 100 - Pulse Pulse Rate: 60 Pulse Rhythm: Regular - Hypertension Blood Pressure Sitting - Left Arm: 120/50 - Diabetes Diabetic History: Type I - Obesity Height: 6 ft Weight:: 108.409 kg Weight in Pounds: 239.0 lbs Body Mass Index (BMI): 32.4 Nutritional Referral for Obesity: Yes - Physical Inactivity Physical Inactivity: None - Risk Stratification Risk Guidelines: Moderate Risk: Risk Factor for Smoking, Risk Factor for Dyslipidemia, Risk Factor for Depression, Highest Risk: Risk Factor for Diabetes, Risk Factor for Obesity, Risk Factor for Hypertension, Risk Factor for Sedentary Lifestyle - Family History Family History: Family History (Last Reviewed 01/10/23 @ 16:36 by Gina An NP-C) Father Diabetes Arthritis Cancer CVA (cerebral vascular accident) Skin cancer Mother CAD (coronary artery disease) Arthritis Parkinsons disease Brother Diabetes Kidney disease Sister Hypothyroid Motivation - Motivation to Participate On a scale of 1 to 10, how prepared are you to commit to attending program?: 5 What do you see as barriers to successfully being able to complete the program?: transportation What do you see as the benefits of succesfully completing the program? In other words, what do you hope to get out of participating in the program?: less SOB Are there issues you are dealing with that will interfere with completing the program?: leg pain Do you have a spouse or signficant other, family or friends who will help support you to complete the program?: yes
[2023-01-17 13:39] VITALS: BP 120/50; PULSE 60; O2SAT 100; BMI 32.4
--- NOTE | 2023-01-17 13:42 | PCM.CR.ITP ---
Diagnosis - General Information Admitting Diagnosis: PCI with coronary stent Personal Learning Style:: Audio/Visual Stage of change r/t lifestyle modifications:: Contemplation Gave educational material for:: Treating Heart Disease, Emotions & Heart Disease, Stress Management & Relaxation, Sleep Disorders & Heart Disease, How The Heart Works, What it means to have Heart Disease, How Coronary Artery Disease is Diagnosed, Heart Procedures, What Heart Medications Do, Risk Factors & Modifications, Living an Active Life, Nutrition - Education/Goals Cardiac Rehabilitation Goals: 1. Maintain the individual as the primary focus of care. 2. To improve the patient's quality of life. 3. Identification of cardiac risk factors and provide cardiac risk factor management. 4. Enhance the psychosocial status of the patient. 5. Reconditioning enough to allow the patient to resume customary activities. 6. Control symptoms of cardiac disease Personal Goals: Initial Assessment: Improve energy level, Get back to work, or to resume activities faster, Improve knowledge of cardiac disease, Improve muscle strength and endurance, Improve diet and eating habits (eat healthier) Scale for measuring improvement of personal goals: Enter appropriate number in Comments. 2 = Unchanged. 3 = Slightly Better. 4 = Moderate Improvement. 5 = Met my Goal - Diagnosis & Disease Process Outcomes/Goals: Pt IDs own risk factors & lifestyle modifications by Session 10, Verbalizes symptoms of angina & response by session 3., Pt independently manages, Other Additional Outcomes/Goals: Plan/Interventions: Assist Pt to ID & engage in lifestyle modification to reduce CVD risk, Instruct on individual risk factors, Review symptoms of angina & emergency actions, Review secondary diagnosis & identify educational needs., Other see comment 30 day Reassessments:: Not Met 30 day Reassessments:: Not Met 30 day Reassessments:: Not Met 30 day Reassessments:: Not Met Final Reassessments:: Not Met - Safety Referral to Physical Therapy: No Referral to [facility] Case Management: No Fall Risk Assessed:: Yes Exercise - Initial Assessment - Visit Date of Eval: 01/17/23 - initial eval Mets: Pre-: >3 METS for 30 minutes by discharge - Physician Prescribed Exercise Modalities: Treadmill, Rower, Airdyne, NuStep, SciFit, Lateral [facility] Coordinator Frequency: 3x/week for 12 weeks [36 sessions] Intensity: 60-80% of age predicted maximum heart rate reserve Current METSs:: 2 Target Heart Rate:: 93-108 Resting Blood Pressure: 120/50 - Outcomes & Goals Goals:: Verbalizes understanding of THR, RPE & goal METS by session 6, Documents in home exercise log/reports 30 min aerobic 5 day/wk by DC, Demonstrates accurate pulse taking by DC, Other additional outcome/goals: see below - Intervention & Plan Exercise Program Goals: Instruct on personal THR & RPE, Instruct on MET level & personal MET goal, Show patient to take own pulse /validate performance until accurate, Instruct on home exercise, Other additional plan/int - Physical Activity Home Exercise Physical Activity - Home Exercise: Safe Exercise, Warm-up, Self-monitoring, Cool-Down, Home Exercise > 30 min Daily, Sitting Time <3 hours/daily - Outcomes & Goals Outcomes/Goals: Demonstrates correct Warm-up/exercise Cool-Down (S3) if = 2.5 METs, Verbalizes symptoms of exercise intolerance by Session 3 (S3), Demonstrate safe equipment use (S3) & follows exercise prescrition (6), Other: See below - Intervention & Plan Plan/Intervention: Instruct warm-up & cool-down if exercising at > 2 METs, Instruct on symptoms of exercise intolerance & actions to take, Instruct & monitor on saf, Assess intial functional capacity & safety risk, Other See below Nutrition - Initial Assessment - Program Goals Nutrition Program Goals: LDL <100 optimal. 100 - 129 Near optimal. 130 - 159 Borderline High. 160 - 189 High. Total Cholesterol <200 desirable. 200 - 239 Borderline High. >/= 240 High. HDL < 40 Low >/=60 High. Triglycerides <150 desirable. <199 optimal. VlDL 5 - 40. HgbA1C <7%. BMI <25 Patient has diagnosis of Hyperlipidemia (ICD E78)?: Yes - Visit Date of Assessment:: 01/17/23 - initial eval - Cholesterol/Lipids (Other Core Measures) Determine presence & major risk factors that modify LDL goal: Cigarette smoking, Hypertension or hypertensive medication, Low HDL cholesterol <40 mg/dL*, Family history of premature CHD in Male < 55 years: female <65 yearsFa, Age men > 45 years; women >/= 55 years Outcomes/Goals: Pt IDs own risk factors & lifestyle modifications by Session 10, Verbalizes symptoms of angina & response by session 3., Pt independently manages, Other Additional Outcomes/Goals: Intervention/Plan: Advocate for lipid panel cholesterol medication if applicable, Instruct on personal lipid levels & lipid goals/NCEP guidelines, Instruct on cholesterol, Other additional plan/int Referral to dietitian:: Yes - Diabetes (Other Core Measures) 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 Insulin dependent injection/pump?: Yes Do you monitor your blood sugar at home?: Yes Outcomes/Goals:: Able to state symptoms of, Able to state, Able to state, Other additional - Weight Mgt (Other Care) Height: 6 ft Weight:: 108.409 kg BMI: 32.4 Diagnosis Overweight/Obesity BMI> 30% ICD-10 E66: Yes Diagnosis High BMI/Morbid Obesity BMI> 35% ICD-10 Z68: No Outcomes/Goals: Pt sets, maintains & shows weight loss goal & trend during rehab, Other additional outcomes/goals Intervention/Plan: Instruct on ideal BMI & set weight loss goal w/patient, Assist pt to ID & incorporate diet changes for weight loss by S9, Refer to Structured Weight Loss program as appropriate, Encourage goal of using 250-300dcal per session for weight loss, Other additional plan/interventions - Healthy Eating Habits Will attend diet classes:: Yes Outcomes/Goals:: Consume diet rich in vegs,fruits,whole grain/high fiber,fish,lean meat, Limit sat/trans fats,cholesterol & added salts & sugars, Other additional outcome/goals: Intervention/Plan:: Assess current eating habits, Other Additional plan/interventions - Education Gave educational materials for:: Signs & symptoms of hypoglycemia, Signs & symptoms of hyperglycemia, Relate diabetes to coronary artery disease, Healthy eating Nutrition - 30-Day Assessment Nutrition - 60-Day Assessment Nutrition - 90-Day Assessment Nutrition - Final Assessment Core - Initial Assessment - Visit Date of Eval: 01/17/23 - initial eval - Medication Compliance Preventative Medication(s):: Aspirin, Statin/lipid H/O mental health issues: depression, anxiety, or addiction?: No Doesn?t believe in the benefits of treatment?: No Believes medications are unnecessary or harmful?: No Has a concern about medication side effects?: No Expresses concern over the cost of medications?: No Outcomes/Goals: Verbalizes medications,desired effect & common side effects @ DC, Pt self-reports following medication regimen, Keeps card in wallet w/medications listed by DC, Other additional outcome/goals: Interventions/plans: Instruct on medication effects & side effects, Review medication list w/patient every two weeks, Instruct importance of taking meds as ordered & assist problem solving, Other additional - Tobacco Use Tobacco Use: Non-smoker How long ago did you quit using tobacco products?: Greater than or equal to 6 months ago Do you use smokeless tobacco?: No - Hypertension Hypertension Diagnosis:: Hypertension ICD-10 I10 Resting Blood Pressure:: 120/50 [employer] Hypertension Guidelines: [place] [employer] Hypertension Guidelines. Normal BP Less than 120/80. Elevated BP 120/80. Hypertension Stage 1: BP 130-139/80-89. Hypertesnion Stage 2: BP 140 or higher/90 or higher. Hypertension Crisis: BP higher than 180/120 Outcomes/Goals: Able to verbalize/achieve optimal blood pressure <130/80, Incorporates diet changes & exercise for blood pressure control by DC, Other additional outcomes/goals Interventions/plan: Instruct on optimal blood pressure, hypertension & medications, Instruct on effects of sodium, alcohol, stress, exercise &hypertension, Other additional plan/interventions - Tobacco Cessation Referral Smoking Cessation Referral:: No Individual Education/Counseling:: No Education Schedule Given:: Yes Core - 30-Day Assessment Core - 60-Day Assessment Core - 90 Day Assessment Core - Final Assessment Psychosocial - Initial Assess - VIsit Date of Eval: 01/17/23 - initial eval History of previous Mental disease:: No Psychosocial - 30-Day Assess Psychosocial - 60-Day Assess Psychosocial - 90-Day Assess Psychosocial - Final Assessmen Patient Health Questionnaire Initial Assessment 1. Little interest or pleasure in doing things: Nearly every day 2. Feeling down, depressed, or hopeless: Several days 3. Trouble falling or staying asleep, or sleeping too much: Not at all 4. Feeling tired or having little energy: More than half the days 5. Poor appetite or overeating: Nearly every day 6. Feeling bad about yourself -- or that you are a failure or have let yourself or your family down: More than half the days 7. Trouble concentrating on things, such as reading the newspaper or watching television: Not at all 8. Moving or speaking so slowly that other people could have noticed. Or the opposite - being so fidgety or restless that you have been moving around a lot more than usual: Not at all 9. Thoughts that you would be better off , or of hurting yourself in some way: Not at all How difficult have these problems made it for you to do your work, take care of things at home, or get along with other people?: Somewhat difficult Total Score: 11 MARITZA-Q SV Test - Statements CAD is a disease of the arteries in the heart: True Examples of risk factors for heart disease: I Don't Know Angina is chest pain or discomfort: I Don't Know The benefits of resistance training include: False Eating more meat and dairy products: False Anti-platelet medications such as aspirin are important: I Don't Know The only effective way to manage stress: I Don't Know An exercise warm-up slowly increases heart rate: I Don't Know Prepared, processed foods usually have high sodium: I Don't Know Depression is common after a heart attack: I Don't Know The statin medications lower cholesterol: I Don't Know To control blood pressure, lower the amount of sodium: I Don't Know If someone gets chest discomfort during walking: False Transfats are partially hydrogenated vegetable oils: False Sleep apnea that is not treated increases the risk: I Don't Know To control cholesterol, one should become a vegetarian: I Don't Know Someone knows if he/she is exercising at the right level: I Don't Know Diabetes cannot be prevented with exercise & health eating: False Stress is a large risk for heart attack: True A diet that can help lower blood pressure is rich in: True - Total Score Total Correct Responses: 5 Self-Efficacy Initial Assessment We would like to know how confident you are in doing certain activities. Please select your confidence level for:: Select your confidence level for the following using the scale 1-10 where 1 is not at all confident and 10 is totally confident. Your score is the average of all 6 responses. Fatigue: How confident are you that you can keep the fatigue caused by your disease from interfering with the things you want to do? Select Number: 3 Physical Discomfort or Pain: How confident are you that you can keep the physical discomfort or pain of your disease from interfering with the things you want to do? Select Number: 4 Emotional Distress: How confident are you that you can keep the emotional distress caused by your disease from interfering with the things you want to do? Select Number: 5 Other Symptoms or Health Problems: How confident are you that you can keep other symptoms or health problems from interfering with the things you want to do? Select Number: 4 Different Tasks and Activities: How confident are you that you can do the different tasks and activities needed to manage your health condition so as to reduce your need to see a doctor? Select Number: 4 Medication: How confident are you that you can do things other than just taking medication to reduce how much your illness affects your everyday life? Select Number: 4 Total Score:: 4 Nutrition Survey - Nutrition Survey Initial Have you lost >10 lbs over the past 2 months without trying?: No Are you following a special diet at home for diabetes, low fat, or low salt?: No Are you interested in meeting with a dietitian for help understanding your diet?: No Do you eat less than 3 meals a day?: Yes Do you eat fatty meats (suarez, sausage, ribs, etc), fried foods, desserts, large amounts of salad dressings, margarine, butter, or cheese most days?: Yes Do you have food allergies? [Enter types in comment field]: No Do you eat in restaurants more than 3 times a week?: No Do you season food with salt, seasoning salt, or garlic salt?: Yes Do you used canned, boxed, frozen meals, or soups, seasoning packets?: No Total Score:: 3
[2023-01-17 13:57] VITALS: BP 120/50; BMI 32.4
== END | disposition home or self-care (01) ==
LOC: CR 12:54
PROVIDERS: Visit Provider Internal Medicine Cardiovascular Disease
DX: I25.2 Old myocardial infarction (principal); Z95.5 Presence of coronary angioplasty implant and graft

== ENCOUNTER 2023-02-02 15:45 | Outpatient (RCR) | payer MEDICARE, SELFPAY | END 2023-02-02 23:59 | LOC: CR 15:45 | PROVIDERS: Referring Provider Internal Medicine Cardiovascular Disease; Visit Provider Internal Medicine Cardiovascular Disease | DX: I25.2 Old myocardial infarction (principal); Z95.0 Presence of cardiac pacemaker; Z95.5 Presence of coronary angioplasty implant and graft | CPT/HCPCS: 93798 ==

== ENCOUNTER → 2023-02-02 | Outpatient (CLI) | payer MEDICARE, SELFPAY ==
[2023-01-17 13:57] VITALS: BMI 32.4
[2023-02-02 16:31] LABS: Absolute Lymphocyte Count 0.72 X10^3/uL (0.83-4.51); Absolute Neutrophil Count 4.2 X10^3/uL (2.0-7.7); Basophil# 0.07 X10^3/uL; Basophil% 1.1 % (0-1); Eosinophil# 0.43 X10^3/uL; Hematocrit 35.5 % (40-54); Hemoglobin 11.2 g/dL (13.0-16.5); Lymphocyte # 0.72 X10^3/ul (0.83-4.51); Lymphocyte % 11.7 % (19-41); Mean Corp Hgb Conc 31.5 g/dL (32-36); Mean Corpuscular Hgb 31.1 pg (27.0-32.0); Mean Corpuscular Volume 98.6 fL (80-94); Mean Platelet Vol. 9.2 fl (6.2-12.0); Monocyte# 0.66 X10^3/uL; Monocyte% 10.7 % (0-10); NRBC Flagged by Analyzer 0 % (0-5); Neutrophil # 4.24 X10^3/uL (2.7-7.7); Neutrophil % 69.2 % (47-70); Platelet Count 245 K/mm3 (150-450); RBC Distribution Width CV 13.9 % (11.6-14.6); RBC Distribution Width SD 50.9 fl (35.1-43.9); White Blood Count 6.1 K/mm3 (4.4-11.0)
[2023-02-02 16:45] LABS: BNP,B-Type NATRIURETIC PEPTIDE 75.3 pg/mL (0-100)
[2023-02-02 17:17] LABS: Anion Gap 4 (5-15); BUN 43 mg/dL (7-18); BUN/Creat Ratio 24.2 RATIO (10-20); Chloride 108 mmol/L (98-107); Creatinine, Serum 1.78 mg/dL (0.70-1.30); EST Glomerular Filtration Rate 40 mL/min (>60); Est Glom Filt Rate - Afr Amer 48 mL/min (>60); Free T3 1.9 pg/mL (2.18-3.98); Glucose 199 mg/dL (74-106); Potassium 5.3 mmol/L (3.5-5.1); Sodium Level 134 mmol/L (136-145); T4 Free Direct 0.84 ng/dL (0.76-1.46); Thyroid Stim Hormone (TSH) 1.85 uIU/mL (0.358-3.74)
== END | disposition home or self-care (01) ==
PROVIDERS: Referring Provider Nurse Practitioner Gerontology; Visit Provider Nurse Practitioner Gerontology
DX: R06.00 Dyspnea, unspecified (principal); R53.83 Other fatigue
CPT/HCPCS: 36415; 80048; 83880; 84439; 84443; 84481; 85025

== ENCOUNTER → 2023-02-12 | Outpatient (CLI) | payer MEDICARE, SELFPAY ==
[2023-01-17 13:57] VITALS: BMI 32.4
[2023-02-12 16:16] LABS: Potassium 5.8 mmol/L (3.5-5.1)
[2023-02-14 11:18] LABS: Thyroid Peroxidase AB 171 IU/mL (0-34)
== END | disposition home or self-care (01) ==
LOC: LAB 14:58
PROVIDERS: Referring Provider Nurse Practitioner Family; Visit Provider Nurse Practitioner Gerontology
DX: E87.5 Hyperkalemia (principal); R79.89 Other specified abnormal findings of blood chemistry
CPT/HCPCS: 36415; 84132; 86376

== ENCOUNTER → 2023-02-14 | Outpatient (CLI) | payer MEDICARE, SELFPAY ==
[2023-01-17 13:57] VITALS: BMI 32.4
--- NOTE | 2023-02-15 05:42 | PFTCOMP ---
COMPLETE PULMONARY FUNCTION TEST INTERPRETATION Brief HPI: Patient is a 77-year-old male, currently under the care of Gricel Etienne, who presents to [facility] for complete pulmonary function tests secondary to diagnosis of dyspnea. Respiratory therapist reports good effort and reproducible results. Interpretation: Forced expiration spirometry shows no large airways obstructive ventilatory defect with an FEV1 of 100% predicted. There is no significant bronchodilator response by strict ATS criteria. Spirograms are of good quality and plateau slowly, indicating slowly emptying areas of the lungs. The respiratory flow volume loop shows decreased expiratory flow rates at high lung volumes consistent with small airways obstruction. Lung volumes by body plethysmography show a normal total lung capacity at 6.83 L, 99% predicted. All other lung volumes are within normal limits. Diffusion capacity by carbon monoxide is at the lower limit of normal at 78% predicted. The airway resistance is normal. No previous pulmonary function tests were available for review. Impression: Grossly normal pulmonary function test, but diffusion capacity is at the lower limit of normal and are some stigmata of possible small airways disease. Consider evaluation for pulmonary hypertension or bronchoprovocation study for possible asthma
== END | disposition home or self-care (01) ==
LOC: PSN 12:41
PROVIDERS: Referring Provider Nurse Practitioner Gerontology; Visit Provider Nurse Practitioner Gerontology
DX: R06.00 Dyspnea, unspecified (principal)
CPT/HCPCS: 94060; 94726; 94729

== ENCOUNTER 2023-02-19 13:30 | Outpatient (RCR) | payer MEDICARE, SELFPAY ==
[2023-01-17 13:57] VITALS: BMI 32.4
== END 2023-03-04 23:59 ==
LOC: DC 13:30
PROVIDERS: Visit Provider Internal Medicine Cardiovascular Disease
DX: E10.22 Type 1 diabetes mellitus with diabetic chronic kidney disease (principal); N18.9 Chronic kidney disease, unspecified
CPT/HCPCS: 97802; G0108

== ENCOUNTER → 2023-02-21 | Outpatient (CLI) | payer MEDICARE, SELFPAY ==
[2023-02-16 10:19] VITALS: BMI 31.1
[2023-02-21 15:25] LABS: Anion Gap 4 (5-15); BUN 30 mg/dL (7-18); BUN/Creat Ratio 19.4 RATIO (10-20); Calcium,Total 8.9 mg/dL (8.5-10.1); Chloride 109 mmol/L (98-107); Creatinine, Serum 1.55 mg/dL (0.70-1.30); EST Glomerular Filtration Rate 46 mL/min (>60); Est Glom Filt Rate - Afr Amer 56 mL/min (>60); Glucose 335 mg/dL (74-106); Potassium 5.3 mmol/L (3.5-5.1); Sodium Level 134 mmol/L (136-145)
== END | disposition home or self-care (01) ==
LOC: LAB 14:38
PROVIDERS: Referring Provider Physician Assistant Medical; Visit Provider Physician Assistant Medical
DX: E87.5 Hyperkalemia (principal)
CPT/HCPCS: 36415; 80048

== ENCOUNTER 2023-03-02 15:45 | Outpatient (RCR) | payer MEDICARE, SELFPAY ==
[2023-01-17 13:57] VITALS: BMI 32.4
--- NOTE | 2023-02-16 10:08 | PCM.CR.ITP ---
Diagnosis Exercise - 30-day Assessment - Visit Date of Eval: 02/16/23 Session #:: 11 - Physician Prescribed Exercise Modalities: NuStep, SciFit, Lateral Java Developer Frequency: 3x/week for 12 weeks [36 sessions] Intensity: 60-80% of age predicted maximum heart rate reserve Current METSs:: 3.3 Target Heart Rate:: 93-108 Current RPE:: 13 Maximum Excercise HR:: 82 Resting Blood Pressure: 140/46 Maximum Exercise Blood Pressure: 140/46 EKG Type: NSR/BBB - Outcomes & Goals Goals:: Verbalizes understanding of THR, RPE & goal METS by session 6, Documents in home exercise log/reports 30 min aerobic 5 day/wk by DC, Demonstrates accurate pulse taking by DC, Other additional outcome/goals: see below - Intervention & Plan Exercise Program Goals: Instruct on personal THR & RPE, Instruct on MET level & personal MET goal, Show patient to take own pulse /validate performance until accurate, Instruct on home exercise, Other additional plan/int - 30-day Reassessments 30 day Reassessments:: Progressing - THR explained - Physical Activity Home Exercise Physical Activity - Home Exercise: Safe Exercise, Warm-up, Self-monitoring, Cool-Down, Home Exercise > 30 min Daily, Sitting Time <3 hours/daily - Outcomes & Goals Outcomes/Goals: Demonstrates correct Warm-up/exercise Cool-Down (S3) if = 2.5 METs, Verbalizes symptoms of exercise intolerance by Session 3 (S3), Demonstrate safe equipment use (S3) & follows exercise prescrition (6), Other: See below - Intervention & Plan Plan/Intervention: Instruct warm-up & cool-down if exercising at > 2 METs, Instruct on symptoms of exercise intolerance & actions to take, Instruct & monitor on saf, Assess intial functional capacity & safety risk, Other See below - 30-day Reassessments 30 day Reassessments:: Progressing - warm up encouraged Nutrition - Initial Assessment Nutrition - 30-Day Assessment - Program Goals Nutrition Program Goals: LDL <100 optimal. 100 - 129 Near optimal. 130 - 159 Borderline High. 160 - 189 High. Total Cholesterol <200 desirable. 200 - 239 Borderline High. >/= 240 High. HDL < 40 Low >/=60 High. Triglycerides <150 desirable. <199 optimal. VlDL 5 - 40. HgbA1C <7%. BMI <25 Patient has diagnosis of Hyperlipidemia (ICD E78)?: Yes - Visit Date of Assessment:: 02/16/23 Session #:: 11 - Cholesterol/Lipids (Other Core Measures) Determine presence & major risk factors that modify LDL goal: Cigarette smoking, Hypertension or hypertensive medication, Low HDL cholesterol <40 mg/dL*, Family history of premature CHD in Male < 55 years: female <65 yearsFa, Age men > 45 years; women >/= 55 years Outcomes/Goals: Pt IDs own risk factors & lifestyle modifications by Session 10, Verbalizes symptoms of angina & response by session 3., Pt independently manages, Other Additional Outcomes/Goals: Intervention/Plan: Advocate for lipid panel cholesterol medication if applicable, Instruct on personal lipid levels & lipid goals/NCEP guidelines, Instruct on cholesterol, Other additional plan/int Referral to dietitian:: Yes - pt is scheduled 30-day Reassessments:: Progressing - pt is scheduled to see a cork floor installer - Diabetes (Other Core Measures) 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 Insulin dependent injection/pump?: Yes Do you monitor your blood sugar at home?: Yes Referral to Diabetic Clinic:: Yes - pt is scheduled Outcomes/Goals:: Able to state symptoms of, Able to state, Able to state, Other additional Intervention/Plan:: Instruct on, Refer to, Instruct on, Other 30-day Reassessments:: Progressing - pt is scheduled to see a cork floor installer - Weight Mgt (Other Care) Height: 6 ft Weight:: 104.099 kg BMI: 31.1 Diagnosis Overweight/Obesity BMI> 30% ICD-10 E66: Yes Diagnosis High BMI/Morbid Obesity BMI> 35% ICD-10 Z68: No Outcomes/Goals: Pt sets, maintains & shows weight loss goal & trend during rehab, Other additional outcomes/goals Intervention/Plan: Instruct on ideal BMI & set weight loss goal w/patient, Assist pt to ID & incorporate diet changes for weight loss by S9, Refer to Structured Weight Loss program as appropriate, Encourage goal of using 250-300dcal per session for weight loss, Other additional plan/interventions 30 day Reassessments:: Progressing - seeing cork floor installer - Healthy Eating Habits Will attend diet classes:: Yes Outcomes/Goals:: Consume diet rich in vegs,fruits,whole grain/high fiber,fish,lean meat, Limit sat/trans fats,cholesterol & added salts & sugars, Other additional outcome/goals: Intervention/Plan:: Assess current eating habits, Other Additional plan/interventions 30-day Reassessments:: Progressing - seeing cork floor installer - Education Gave educational materials for:: Signs & symptoms of hypoglycemia, Signs & symptoms of hyperglycemia, Relate diabetes to coronary artery disease, Healthy eating Nutrition - 60-Day Assessment Nutrition - 90-Day Assessment Nutrition - Final Assessment Core - Initial Assessment Core - 30-Day Assessment - Visit Date of Eval: 02/16/23 Session #:: 11 - Medication Compliance Preventative Medication(s):: Aspirin, Statin/lipid H/O mental health issues: depression, anxiety, or addiction?: No Doesn?t believe in the benefits of treatment?: No Believes medications are unnecessary or harmful?: No Has a concern about medication side effects?: No Expresses concern over the cost of medications?: No Outcomes/Goals: Verbalizes medications,desired effect & common side effects @ DC, Pt self-reports following medication regimen, Keeps card in wallet w/medications listed by DC, Other additional outcome/goals: Interventions/plans: Instruct on medication effects & side effects, Review medication list w/patient every two weeks, Instruct importance of taking meds as ordered & assist problem solving, Other additional 30-day Reassessments:: Progressing - encouraged to take meds - Tobacco Use Tobacco Use: Non-smoker Do you use smokeless tobacco?: No - Hypertension Hypertension Diagnosis:: Hypertension ICD-10 I10 Resting Blood Pressure:: 140/46 [place] [employer] Hypertension Guidelines: [place] [employer] Hypertension Guidelines. Normal BP Less than 120/80. Elevated BP 120/80. Hypertension Stage 1: BP 130-139/80-89. Hypertesnion Stage 2: BP 140 or higher/90 or higher. Hypertension Crisis: BP higher than 180/120 Peak Exercise Blood Pressure:: 140/46 Outcomes/Goals: Able to verbalize/achieve optimal blood pressure <130/80, Incorporates diet changes & exercise for blood pressure control by DC, Other additional outcomes/goals Interventions/plan: Instruct on optimal blood pressure, hypertension & medications, Instruct on effects of sodium, alcohol, stress, exercise &hypertension, Other additional plan/interventions 30 day Reassessments:: Progressing - encouraged to take meds - Tobacco Cessation Referral Smoking Cessation Referral:: No Individual Education/Counseling:: No Education Schedule Given:: Yes Core - 60-Day Assessment Core - 90 Day Assessment Core - Final Assessment Psychosocial - Initial Assess Psychosocial - 30-Day Assess - VIsit Date of Eval: 02/16/23 Session #:: 11 History of previous Mental disease:: No Psychosocial - 60-Day Assess Psychosocial - 90-Day Assess Psychosocial - Final Assessmen Patient Health Questionnaire 30-Day Re-eval Assessment 1. Little interest or pleasure in doing things: Nearly every day 2. Feeling down, depressed, or hopeless: Several days 3. Trouble falling or staying asleep, or sleeping too much: Not at all 4. Feeling tired or having little energy: More than half the days 5. Poor appetite or overeating: Nearly every day 6. Feeling bad about yourself -- or that you are a failure or have let yourself or your family down: More than half the days 7. Trouble concentrating on things, such as reading the newspaper or watching television: Not at all 8. Moving or speaking so slowly that other people could have noticed. Or the opposite - being so fidgety or restless that you have been moving around a lot more than usual: Not at all 9. Thoughts that you would be better off , or of hurting yourself in some way: Not at all How difficult have these problems made it for you to do your work, take care of things at home, or get along with other people?: Somewhat difficult Total Score: 11 Self-Efficacy 30-Day Re-eval Assessment We would like to know how confident you are in doing certain activities. Please select your confidence level for:: Select your confidence level for the following using the scale 1-10 where 1 is not at all confident and 10 is totally confident. Your score is the average of all 6 responses. Fatigue: How confident are you that you can keep the fatigue caused by your disease from interfering with the things you want to do? Select Number: 3 Physical Discomfort or Pain: How confident are you that you can keep the physical discomfort or pain of your disease from interfering with the things you want to do? Select Number: 4 Emotional Distress: How confident are you that you can keep the emotional distress caused by your disease from interfering with the things you want to do? Select Number: 5 Other Symptoms or Health Problems: How confident are you that you can keep other symptoms or health problems from interfering with the things you want to do? Select Number: 4 Different Tasks and Activities: How confident are you that you can do the different tasks and activities needed to manage your health condition so as to reduce your need to see a doctor? Select Number: 4 Medication: How confident are you that you can do things other than just taking medication to reduce how much your illness affects your everyday life? Select Number: 4 Total Score:: 4 Nutrition Survey
[2023-02-16 10:19] VITALS: BP 140/46; BMI 31.1
== END 2023-03-04 23:59 ==
LOC: CR 15:45
PROVIDERS: Referring Provider Internal Medicine Cardiovascular Disease; Visit Provider Internal Medicine Cardiovascular Disease
DX: I25.2 Old myocardial infarction (principal); Z95.0 Presence of cardiac pacemaker; Z95.5 Presence of coronary angioplasty implant and graft
CPT/HCPCS: 93798

== ENCOUNTER 2023-03-03 16:27 | Observation (INO) | payer OTHER, SELFPAY ==
[2023-02-16 10:19] VITALS: BMI 31.1
[2023-03-03] VITALS (7 sets, daily range): BP systolic 100–154; BP diastolic 57–78; PULSE 60–75; RESP 17–20; TEMP 35.9–36.5; O2SAT 96–100; BMI 30.6; BMI 29.9
--- NOTE | 2023-03-03 16:38 | EKG12_ITS ---
Test Reason : SYNCOPE Blood Pressure : / mmHG Vent. Rate : 060 BPM Atrial Rate : 060 BPM P-R Int : 244 ms QRS Dur : 132 ms QT Int : 434 ms P-R-T Axes : 000 -64 -17 degrees QTc Int : 434 ms Atrial-paced rhythm with prolonged AV conduction Left axis deviation Left bundle branch block Abnormal ECG Confirmed by MARY MIRANDA, MARTELL ([id number]), continuity editor HUSSEIN FLANNERY ([id number]) on 03/06/2023 1:14:33 PM Referred By: ANABELLE Confirmed By:MARTELL HERNANDEZ MD
--- NOTE | 2023-03-03 16:47 | EDS_ITS ---
HPI History of Present Illness Chief Complaint: Syncope Informant: patient Onset/Context/Timing Onset: Today Context: Sudden Onset Timing: Continuous Quality: Weakness, dyspnea Location: Generalized Worsened by: Nothing Relieved by: Nothing Narrative Narrative: Patient presents with near syncopal episode that occurred today. Patient states he was working in his shop when he felt weak all over. Patient states he was having some shortness of breath. Patient states this began rather suddenly. Patient denies any chest pain or palpitations with this. Patient states he did feel lightheaded but did not lose consciousness. Patient states he was having difficulty walking due to the shortness of breath and weakness. Patient states he went into his house and checked his blood pressure and it was 88/44. 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 MENDOZA (dyspnea on exertion) Essential (primary) hypertension Herpes zoster History of non-ST elevation myocardial infarction (NSTEMI) (2010) Hyperlipidemia Hyperlipidemia due to type 1 diabetes mellitus Hypoglycemic reaction to insulin HZV (herpes zoster virus) post herpetic neuralgia Insulin pump titration Left bundle branch block FCI current use of insulin Muscle weakness of lower extremity Non-ST elevation NC (NSTEMI) Obesity Obstructive sleep apnea Presence of insulin pump Sebaceous cyst Seborrheic dermatitis Secondary pulmonary arterial hypertension Sick sinus syndrome Syncopal episodes Syncope and collapse Type 1 diabetes mellitus without complications Vertigo Vitamin D deficiency Home Medications aspirin 81 mg tablet,delayed release 81 mg PO QHS HEART HEALTH 09/20/18 [History Last Taken 12/11/22] atorvastatin 80 mg tablet 80 mg PO QHS CHOLESTEROL 09/20/18 [History Last Taken 12/10/22] tamsulosin 0.4 mg capsule 0.4 mg PO DAILY PROSTATE 09/20/18 [History Last Taken 12/11/22] gabapentin 400 mg capsule 400 mg PO BID nerve pain 03/23/20 [History Last Taken 12/11/22] glucagon HCl 1 mg solution for injection (Glucagon (HCl) Emergency Kit) 1 mg subcut Q20M PRN blood sugar 03/23/20 [History Last Taken 1 Year Ago ~12/11/21] insulin lispro 100 unit/mL subcutaneous solution (Humalog U-100 Insulin) See Rx Instructions subcut DAILY DM 03/23/20 [History Last Taken 12/11/22] finasteride 5 mg tablet 5 mg PO DAILY prostate 03/28/20 [History Last Taken 12/11/22] amlodipine 5 mg tablet 5 mg PO DAILY blood pressure 01/25/22 [History Last Taken 12/11/22] acetaminophen 500 mg tablet 500 mg PO Q6H PRN pain 07/03/22 [History Last Taken 12/11/22] meclizine 12.5 mg tablet 12.5 mg PO TID PRN dizziness #20 tabs 11/20/22 [Rx Last Taken 12/11/22] diazepam 2 mg tablet 2 mg PO TID PRN PRN Vertigo 12/11/22 [History Last Taken 12/11/22] ticagrelor 90 mg tablet (Brilinta) 90 mg PO BID #60 tabs 12/28/22 [Rx Last Taken Unknown] furosemide 40 mg tablet (Lasix) 40 mg PO DAILY #30 tabs 12/29/22 [Rx Last Taken Unknown] melatonin 3 mg tablet 3 mg PO HS PRN Sleep 02/02/23 [History Last Taken Unknown] losartan 100 mg tablet 50 mg PO DAILY blood pressure 02/12/23 [History Last Taken Unknown] levothyroxine 50 mcg tablet 50 mcg PO DAILY #30 tabs 02/14/23 [Rx Last Taken Unknown] Allergy/AdvReac Type Severity Reaction Status Date / Time No Known Allergies Allergy Verified 03/03/23 22:07 Family History Father Diabetes Arthritis Cancer CVA (cerebral vascular accident) Skin cancer Mother CAD (coronary artery disease) Arthritis Parkinsons disease Brother Diabetes Kidney disease Sister Hypothyroid Surgical History H/O hernia repair History of appendectomy History of coronary artery stent placement (12/12/22) History of left heart catheterization (2010) 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) Social History household members: none Smoking Status: Former smoker how long ago did patient quit smokin second hand exposure: No alcohol intake: current alcohol intake frequency: holidays/special occasions only substance use type: does not use caffeine: Yes Type: coffee Number of servings: 2 what type of physical activity do you participate in: other frequency: 1-2 times per week ROS ROS ED Constitutional Constitutional ED: Denies chills or fever(s) Eyes Eyes: Denies blurry vision or change in vision ENT ENT ED: Denies rhinorrhea or sore throat Cardiovascular Cardiovascular: Denies chest pain or palpitations Respiratory/Chest Respiratory/Chest: Reports dyspnea; Denies cough Gastrointestinal Gastrointestinal: Denies nausea or vomiting Genitourinary Genitourinary ED: Denies dysuria or hematuria Musculoskeletal Musculoskeletal: Reports back pain; Denies neck pain Integumentary Denies abscess or rash Neurologic Neurologic: Reports weakness; Denies headache(s) Allergic/Immunologic Allergic/Immunologic ED: Denies mouth swelling or urticaria EXAM Physical Exam Const Vital Signs: 03/03/23 16:28 03/03/23 16:33 03/03/23 17:02 Temperature 97.3 F L Temperature Source Temporal Pulse Rate 64 Pulse Rate [Lying] 75 Pulse Rate [Sitting (for 1 minute prior to obtaining)] 67 Pulse Rate [Standing (for 1 minute prior to obtaining)] 75 Respiratory Rate 20 H Respiratory Effort Normal Non-Labored Respiratory Pattern Normal Blood Pressure 148/60 H Blood Pressure [Lying] 123/58 H Blood Pressure [Sitting (for 1 minute prior to obtaining)] 128/57 H Blood Pressure [Standing (for 1 minute prior to obtaining)] 117/57 L Blood Pressure Mean 89 Blood Pressure Mean [Lying] 79 Blood Pressure Mean [Sitting (for 1 minute prior to obtaining)] 80 Blood Pressure Mean [Standing (for 1 minute prior to obtaining)] 77 Pulse Ox 96 Oxygen Delivery Method Room Air 03/03/23 18:44 03/03/23 20:00 Temperature Temperature Source Pulse Rate 60 60 Pulse Rate [Lying] Pulse Rate [Sitting (for 1 minute prior to obtaining)] Pulse Rate [Standing (for 1 minute prior to obtaining)] Respiratory Rate 20 H Respiratory Effort Respiratory Pattern Blood Pressure 135/60 H 137/59 H Blood Pressure [Lying] Blood Pressure [Sitting (for 1 minute prior to obtaining)] Blood Pressure [Standing (for 1 minute prior to obtaining)] Blood Pressure Mean 85 85 Blood Pressure Mean [Lying] Blood Pressure Mean [Sitting (for 1 minute prior to obtaining)] Blood Pressure Mean [Standing (for 1 minute prior to obtaining)] Pulse Ox 97 100 Oxygen Delivery Method Room Air Room Air Positive well nourished and well developed General Appearance ED: well developed HEENT Reports moist mucous membranes Neck supple and no JVD Resp normal respiratory effort and clear to auscultation bilaterally Cardio regular rate and regular rhythm GI normal to inspection, nondistended, normoactive bowel sounds and non-tender Palpation: soft Extremity normal to inspection General Extremety ED: Negative for edema or tenderness General Extremity: Negative for edema Neuro oriented x3, CN's II-XII intact bilaterally and no sensory deficits noted Sensorium / Orientation: alert Motor Exam: strength 5/5 throughout Psych mental status grossly normal Skin no rashes or lesions noted MDM MDM MDM Narrative Medical decision making narrative: Differential diagnosis includes pulmonary embolism, cardiac dysrhythmia, cardiac ischemia, hypoglycemia, hyperglycemia, hyperthyroidism, hypothyroidism, pneumonia, and electrolyte abnormality. EKG will be obtained to assess for cardiac dysrhythmia and cardiac ischemia. CBC will be obtained to assess for leukocytosis and anemia. Basic metabolic profile will be obtained to assess for renal function and electrolyte abnormality. TSH will be obtained to assess for hypothyroidism and hyperthyroidism. High-sensitivity troponin will be obtained to assess for cardiac ischemia. 2-hour repeat high-sensitivity troponin will be obtained to assess for ongoing cardiac ischemia. CTA of the chest will be obtained to assess for pulmonary embolism and pneumonia. History & Record Review Additional record(s) reviewed:: Prior labs Lab Data Attestation: I reviewed the patient's lab results. Lab results narrative: CBC was reviewed and showed a mild anemia with a hemoglobin of 11.3 and hematocrit of 35.7. Basic metabolic profile was reviewed. BUN was 42 and creatinine was 1.66. These are consistent with prior results. Potassium was elevated at 5.6. High-sensitivity troponin was reviewed and was normal at 30. PT with INR and PTT were reviewed and were normal. 2-hour repeat high- sensitivity troponin was reviewed and was normal at 30. Labs: Laboratory Results - last 24 hr 03/03/23 03/03/23 03/03/23 16:50 16:50 16:50 WBC 4.8 RBC 3.57 L Hgb 11.3 L Hct 35.7 L MCV 100.0 H MCH 31.7 MCHC 31.7 L RDW Std Deviation 51.3 H RDW Coeff of Digna 14.0 Plt Count 260 MPV 9.6 Immature Gran % (Auto) 0.600 Neut % (Auto) 71.0 H Lymph % (Auto) 9.3 L [place] % (Auto) 14.0 H Eos % (Auto) 4.1 Baso % (Auto) 1.0 Absolute Neuts (auto) 3.4 Absolute Lymphs (auto) 0.45 L Nucleated RBC % 0 Differential Comment SEE COMMENT Platelet Estimate ADEQUATE RBC Morphology N CHROM Anisocytosis 1+ Macrocytosis 1+ PT 13.6 INR 1.0 APTT 25.2 Sodium 136 Potassium 5.6 H Chloride 112 H Carbon Dioxide 21.0 Anion Gap 3 L BUN 42 H Creatinine 1.66 H Estim Creat Clear Calc 41.55 Est GFR (MDRD) Af Amer 52 L Est GFR (MDRD) Non-Af 43 L BUN/Creatinine Ratio 25.3 H Glucose 238 H Calcium 9.4 Troponin I High Sens 30 POC Glucose 03/03/23 03/03/23 19:18 20:00 WBC RBC Hgb Hct MCV MCH MCHC RDW Std Deviation RDW Coeff of Digna Plt Count MPV Immature Gran % (Auto) Neut % (Auto) Lymph % (Auto) [place] % (Auto) Eos % (Auto) Baso % (Auto) Absolute Neuts (auto) Absolute Lymphs (auto) Nucleated RBC % Differential Comment Platelet Estimate RBC Morphology Anisocytosis Macrocytosis PT INR APTT Sodium Potassium Chloride Carbon Dioxide Anion Gap BUN Creatinine Estim Creat Clear Calc Est GFR (MDRD) Af Amer Est GFR (MDRD) Non-Af BUN/Creatinine Ratio Glucose Calcium Troponin I High Sens 30 POC Glucose 240 H Radiography Diagnostic Testing: Clinical Impression(s) from Imaging Studies Chest CTA 03/03/23 16:57 IMPRESSION: No demonstrated pulmonary embolism or arterial dissection. Electronically Signed: John Levine MD at 19:35 EDT , CTA of the chest was obtained. There is no evidence of pulmonary embolism or arterial dissection. There is no infiltrate noted. This was interpreted by the radiologist and was also independently reviewed by myself. EKG Initial EKG: Attestation: I personally reviewed and interpreted this EKG as follows: Interpretation: Paced (60), LBBB and Non-Specific ST Changes Comments: EKG was obtained. On my independent interpretation, it shows an atrial paced rhythm with a rate of 60. There is a left bundle branch block pattern noted. There are no acute ST or T wave changes. There is left axis deviation at -64. IN interval was prolonged at 244 ms. QRS interval was 132 ms. QTc interval was 434 ms. Prior EKG tracings: available for review Prior: Unchanged (12/13/2022) Management Discussion w/another healthcare provider: Hospitalist Treatment and Re-Evaluation :: Patient was given IV fluids. Patient was given calcium gluconate, dextrose, and insulin for his hyperkalemia. Patient does have an insulin pump. This was turned off for 1 hour then restarted. Patient was advised of his findings. Due to his hypotensive episode with his near syncopal episodes prior to arrival, I recommended admission to the hospital. Case was discussed with the hospitalist. He recommended interrogating the patient's pacemaker. This was done. There were no arrhythmias noted on his pacemaker. Patient will be admitted to PCU. Patient understood and was agreeable with the plan. All questions were answered. Discharge Plan Dx/Rx/DC Orders Clinical Impression: Near syncope, Chronic kidney disease (CKD), Hyperkalemia Disposition Disposition: Acute Care [facility] Discharge Date/Time: 03/03/23 21:45
--- NOTE | 2023-03-03 16:57 | CT_ITS ---
EXAM: CT ANGIOGRAPHY CHEST WITHOUT AND WITH INTRAVENOUS CONTRAST CLINICAL INDICATION: PE TECHNIQUE: Helically acquired angiography images were obtained of the chest without and with intravenous contrast. This CT exam was performed using one or more of the following dose reduction techniques: automated exposure control, adjustment of the mA and/or kV according to patient size, and/or use of iterative reconstruction technique. MIP reconstructed images were created and reviewed. CONTRAST: IV 100mL Isovue-370 RADIATION DOSE: CTDIvol = 25.93 mGy, DLP = 658.56 mGy-cm COMPARISON: 18 FINDINGS: PULMONARY ARTERIES: Unremarkable. No demonstrated pulmonary embolism or arterial dissection. AORTA: There is atherosclerotic calcification of the aortic arch with tortuosity and elongation of the aortic arch and descending thoracic aorta. Normal in caliber. No evidence of dissection. GREAT VESSELS OF AORTIC ARCH: See above. LUNGS AND PLEURAL SPACES: Unremarkable. No mass. No consolidation or edema. No pleural effusion or thickening. No pneumothorax. HEART: There are calcifications of the coronary arteries. Heart size is normal. No pericardial effusion. MEDIASTINUM: Unremarkable. No mediastinal or hilar adenopathy. Esophagus is unremarkable. No hiatal hernia. THYROID: Unremarkable. No thyroid lesions. BONES/JOINTS: There are multi-level degenerative changes of the thoracic spine. Left-sided Vertebral body hemangioma noted. There are degenerative changes of the shoulders. No suspicious lytic or blastic abnormality. LIVER: Enlarging cyst of the left lobe of the liver. The present measures 34 mm. It previously measured 23 mm. ACR White Paper guidelines ([place], et al. JACR 2017; 14(11):3964-7917.) suggest no follow-up is necessary. CT/CTA Chest W/WO Contrast IMPRESSION: No demonstrated pulmonary embolism or arterial dissection. Electronically Signed: John Levine MD at 19:35 EDT ,
[2023-03-03 17:12] LABS: Absolute Lymphocyte Count 0.45 X10^3/uL (0.83-4.51); Absolute Neutrophil Count 3.4 X10^3/uL (2.0-7.7); Basophil# 0.05 X10^3/uL; Eosinophils% 4.1 % (0-5); Hematocrit 35.7 % (40-54); Hemoglobin 11.3 g/dL (13.0-16.5); Lymphocyte # 0.45 X10^3/ul (0.83-4.51); Lymphocyte % 9.3 % (19-41); Mean Corp Hgb Conc 31.7 g/dL (32-36); Mean Corpuscular Hgb 31.7 pg (27.0-32.0); Mean Platelet Vol. 9.6 fl (6.2-12.0); Monocyte# 0.68 X10^3/uL; NRBC Flagged by Analyzer 0 % (0-5); Neutrophil # 3.43 X10^3/uL (2.7-7.7); POSITIVE DIFFERENTIAL YES; Platelet Count 260 K/mm3 (150-450); RBC Distribution Width SD 51.3 fl (35.1-43.9); Red Blood Count 3.57 M/mm3 (4.6-6.2); White Blood Count 4.8 K/mm3 (4.4-11.0)
[2023-03-03 17:17] LABS: Differential Indicated SCAN CRITERIA MET
[2023-03-03 17:26] LABS: Prothrombin Time (Protime)PT. 13.6 SECONDS (11.7-14.9)
[2023-03-03 17:28] LABS: Partial Thromboplast Time 25.2 Seconds (24.1-36.2)
[2023-03-03 17:33] LABS: Anion Gap 3 (5-15); BUN 42 mg/dL (7-18); BUN/Creat Ratio 25.3 RATIO (10-20); Calcium,Total 9.4 mg/dL (8.5-10.1); Chloride 112 mmol/L (98-107); Creatinine, Serum 1.66 mg/dL (0.70-1.30); EST Glomerular Filtration Rate 43 mL/min (>60); Est Glom Filt Rate - Afr Amer 52 mL/min (>60); Estimated Creatinine Clearance 41.55 ml/min; Glucose 238 mg/dL (74-106); Potassium 5.6 mmol/L (3.5-5.1); Sodium Level 136 mmol/L (136-145); Troponin-I HS (w/2H Reflex) 30 pg/mL (3.0-78.0)
[2023-03-03 17:44] LABS: Anisocytosis 1+; Macrocytosis 1+; Platelet Estimate ADEQUATE (ADEQ); Red Cell Morphology N CHROM NORMAL (NORM C&C)
[2023-03-03] MEDS: 0.9% Normal Saline 1,000 ML 1000 ML IV (17:50)
[2023-03-03 19:10] LABS: Reflex Troponin-HS? (from REC) Y
[2023-03-03] MEDS: Calcium Gluconate IV 3 GM in Syringe 1 EACH IV (19:24)
[2023-03-03] MEDS: Dextrose 50%-Water 25 GM/50 ML DISP.SYRIN IV (19:36)
[2023-03-03 19:39] LABS: Troponin-I HS 30 pg/mL (3.0-78.0)
[2023-03-03] MEDS: Insulin Lispro 10 UNIT in Syringe 0 ML 6 UNIT IV (19:41)
--- NOTE | 2023-03-03 20:18 | PCM.HP.STD ---
HPI - General General Date of Admission: 03/03/23 Date of Service: 03/03/23 Chief Complaint: Presyncope HPI Narrative CONSUELO NEVILLE, is a 77 M with a significant history of sick sinus syndrome status post pacemaker who presents to the emergency department with presyncope that happened on the same day of presentation. Patient worked on his mower in his shop after which he felt lightheaded and weak. He began to fall but he caught himself. He checked his blood pressure and his blood pressure was 88/44. Paramedics brought patient to the hospital. Enroute to the hospital patient's blood pressure taken by paramedics was low. Patient reports a history of passing out while at a football match; and for his reason he had a pacemaker placed about 5 years ago. 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 MENDOZA (dyspnea on exertion) Essential (primary) hypertension Herpes zoster History of non-ST elevation myocardial infarction (NSTEMI) (2010) Hyperlipidemia Hyperlipidemia due to type 1 diabetes mellitus Hypoglycemic reaction to insulin HZV (herpes zoster virus) post herpetic neuralgia Insulin pump titration 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 Muscle weakness of lower extremity Non-ST elevation ME (NSTEMI) Obesity Obstructive sleep apnea Presence of insulin pump Sebaceous cyst Seborrheic dermatitis Secondary pulmonary arterial hypertension Sick sinus syndrome Syncopal episodes Syncope and collapse Type 1 diabetes mellitus without complications Vertigo Vitamin D deficiency Home Medications aspirin 81 mg tablet,delayed release 81 mg PO QHS HEART HEALTH 09/20/18 [History Last Taken 12/11/22] atorvastatin 80 mg tablet 80 mg PO QHS CHOLESTEROL 09/20/18 [History Last Taken 12/10/22] tamsulosin 0.4 mg capsule 0.4 mg PO DAILY PROSTATE 09/20/18 [History Last Taken 12/11/22] gabapentin 400 mg capsule 400 mg PO BID nerve pain 03/23/20 [History Last Taken 12/11/22] glucagon HCl 1 mg solution for injection (Glucagon (HCl) Emergency Kit) 1 mg subcut Q20M PRN blood sugar 03/23/20 [History Last Taken 1 Year Ago ~12/11/21] insulin lispro 100 unit/mL subcutaneous solution (Humalog U-100 Insulin) See Rx Instructions subcut DAILY DM 03/23/20 [History Last Taken 12/11/22] finasteride 5 mg tablet 5 mg PO DAILY prostate 03/28/20 [History Last Taken 12/11/22] amlodipine 5 mg tablet 5 mg PO DAILY blood pressure 01/25/22 [History Last Taken 12/11/22] acetaminophen 500 mg tablet 500 mg PO Q6H PRN pain 07/03/22 [History Last Taken 12/11/22] meclizine 12.5 mg tablet 12.5 mg PO TID PRN dizziness #20 tabs 11/20/22 [Rx Last Taken 12/11/22] diazepam 2 mg tablet 2 mg PO TID PRN PRN Vertigo 12/11/22 [History Last Taken 12/11/22] ticagrelor 90 mg tablet (Brilinta) 90 mg PO BID #60 tabs 12/28/22 [Rx Last Taken Unknown] furosemide 40 mg tablet (Lasix) 40 mg PO DAILY #30 tabs 12/29/22 [Rx Last Taken Unknown] melatonin 3 mg tablet 3 mg PO HS PRN Sleep 02/02/23 [History Last Taken Unknown] losartan 100 mg tablet 50 mg PO DAILY blood pressure 02/12/23 [History Last Taken Unknown] levothyroxine 50 mcg tablet 50 mcg PO DAILY #30 tabs 02/14/23 [Rx Last Taken Unknown] Allergy/AdvReac Type Severity Reaction Status Date / Time No Known Allergies Allergy Verified 03/03/23 16:27 Family History Father Diabetes Arthritis Cancer CVA (cerebral vascular accident) Skin cancer Mother CAD (coronary artery disease) Arthritis Parkinsons disease Brother Diabetes Kidney disease Sister Hypothyroid Surgical History H/O hernia repair History of appendectomy History of coronary artery stent placement (12/12/22) History of left heart catheterization (2010) 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) Social History household members: none Smoking Status: Former smoker how long ago did patient quit smokin second hand exposure: No alcohol intake: current alcohol intake frequency: holidays/special occasions only substance use type: does not use caffeine: Yes Type: coffee Number of servings: 2 what type of physical activity do you participate in: other frequency: 1-2 times per week ROS ROS Narrative Pertinent positives and pertinent negatives as noted in HPI. All other systems were reviewed and are negative Vital Signs Vital Signs Vital Signs: 03/03/23 16:28 03/03/23 16:33 03/03/23 17:02 Temperature 97.3 F L Temperature Source Temporal Pulse Rate 64 Pulse Rate [Lying] 75 Pulse Rate [Sitting (for 1 minute prior to obtaining)] 67 Pulse Rate [Standing (for 1 minute prior to obtaining)] 75 Respiratory Rate 20 H Respiratory Effort Normal Non-Labored Respiratory Pattern Normal Blood Pressure 148/60 H Blood Pressure [Lying] 123/58 H Blood Pressure [Sitting (for 1 minute prior to obtaining)] 128/57 H Blood Pressure [Standing (for 1 minute prior to obtaining)] 117/57 L Blood Pressure Mean 89 Blood Pressure Mean [Lying] 79 Blood Pressure Mean [Sitting (for 1 minute prior to obtaining)] 80 Blood Pressure Mean [Standing (for 1 minute prior to obtaining)] 77 Pulse Ox 96 Oxygen Delivery Method Room Air 03/03/23 18:44 03/03/23 20:00 Temperature Temperature Source Pulse Rate 60 60 Pulse Rate [Lying] Pulse Rate [Sitting (for 1 minute prior to obtaining)] Pulse Rate [Standing (for 1 minute prior to obtaining)] Respiratory Rate 20 H Respiratory Effort Respiratory Pattern Blood Pressure 135/60 H 137/59 H Blood Pressure [Lying] Blood Pressure [Sitting (for 1 minute prior to obtaining)] Blood Pressure [Standing (for 1 minute prior to obtaining)] Blood Pressure Mean 85 85 Blood Pressure Mean [Lying] Blood Pressure Mean [Sitting (for 1 minute prior to obtaining)] Blood Pressure Mean [Standing (for 1 minute prior to obtaining)] Pulse Ox 97 100 Oxygen Delivery Method Room Air Room Air Weight Weight: 102.3 kg Body Mass Index (BMI) 30.6 Physical Exam Narrative Physical exam: General: Well-nourished, well-developed. Head: Normocephalic, atraumatic, no tenderness Eyes: Vision is grossly intact. EOMI ENT, no trauma, moist mucous membranes, no rhinorrhea Neck: Nontender, No thyromegaly. CVS: Regular rate and rhythm. S1-S2 present. No murmur, gallop or rub. Respiratory : clear to auscultation bilaterally, chest wall nontender Abdomen: Soft, nontender, nondistended, normal bowel sounds, no masses : Deferred Back: Nontender, no CVA tenderness, no midline spinal tenderness, deformities, step-offs Extremities: Nontender full range of motion, no trauma Skin: Normal color, no trauma, abrasions Neuro: Alert, oriented, cranial nerves II through XII grossly intact. Psychiatry: Normal mood. Normal affect. Not depressed. Not anxious. Results Lab / Micro Data Result Diagrams: 03/03/23 16:50 03/03/23 16:50 Labs: Laboratory Results - last 24 hr 03/03/23 16:50: WBC 4.8, RBC 3.57 L, Hgb 11.3 L, Hct 35.7 L, MCV 100.0 H, MCH 31.7, MCHC 31.7 L, RDW Std Deviation 51.3 H, RDW Coeff of Digna 14.0, Plt Count 260, MPV 9.6, Immature Gran % (Auto) 0.600, Neut % (Auto) 71.0 H, Lymph % (Auto) 9.3 L, [place] % (Auto) 14.0 H, Eos % (Auto) 4.1, Baso % (Auto) 1.0, Absolute Neuts (auto) 3.4, Absolute Lymphs (auto) 0.45 L, Nucleated RBC % 0, Differential Comment SEE COMMENT, Platelet Estimate ADEQUATE, RBC Morphology N CHROM, Anisocytosis 1+, Macrocytosis 1+ 03/03/23 16:50: PT 13.6, INR 1.0, APTT 25.2 03/03/23 16:50: Sodium 136, Potassium 5.6 H, Chloride 112 H, Carbon Dioxide 21.0, Anion Gap 3 L, BUN 42 H, Creatinine 1.66 H, Estim Creat Clear Calc 41.55, Est GFR (MDRD) Af Amer 52 L, Est GFR (MDRD) Non-Af 43 L, BUN/Creatinine Ratio 25.3 H, Glucose 238 H, Calcium 9.4, Troponin I High Sens 30 03/03/23 19:18: Troponin I High Sens 30 Radiology Impression Chest CTA 03/03/23 16:57 IMPRESSION: No demonstrated pulmonary embolism or arterial dissection. 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 Repeat. Will continue home Flomax EKG independently reviewed showed paced rhythm Impression of chest CTA by radiologist: No demonstrated pulmonary embolism or arterial dissection. Chest CTA showed enlarged liver cyst for which radiologist recommended no further evaluation. Independent interpretation of chest CTA by hospitalist: Agrees with radiologist interpretation. Echocardiogram on 12/11/2022 showed preserved EF of 50% and with some areas of hypokinesis. No hemodynamically stable valvular abnormality seen High sensitive troponin x2 was negative. Discussed with ED doctor to obtain pacemaker interrogation. Pacemaker interrogation reported as normal. Hypotension Resolved at the ED where blood pressure noted on ED monitor was soft. Hold home blood pressure medications. As needed hydralazine ordered. Continue home Lasix. Hyperkalemia Potassium was 5.6 on presentation. Patient was given calcium gluconate, insulin and dextrose at the emergency department. Kayexalate and MiraLAX ordered. Trend potassium and BMP. Diabetes mellitus with polyneuropathy Patient with hyperglycemia on presentation. On insulin pump which be continued. Hypoglycemia protocol ordered. CKD stage IIIa Stable Trend BMP DVT prophylaxis Subcutaneous Lovenox ordered. Charges/Coding Visit Charges Inpatient E&M: 61421 Init Hosp L3
[2023-03-03 20:21] LABS: Bedside Glucose 240 mg/dL (74-106)
[2023-03-03] MEDS: Sodium Polystyrene Sulfonate 15 GM/60 ML UDC 30 GM PO (22:48)
[2023-03-03] MEDS: Polyethylene Glycol 3350 17 GM PACKET PO (22:48)
[2023-03-03] MEDS: Aspirin E.C. 81 MG Tablet PO (22:49)
[2023-03-03] MEDS: Gabapentin 400 MG Capsule PO (22:49)
[2023-03-03] MEDS: TICAGRELOR 90 MG TABLET PO (22:49)
[2023-03-03] MEDS: Atorvastatin Calcium 80 MG Tablet PO (22:49)
[2023-03-04] MEDS: MELATONIN 3 MG TABLET PO (00:30)
[2023-03-04 00:35] VITALS: RESP 18; O2SAT 97; O2SAT 99
[2023-03-04 01:39] LABS: Potassium 4.4 mmol/L (3.5-5.1)
[2023-03-04 03:45] VITALS: PULSE 60; RESP 18; O2SAT 97
[2023-03-04 04:00] VITALS: BP 133/62; BP 139/54; BP 145/69; PULSE 62; PULSE 72; PULSE 86; RESP 18; TEMP 36.3; O2SAT 98
[2023-03-04] MEDS: Levothyroxine 50 MCG Tablet PO (04:27)
[2023-03-04 05:19] LABS: Absolute Lymphocyte Count 0.41 X10^3/uL (0.83-4.51); Absolute Neutrophil Count 3.2 X10^3/uL (2.0-7.7); Basophil# 0.04 X10^3/uL; Basophil% 0.9 % (0-1); Eosinophil# 0.23 X10^3/uL; Eosinophils% 5.1 % (0-5); Hematocrit 32.3 % (40-54); Hemoglobin 10.2 g/dL (13.0-16.5); Lymphocyte # 0.41 X10^3/ul (0.83-4.51); Lymphocyte % 9.1 % (19-41); Mean Corp Hgb Conc 31.6 g/dL (32-36); Mean Corpuscular Hgb 31.3 pg (27.0-32.0); Mean Corpuscular Volume 99.1 fL (80-94); Mean Platelet Vol. 9.2 fl (6.2-12.0); Monocyte# 0.59 X10^3/uL; Monocyte% 13.1 % (0-10); NRBC Flagged by Analyzer 0 % (0-5); Neutrophil # 3.23 X10^3/uL (2.7-7.7); Neutrophil % 71.6 % (47-70); POSITIVE DIFFERENTIAL YES; Platelet Count 210 K/mm3 (150-450); RBC Distribution Width CV 13.9 % (11.6-14.6); RBC Distribution Width SD 50.6 fl (35.1-43.9); Red Blood Count 3.26 M/mm3 (4.6-6.2); White Blood Count 4.5 K/mm3 (4.4-11.0)
[2023-03-04 05:27] LABS: Differential Indicated SCAN CRITERIA MET
[2023-03-04 05:39] LABS: Anion Gap 7 (5-15); BUN 35 mg/dL (7-18); BUN/Creat Ratio 26.5 RATIO (10-20); Chloride 109 mmol/L (98-107); Creatinine, Serum 1.32 mg/dL (0.70-1.30); EST Glomerular Filtration Rate 56 mL/min (>60); Est Glom Filt Rate - Afr Amer 68 mL/min (>60); Estimated Creatinine Clearance 52.26 ml/min; Glucose 301 mg/dL (74-106); Magnesium 2.1 mg/dL (1.6-2.6); Phosphorus 3.8 mg/dL (2.5-4.9); Potassium 4.6 mmol/L (3.5-5.1); Sodium Level 137 mmol/L (136-145)
[2023-03-04 06:59] LABS: Anisocytosis 1+
[2023-03-04 08:34] VITALS: BP 125/61; PULSE 60; RESP 15; TEMP 36.4; O2SAT 98
[2023-03-04] MEDS: Enoxaparin 40 MG/0.4 ML Syringe SC (08:42)
[2023-03-04] MEDS: Gabapentin 400 MG Capsule PO (08:42)
[2023-03-04] MEDS: Tamsulosin HCl 0.4 MG Capsule PO (08:43)
[2023-03-04] MEDS: TICAGRELOR 90 MG TABLET PO (08:43)
[2023-03-04] MEDS: Finasteride 5 MG Tablet PO (08:43)
[2023-03-04] MEDS: Furosemide 40 MG Tablet PO (08:43)
--- NOTE | 2023-03-04 10:53 | PCM.DC ---
Discharge Instructions Diet Discharge Diet: Low fat / Low cholesterol and Carb Control Diet Activity Discharge Activity: Return to Normal Activity Dressing / Incision Call your doctor if you observe: Fever of 101 or Higher, Shortness of breath, Dizziness, Fainting spells, Swelling in the ankles, Chest pain and Increased palpitations (irregular heartbeat) Follow Up Care Test Results: Test results from this visit will be discussed in further detail at your follow-up appointment, if applicable. Discharge Plan Admission Admit Date/Time: 03/03/23 20:23 Attending Provider: Jae Jhaveri Primary Care Provider: [facility],[place] Consulting Providers: Tung Santiago Instructions Patient Instructions: Orthostatic Hypotension, ED Hypotension, Orthostatic Discharge Orders/Prescriptions Prescriptions: Continued Glucagon (HCl) Emergency Kit 1 mg recon soln 1 mg SC Q20M PRN (Reason: blood sugar) Rx Instructions: until target blood sugar attained insulin lispro [Humalog U-100 Insulin] 100 unit/mL solution See Rx Instructions SC DAILY Rx Instructions: via pump subcut daily; acetaminophen 500 mg tablet 500 mg PO Q6H PRN (Reason: pain) Brilinta 90 mg tablet 90 mg PO BID Qty: 60 12RF melatonin 3 mg tablet 3 mg PO HS PRN (Reason: Sleep) atorvastatin 80 MG tablet 80 mg PO QHS tamsulosin 0.4 MG capsule 0.4 mg PO DAILY aspirin 81 MG tablet 81 mg PO QHS gabapentin 400 mg capsule 400 mg PO BID finasteride 5 MG tablet 5 mg PO DAILY meclizine 12.5 mg Tablet 12.5 mg PO TID PRN (Reason: dizziness) Qty: 20 0RF diazepam 2 mg tablet 2 mg PO TID PRN PRN (Reason: Vertigo) Label Comments: 2 mg orally 3 times daily as needed As Needed for Vertigo amlodipine 5 mg tablet 5 mg PO DAILY losartan 100 mg tablet 50 mg PO DAILY levothyroxine 50 mcg tablet 50 mcg PO DAILY Qty: 30 5RF Held furosemide [Lasix] 40 mg tablet 40 mg PO DAILY Qty: 30 12RF Hold Instructions: Resume on 03/07/23. Referrals / Follow Up: [facility] [Primary Care Provider] - Disposition Disposition (needs filled in before D/C Order can be placed): Home, Self Care
[2023-03-04 11:01] VITALS: BP 125/61; PULSE 60; RESP 15; TEMP 36.4; O2SAT 98
--- NOTE | 2023-03-04 11:24 | PCM.DC.SUM ---
Providers Date of Admission: 03/03/23 Primary Care Physician: [facility] Reason For Visit: NEAR SYNCOPE Diagnosis Discharge Diagnosis (1) Near syncope: Status: Acute Code(s): R55 - Syncope and collapse (2) Acute hypotension: Status: Acute Code(s): I95.9 - Hypotension, unspecified (3) Diabetes: Status: Inactive Code(s): E11.9 - Type 2 diabetes mellitus without complications Qualifiers: Diabetes mellitus type: type 1 Diabetes mellitus complication status: with hypoglycemia Diabetes mellitus complication detail: without coma Qualified Code(s): E10.649 - Type 1 diabetes mellitus with hypoglycemia without coma (4) 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: Status: Inactive Code(s): E10.42 - Type 1 diabetes mellitus with diabetic polyneuropathy (5) Hyperkalemia: Status: Acute Code(s): E87.5 - Hyperkalemia Medications at Discharge Home Medications aspirin 81 mg tablet,delayed release 81 mg PO QHS HEART HEALTH 09/20/18 atorvastatin 80 mg tablet 80 mg PO QHS CHOLESTEROL 09/20/18 tamsulosin 0.4 mg capsule 0.4 mg PO DAILY PROSTATE 09/20/18 gabapentin 400 mg capsule 400 mg PO BID nerve pain 03/23/20 glucagon HCl 1 mg solution for injection (Glucagon (HCl) Emergency Kit) 1 mg subcut Q20M PRN blood sugar 03/23/20 insulin lispro 100 unit/mL subcutaneous solution (Humalog U-100 Insulin) See Rx Instructions subcut DAILY DM 03/23/20 finasteride 5 mg tablet 5 mg PO DAILY prostate 03/28/20 amlodipine 5 mg tablet 5 mg PO DAILY blood pressure 01/25/22 acetaminophen 500 mg tablet 500 mg PO Q6H PRN pain 07/03/22 meclizine 12.5 mg tablet 12.5 mg PO TID PRN dizziness #20 tabs 11/20/22 diazepam 2 mg tablet 2 mg PO TID PRN PRN Vertigo 12/11/22 ticagrelor 90 mg tablet (Brilinta) 90 mg PO BID #60 tabs 12/28/22 furosemide 40 mg tablet (Lasix) 40 mg PO DAILY #30 tabs 12/29/22 melatonin 3 mg tablet 3 mg PO HS PRN Sleep 02/02/23 losartan 100 mg tablet 50 mg PO DAILY blood pressure 02/12/23 levothyroxine 50 mcg tablet 50 mcg PO DAILY #30 tabs 02/14/23 Hospital Course Operations None Procedures None Summary of Care Provided Minutes Spent on Discharge: 33 Hospital Course: Per HPI: CONSUELO NEVILLE, is a 77 M? with a significant history of sick sinus syndrome status post pacemaker who presents to the emergency department with presyncope that happened on the same day of presentation.? Patient worked on his mower in his shop after which he felt lightheaded and weak.? He began to fall but he caught himself.? He checked his blood pressure and his blood pressure was 88/44.? Paramedics brought patient to the hospital.? Enroute to the hospital patient's blood pressure taken by paramedics was low.? Patient reports a history of passing out while at a? football match; and for his reason he had a pacemaker placed about 5 years ago. Hospital Course: 1. Near syncope with hypotension?77-year-old male with a pacemaker in place secondary to sick sinus syndrome is well as type 1 diabetes presents to the hospital with near syncope. He was working in his garage and when he stood up he felt lightheaded and almost fell, he was able to catch himself and was able to check his blood pressure and he was in the 80s systolic. EMS was called and he was low on his way to the ER as well. In the ER they did check his pacemaker and it was functioning properly. He received some fluids and his blood pressure did respond appropriately. He did have orthostatic vital signs this morning which were positive based on his diastolic criteria where his diastolic dropped by over 10 mmHg. He denies any signs or symptoms of seizures and denies any chest pain or palpitations prior to his lightheadedness. I discussed with him the plan for possible discharge today he expressed understanding of the risk benefits going home and will go home today. We will hold his Lasix for a few days but otherwise can restart his other blood pressure medications. An echo was not performed as he had just had 1 about 2 months ago which was unremarkable. I do recommend that he follow-up with his PCP in 3 to 5 days. 2. Type 1 diabetes, vertigo, BPH, hypothyroidism, hypertension, hyperlipidemia are all chronic medical conditions which complicate his care. His home medications were continued where appropriate Physical Exam Narrative General: Alert, Oriented x3, Cooperative, No apparent distress HEENT: Atraumatic, PERRLA, EOMI, Normocephalic Oral: Moist Mucosa Neck: Supple, No JVD Lungs: Diminished, Normal air movement, No rhonchi, No wheeze, No rales Cardiovascular: Regular rate, Regular Rhythm, Normal S1, Normal S2, No murmurs Abdomen: Soft, Non Tender, Non-Distended, No Hepato-splenomegaly Extremities: No edema, Capillary Refill Less than 3 Seconds Skin: No rashes, No breakdown Musculoskeletal: No Tenderness to Palpation of Joints or Extremities Neurological: Cranial nerves II-XII grossly intact, Motor Exam 5/5 strength throughout, Sensory exam intact to light touch and pain Psych/Mental Status: Normal Affect, Appropriate Weight / BMI Weight Weight: 220 lb 14.451 oz Body Mass Index (BMI) 29.9 ABG / Lab / Microbiology Data Result Diagrams: 03/04/23 05:04 03/04/23 05:04 Laboratory: Laboratory Results - last 24 hr 03/03/23 16:50: WBC 4.8, RBC 3.57 L, Hgb 11.3 L, Hct 35.7 L, MCV 100.0 H, MCH 31.7, MCHC 31.7 L, RDW Std Deviation 51.3 H, RDW Coeff of Digna 14.0, Plt Count 260, MPV 9.6, Immature Gran % (Auto) 0.600, Neut % (Auto) 71.0 H, Lymph % (Auto) 9.3 L, [place] % (Auto) 14.0 H, Eos % (Auto) 4.1, Baso % (Auto) 1.0, Absolute Neuts (auto) 3.4, Absolute Lymphs (auto) 0.45 L, Nucleated RBC % 0, Differential Comment SEE COMMENT, Platelet Estimate ADEQUATE, RBC Morphology N CHROM, Anisocytosis 1+, Macrocytosis 1+ 03/03/23 16:50: PT 13.6, INR 1.0, APTT 25.2 03/03/23 16:50: Sodium 136, Potassium 5.6 H, Chloride 112 H, Carbon Dioxide 21.0, Anion Gap 3 L, BUN 42 H, Creatinine 1.66 H, Estim Creat Clear Calc 41.55, Est GFR (MDRD) Af Amer 52 L, Est GFR (MDRD) Non-Af 43 L, BUN/Creatinine Ratio 25.3 H, Glucose 238 H, Calcium 9.4, Troponin I High Sens 30 03/03/23 19:18: Troponin I High Sens 30 03/03/23 20:00: POC Glucose 240 H 03/04/23 01:02: Potassium 4.4 03/04/23 05:04: WBC 4.5, RBC 3.26 L, Hgb 10.2 L, Hct 32.3 L, MCV 99.1 H, MCH 31.3, MCHC 31.6 L, RDW Std Deviation 50.6 H, RDW Coeff of Digna 13.9, Plt Count 210, MPV 9.2, Immature Gran % (Auto) 0.200, Neut % (Auto) 71.6 H, Lymph % (Auto) 9.1 L, [place] % (Auto) 13.1 H, Eos % (Auto) 5.1 H, Baso % (Auto) 0.9, Absolute Neuts (auto) 3.2, Absolute Lymphs (auto) 0.41 L, Nucleated RBC % 0, Anisocytosis 1+ 03/04/23 05:04: Sodium 137, Potassium 4.6, Chloride 109 H, Carbon Dioxide 21.0, Anion Gap 7, BUN 35 H, Creatinine 1.32 H, Estim Creat Clear Calc 52.26, Est GFR (MDRD) Af Amer 68, Est GFR (MDRD) Non-Af 56 L, BUN/Creatinine Ratio 26.5 H, Glucose 301 H, Calcium 9.0, Phosphorus 3.8, Magnesium 2.1 Radiography Diagnostic Testing: Radiology Impression Chest CTA 03/03/23 16:57 IMPRESSION: No demonstrated pulmonary embolism or arterial dissection. Electronically Signed: John Levine MD at 19:35 EDT Reading Location ID and State: [facility] / [place] , Service support , D/C Instructions Discharge Diet: Low fat / Low cholesterol and Carb Control Diet Call your doctor if you observe: Fever of 101 or Higher, Shortness of breath, Dizziness, Fainting spells, Swelling in the ankles, Chest pain and Increased palpitations (irregular heartbeat) Meaningful Use Info Meaningful Use Diagnoses (Choose all that apply): None applicable Discharge Plan Admission Admit Date/Time: 03/03/23 20:23 Attending Provider: Jae Jhaveri Primary Care Provider: [facility],[place] Consulting Providers: Tung Santiago Instructions Patient Instructions: Orthostatic Hypotension, ED Hypotension, Orthostatic Discharge Orders/Prescriptions Prescriptions: Continued Glucagon (HCl) Emergency Kit 1 mg recon soln 1 mg SC Q20M PRN (Reason: blood sugar) Rx Instructions: until target blood sugar attained insulin lispro [Humalog U-100 Insulin] 100 unit/mL solution See Rx Instructions SC DAILY Rx Instructions: via pump subcut daily; acetaminophen 500 mg tablet 500 mg PO Q6H PRN (Reason: pain) Brilinta 90 mg tablet 90 mg PO BID Qty: 60 12RF melatonin 3 mg tablet 3 mg PO HS PRN (Reason: Sleep) atorvastatin 80 MG tablet 80 mg PO QHS tamsulosin 0.4 MG capsule 0.4 mg PO DAILY aspirin 81 MG tablet 81 mg PO QHS gabapentin 400 mg capsule 400 mg PO BID finasteride 5 MG tablet 5 mg PO DAILY meclizine 12.5 mg Tablet 12.5 mg PO TID PRN (Reason: dizziness) Qty: 20 0RF diazepam 2 mg tablet 2 mg PO TID PRN PRN (Reason: Vertigo) Label Comments: 2 mg orally 3 times daily as needed As Needed for Vertigo amlodipine 5 mg tablet 5 mg PO DAILY losartan 100 mg tablet 50 mg PO DAILY levothyroxine 50 mcg tablet 50 mcg PO DAILY Qty: 30 5RF Held furosemide [Lasix] 40 mg tablet 40 mg PO DAILY Qty: 30 12RF Hold Instructions: Resume on 03/07/23. Referrals / Follow Up: [facility] [Primary Care Provider] - Disposition Disposition (needs filled in before D/C Order can be placed): Home, Self Care Charges/Coding Visit Charges Inpatient E&M: 26864 Disch Hosp >30min
== END 2023-03-04 10:55 | disposition home or self-care (01) ==
LOC: ED 20:33 → PCU 21:07
PROVIDERS: Admitting Provider Hospitalist; Emergency Provider Emergency Medicine; Visit Provider Family Medicine
DX: R55 Syncope and collapse (principal); E10.42 Type 1 diabetes mellitus with diabetic polyneuropathy; E10.22 Type 1 diabetes mellitus with diabetic chronic kidney disease; E10.649 Type 1 diabetes mellitus with hypoglycemia without coma; I49.5 Sick sinus syndrome; N18.31 Chronic kidney disease, stage 3a; E87.5 Hyperkalemia; I12.9 Hypertensive chronic kidney disease with stage 1 through stage 4 chronic kidney disease, or unspecified chronic kidney disease; Z95.0 Presence of cardiac pacemaker; E78.5 Hyperlipidemia, unspecified; E03.9 Hypothyroidism, unspecified; Z87.891 Personal history of nicotine dependence; I95.9 Hypotension, unspecified; I25.10 Atherosclerotic heart disease of native coronary artery without angina pectoris; Z79.899 Other long term (current) drug therapy; Z79.82 Long term (current) use of aspirin; Z79.890 Hormone replacement therapy; R06.02 Shortness of breath; I25.2 Old myocardial infarction; G47.33 Obstructive sleep apnea (adult) (pediatric); Z96.41 Presence of insulin pump (external) (internal)
CPT/HCPCS: 93288; 36415; 71275; 80048; 82962; 83735; 84100; 84132; 84484; 85025; 85610; 85730; 93005; 94660; 94762; 96361; 96365; 96372; 96375; 99221; 99285; Q9967; A4216; G0378; J0612

== ENCOUNTER 2023-04-04 15:45 | Outpatient (RCR) | payer MEDICARE, SELFPAY ==
[2023-02-16 10:19] VITALS: BMI 31.1
[2023-03-05 00:43] VITALS: BP 140/46
--- NOTE | 2023-03-19 08:43 | CR.ITP_ITS ---
Diagnosis Exercise - 60-day Assessment - Visit Date of Eval: 03/19/23 Session #:: 24 - Physician Prescribed Exercise Modalities: NuStep, SciFit Frequency: 3x/week for 12 weeks [36 sessions] Intensity: 60-80% of age predicted maximum heart rate reserve Current METSs:: 3.5 Target Heart Rate:: 93-108 Current RPE:: 13 Maximum Excercise HR:: 88 Resting Blood Pressure: 152/58 Maximum Exercise Blood Pressure: 122/58 EKG Type: NSR/BBB with rare PVC/PAC. Intermittent t wave inversion - Outcomes & Goals Goals:: Verbalizes understanding of THR, RPE & goal METS by session 6, Documents in home exercise log/reports 30 min aerobic 5 day/wk by DC, Demonstrates accurate pulse taking by DC, Other additional outcome/goals: see below - Intervention & Plan Exercise Program Goals: Instruct on personal THR & RPE, Instruct on MET level & personal MET goal, Show patient to take own pulse /validate performance until accurate, Instruct on home exercise, Other additional plan/int - 30-day Reassessments 30 day Reassessments:: Progressing - pulse taking reviewed - Physical Activity Home Exercise Physical Activity - Home Exercise: Safe Exercise, Warm-up, Self-monitoring, Cool-Down, Home Exercise > 30 min Daily, Sitting Time <3 hours/daily - Outcomes & Goals Outcomes/Goals: Demonstrates correct Warm-up/exercise Cool-Down (S3) if = 2.5 METs, Verbalizes symptoms of exercise intolerance by Session 3 (S3), Demonstrate safe equipment use (S3) & follows exercise prescrition (6), Other: See below - Intervention & Plan Plan/Intervention: Instruct warm-up & cool-down if exercising at > 2 METs, Instruct on symptoms of exercise intolerance & actions to take, Instruct & monitor on saf, Assess intial functional capacity & safety risk, Other See below - 30-day Reassessments 30 day Reassessments:: Progressing - warm up encouraged Nutrition - Initial Assessment Nutrition - 30-Day Assessment Nutrition - 60-Day Assessment - Program Goals Nutrition Program Goals: LDL <100 optimal. 100 - 129 Near optimal. 130 - 159 Borderline High. 160 - 189 High. Total Cholesterol <200 desirable. 200 - 239 Borderline High. >/= 240 High. HDL < 40 Low >/=60 High. Triglycerides <150 desirable. <199 optimal. VlDL 5 - 40. HgbA1C <7%. BMI <25 Patient has diagnosis of Hyperlipidemia (ICD E78)?: Yes - Visit Date of Assessment:: 03/19/23 Session #:: 24 - Cholesterol/Lipids (Other Core Measures) Determine presence & major risk factors that modify LDL goal: Cigarette smoking, Hypertension or hypertensive medication, Low HDL cholesterol <40 mg/dL*, Family history of premature CHD in Male < 55 years: female <65 yearsFa, Age men > 45 years; women >/= 55 years Outcomes/Goals: Pt IDs own risk factors & lifestyle modifications by Session 10, Verbalizes symptoms of angina & response by session 3., Pt independently manages, Other Additional Outcomes/Goals: Intervention/Plan: Advocate for lipid panel cholesterol medication if applicable, Instruct on personal lipid levels & lipid goals/NCEP guidelines, Instruct on cholesterol, Other additional plan/int 30-day Reassessments:: Progressing - risk factors reviewed - Diabetes (Other Core Measures) 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 Fasting blood glucose:: 158 Insulin dependent injection/pump?: Yes Non-Insulin Dependent?: Yes Referral to Diabetic Clinic:: Yes - pt met with stroboscope operator Outcomes/Goals:: Able to state symptoms of, Able to state, Able to state, Other additional Intervention/Plan:: Instruct on, Refer to, Instruct on, Other 30-day Reassessments:: Progressing - pt met with stroboscope operator - Weight Mgt (Other Care) Height: 6 ft Weight:: 101.378 kg BMI: 30.3 Diagnosis Overweight/Obesity BMI> 30% ICD-10 E66: Yes Diagnosis High BMI/Morbid Obesity BMI> 35% ICD-10 Z68: No Outcomes/Goals: Pt sets, maintains & shows weight loss goal & trend during rehab, Other additional outcomes/goals Intervention/Plan: Instruct on ideal BMI & set weight loss goal w/patient, Assist pt to ID & incorporate diet changes for weight loss by S9, Refer to Structured Weight Loss program as appropriate, Encourage goal of using 250- 300dcal per session for weight loss, Other additional plan/interventions 30 day Reassessments:: Progressing - pt met with stroboscope operator - Healthy Eating Habits Will attend diet classes:: Yes Outcomes/Goals:: Consume diet rich in vegs,fruits,whole grain/high fiber,fish,lean meat, Limit sat/trans fats,cholesterol & added salts & sugars, Other additional outcome/goals: Intervention/Plan:: Assess current eating habits, Other Additional plan/interventions 30-day Reassessments:: Progressing - pt met with stroboscope operator - Education Gave educational materials for:: Signs & symptoms of hypoglycemia, Signs & symptoms of hyperglycemia, Relate diabetes to coronary artery disease, Healthy eating Nutrition - 90-Day Assessment Nutrition - Final Assessment Core - Initial Assessment Core - 30-Day Assessment Core - 60-Day Assessment - Visit Date of Eval: 03/19/23 Session #:: 24 - Medication Compliance Preventative Medication(s):: Aspirin, Statin/lipid H/O mental health issues: depression, anxiety, or addiction?: No Doesn?t believe in the benefits of treatment?: No Believes medications are unnecessary or harmful?: No Has a concern about medication side effects?: No Expresses concern over the cost of medications?: No Outcomes/Goals: Verbalizes medications,desired effect & common side effects @ DC, Pt self-reports following medication regimen, Keeps card in wallet w/medications listed by DC, Other additional outcome/goals: Interventions/plans: Instruct on medication effects & side effects, Review medication list w/patient every two weeks, Instruct importance of taking meds as ordered & assist problem solving, Other additional 30-day Reassessments:: Progressing - pt encouraged to take meds - Tobacco Use Tobacco Use: Non-smoker Do you use smokeless tobacco?: No - Hypertension Hypertension Diagnosis:: Hypertension ICD-10 I10 Resting Blood Pressure:: 152/58 [place] [employer] Hypertension Guidelines: [place] [employer] Hypertension Guidelines. Normal BP Less than 120/80. Elevated BP 120/80. Hypertension Stage 1: BP 130-139/80-89. Hypertesnion Stage 2: BP 140 or higher/90 or higher. Hypertension Crisis: BP higher than 180/120 Peak Exercise Blood Pressure:: 152/58 Outcomes/Goals: Able to verbalize/achieve optimal blood pressure <130/80, Incorporates diet changes & exercise for blood pressure control by DC, Other additional outcomes/goals Interventions/plan: Instruct on optimal blood pressure, hypertension & medications, Instruct on effects of sodium, alcohol, stress, exercise &hypertension, Other additional plan/interventions 30 day Reassessments:: Progressing - pt encouraged to take meds - Tobacco Cessation Referral Smoking Cessation Referral:: No Individual Education/Counseling:: No Education Schedule Given:: Yes Core - 90 Day Assessment Core - Final Assessment Psychosocial - Initial Assess Psychosocial - 30-Day Assess Psychosocial - 60-Day Assess - VIsit Date of Eval: 03/19/23 Session #:: 24 History of previous Mental disease:: No Psychosocial - 90-Day Assess Psychosocial - Final Assessmen Patient Health Questionnaire 60-Day Re-eval Assessment 1. Little interest or pleasure in doing things: Nearly every day 2. Feeling down, depressed, or hopeless: Several days 3. Trouble falling or staying asleep, or sleeping too much: Not at all 4. Feeling tired or having little energy: More than half the days 5. Poor appetite or overeating: Nearly every day 6. Feeling bad about yourself -- or that you are a failure or have let yourself or your family down: More than half the days 7. Trouble concentrating on things, such as reading the newspaper or watching television: Not at all 8. Moving or speaking so slowly that other people could have noticed. Or the opposite - being so fidgety or restless that you have been moving around a lot more than usual: Not at all 9. Thoughts that you would be better off , or of hurting yourself in some way: Not at all How difficult have these problems made it for you to do your work, take care of things at home, or get along with other people?: Somewhat difficult Total Score: 11 Self-Efficacy 60-Day Re-eval Assessment We would like to know how confident you are in doing certain activities. Please select your confidence level for:: Select your confidence level for the following using the scale 1-10 where 1 is not at all confident and 10 is totally confident. Your score is the average of all 6 responses. Fatigue: How confident are you that you can keep the fatigue caused by your disease from interfering with the things you want to do? Select Number: 3 Physical Discomfort or Pain: How confident are you that you can keep the physical discomfort or pain of your disease from interfering with the things you want to do? Select Number: 4 Emotional Distress: How confident are you that you can keep the emotional distress caused by your disease from interfering with the things you want to do? Select Number: 5 Other Symptoms or Health Problems: How confident are you that you can keep other symptoms or health problems from interfering with the things you want to do? Select Number: 4 Different Tasks and Activities: How confident are you that you can do the different tasks and activities needed to manage your health condition so as to reduce your need to see a doctor? Select Number: 4 Medication: How confident are you that you can do things other than just taking medication to reduce how much your illness affects your everyday life? Select Number: 4 Total Score:: 4 Nutrition Survey
[2023-03-19 08:57] VITALS: BP 152/58; BMI 30.3
== END 2023-04-04 23:59 ==
LOC: CR 15:45
PROVIDERS: Referring Provider Internal Medicine Cardiovascular Disease; Visit Provider Internal Medicine Cardiovascular Disease
DX: I25.2 Old myocardial infarction (principal); Z95.0 Presence of cardiac pacemaker; Z95.5 Presence of coronary angioplasty implant and graft
CPT/HCPCS: 93798

== ENCOUNTER 2023-04-11 14:00 | Outpatient (RCR) | payer MEDICARE, SELFPAY ==
[2023-02-16 10:19] VITALS: BMI 31.1
[2023-03-19 08:57] VITALS: BMI 30.3
== END 2023-05-04 23:59 ==
LOC: DC 14:00
PROVIDERS: Referring Provider Internal Medicine Cardiovascular Disease; Visit Provider Internal Medicine Cardiovascular Disease
DX: E10.22 Type 1 diabetes mellitus with diabetic chronic kidney disease (principal); N18.9 Chronic kidney disease, unspecified
CPT/HCPCS: 97803

== ENCOUNTER 2023-04-15 18:04 | Emergency (ER) | payer MEDICARE, SELFPAY ==
[2023-03-19 08:57] VITALS: BMI 30.3
[2023-04-15 18:06] VITALS: BP 145/66; PULSE 59; RESP 17; TEMP 36.6; O2SAT 100; BMI 29.8
--- NOTE | 2023-04-15 18:35 | EKG12_ITS ---
Test Reason : WEAKNESS Blood Pressure : / mmHG Vent. Rate : 060 BPM Atrial Rate : 060 BPM P-R Int : 176 ms QRS Dur : 140 ms QT Int : 458 ms P-R-T Axes : 000 -47 074 degrees QTc Int : 458 ms Normal sinus rhythm Left axis deviation Left bundle branch block Abnormal ECG Confirmed by SUKUMAR MIRANDA, IDRIS ([id number]), assistant editor HUSSEIN FLANNERY ([id number]) on 04/17/2023 7:53:08 AM Referred By: TODD Confirmed By:GISELLE PATINO MD
--- NOTE | 2023-04-15 18:36 | EX.ED.DYSGE1 ---
HPI History of Present Illness Chief Complaint: Weakness Informant: patient Onset/Context/Timing Onset: Weeks (2) Context: Gradual Onset Timing: Continuous Quality: Weakness Location: Generalized Worsened by: Any activity Relieved by: Sitting, resting Associated Symptoms Associated Symptoms: Right lower leg pain Narrative Narrative: Patient presents with generalized weakness that has been getting worse over the past 2 weeks. Patient states it is gradually getting worse. Patient states he is having more difficulty getting through his cardiac rehabilitation due to the weakness. Patient states it is better with resting and sitting. Patient denies any fevers or chills. Patient also complains of some pain in his right leg which is chronic but worse over the last couple weeks. Patient denies any recent trauma or injury. Patient denies any nausea or vomiting. Patient denies any chest pain or shortness of breath. Patient denies any headaches. 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 MENDOZA (dyspnea on exertion) Essential (primary) hypertension Herpes zoster History of non-ST elevation myocardial infarction (NSTEMI) (2010) Hyperlipidemia Hyperlipidemia due to type 1 diabetes mellitus Hypoglycemic reaction to insulin HZV (herpes zoster virus) post herpetic neuralgia Insulin pump titration Left bundle branch block [facility] current use of insulin Muscle weakness of lower extremity Non-ST elevation [place] (NSTEMI) Obesity Obstructive sleep apnea Presence of insulin pump Sebaceous cyst Seborrheic dermatitis Secondary pulmonary arterial hypertension Sick sinus syndrome Syncopal episodes Syncope and collapse Type 1 diabetes mellitus without complications Vertigo Vitamin D deficiency Home Medications aspirin 81 mg tablet,delayed release 81 mg PO QHS HEART HEALTH 09/20/18 [History Last Taken 12/11/22] atorvastatin 80 mg tablet 80 mg PO QHS CHOLESTEROL 09/20/18 [History Last Taken 12/10/22] tamsulosin 0.4 mg capsule 0.4 mg PO DAILY PROSTATE 09/20/18 [History Last Taken 12/11/22] gabapentin 400 mg capsule 400 mg PO BID nerve pain 03/23/20 [History Last Taken 12/11/22] glucagon HCl 1 mg solution for injection (Glucagon (HCl) Emergency Kit) 1 mg subcut Q20M PRN blood sugar 03/23/20 [History Last Taken 1 Year Ago ~12/11/21] insulin lispro 100 unit/mL subcutaneous solution (Humalog U-100 Insulin) See Rx Instructions subcut DAILY DM 03/23/20 [History Last Taken 12/11/22] finasteride 5 mg tablet 5 mg PO DAILY prostate 03/28/20 [History Last Taken 12/11/22] amlodipine 5 mg tablet 5 mg PO DAILY blood pressure 01/25/22 [History Last Taken 12/11/22] acetaminophen 500 mg tablet 500 mg PO Q6H PRN pain 07/03/22 [History Last Taken 12/11/22] meclizine 12.5 mg tablet 12.5 mg PO TID PRN dizziness #20 tabs 11/20/22 [Rx Last Taken 12/11/22] diazepam 2 mg tablet 2 mg PO TID PRN PRN Vertigo 12/11/22 [History Last Taken 12/11/22] ticagrelor 90 mg tablet (Brilinta) 90 mg PO BID #60 tabs 12/28/22 [Rx Last Taken Unknown] furosemide 40 mg tablet (Lasix) 40 mg PO DAILY #30 tabs 12/29/22 [Rx Last Taken Unknown] melatonin 3 mg tablet 3 mg PO HS PRN Sleep 02/02/23 [History Last Taken Unknown] levothyroxine 50 mcg tablet 50 mcg PO DAILY #30 tabs 02/14/23 [Rx Last Taken Unknown] losartan 100 mg tablet 100 mg PO DAILY blood pressure 03/06/23 [History Last Taken Unknown] Allergy/AdvReac Type Severity Reaction Status Date / Time No Known Allergies Allergy Verified 04/15/23 18:06 Family History Father Diabetes Arthritis Cancer CVA (cerebral vascular accident) Skin cancer Mother CAD (coronary artery disease) Arthritis Parkinsons disease Brother Diabetes Kidney disease Sister Hypothyroid Surgical History H/O hernia repair History of appendectomy History of coronary artery stent placement (12/12/22) History of left heart catheterization (2010) 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) Social History household members: none Smoking Status: Former smoker how long ago did patient quit smokin second hand exposure: No alcohol intake: current alcohol intake frequency: holidays/special occasions only substance use type: does not use caffeine: Yes Type: coffee Number of servings: 2 what type of physical activity do you participate in: other frequency: 1-2 times per week ROS ROS ED Constitutional Constitutional ED: Denies chills or fever(s) Eyes Eyes: Denies blurry vision or change in vision ENT ENT ED: Denies rhinorrhea or sore throat Cardiovascular Cardiovascular: Denies chest pain or palpitations Respiratory/Chest Respiratory/Chest: Denies cough or dyspnea Gastrointestinal Gastrointestinal: Denies nausea or vomiting Genitourinary Genitourinary ED: Denies dysuria or hematuria Musculoskeletal Musculoskeletal: Reports back pain; Denies neck pain Integumentary Reports rash; Denies abscess Neurologic Neurologic: Reports weakness; Denies headache(s) Allergic/Immunologic Allergic/Immunologic ED: Denies mouth swelling or urticaria EXAM Physical Exam Const Vital Signs: 04/15/23 18:06 04/15/23 18:52 04/15/23 21:00 Temperature 97.8 F Temperature Source Temporal Pulse Rate 59 L 60 Respiratory Rate 17 13 Respiratory Pattern Normal Blood Pressure 145/66 H 129/78 H Blood Pressure Mean 92 95 Pulse Ox 100 97 Oxygen Delivery Method Room Air Room Air 04/15/23 21:00 Temperature Temperature Source Pulse Rate 60 Respiratory Rate 16 Respiratory Pattern Blood Pressure 129/78 H Blood Pressure Mean Pulse Ox 97 Oxygen Delivery Method Positive well nourished and well developed General Appearance ED: well developed and NAD HEENT Reports moist mucous membranes Neck supple and no JVD Resp normal respiratory effort and clear to auscultation bilaterally Cardio regular rate and regular rhythm GI normal to inspection, nondistended, normoactive bowel sounds and non-tender Palpation: soft Extremity normal to inspection General Extremety ED: Negative for edema or tenderness General Extremity: Negative for edema Neuro oriented x3, CN's II-XII intact bilaterally and no sensory deficits noted Sensorium / Orientation: alert Motor Exam: strength 5/5 throughout Psych mental status grossly normal Skin no rashes or lesions noted MDM MDM MDM Narrative Medical decision making narrative: Differential diagnosis includes cardiac dysrhythmia, cardiac ischemia, pneumonia, COVID infection, influenza infection, pulmonary embolism, electrolyte abnormality, dehydration, and urinary tract infection. Chest x-ray will be obtained to assess for pneumonia and pneumothorax. EKG will be obtained to assess for cardiac dysrhythmia and cardiac ischemia. CBC will be obtained to assess for leukocytosis and anemia. Comprehensive metabolic profile will be obtained to assess for hepatic function, renal function, and electrolyte abnormality. High-sensitivity troponin will be obtained to assess for cardiac ischemia. D-dimer will be obtained to assess for pulmonary embolism and DVT. Urinalysis will be obtained to assess for urinary tract infection. PT with INR and PTT will be obtained to assess for coagulopathy. COVID-19 rapid antigen will be obtained to assess for COVID-19 infection. Influenza A and influenza B antigens will be obtained to assess for influenza infection. History & Record Review Additional record(s) reviewed:: Prior labs Lab Data Attestation: I reviewed the patient's lab results. Lab results narrative: CBC was reviewed. Hemoglobin was 10.6 hematocrit 34.4. This is stable compared to previous results. Comprehensive metabolic profile was reviewed. BUN was 45 and creatinine was 1.67. These are similar to prior results. Glucose was 211. The remainder was within normal limits. High-sensitivity troponin was normal at 24. PT was INR and PTT were reviewed and were essentially within normal limits. D-dimer was reviewed and was 0.60 which is normal for his age. Urinalysis was reviewed. There is no evidence of urinary tract infection or hematuria. COVID-19 rapid antigen was reviewed and was negative. Influenza A and influenza B antigens were reviewed and were negative. Labs: Laboratory Results - last 24 hr 04/15/23 04/15/23 04/15/23 18:43 18:43 18:43 WBC 6.8 RBC 3.40 L Hgb 10.6 L Hct 34.4 L MCV 101.2 H MCH 31.2 MCHC 30.8 L RDW Std Deviation 53.0 H RDW Coeff of Digna 14.3 Plt Count 226 MPV 9.7 Immature Gran % (Auto) 0.600 Neut % (Auto) 83.6 H Lymph % (Auto) 4.6 L [place] % (Auto) 11.0 H Eos % (Auto) 0.1 Baso % (Auto) 0.1 Absolute Neuts (auto) 5.7 Absolute Lymphs (auto) 0.31 L Nucleated RBC % 0 Differential Comment SCANNED PT 13.5 INR 1.0 APTT 23.8 L D-Dimer Quant (PE/DVT) 0.60 H* Sodium 138 Potassium 4.4 Chloride 108 H Carbon Dioxide 23.0 Anion Gap 7 BUN 45 H Creatinine 1.67 H Estim Creat Clear Calc 40.66 Est GFR (MDRD) Af Amer 52 L Est GFR (MDRD) Non-Af 43 L BUN/Creatinine Ratio 26.9 H Glucose 211 H Calcium 8.6 Total Bilirubin 0.60 AST 12 L ALT 30 Alkaline Phosphatase 28 L Troponin I High Sens 24 Total Protein 6.5 Albumin 3.2 Globulin 3.3 Albumin/Globulin Ratio 1.0 Urine Color Urine Clarity Urine pH Ur Specific [place] Urine Protein Urine Glucose (UA) Urine Ketones Urine Occult Blood Urine Nitrite Urine Bilirubin Urine Urobilinogen Ur Leukocyte Esterase Urine RBC Urine WBC Ur Squamous Epith Cells Urine Bacteria Urine Mucus 04/15/23 19:46 WBC RBC Hgb Hct MCV MCH MCHC RDW Std Deviation RDW Coeff of Digna Plt Count MPV Immature Gran % (Auto) Neut % (Auto) Lymph % (Auto) [place] % (Auto) Eos % (Auto) Baso % (Auto) Absolute Neuts (auto) Absolute Lymphs (auto) Nucleated RBC % Differential Comment PT INR APTT D-Dimer Quant (PE/DVT) Sodium Potassium Chloride Carbon Dioxide Anion Gap BUN Creatinine Estim Creat Clear Calc Est GFR (MDRD) Af Amer Est GFR (MDRD) Non-Af BUN/Creatinine Ratio Glucose Calcium Total Bilirubin AST ALT Alkaline Phosphatase Troponin I High Sens Total Protein Albumin Globulin Albumin/Globulin Ratio Urine Color Yellow Urine Clarity Sl Cldy Urine pH 6.0 Ur Specific [place] 1.015 Urine Protein 30 H Urine Glucose (UA) 100 H Urine Ketones Negative Urine Occult Blood 10 H Urine Nitrite Negative Urine Bilirubin Negative Urine Urobilinogen Normal Ur Leukocyte Esterase Negative Urine RBC 0-5 SEEN Urine WBC 0 SEEN Ur Squamous Epith Cells 0-5 SEEN Urine Bacteria 0 SEEN Urine Mucus 0 SEEN Radiography Chest X-Ray - ED: 1 View, Read by ED Physician, Read by Radiologist and No Acute Disease Diagnostic Testing: Clinical Impression(s) from Imaging Studies Chest X-Ray 04/15/23 18:50 IMPRESSION: No acute cardiopulmonary pathology. Question small nodule in the right lower lobe versus nipple shadow. Repeat film with nipple markers would be helpful for further evaluation as this is not clearly identified on prior exam Electronically Signed: Chase Carmona MD at 19:35 EDT , Portable 1 view chest x-ray was obtained. On my independent interpretation, lung zavala are clear. There is normal cardiac silhouette. Bony thorax is normal. There is no acute process noted. Radiologist also interpreted the x-ray and agrees. EKG Initial EKG: Attestation: I personally reviewed and interpreted this EKG as follows: Interpretation: Sinus Rhythm (60), LBBB and Non-Specific ST Changes Comments: EKG was obtained. On my independent interpretation, shows normal sinus rhythm with a rate of 60. NH interval was normal at 176 ms. QRS interval was slightly prolonged at 140 ms. QTc interval was 4 and 58 ms. There is left axis deviation at -47. There is a left bundle branch block pattern. Prior EKG tracings: available for review Prior: Unchanged (03/03/2023) Treatment and Re-Evaluation :: Patient was given a 500 cc bolus of normal saline. Patient was feeling somewhat better on reevaluation. Patient was advised of his findings. Patient was instructed to follow-up with his primary care physician in 5 to 7 days. Patient was instructed return if worse in any way. Patient was instructed to continue with his cardiac rehab. Patient understood and was agreeable with the plan. All questions were answered. Discharge Plan Triage Chief Complaint: Weakness ED Provider: Luther Arevalo Dx/Rx/DC Orders Clinical Impression: General weakness, Fatigue Instructions: ED Weakness (Uncertain Cause) Prescriptions: No Action Glucagon (HCl) Emergency Kit 1 mg recon soln 1 mg SC Q20M PRN (Reason: blood sugar) Rx Instructions: until target blood sugar attained insulin lispro [Humalog U-100 Insulin] 100 unit/mL solution See Rx Instructions SC DAILY Rx Instructions: via pump subcut daily; acetaminophen 500 mg tablet 500 mg PO Q6H PRN (Reason: pain) Brilinta 90 mg tablet 90 mg PO BID Qty: 60 12RF melatonin 3 mg tablet 3 mg PO HS PRN (Reason: Sleep) atorvastatin 80 MG tablet 80 mg PO QHS tamsulosin 0.4 MG capsule 0.4 mg PO DAILY aspirin 81 MG tablet 81 mg PO QHS gabapentin 400 mg capsule 400 mg PO BID finasteride 5 MG tablet 5 mg PO DAILY meclizine 12.5 mg Tablet 12.5 mg PO TID PRN (Reason: dizziness) Qty: 20 0RF diazepam 2 mg tablet 2 mg PO TID PRN PRN (Reason: Vertigo) Label Comments: 2 mg orally 3 times daily as needed As Needed for Vertigo amlodipine 5 mg tablet 5 mg PO DAILY furosemide [Lasix] 40 mg tablet 40 mg PO DAILY Qty: 30 12RF Hold Instructions: Resume on 03/07/23. levothyroxine 50 mcg tablet 50 mcg PO DAILY Qty: 30 5RF losartan 100 mg tablet 100 mg PO DAILY [facility] [Primary [facility] Provider] - 5-7 Days Disposition Disposition: Home, Self Care Discharge Date/Time: 04/15/23 21:02
--- NOTE | 2023-04-15 18:50 | RAD_ITS ---
STUDY: X-RAY CHEST REASON FOR EXAM: Male, 78 years old. Weakness TECHNIQUE: AP portable COMPARISON: None. FINDINGS: The lungs are clear and expanded. There is no demonstrated pleural abnormality. Pacer noted on the left with electrodes in satisfactory position. Normal size heart. Normal mediastinum and rayna. Normal visualized pulmonary arteries. Mildly calcified aortic arch and descending thoracic aorta. Normal visualized thoracic spine. Normal visualized ribs, clavicles, and shoulders. Small nodular opacity projecting over the right lower lobe most likely nipple shadow. There is no demonstrated abnormality of the visualized soft tissue structures of the upper abdomen. RAD/Chest 1 View (Portable) IMPRESSION: No acute cardiopulmonary pathology. Question small nodule in the right lower lobe versus nipple shadow. Repeat film with nipple markers would be helpful for further evaluation as this is not clearly identified on prior exam Electronically Signed: Chase Carmona MD at 19:35 EDT ,
[2023-04-15 19:12] LABS: AST(SGOT) 12 U/L (15-37); Alanine Aminotransfer ALT/SGPT 30 U/L (16-61); Albumin, Serum 3.2 g/dL (3.2-5.0); Alkaline Phosphatase 28 U/L (45-117); Anion Gap 7 (5-15); BUN 45 mg/dL (7-18); BUN/Creat Ratio 26.9 RATIO (10-20); Calcium,Total 8.6 mg/dL (8.5-10.1); Chloride 108 mmol/L (98-107); Creatinine, Serum 1.67 mg/dL (0.70-1.30); EST Glomerular Filtration Rate 43 mL/min (>60); Est Glom Filt Rate - Afr Amer 52 mL/min (>60); Estimated Creatinine Clearance 40.66 ml/min; Globulin 3.3 g/dL (2.2-4.2); Glucose 211 mg/dL (74-106); Potassium 4.4 mmol/L (3.5-5.1); Protein, Total 6.5 g/dL (6.4-8.2); Sodium Level 138 mmol/L (136-145); Troponin-I HS 24 pg/mL (3.0-78.0)
[2023-04-15 19:13] LABS: Partial Thromboplast Time 23.8 Seconds (24.1-36.2); Prothrombin Time (Protime)PT. 13.5 SECONDS (11.7-14.9)
[2023-04-15 19:42] LABS: Absolute Lymphocyte Count 0.31 X10^3/uL (0.83-4.51); Absolute Neutrophil Count 5.7 X10^3/uL (2.0-7.7); Basophil# 0.01 X10^3/uL; Basophil% 0.1 % (0-1); Eosinophil# 0.01 X10^3/uL; Eosinophils% 0.1 % (0-5); Hematocrit 34.4 % (40-54); Hemoglobin 10.6 g/dL (13.0-16.5); Lymphocyte # 0.31 X10^3/ul (0.83-4.51); Lymphocyte % 4.6 % (19-41); Mean Corp Hgb Conc 30.8 g/dL (32-36); Mean Corpuscular Hgb 31.2 pg (27.0-32.0); Mean Corpuscular Volume 101.2 fL (80-94); Mean Platelet Vol. 9.7 fl (6.2-12.0); Monocyte# 0.75 X10^3/uL; NRBC Flagged by Analyzer 0 % (0-5); Neutrophil # 5.67 X10^3/uL (2.7-7.7); Neutrophil % 83.6 % (47-70); POSITIVE DIFFERENTIAL YES; Platelet Count 226 K/mm3 (150-450); RBC Distribution Width CV 14.3 % (11.6-14.6); White Blood Count 6.8 K/mm3 (4.4-11.0)
[2023-04-15 19:46] LABS: Differential Indicated SCAN CRITERIA MET
--- NOTE | 2023-04-15 19:46 | ED.RN ---
notified of d dimer result
[2023-04-15 19:55] LABS: Bacteria 0 SEEN /hpf (None Seen); Mucous, Urine 0 SEEN /hpf (<or=2+); White Blood Cells 0 SEEN /hpf (0-5)
[2023-04-15 20:12] LABS: Differential Comment SCANNED
[2023-04-15 20:16] LABS: Glucose, Dipstick 100 mg/dl (Normal); Ketone-Dipstick Negative (Negative); Leukocyte Esterase-Dipstick Negative /ul (Negative); Nitrite-Dipstick Negative (Negative); Occult Blood-Urine 10 /ul (Negative); Protein-Dipstick 30 mg/dl (Negative); Specific Gravity, Urine 1.015 (1.002-1.030); Urine Bilirubin Dipstick Negative (Negative); Urine Urobilinogen Normal (Normal)
[2023-04-15 20:20] LABS: Color, Urine Yellow (Yellow); Urine Clarity Sl Cldy (Clear)
[2023-04-15 20:22] LABS: Red Blood Cells-Urine 0-5 SEEN /hpf (0-5); Squamous Epithelial Cells - UA 0-5 SEEN /hpf (0-5)
[2023-04-15 21:00] VITALS: BP 129/78; PULSE 60; RESP 13; RESP 16; O2SAT 97
== END 2023-04-15 21:02 | disposition home or self-care (01) ==
PROVIDERS: Emergency Provider Emergency Medicine; Visit Provider Emergency Medicine
DX: R53.1 Weakness (principal); E10.42 Type 1 diabetes mellitus with diabetic polyneuropathy; E10.22 Type 1 diabetes mellitus with diabetic chronic kidney disease; M79.661 Pain in right lower leg; Z87.891 Personal history of nicotine dependence; I25.10 Atherosclerotic heart disease of native coronary artery without angina pectoris; E78.5 Hyperlipidemia, unspecified; R53.83 Other fatigue; I12.9 Hypertensive chronic kidney disease with stage 1 through stage 4 chronic kidney disease, or unspecified chronic kidney disease; N18.9 Chronic kidney disease, unspecified; E66.9 Obesity, unspecified; I44.7 Left bundle-branch block, unspecified
CPT/HCPCS: 71045; 80053; 81001; 84484; 85025; 85379; 85610; 85730; 87428; 93005; 96360; 96361; 99283; J7030; A4216

== ENCOUNTER → 2023-04-18 | Outpatient (CLI) | payer MEDICARE, SELFPAY ==
[2023-04-18 11:37] VITALS: BMI 30.4
[2023-04-18 17:52] LABS: Vitamin B12 331 pg/mL (211-911); Vitamin D,25 Hydroxy 45.3 ng/mL
[2023-04-18 17:59] LABS: T4 Total, Thyroxin 7.5 ug/dL (4.5-12.1); Thyroid Stim Hormone (TSH) 0.31 uIU/mL (0.358-3.74)
== END | disposition home or self-care (01) ==
LOC: LAB 15:58
PROVIDERS: Referring Provider Nurse Practitioner Gerontology; Visit Provider Nurse Practitioner Gerontology
DX: R53.83 Other fatigue (principal); E03.8 Other specified hypothyroidism; E06.3 Autoimmune thyroiditis; R53.1 Weakness; R79.89 Other specified abnormal findings of blood chemistry
CPT/HCPCS: 36415; 82306; 82607; 84436; 84443

== ENCOUNTER 2023-04-23 15:15 | Outpatient (RCR) | payer MEDICARE, SELFPAY ==
[2023-03-19 08:57] VITALS: BMI 30.3
[2023-04-05 00:35] VITALS: BP 152/58
--- NOTE | 2023-04-18 11:29 | CR.ITP_ITS ---
Diagnosis Exercise - 90-day Assessment - Visit Date of Eval: 04/18/23 Session #:: 35 - Physician Prescribed Exercise Modalities: NuStep, SciFit Frequency: 3x/week for 12 weeks [36 sessions] Intensity: 60-80% of age predicted maximum heart rate reserve Current METSs:: 3.5 Target Heart Rate:: 93-108 Current RPE:: 13 Maximum Excercise HR:: 90 Resting Blood Pressure: 140/56 Maximum Exercise Blood Pressure: 140/56 EKG Type: NSR/BBB with rare PAC - Outcomes & Goals Goals:: Verbalizes understanding of THR, RPE & goal METS by session 6, Documents in home exercise log/reports 30 min aerobic 5 day/wk by DC, Demonstrates accurate pulse taking by DC, Other additional outcome/goals: see below - Intervention & Plan Exercise Program Goals: Instruct on personal THR & RPE, Instruct on MET level & personal MET goal, Show patient to take own pulse /validate performance until accurate, Instruct on home exercise, Other additional plan/int - 30-day Reassessments 30 day Reassessments:: Met - Physical Activity Home Exercise Physical Activity - Home Exercise: Safe Exercise, Warm-up, Self-monitoring, Cool-Down, Home Exercise > 30 min Daily, Sitting Time <3 hours/daily - Outcomes & Goals Outcomes/Goals: Demonstrates correct Warm-up/exercise Cool-Down (S3) if = 2.5 METs, Verbalizes symptoms of exercise intolerance by Session 3 (S3), Demonstrate safe equipment use (S3) & follows exercise prescrition (6), Other: See below - Intervention & Plan Plan/Intervention: Instruct warm-up & cool-down if exercising at > 2 METs, Instruct on symptoms of exercise intolerance & actions to take, Instruct & monitor on saf, Assess intial functional capacity & safety risk, Other See below - 30-day Reassessments 30 day Reassessments:: Met Nutrition - Initial Assessment Nutrition - 30-Day Assessment Nutrition - 60-Day Assessment Nutrition - 90-Day Assessment - Program Goals Nutrition Program Goals: LDL <100 optimal. 100 - 129 Near optimal. 130 - 159 Borderline High. 160 - 189 High. Total Cholesterol <200 desirable. 200 - 239 Borderline High. >/= 240 High. HDL < 40 Low >/=60 High. Triglycerides <150 desirable. <199 optimal. VlDL 5 - 40. HgbA1C <7%. BMI <25 Patient has diagnosis of Hyperlipidemia (ICD E78)?: Yes - Visit Date of Assessment:: 04/18/23 Session #:: 35 - Cholesterol/Lipids (Other Core Measures) Determine presence & major risk factors that modify LDL goal: Cigarette smoking, Hypertension or hypertensive medication, Low HDL cholesterol <40 mg/dL*, Family history of premature CHD in Male < 55 years: female <65 yearsFa, Age men > 45 years; women >/= 55 years Outcomes/Goals: Pt IDs own risk factors & lifestyle modifications by Session 10, Verbalizes symptoms of angina & response by session 3., Pt independently manages, Other Additional Outcomes/Goals: Intervention/Plan: Advocate for lipid panel cholesterol medication if applicable, Instruct on personal lipid levels & lipid goals/NCEP guidelines, Instruct on cholesterol, Other additional plan/int Referral to dietitian:: No - pt has met 30-day Reassessments:: Met - Diabetes (Other Core Measures) 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 Insulin dependent injection/pump?: Yes Non-Insulin Dependent?: Yes Do you monitor your blood sugar at home?: Yes Referral to Diabetic Clinic:: No - pt has met dietition Outcomes/Goals:: Able to state symptoms of, Able to state, Able to state, Other additional Intervention/Plan:: Instruct on, Refer to, Instruct on, Other 30-day Reassessments:: Met - Weight Mgt (Other Care) Height: 6 ft Weight:: 101.831 kg BMI: 30.4 Diagnosis Overweight/Obesity BMI> 30% ICD-10 E66: No Diagnosis High BMI/Morbid Obesity BMI> 35% ICD-10 Z68: No Outcomes/Goals: Pt sets, maintains & shows weight loss goal & trend during rehab, Other additional outcomes/goals Intervention/Plan: Instruct on ideal BMI & set weight loss goal w/patient, Assist pt to ID & incorporate diet changes for weight loss by S9, Refer to Structured Weight Loss program as appropriate, Encourage goal of using 250- 300dcal per session for weight loss, Other additional plan/interventions 30 day Reassessments:: Met - Healthy Eating Habits Will attend diet classes:: Yes Outcomes/Goals:: Consume diet rich in vegs,fruits,whole grain/high fiber,fish,lean meat, Limit sat/trans fats,cholesterol & added salts & sugars, Other additional outcome/goals: Intervention/Plan:: Assess current eating habits, Other Additional plan/interventions 30-day Reassessments:: Met - Education Gave educational materials for:: Signs & symptoms of hypoglycemia, Signs & symptoms of hyperglycemia, Relate diabetes to coronary artery disease, Healthy eating Nutrition - Final Assessment Core - Initial Assessment Core - 30-Day Assessment Core - 60-Day Assessment Core - 90 Day Assessment - Visit Date of Eval: 04/18/23 Session #:: 35 - Medication Compliance Preventative Medication(s):: Aspirin, Statin/lipid H/O mental health issues: depression, anxiety, or addiction?: No Doesn?t believe in the benefits of treatment?: No Believes medications are unnecessary or harmful?: No Has a concern about medication side effects?: No Expresses concern over the cost of medications?: No Outcomes/Goals: Verbalizes medications,desired effect & common side effects @ DC, Pt self-reports following medication regimen, Keeps card in wallet w/medications listed by DC, Other additional outcome/goals: Interventions/plans: Instruct on medication effects & side effects, Review medication list w/patient every two weeks, Instruct importance of taking meds as ordered & assist problem solving, Other additional 30-day Reassessments:: Met - Tobacco Use Tobacco Use: Non-smoker - Hypertension Hypertension Diagnosis:: Hypertension ICD-10 I10 Resting Blood Pressure:: 140/56 [employer] Hypertension Guidelines: [employer] Hypertension Guidelines. Normal BP Less than 120/80. Elevated BP 120/80. Hypertension Stage 1: BP 130-139/80-89. Hypertesnion Stage 2: BP 140 or higher/90 or higher. Hypertension Crisis: BP higher than 180/120 Peak Exercise Blood Pressure:: 140/56 Outcomes/Goals: Able to verbalize/achieve optimal blood pressure <130/80, Incorporates diet changes & exercise for blood pressure control by DC, Other additional outcomes/goals Interventions/plan: Instruct on optimal blood pressure, hypertension & medications, Instruct on effects of sodium, alcohol, stress, exercise &hypertension, Other additional plan/interventions 30 day Reassessments:: Met - Tobacco Cessation Referral Smoking Cessation Referral:: No Individual Education/Counseling:: No Education Schedule Given:: Yes Core - Final Assessment Psychosocial - Initial Assess Psychosocial - 30-Day Assess Psychosocial - 60-Day Assess Psychosocial - 90-Day Assess - VIsit Date of Eval: 04/18/23 Session #:: 35 History of previous Mental disease:: No Psychosocial - Final Assessmen Patient Health Questionnaire 90-Day Re-eval Assessment 1. Little interest or pleasure in doing things: Nearly every day 2. Feeling down, depressed, or hopeless: Several days 3. Trouble falling or staying asleep, or sleeping too much: Not at all 4. Feeling tired or having little energy: More than half the days 5. Poor appetite or overeating: Nearly every day 6. Feeling bad about yourself -- or that you are a failure or have let yourself or your family down: More than half the days 7. Trouble concentrating on things, such as reading the newspaper or watching t elevision: Not at all 8. Moving or speaking so slowly that other people could have noticed. Or the opposite - being so fidgety or restless that you have been moving around a lot more than usual: Not at all 9. Thoughts that you would be better off , or of hurting yourself in some way: Not at all How difficult have these problems made it for you to do your work, take care of things at home, or get along with other people?: Somewhat difficult Total Score: 11 Self-Efficacy 90-Day Re-eval Assessment We would like to know how confident you are in doing certain activities. Please select your confidence level for:: Select your confidence level for the following using the scale 1-10 where 1 is not at all confident and 10 is totally confident. Your score is the average of all 6 responses. Fatigue: How confident are you that you can keep the fatigue caused by your disease from interfering with the things you want to do? Select Number: 3 Physical Discomfort or Pain: How confident are you that you can keep the physical discomfort or pain of your disease from interfering with the things you want to do? Select Number: 4 Emotional Distress: How confident are you that you can keep the emotional distress caused by your disease from interfering with the things you want to do? Select Number: 5 Other Symptoms or Health Problems: How confident are you that you can keep other symptoms or health problems from interfering with the things you want to do? Select Number: 4 Different Tasks and Activities: How confident are you that you can do the different tasks and activities needed to manage your health condition so as to reduce your need to see a doctor? Select Number: 4 Medication: How confident are you that you can do things other than just taking medication to reduce how much your illness affects your everyday life? Select Number: 4 Total Score:: 4 Nutrition Survey
[2023-04-18 11:37] VITALS: BP 140/56; BMI 30.4
== END 2023-05-04 23:59 ==
LOC: CR 15:15
PROVIDERS: Referring Provider Internal Medicine Cardiovascular Disease; Visit Provider Internal Medicine Cardiovascular Disease
DX: I25.2 Old myocardial infarction (principal); Z95.0 Presence of cardiac pacemaker; Z95.5 Presence of coronary angioplasty implant and graft
CPT/HCPCS: 93798

== ENCOUNTER → 2023-05-17 | Outpatient (CLI) | payer MEDICARE, SELFPAY ==
[2023-04-18 11:37] VITALS: BMI 30.4
--- NOTE | 2023-05-17 16:37 | STRESSREP ---
Stress Test Report Pharmacologic myocardial perfusion stress test. 78-year-old man with a history of coronary artery disease Resting EKG demonstrates sinus rhythm with a rate of 60 bpm. Left bundle branch block pattern is noted. Resting blood pressure is 142/70 mmHg. 0.4 mg of regadenoson was infused per usual protocol followed by rapid intravenous saline flush injection. Continuous EKG monitoring was performed. The maximum heart rate was 77 bpm which was 53% of max impacted heart rate the maximum workload was 1 metabolic equivalent. At rest there were no ST or T wave changes noted to suggest ischemia and at peak infusion nonspecific ST changes were noted which did not meet the criteria for ischemia. No clinical angina is noted. The final blood pressure was 146/76 mmHg. Myocardial perfusion protocol. 14.8 mCi of technetium 99m sestamibi was injected at rest. 0.4 mg of regadenoson was infused per usual protocol. At peak infusion 44.3 mCi of technetium 99m sestamibi was injected stress images were obtained stress and rest images were reconstructed and compared in the short axis vertical long and horizontal long axis. Gated images were also obtained. Perfusion SPECT analysis: Review of the stress images demonstrate normal uptake of tracer noted in all areas of the myocardium. Mild reduction is noted in the anterior septal wall consistent with a bundle branch block pattern the resting images similar demonstrated normal uptake of tracer noted in all areas of the myocardium. Similar pattern is noted consistent with bundle branch block pattern. No areas of reversibility are noted to suggest ischemia and no previous infarct is noted. Gated SPECT analysis: The gated ejection fraction is 52%. Conclusion: Normal pharmacologic myocardial perfusion stress test. Preserved ejection fraction.
== END | disposition home or self-care (01) ==
LOC: CVS 06:29
PROVIDERS: Referring Provider Nurse Practitioner Gerontology; Visit Provider Nurse Practitioner Gerontology
DX: I25.10 Atherosclerotic heart disease of native coronary artery without angina pectoris (principal); R53.83 Other fatigue
CPT/HCPCS: 78452; 93017; A9500; A4216; J2785

== ENCOUNTER → 2023-06-20 | Outpatient (CLI) | payer MEDICARE, SELFPAY ==
[2023-04-18 11:37] VITALS: BMI 30.4
[2023-06-20 16:06] LABS: Absolute Lymphocyte Count 0.51 X10^3/uL (0.83-4.51); Absolute Neutrophil Count 10.2 X10^3/uL (2.0-7.7); Basophil# 0.01 X10^3/uL; Basophil% 0.1 % (0-1); Eosinophil# 0.01 X10^3/uL; Eosinophils% 0.1 % (0-5); Hematocrit 37.7 % (40-54); Hemoglobin 12.3 g/dL (13.0-16.5); Lymphocyte # 0.51 X10^3/ul (0.83-4.51); Lymphocyte % 4.3 % (19-41); Mean Corp Hgb Conc 32.6 g/dL (32-36); Mean Corpuscular Hgb 31.8 pg (27.0-32.0); Mean Corpuscular Volume 97.4 fL (80-94); Mean Platelet Vol. 9.6 fl (6.2-12.0); Monocyte# 1.05 X10^3/uL; Monocyte% 8.8 % (0-10); NRBC Flagged by Analyzer 0 % (0-5); Neutrophil # 10.16 X10^3/uL (2.7-7.7); POSITIVE DIFFERENTIAL YES; Platelet Count 274 K/mm3 (150-450); RBC Distribution Width CV 14.6 % (11.6-14.6); Red Blood Count 3.87 M/mm3 (4.6-6.2); White Blood Count 11.9 K/mm3 (4.4-11.0)
[2023-06-20 16:16] LABS: Differential Indicated SCAN CRITERIA MET
[2023-06-20 16:39] LABS: Anion Gap 6 (5-15); BUN 47 mg/dL (7-18); Calcium,Total 8.8 mg/dL (8.5-10.1); Chloride 106 mmol/L (98-107); Creatinine, Serum 1.81 mg/dL (0.70-1.30); EST Glomerular Filtration Rate 39 mL/min (>60); Est Glom Filt Rate - Afr Amer 47 mL/min (>60); Free T3 1.8 pg/mL (2.18-3.98); Glucose 143 mg/dL (74-106); Magnesium 2.7 mg/dL (1.6-2.6); Potassium 4.5 mmol/L (3.5-5.1); Sodium Level 137 mmol/L (136-145); T4 Free Direct 1.01 ng/dL (0.76-1.46); Thyroid Stim Hormone (TSH) 0.22 uIU/mL (0.358-3.74)
[2023-06-20 16:47] LABS: Differential Comment SCANNED
== END | disposition home or self-care (01) ==
LOC: LAB 15:22
PROVIDERS: Referring Provider Nurse Practitioner Gerontology; Visit Provider Nurse Practitioner Gerontology
DX: R53.83 Other fatigue (principal)
CPT/HCPCS: 36415; 80048; 83735; 84439; 84443; 84481; 85025

== ENCOUNTER → 2023-07-03 | Outpatient (CLI) | payer MEDICARE, SELFPAY ==
[2023-04-18 11:37] VITALS: BMI 30.4
--- NOTE | 2023-07-03 09:41 | ART_ITS ---
Reason For Study: Claudication Procedure A bilateral lower extremity continuous wave Doppler with analog waveform analysis and ankle brachial indexes. Left Segmental Pressures Left brachial= 125mmHg. Left posterior tibial artery = 155mmHg. Left dorsalis pedis artery = 165mmHg. Left digit = 135 mmHg. The left dorsalis pedis waveforms are triphasic. The left posterior tibial artery waveforms are triphasic. Right Segmental Pressures Right brachial= 120mmHg. Right posterior tibial artery = 69mmHg. Right dorsalis pedis artery = 77mmHg. Right digit = 63 mmHg. The right dorsalis pedis waveforms are monophasic. The right posterior tibial artery waveforms are monophasic. Indices The right ankle brachial index by the dorsalis pedis is 0.62. The right ankle brachial index by the posterior tibial artery is 0.55. The right digital-brachial index is 0.50. The left ankle brachial index by the dorsalis pedis is 1.32. The left ankle brachial index by the posterior tibial artery is 1.24. The left digital-brachial index is 1.08. VL/Ankle Brachial Index Interpretation Summary Right [place] 0.62, moderate arterial insufficiency. Doppler/PVR waveforms of the r ight ankle moderately diminished at rest. Left [place] 1.32, normal. TBI and Doppler/PVR waveforms of the left ankle normal a t rest. Ordering Physician: Griecl Etienne Referring Physician: [facility] Performed By: Taisha Solitario RVT
== END | disposition home or self-care (01) ==
PROVIDERS: Referring Provider Nurse Practitioner Gerontology; Visit Provider Nurse Practitioner Gerontology
DX: I73.9 Peripheral vascular disease, unspecified (principal)
CPT/HCPCS: 93922

== ENCOUNTER → 2023-07-24 | Outpatient (CLI) | payer MEDICARE, SELFPAY ==
[2023-04-18 11:37] VITALS: BMI 30.4
--- NOTE | 2023-07-24 14:00 | CT_ITS ---
STUDY: CTA OF THE ABDOMINAL AORTA AND BILATERAL LOWER EXTREMITIES REASON FOR EXAM: Male, 78 years old. Claudication RADIATION DOSAGE (If Supplied By Facility): CTDIvol = ( 8.16 ) mGy, DLP = ( 1647.39 ) mGycm TECHNIQUE: Axial CT angiography multi-detector data acquisition was obtained from the dome of the liver to the level of the ankles following intravenous administration of IV 100mL Isovue-370. Axial images and MIP images were reconstructed from the axial data set. Post-processing of the angiographic images was performed, with multiplanar reformation and 3D reconstruction. Individualized dose optimization techniques were used for this CT. TECHNICAL QUALITY: Good COMPARISON: None. Descriptors of Narrowing: None (0%) Mild (< 50%) Moderate (50-70%) Severe (70-90%) Subtotal/Total Occlusion (90-100%) Non-Evaluable (technically non-diagnostic FINDINGS: Coronary artery calcification. A dual-chamber pacemaker is seen. Small hiatal hernia. 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 Possible tiny gallstones. Distended urinary bladder. Prostatic calcifications. Abdominal aorta: Atherosclerotic plaque formation. No evidence of aneurysmal dilatation. Celiac and superior mesenteric arteries: No demonstrated narrowing. Inferior mesenteric artery: No demonstrated narrowing. Right renal artery(arteries): Nonstenotic plaque seen at the origin of the right renal artery. Left renal artery(arteries): Nonstenotic plaque seen at the origin of the left renal artery. Right common iliac artery: Nonstenotic calcific plaques. Right external iliac artery: Nonstenotic calcific plaques. Right internal iliac artery: Nonstenotic calcific plaques. Left common iliac artery: Nonstenotic calcific plaques. Left external iliac artery: Nonstenotic calcific plaques. Left internal iliac artery: Nonstenotic calcific plaques. RIGHT LOWER EXTREMITY Right common femoral artery: Nonstenotic calcific plaques. Right profundus femoris: No demonstrated narrowing. Right superficial femoral: Extensive occlusive calcific plaques in the distal portion of the superficial femoral artery. Right popliteal artery: Reconstitution of the popliteal artery just distal to the knee joint. Calcific plaques in the proximal midportion of the popliteal artery. Right tibioperoneal trunk: Nonstenotic calcific plaques. Right anterior tibial artery: Patent although poor flow. Right posterior tibial artery: Patent with decreased flow Right peroneal artery: No demonstrated narrowing. LEFT LOWER EXTREMITY Left common femoral artery: Nonstenotic calcific plaques. Left profundus femoris: No demonstrated narrowing. Left superficial femoral: Calcific plaques in its distal portion. Left popliteal artery: Calcific plaques in the popliteal artery. Left tibioperoneal trunk: Patent with poor flow. Left anterior tibial artery: Patent with forward flow Left posterior tibial artery: Patent with poor flow Left peroneal artery: Patent with poor flow CT/CTA Abd w/Runoff W/WO Contrast IMPRESSION: Multiple findings as discussed above. Electronically Signed: Diogenes Mitchell MD at 15:35 EDT ,
[2023-07-24 15:04] LABS: CREATININE FINGERSTICK 1.5 mg/dL (0.70-1.30)
== END | disposition home or self-care (01) ==
LOC: CT 13:04
PROVIDERS: Referring Provider Physician Assistant; Visit Provider Physician Assistant
DX: I70.0 Atherosclerosis of aorta (principal); I70.202 Unspecified atherosclerosis of native arteries of extremities, left leg; I25.10 Atherosclerotic heart disease of native coronary artery without angina pectoris; Z95.0 Presence of cardiac pacemaker; K44.9 Diaphragmatic hernia without obstruction or gangrene
CPT/HCPCS: 75635; Q9967

== ENCOUNTER 2023-08-31 19:29 | Emergency (ER) | payer MEDICARE, SELFPAY ==
[2023-04-18 11:37] VITALS: BMI 30.4
[2023-08-31 19:30] VITALS: BP 116/55; PULSE 126; RESP 18; TEMP 36.2; O2SAT 97; BMI 29.7
--- NOTE | 2023-08-31 19:49 | EDS_ITS ---
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 MENDOZA (dyspnea on exertion) Essential (primary) hypertension Herpes zoster History of non-ST elevation myocardial infarction (NSTEMI) (2010) Hyperlipidemia Hyperlipidemia due to type 1 diabetes mellitus Hypoglycemic reaction to insulin HZV (herpes zoster virus) post herpetic neuralgia Insulin pump titration Left bundle branch block [facility] current use of insulin Muscle weakness of lower extremity Non-ST elevation SD (NSTEMI) Obesity Obstructive sleep apnea Presence of insulin pump Sebaceous cyst Seborrheic dermatitis Secondary pulmonary arterial hypertension Sick sinus syndrome Syncopal episodes Syncope and collapse Type 1 diabetes mellitus without complications Vertigo Vitamin D deficiency Home Medications aspirin 81 mg tablet,delayed release 81 mg PO QHS HEART HEALTH 09/20/18 [History Last Taken 12/11/22] atorvastatin 80 mg tablet 80 mg PO QHS CHOLESTEROL 09/20/18 [History Last Taken 12/10/22] tamsulosin 0.4 mg capsule 0.4 mg PO DAILY PROSTATE 09/20/18 [History Last Taken 12/11/22] gabapentin 400 mg capsule 400 mg PO BID nerve pain 03/23/20 [History Last Taken 12/11/22] glucagon HCl 1 mg solution for injection (Glucagon (HCl) Emergency Kit) 1 mg subcut Q20M PRN blood sugar 03/23/20 [History Last Taken 1 Year Ago ~12/11/21] insulin lispro 100 unit/mL subcutaneous solution (Humalog U-100 Insulin) See Rx Instructions subcut DAILY DM 03/23/20 [History Last Taken 12/11/22] finasteride 5 mg tablet 5 mg PO DAILY prostate 03/28/20 [History Last Taken 12/11/22] amlodipine 5 mg tablet 5 mg PO DAILY blood pressure 01/25/22 [History Last Taken 12/11/22] acetaminophen 500 mg tablet 500 mg PO Q6H PRN pain 07/03/22 [History Last Taken 12/11/22] meclizine 12.5 mg tablet 12.5 mg PO TID PRN dizziness #20 tabs 11/20/22 [Rx Last Taken 12/11/22] diazepam 2 mg tablet 2 mg PO TID PRN PRN Vertigo 12/11/22 [History Last Taken 12/11/22] ticagrelor 90 mg tablet (Brilinta) 90 mg PO BID #60 tabs 12/28/22 [Rx Last Taken Unknown] furosemide 40 mg tablet (Lasix) 40 mg PO DAILY #30 tabs 12/29/22 [Rx Last Taken Unknown] levothyroxine 50 mcg tablet 50 mcg PO DAILY #30 tabs 02/14/23 [Rx Last Taken Unknown] losartan 100 mg tablet 100 mg PO DAILY blood pressure 03/06/23 [History Last Taken Unknown] cilostazol 50 mg tablet 50 mg PO BID #60 tabs 07/20/23 [Rx Last Taken Unknown] Allergy/AdvReac Type Severity Reaction Status Date / Time No Known Allergies Allergy Verified 08/31/23 19:30 Family History Father Diabetes Arthritis Cancer CVA (cerebral vascular accident) Skin cancer Mother CAD (coronary artery disease) Arthritis Parkinsons disease Brother Diabetes Kidney disease Sister Hypothyroid Surgical History H/O hernia repair History of appendectomy History of coronary artery stent placement (12/12/22) History of left heart catheterization (2010) 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) Social History household members: none Smoking Status: Former smoker how long ago did patient quit smokin second hand exposure: No alcohol intake: current alcohol intake frequency: holidays/special occasions only substance use type: does not use caffeine: Yes Type: coffee Number of servings: 2 what type of physical activity do you participate in: other frequency: 1-2 times per week EXAM Physical Exam Const Vital Signs: 08/31/23 19:30 08/31/23 19:41 08/31/23 21:04 Temperature 97.2 F L Temperature Source Temporal Pulse Rate 126 H 76 Respiratory Rate 18 20 H Respiratory Effort Short of Breath Blood Pressure 116/55 L 120/69 Blood Pressure Mean 75 86 Pulse Ox 97 MDM MDM MDM Narrative Medical decision making narrative: HISTORY OF PRESENT ILLNESS: 78-year-old male here with concern for diffuse weakness and headache. States has been ongoing for last 3 to 4 days. Notes occasional shortness of breath. Denies any chest pain. The patient denies recent surgery in the last 4 weeks or immobilization in the last 3 days, denies previous diagnosis of DVT or PE, hemoptysis, unilateral leg swelling or malignancy with treatment the last 6 m onths or palliative. No estrogen use noted. No vomiting or diarrhea. Denies any bleeding diathesis. Denies any urinary complaints. REVIEW OF SYSTEMS: Pertinent positives: Weakness, headache, shortness of breath Pertinent negatives: Chest pain, lower extreme edema, orthopnea, syncope, focal weakness PHYSICAL EXAM: Nursing triage notes reviewed, Vital signs reviewed Constitutional: please see mdm HENT: MMM Eyes: Pupils equal round and reactive to light, Extraocular muscles intact Neck: No stridor, no JVD, full neck ROM Lungs: Clear to auscultation, No wheezing or rales. No increased work of breathing, no conversational dyspnea, no accessory muscle use, no nasal flaring. No respiratory distress noted Heart: Regular rate and rhythm, No murmurs, No rubs and No gallops, 2+ distal pulses (radial, femoral, posterior tibial) in all extremities Abdomen: Soft, there is no tenderness, rigidity, rebound or guarding, no obvious peritoneal signs, no palpable pulsatile abdominal masses, no auscultated abdominal bruit : No CVAT Extremities: No edema Neuro: Alert and oriented x3, neuro exam at baseline, cranial nerves II through XII are intact. No pain with extraocular muscle movement. There is negative test of skew. 5 of 5 strength in upper and lower extremities in flexion extension. Intact sensation to light touch in upper and lower extremity dermatomes. No truncal or extremity ataxia. No dysdiadochokinesia. Normal gait. 2+ reflexes in upper and lower extremities. No meningeal signs. Negative Babinski. NIH of 0. Skin: No rash or lesions noted MEDICAL DECISION MAKING: Chief Complaint: Weakness, headache External records reviewed: ED notes reviewed: Last ED visit in April 2023 for fatigue Factors affecting care: Peripheral artery disease, hypothyroidism, type 1 diabetes, sick sinus syndrome, hyperlipidemia, hypertension, anemia Social determinants of health: Current smoker, occasional alcohol History obtained from others: The patient's son Consults: none [facility] Narrative: Patient was initially tachycardic (resolved after fluids) otherwise hemodynamically stable afebrile and nontoxic-appearing. Exam without focal neurologic deficits, no focal cardiopulmonary abnormalities. Abdomen soft nontender. He had symmetric pulses in all 4 extremities. He had no stigmata of VTE on exam. I considered the following differential diagnosis: Arrhythmia, ACS, anemia, electrolyte abnormality, dehydration, ALL IMAGES (IF OBTAINED) HAVE BEEN PERSONALLY REVIEWED AND INTERPRETED BY MYSELF. I have personally reviewed the patient's chest x-ray. Chest x-ray is unremarkable for pulmonary edema, pneumothorax, pneumonia or focal cardiopulmonary abnormality. EKG with normal sinus rhythm, left ax deviation, left bundle branch block, no obvious STEMI, similar to prior EKG from April 2023 CBC without leukocytosis to suggest systemic inflammation, noted mild anemia at baseline, no thrombocytopenia BMP with baseline CKD, no significant electrode abnormalities, no anion gap to suggest endorgan hypoperfusion LFTs show no evidence of hepatobiliary pathology. Troponin is negative, no evidence of myocardial ischemia Lipase is wnl indicating no pancreatic inflammation. The synthesis of the patient's history, physical exam, labs and images suggest no acute life-limiting etiology. No clear explanation for his fatigue or weakness. I wanted to obtain a urinalysis to rule out UTI however the patient cannot provide a sample in the emergency department. Had no urinary symptoms such as dysuria, hematuria, frequency urgency or fosamil urine. I will inspect for UTI at this time. There is no evidence of arrhythmia, electrolyte disturbance, ACS, pneumonia, COVID or flu. Patient was given 1 L normal saline with improvement in symptoms. Suspect he is suffering from dehydration. He was encouraged to drink additional p.o. fluids in the form of body armor Pedialyte. The patient and/or family, caregivers express understanding. The patient and/or family, caregivers agrees with the plan. Shared decision making: I will have a discussion with the patient and or visitors regarding risk/benefits of further testing or admission. They will be made aware of of the risk/benefits inherent in this decision they will be given the opportunity to voice understanding. Total critical care time today provided was at least 0 minutes. This excludes separately billable procedures. Critical care time (if documented) is secondary to the patient having high probability of clinically significant/life threatening deterioration in the patient's condition which required my urgent intervention. Impression: 1. Fatigue 2. Weakness 3. Chronic anemia 4. CKD Dispo: Discharge home Lab Data Labs: Laboratory Results - last 24 hr 08/31/23 20:55 WBC 6.5 RBC 3.68 L Hgb 11.7 L Hct 36.7 L MCV 99.7 H MCH 31.8 MCHC 31.9 L RDW Std Deviation 57.1 H RDW Coeff of Digna 15.3 H Plt Count 229 MPV 9.4 Immature Gran % (Auto) 0.900 Neut % (Auto) 77.3 H Lymph % (Auto) 5.8 L Kern % (Auto) 12.3 H Eos % (Auto) 3.1 Baso % (Auto) 0.6 Absolute Neuts (auto) 5.0 Absolute Lymphs (auto) 0.38 L Nucleated RBC % 0 Differential Comment SCANNED Sodium 139 Potassium 4.8 Chloride 108 H Carbon Dioxide 26.0 Anion Gap 5 BUN 37 H Creatinine 1.81 H Estim Creat Clear Calc 37.51 Est GFR (MDRD) Af Amer 47 L Est GFR (MDRD) Non-Af 39 L BUN/Creatinine Ratio 20.4 H Glucose 194 H Calcium 8.9 Total Bilirubin 0.50 AST 18 ALT 37 Alkaline Phosphatase 35 L Troponin I High Sens 18 Total Protein 6.7 Albumin 3.4 Globulin 3.3 Albumin/Globulin Ratio 1.0 Lipase 30 Radiography Diagnostic Testing: Clinical Impression(s) from Imaging Studies Chest X-Ray 08/31/23 20:55 IMPRESSION: Normal x-ray examination of the chest. Electronically Signed: Jason Lund MD at 21:49 EDT Reading Location ID and State: [facility] / [place] Tel , Service support , Discharge Plan Triage Chief Complaint: Fatigue ED Provider: Petros Wiggins Dx/Rx/DC Orders Instructions: Dehydration Prescriptions: No Action Glucagon (HCl) Emergency Kit 1 mg recon soln 1 mg SC Q20M PRN (Reason: blood sugar) Rx Instructions: until target blood sugar attained insulin lispro [Humalog U-100 Insulin] 100 unit/mL solution See Rx Instructions SC DAILY Rx Instructions: via pump subcut daily; acetaminophen 500 mg tablet 500 mg PO Q6H PRN (Reason: pain) Brilinta 90 mg tablet 90 mg PO BID Qty: 60 12RF cilostazol 50 mg tablet 50 mg PO BID Qty: 60 2RF atorvastatin 80 MG tablet 80 mg PO QHS tamsulosin 0.4 MG capsule 0.4 mg PO DAILY aspirin 81 MG tablet 81 mg PO QHS gabapentin 400 mg capsule 400 mg PO BID finasteride 5 MG tablet 5 mg PO DAILY meclizine 12.5 mg Tablet 12.5 mg PO TID PRN (Reason: dizziness) Qty: 20 0RF diazepam 2 mg tablet 2 mg PO TID PRN PRN (Reason: Vertigo) Patient Comments: 2 mg orally 3 times daily as needed As Needed for Vertigo amlodipine 5 mg tablet 5 mg PO DAILY furosemide [Lasix] 40 mg tablet 40 mg PO DAILY Qty: 30 12RF Hold Instructions: Resume on 03/07/23. levothyroxine 50 mcg tablet 50 mcg PO DAILY Qty: 30 5RF losartan 100 mg tablet 100 mg PO DAILY [facility] Care Provider[facility] [Primary Care Provider] - Activity Restrictions/Additional Instructions: Thank you for trusting us with your care today! Please take Tylenol (2 pills, 650 mg), ibuprofen (2 pills, 400 mg) every 6 hours as needed for pain and fever control. Please return to the emergency department if your symptoms change or worsen. Please drink plenty of fluids I recommend Body armor or Pedialyte. Please follow with your primary care physician for further outpatient evaluation and management. Disposition Disposition: Home, Self Care
[2023-08-31] MEDS: 0.9% Normal Saline (500mL Bag) 500 ML 1000 ML IV (20:40)
--- NOTE | 2023-08-31 20:55 | RAD_ITS ---
STUDY: X-RAY CHEST REASON FOR EXAM: Male, 78 years old. weakness, SOB TECHNIQUE: Single frontal view of the chest. COMPARISON: April 15, 2023 FINDINGS: Bipolar pacer on the left unchanged. The lungs are clear and expanded. There is no demonstrated pleural abnormality. Normal size heart. Normal mediastinum and rayna. Normal visualized pulmonary arteries. Normal visualized aortic arch and descending thoracic aorta. Normal visualized thoracic spine. Normal visualized ribs, clavicles, and shoulders. There is no demonstrated abnormality of the visualized soft tissue structures of the upper abdomen. RAD/Chest 1 View (Portable) IMPRESSION: Normal x-ray examination of the chest. Electronically Signed: Jason Lund MD at 21:49 EDT ,
[2023-08-31 21:03] LABS: Absolute Lymphocyte Count 0.38 X10^3/uL (0.83-4.51); Basophil# 0.04 X10^3/uL; Basophil% 0.6 % (0-1); Eosinophils% 3.1 % (0-5); Hematocrit 36.7 % (40-54); Hemoglobin 11.7 g/dL (13.0-16.5); Lymphocyte # 0.38 X10^3/ul (0.83-4.51); Lymphocyte % 5.8 % (19-41); Mean Corp Hgb Conc 31.9 g/dL (32-36); Mean Corpuscular Hgb 31.8 pg (27.0-32.0); Mean Corpuscular Volume 99.7 fL (80-94); Mean Platelet Vol. 9.4 fl (6.2-12.0); Monocyte% 12.3 % (0-10); NRBC Flagged by Analyzer 0 % (0-5); Neutrophil # 5.03 X10^3/uL (2.7-7.7); Neutrophil % 77.3 % (47-70); POSITIVE DIFFERENTIAL YES; Platelet Count 229 K/mm3 (150-450); RBC Distribution Width CV 15.3 % (11.6-14.6); RBC Distribution Width SD 57.1 fl (35.1-43.9); Red Blood Count 3.68 M/mm3 (4.6-6.2); White Blood Count 6.5 K/mm3 (4.4-11.0)
[2023-08-31 21:04] VITALS: BP 120/69; PULSE 76; RESP 20
[2023-08-31 21:12] LABS: Differential Indicated SCAN CRITERIA MET
[2023-08-31 21:22] LABS: AST(SGOT) 18 U/L (15-37); Alanine Aminotransfer ALT/SGPT 37 U/L (16-61); Albumin, Serum 3.4 g/dL (3.2-5.0); Alkaline Phosphatase 35 U/L (45-117); Anion Gap 5 (5-15); BUN 37 mg/dL (7-18); BUN/Creat Ratio 20.4 RATIO (10-20); Calcium,Total 8.9 mg/dL (8.5-10.1); Chloride 108 mmol/L (98-107); Creatinine, Serum 1.81 mg/dL (0.70-1.30); EST Glomerular Filtration Rate 39 mL/min (>60); Est Glom Filt Rate - Afr Amer 47 mL/min (>60); Estimated Creatinine Clearance 37.51 ml/min; Globulin 3.3 g/dL (2.2-4.2); Glucose 194 mg/dL (74-106); Lipase 30 U/L (13-75); Potassium 4.8 mmol/L (3.5-5.1); Protein, Total 6.7 g/dL (6.4-8.2); Sodium Level 139 mmol/L (136-145); Troponin-I HS 18 pg/mL (3.0-78.0)
[2023-08-31 21:39] LABS: Differential Comment SCANNED
[2023-08-31 22:14] VITALS: BP 122/92; PULSE 78; RESP 16; O2SAT 96
== END 2023-08-31 22:17 | disposition home or self-care (01) ==
PROVIDERS: Emergency Provider Emergency Medicine; Visit Provider Emergency Medicine
DX: E86.0 Dehydration (principal); E10.51 Type 1 diabetes mellitus with diabetic peripheral angiopathy without gangrene; E10.22 Type 1 diabetes mellitus with diabetic chronic kidney disease; E10.42 Type 1 diabetes mellitus with diabetic polyneuropathy; I49.5 Sick sinus syndrome; E78.5 Hyperlipidemia, unspecified; Z87.891 Personal history of nicotine dependence; D64.9 Anemia, unspecified; I25.10 Atherosclerotic heart disease of native coronary artery without angina pectoris; N18.9 Chronic kidney disease, unspecified; I12.9 Hypertensive chronic kidney disease with stage 1 through stage 4 chronic kidney disease, or unspecified chronic kidney disease; E03.9 Hypothyroidism, unspecified; R06.02 Shortness of breath; R51.9 Headache, unspecified
CPT/HCPCS: 71045; 80053; 83690; 84484; 85025; 87428; 93005; 96360; 96361; 99284; J7030; A4216

== ENCOUNTER → 2023-12-05 | Outpatient (CLI) | payer MEDICARE, SELFPAY ==
[2023-04-18 11:37] VITALS: BMI 30.4
[2023-12-05 15:28] LABS: T4 Free Direct 0.78 ng/dL (0.76-1.46); Thyroid Stim Hormone (TSH) 1.46 uIU/mL (0.358-3.74)
== END | disposition home or self-care (01) ==
LOC: LAB 13:59
PROVIDERS: Referring Provider Nurse Practitioner Family; Visit Provider Nurse Practitioner Family
DX: E03.8 Other specified hypothyroidism (principal); E06.3 Autoimmune thyroiditis
CPT/HCPCS: 36415; 84439; 84443

== ENCOUNTER 2024-02-24 11:33 | Emergency (ER) | payer OTHER, SELFPAY ==
[2023-04-18 11:37] VITALS: BMI 30.4
[2024-02-24] VITALS (8 sets, daily range): BP systolic 119–164; BP diastolic 65–109; PULSE 65–72; RESP 16–65; TEMP 35.8–36.6; O2SAT 96–100; BMI 28.8
[2024-02-24 11:58] LABS: Bedside Glucose 247 mg/dL (74-106)
--- NOTE | 2024-02-24 12:09 | EKG12_ITS ---
Test Reason : SOB Blood Pressure : / mmHG Vent. Rate : 067 BPM Atrial Rate : 000 BPM P-R Int : 000 ms QRS Dur : 134 ms QT Int : 446 ms P-R-T Axes : 000 -62 050 degrees QTc Int : 471 ms Normal sinus rhythm Left axis deviation Left bundle branch block Abnormal ECG Confirmed by Elio Ojeda ([id number]), greeting card editor YASMIN BOURNE ([id number]) on 02/25/2024 9:59:19 AM Referred By: ANABELLE Confirmed By:Elio Ojeda
--- NOTE | 2024-02-24 12:09 | RAD_ITS ---
INDICATION: chest pain sob EXAMINATION/TECHNIQUE: X-RAY - XR Chest 1 View COMPARISON: Prior study dated: 08/31/2023 FINDINGS: LINES/DEVICES: Left-sided dual-chamber cardiac pacer device in stable position. LUNGS: No consolidation, edema or effusion. No pneumothorax. MEDIASTINUM AND CARDIOVASCULAR STRUCTURES: Cardiac silhouette not enlarged. Central airways and mediastinal contour are unremarkable. BONES AND SOFT TISSUES: Unremarkable. RAD/Chest 1 View (Portable) IMPRESSION: No radiographic evidence of acute cardiopulmonary disease. Electronically Signed: Warren Bright MD at 12:51 EDT ,
--- NOTE | 2024-02-24 12:10 | ED.VIS.DYS ---
HPI History of Present Illness Chief Complaint: Shortness of Breath Informant: patient, family and EMS Onset/Context/Timing Onset: Today (JPTA) Context: rest (sitting at religious) Timing: Lasts (around 30 min, plus or minus) Current Severity: Mild Maximum Severity: Severe Worsened by: Nothing Relieved by: Nothing Associated Symptoms Chest Pain: Positive for None (but + back pain) Narrative Narrative: 78-year-old male was sitting in religious when he started feeling short of breath and having severe pain throughout his mid back that he has never had before. He has chronic mild discomfort in his lower back which she describes now but states the other pain is gone and his breathing is nearly back to normal now without any specific intervention. He denies having any chest discomfort, abdominal discomfort, diaphoresis, near-syncope or syncope. He has had no recent illness. He states this seemed to come out of nowhere. He has a history of stents in his heart, he used to be on Brilinta for that but no longer is and as far as antiplatelet/anticoagulant, just takes aspirin daily. He has a history of claudication/PAD and follows with vascular surgery here. His states his legs have been pretty good lately since having procedure done by vascular, but when he went to follow-up he had dyspnea with exertion and the family is concerned about. 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 MENDOZA (dyspnea on exertion) Essential (primary) hypertension Herpes zoster History of non-ST elevation myocardial infarction (NSTEMI) (2010) Hyperlipidemia Hyperlipidemia due to type 1 diabetes mellitus Hypoglycemic reaction to insulin HZV (herpes zoster virus) post herpetic neuralgia Insulin pump titration Left bundle branch block FCI current use of insulin Muscle weakness of lower extremity Non-ST elevation [place] (NSTEMI) Obesity Obstructive sleep apnea Presence of insulin pump Sebaceous cyst Seborrheic dermatitis Secondary pulmonary arterial hypertension Sick sinus syndrome Syncopal episodes Syncope and collapse Type 1 diabetes mellitus without complications Vertigo Vitamin D deficiency Home Medications aspirin 81 mg tablet,delayed release 81 mg PO QHS HEART [facility] 09/20/18 [History Last Taken 12/11/22] atorvastatin 80 mg tablet 80 mg PO QHS CHOLESTEROL 09/20/18 [History Last Taken 12/10/22] tamsulosin 0.4 mg capsule 0.4 mg PO DAILY PROSTATE 09/20/18 [History Last Taken 12/11/22] glucagon HCl 1 mg solution for injection (Glucagon (HCl) Emergency Kit) 1 mg subcut Q20M PRN blood sugar 03/23/20 [History Last Taken 1 Year Ago ~12/11/21] insulin lispro 100 unit/mL subcutaneous solution (Humalog U-100 Insulin) See Rx Instructions subcut DAILY DM 03/23/20 [History Last Taken 12/11/22] finasteride 5 mg tablet 5 mg PO DAILY prostate 03/28/20 [History Last Taken 12/11/22] acetaminophen 500 mg tablet 500 mg PO Q6H PRN pain 07/03/22 [History Last Taken 12/11/22] meclizine 12.5 mg tablet 12.5 mg PO TID PRN dizziness #20 tabs 11/20/22 [Rx Last Taken 12/11/22] diazepam 2 mg tablet 2 mg PO TID PRN PRN Vertigo 12/11/22 [History Last Taken 12/11/22] losartan 100 mg tablet 100 mg PO DAILY blood pressure 03/06/23 [History Last Taken Unknown] dupilumab 100 mg/0.67 mL subcutaneous syringe (Dupix[employer]) 200 mg subcut Q2W 09/05/23 [History Last Taken Unknown] cilostazol 50 mg tablet 50 mg PO BID #60 tabs 10/24/23 [Rx Last Taken Unknown] levothyroxine 50 mcg tablet 50 mcg PO DAILY #30 tabs 11/01/23 [Rx Last Taken Unknown] ezetimibe 10 mg tablet 10 mg PO DAILY 02/20/24 [History Last Taken Unknown] pregabalin 100 mg capsule 100 mg PO BID 02/20/24 [History Last Taken Unknown] apixaban 5 mg tablet (Eliquis) 5 mg PO BID #74 tabs 02/24/24 [Rx Last Taken Unknown] Allergy/AdvReac Type Severity Reaction Status Date / Time No Known Allergies Allergy Verified 02/24/24 11:42 Family History Father Diabetes Arthritis Cancer CVA (cerebral vascular accident) Skin cancer Mother CAD (coronary artery disease) Arthritis Parkinsons disease Brother Diabetes Kidney disease Sister Hypothyroid Surgical History H/O hernia repair History of appendectomy History of coronary artery stent placement (12/12/22) History of left heart catheterization (2010) 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) Social History household members: none Smoking Status: Former smoker how long ago did patient quit smokin second hand exposure: No alcohol intake: current alcohol intake frequency: holidays/special occasions only substance use type: does not use caffeine: Yes Type: coffee Number of servings: 2 what type of physical activity do you participate in: other frequency: 1-2 times per week ROS ROS ED Constitutional Constitutional ED: Denies chills or fever(s) Eyes Eyes: Denies change in vision or diplopia ENT ENT ED: Denies rhinorrhea or sore throat Cardiovascular Cardiovascular: Denies chest pain, leg edema, lightheadedness, orthopnea, palpitations or syncope Respiratory/Chest Respiratory/Chest: Reports dyspnea on exertion; Denies cough, dyspnea or orthopnea Gastrointestinal Gastrointestinal: Denies abdominal pain, diarrhea, nausea or vomiting Genitourinary Genitourinary ED: Denies dysuria or hematuria Musculoskeletal Musculoskeletal: Reports back pain; Denies neck pain Integumentary Denies abscess or rash Neurologic Neurologic: Denies headache(s), paresthesias or weakness Psychiatric Psychiatric: Denies anxiety or suicidal thoughts EXAM Physical Exam Const Vital Signs: 02/24/24 11:35 02/24/24 11:38 02/24/24 11:43 Temperature 96.4 F L 96.4 F L Temperature Source Temporal Temporal Pulse Rate 70 68 Respiratory Rate 18 18 Respiratory Effort Short of Breath Respiratory Depth Normal Respiratory Pattern Normal Blood Pressure 122/109 H 122/109 H Blood Pressure Mean 113 113 Pulse Ox 98 98 Oxygen Delivery Method Room Air Room Air 02/24/24 12:09 02/24/24 13:31 02/24/24 13:59 Temperature 97.8 F Temperature Source Temporal Pulse Rate 66 67 Respiratory Rate 65 H 16 Respiratory Effort Respiratory Depth Respiratory Pattern Blood Pressure 138/67 H 119/65 Blood Pressure Mean 90 83 Pulse Ox 98 100 Oxygen Delivery Method Room Air Room Air 02/24/24 14:00 02/24/24 15:40 Temperature 98 F Temperature Source Temporal Pulse Rate 65 72 Respiratory Rate 18 16 Respiratory Effort Respiratory Depth Respiratory Pattern Blood Pressure 141/80 H 164/71 H Blood Pressure Mean 100 102 Pulse Ox 96 96 Oxygen Delivery Method Room Air Room Air Positive well nourished and well developed General Appearance ED: well developed and NAD HEENT Reports moist mucous membranes normocephalic and atraumatic Eyes PERRL and EOMs intact bilaterally Neck full ROM, supple and no JVD Resp normal respiratory effort and clear to auscultation bilaterally Cardio regular rate, regular rhythm and no murmurs Rate: Negative for bradycardia or tachycardic Peripheral Pulses: pulses 2+ throughout GI non-tender and non-distended Auscultation: normoactive bowel sounds Palpation: soft; Negative for pulsatile mass Back/Spine no CVA tenderness General Back: other FROM Extremity normal to inspection General Extremety ED: Negative for edema, pulses abnormal or tenderness General Extremity: Negative for edema or pulses abnormal Neuro oriented x3, CN's II-XII intact bilaterally and no sensory deficits noted Sensorium / Orientation: awake and alert Motor Exam: strength 5/5 throughout Psych mental status grossly normal Skin no rashes or lesions noted and no wounds MDM MDM MDM Narrative Medical decision making narrative: Cardiac workup was obtained in addition to a 2 view chest x-ray which on my interpretation is normal, radiology was in agreement. His initial troponin normal, we did a repeat measurement 2 hours later it went from 40 up to 46, which is an insignificant telephone exchange operator the course of 2 hours and essentially negative. His EKG basically shows a paced rhythm with a left bundle branch block pattern. And screen for other pathology the patient does not have specific risk for specifically PE, aortic dissection given his unusual back pain and dyspnea, a D-dimer was obtained. It is significantly elevated at 1.75. Therefore he was sent for CT angiography of the chest. I discussed with the radiologist requested to call/talk, he is suspicious there is a second order vessel in the left lower lobe that has a filling defect that may represent an acute PE. I think it is potentially causing his symptoms. There is no sign of an aortic dissection or other aortic catastrophe/acute pathology. Patient is doing well his blood pressure 120s when he first arrived now 140/80, has no signs of right heart strain or large clot burden, and is ambulatory without distress or hypoxemia (no lower than 99% on RA). He has a PESI score of 87, which is just into the intermediate-risk range (starts at 86). Therefore, I am comfortable discharging him home on anticoagulation; initial dose of Eliquis given here prior to discharge. In addition to all of this, I did query the patient's pacer device. It said that since the memory was last cleared last March, there were 2 episodes of tachycardia detected, but the report that faxed did not say when those occurred. The helicopter technician called and I discussed this with him, he looked this information up in his system I do not have access to, showing that he had 2 episodes of VT last year, 1 in June and 1 in October, nothing today. I feel more comfortable that the patient did not have a tacky dysrhythmia today causing his symptoms, making the true presence of a PE more likely. I am also discharging him with outpatient duplex Doppler ultrasound of the lower extremities to be obtained tomorrow since it is not available today, Sunday evening/afternoon. He also states that he no longer is taking ticagrelor (discontinued in Dec, 1 year after his last DANIEL to his RCA according to records), just cilostazol and baby aspirin which I recommend continuing at this time in addition to the Eliquis we are prescribing. Pulmonary Embolism Severity Index (PESI) from [email or web address] on 02/24/2024 All calculations should be rechecked by clinician prior to use RESULT SUMMARY: 87 points Class III, Intermediate Risk: 3.2-7.1% 30-day mortality in this group. INPUTS: Age ?> 78 years Sex ?> 10 = Male History of cancer ?> 0 = No History of heart failure ?> 0 = No History of chronic lung disease ?> 0 = No Heart rate >=10 ?> 0 = No Systolic BP ?> 0 = No Respiratory rate >=0 ?> 0 = No Temperature ?> 0 = No Altered mental status (disorientation, lethargy, stupor, or coma) ?> 0 = No O2 saturation ?> 0 = No History & Record Review Additional record(s) reviewed:: Prior outpatient record (cardiology - see above; [facility] outpt visit) Lab Data Attestation: I reviewed the patient's lab results. Labs: Laboratory Results - last 24 hr 02/24/24 02/24/24 02/24/24 11:40 12:05 14:30 WBC 8.7 RBC 4.07 L Hgb 11.6 L Hct 37.7 L MCV 92.6 MCH 28.5 MCHC 30.8 L RDW Std Deviation 53.1 H RDW Coeff of Digna 15.6 H Plt Count 225 MPV 10.0 Immature Gran % (Auto) 0.700 Neut % (Auto) 85.0 H Lymph % (Auto) 4.1 L [place] % (Auto) 9.2 Eos % (Auto) 0.5 Baso % (Auto) 0.5 Absolute Neuts (auto) 7.4 Absolute Lymphs (auto) 0.36 L Nucleated RBC % 0 D-Dimer Quant (PE/DVT) 1.75 H* Sodium 139 Potassium 4.3 Chloride 108 H Carbon Dioxide 26.0 Anion Gap 5 BUN 30 H Creatinine 1.78 H Estim Creat Clear Calc 41.88 Est GFR (MDRD) Af Amer 48 L Est GFR (MDRD) Non-Af 40 L BUN/Creatinine Ratio 16.9 Glucose 267 H Calcium 9.2 Troponin I High Sens 40 46 POC Glucose 247 H Radiography Diagnostic Testing: Clinical Impression(s) from Imaging Studies Chest X-Ray 02/24/24 12:09 IMPRESSION: No radiographic evidence of acute cardiopulmonary disease. Electronically Signed: Warren Bright MD at 12:51 EDT Reading Location ID and State: [facility] / [place] Tel , Service support , Chest CTA 02/24/24 13:34 IMPRESSION: 1. Findings suggestive of small pulmonary embolism in second branch of left lower lobe pulmonary artery as described above. 2. Otherwise no evidence of central pulmonary embolism. 3. No acute pulmonary infiltrate, pleural effusions or adenopathy. Electronically Signed: Warren Bright MD at 15:00 EDT , ADDENDUM: 02/24/24 1512 IMPRESSION: 1. Findings suggestive of small pulmonary embolism in second branch of left lower lobe pulmonary artery as described above. 2. Otherwise no evidence of central pulmonary embolism. 3. No acute pulmonary infiltrate, pleural effusions or adenopathy. N.B. : The above Results were Read Back by Warren Bright MD to Isaac Paulino MD, and understanding confirmed on 02/24/2024 15:05:14 (ET). Electronically Signed: Warren Bright MD at 15:00 EDT , Rhythm Strip Rhythm Strip: paced Rate: 65 Ectopy: None EKG Initial EKG: Attestation: I personally reviewed and interpreted this EKG as follows: Interpretation: No Acute Injury Pattern, Paced and LBBB Prior EKG tracings: available for review Prior: Unchanged Management Discussion w/another healthcare provider: Radiologist and Other ([employer] pacemaker helicopter technician) Discharge Plan Triage Chief Complaint: Shortness of Breath ED Provider: Isaac Paulino Dx/Rx/DC Orders Clinical Impression: Pulmonary embolus, left Instructions: Embolism Pulmonary Dc Prescriptions: New Eliquis 5 mg tablet 5 mg PO BID Qty: 74 0RF Rx Instructions: 10 mg twice a day for the first week. Then 5 mg twice a day. Continued Glucagon (HCl) Emergency Kit 1 mg recon soln 1 mg SC Q20M PRN (Reason: blood sugar) Rx Instructions: until target blood sugar attained insulin lispro [Humalog U-100 Insulin] 100 unit/mL solution See Rx Instructions SC DAILY Rx Instructions: via pump subcut daily; acetaminophen 500 mg tablet 500 mg PO Q6H PRN (Reason: pain) Dupixent Syringe 100 mg/0.67 mL syringe 200 mg subcut Q2W atorvastatin 80 MG tablet 80 mg PO QHS tamsulosin 0.4 MG capsule 0.4 mg PO DAILY aspirin 81 MG tablet 81 mg PO QHS finasteride 5 MG tablet 5 mg PO DAILY meclizine 12.5 mg Tablet 12.5 mg PO TID PRN (Reason: dizziness) Qty: 20 0RF diazepam 2 mg tablet 2 mg PO TID PRN PRN (Reason: Vertigo) Patient Comments: 2 mg orally 3 times daily as needed As Needed for Vertigo losartan 100 mg tablet 100 mg PO DAILY cilostazol 50 mg tablet 50 mg PO BID Qty: 60 3RF levothyroxine 50 mcg tablet 50 mcg PO DAILY Qty: 30 5RF Discontinued ticagrelor 90 mg tablet 90 mg PO BID Other Ambulatory Orders: Venous Duplex US - James Extrem (Stat) Facility: [facility] - Location: [facility] Ordered By: Dr. Isaac Paulino [facility] Referrals: Luther Mack MD [Med Staff - Active Staff] - (or your primary doctor) [facility] [Primary Care Provider] - Disposition Disposition: Home, Self Care
[2024-02-24 12:20] LABS: Absolute Lymphocyte Count 0.36 X10^3/uL (0.83-4.51); Absolute Neutrophil Count 7.4 X10^3/uL (2.0-7.7); Basophil# 0.04 X10^3/uL; Basophil% 0.5 % (0-1); Eosinophil# 0.04 X10^3/uL; Eosinophils% 0.5 % (0-5); Hematocrit 37.7 % (40-54); Hemoglobin 11.6 g/dL (13.0-16.5); Lymphocyte # 0.36 X10^3/ul (0.83-4.51); Lymphocyte % 4.1 % (19-41); Mean Corp Hgb Conc 30.8 g/dL (32-36); Mean Corpuscular Hgb 28.5 pg (27.0-32.0); Mean Corpuscular Volume 92.6 fL (80-94); Monocyte% 9.2 % (0-10); NRBC Flagged by Analyzer 0 % (0-5); Neutrophil # 7.42 X10^3/uL (2.7-7.7); POSITIVE DIFFERENTIAL YES; Platelet Count 225 K/mm3 (150-450); RBC Distribution Width CV 15.6 % (11.6-14.6); RBC Distribution Width SD 53.1 fl (35.1-43.9); Red Blood Count 4.07 M/mm3 (4.6-6.2); White Blood Count 8.7 K/mm3 (4.4-11.0)
[2024-02-24 12:36] LABS: Anion Gap 5 (5-15); BUN 30 mg/dL (7-18); BUN/Creat Ratio 16.9 RATIO (10-20); Calcium,Total 9.2 mg/dL (8.5-10.1); Chloride 108 mmol/L (98-107); Creatinine, Serum 1.78 mg/dL (0.70-1.30); EST Glomerular Filtration Rate 40 mL/min (>60); Est Glom Filt Rate - Afr Amer 48 mL/min (>60); Estimated Creatinine Clearance 41.88 ml/min; Glucose 267 mg/dL (74-106); Potassium 4.3 mmol/L (3.5-5.1); Sodium Level 139 mmol/L (136-145); Troponin-I HS (w/2H Reflex) 40 pg/mL (3.0-78.0)
[2024-02-24 12:59] LABS: D-Dimer Quantitative (DVT/PE) 1.75 FEU/ug/m (0.27-0.49)
--- NOTE | 2024-02-24 13:34 | CT_ITS ---
We are attempting to reach an attending provider to discuss findings. An addendum with communication details will be sent when the communication is complete. STUDY: CTA CHEST REASON FOR EXAM: Male, 78 years old. Dyspnea, back pain, elevated d-dimer RADIATION DOSAGE (If Supplied By Facility): CTDIvol = ( 11.81 ) mGy, DLP = ( 527.95 ) mGycm TECHNIQUE: The examination was performed with the intravenous administration of IV 100mL Isovue-370. Post-processing of the angiographic images was performed, with multiplanar reformation and 3D reconstruction. Individualized dose optimization techniques were used for this CT. COMPARISON: Prior study dated: 03/03/2023 FINDINGS: Normal enhancement of the main pulmonary artery and right and left pulmonary arteries. Suboptimal enhancement of the peripheral branches. Questionable filling defect of second branch of the left lower lobe pulmonary artery best seen on axial images 145-147 series 2. Difficult to exclude artifact. There is otherwise no demonstrated pulmonary embolism. There is atherosclerotic tortuosity of the aortic arch and descending thoracic aorta without evidence of aneurysm. There is no definite demonstrated aortic dissection. Normal heart and pericardium. There are calcifications of the coronary arteries. Normal mediastinum. Normal hilar regions. Normal visualized trachea and bronchi. The lungs are well expanded. There are no pulmonary infiltrates. There are no pleural effusions. Normal chest wall structures. No demonstrated acute osseous changes. Hemangioma at T12. The visualized portions of the upper abdomen demonstrate left lobe liver cyst slightly larger than previous exam but no further follow-up exam is needed. CT/CTA Chest W/WO Contrast IMPRESSION: 1. Findings suggestive of small pulmonary embolism in second branch of left lower lobe pulmonary artery as described above. 2. Otherwise no evidence of central pulmonary embolism. 3. No acute pulmonary infiltrate, pleural effusions or adenopathy. Electronically Signed: Warren Bright MD at 15:00 EDT ,
[2024-02-24 14:15] LABS: Reflex Troponin-HS? (from REC) Y
[2024-02-24 15:02] LABS: Troponin-I HS 46 pg/mL (3.0-78.0)
[2024-02-24] MEDS: APIXABAN 5 MG TABLET 10 MG PO (16:56)
== END 2024-02-24 17:07 | disposition home or self-care (01) ==
PROVIDERS: Emergency Provider Emergency Medicine; Visit Provider Emergency Medicine
DX: I26.99 Other pulmonary embolism without acute cor pulmonale (principal); E10.51 Type 1 diabetes mellitus with diabetic peripheral angiopathy without gangrene; Z87.891 Personal history of nicotine dependence; M54.9 Dorsalgia, unspecified; I44.7 Left bundle-branch block, unspecified; E78.5 Hyperlipidemia, unspecified; I10 Essential (primary) hypertension; Z79.01 Long term (current) use of anticoagulants; Z96.41 Presence of insulin pump (external) (internal)
CPT/HCPCS: 71045; 71275; 80048; 82962; 84484; 85025; 85379; 93005; 99283; Q9967; A4216

== ENCOUNTER → 2024-02-25 | Outpatient (CLI) | payer MEDICARE, SELFPAY ==
[2023-04-18 11:37] VITALS: BMI 30.4
--- NOTE | 2024-02-25 13:41 | VDLE_ITS ---
Reason For Study: HX PE RIGHT LEFT GSV is normal. GSV is normal. CFV is compressible, spontaneous, phasic, CFV is compressible, spontaneous, phasic, competent and demonstrates normal competent, and demonstrates normal augmentation. augmentation. FV is compressible, spontaneous, phasic, FV is compressible, spontaneous, phasic, competent and demonstrates normal competent and demonstrates normal augmentation. augmentation. POP V is compressible, spontaneous, phasic, POP V is compressible, spontaneous, phasic, competent and demonstrates normal competent and demonstrates normal augmentation. augmentation. T/P Trunk is compressible. T/P Trunk is compressible. PTV is compressible. PTV is compressible. RT PerV is compressible. LT PerV is compressible. Procedure This is a venous duplex using B-mode, color flow and spectral Doppler. Exam performed in department. The exam was diagnostic. A preliminary report was called and/or faxed to [facility] ED. VL/Venous Duplex US - James Extrem Interpretation Summary Deep veins of the lower extremities are bilaterally patent and compressible seg mentally. There is no evidence of deep vein thrombosis on either side. Valvular competence appears in tact within the proximal deep venous systems bilaterally. The great saphenous veins appear bila terally patent and compressible segmentally. Ordering Physician: Isaac Paulino Referring Physician: [facility] Performed By: Zachary Jain RVT
== END | disposition home or self-care (01) ==
LOC: CVS 13:40
PROVIDERS: Referring Provider Emergency Medicine; Visit Provider Emergency Medicine
DX: M79.604 Pain in right leg (principal); I26.99 Other pulmonary embolism without acute cor pulmonale
CPT/HCPCS: 93970

== ENCOUNTER 2024-04-27 16:22 | Inpatient (IN) | payer OTHER, SELFPAY ==
[2023-04-18 11:37] VITALS: BMI 30.4
[2024-04-27] VITALS (14 sets, daily range): BP systolic 126–164; BP diastolic 45–57; PULSE 78–104; RESP 15–24; TEMP 36.1–37; O2SAT 88–99; BMI 30.6; BMI 30.7
--- NOTE | 2024-04-27 16:48 | EX.ED.DYSGE1 ---
HPI <MADISON Perez - Last Filed: 04/27/24 18:45> History of Present Illness Chief Complaint: Weakness Narrative Narrative: 79-year-old male with DM1 states his blood sugars are reading over 400 today and he feels tired with generalized weakness and nausea. He has a [employer] insulin pump and states he ate toast and chocolate milk for lunch and input his carb count as normal and the pump administered insulin so he is not sure why his sugars are still running high. Patient changed the insulin and glucose sensors this week. He sees Dr. Vital in endocrinology. 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Recorded ?Last Taken ?Type aspirin 81 mg tablet,delayed 81 mg PO QHS HEART HEALTH 09/20/18 12/11/22 History release atorvastatin 80 mg tablet 80 mg PO QHS CHOLESTEROL 09/20/18 12/10/22 History tamsulosin 0.4 mg capsule 0.4 mg PO DAILY PROSTATE 09/20/18 12/11/22 History glucagon HCl 1 mg solution for 1 mg subcut Q20M PRN blood sugar 03/23/20 1 Year Ago History injection (Glucagon (HCl) ~12/11/21 Emergency Kit) insulin lispro 100 unit/mL See Rx Instructions subcut DAILY DM 03/23/20 12/11/22 History subcutaneous solution (Humalog U-100 Insulin) finasteride 5 mg tablet 5 mg PO DAILY prostate 03/28/20 12/11/22 History acetaminophen 500 mg tablet 500 mg PO Q6H PRN pain 07/03/22 12/11/22 History losartan 100 mg tablet 100 mg PO DAILY blood pressure 03/06/23 Unknown History dupilumab 100 mg/0.67 mL 200 mg subcut Q2W 09/05/23 Unknown History subcutaneous syringe (Dupixent) levothyroxine 50 mcg tablet 50 mcg PO DAILY #30 tabs 11/01/23 Unknown Rx ezetimibe 10 mg tablet 10 mg PO DAILY 02/20/24 Unknown History pregabalin 100 mg capsule 100 mg PO BID 02/20/24 Unknown History cilostazol 50 mg tablet 50 mg PO BID #60 tabs 03/11/24 Unknown Rx apixaban 5 mg tablet (Eliquis) 5 mg PO BID #60 tabs 04/03/24 Unknown Rx terbinafine HCl 250 mg tablet 250 mg PO QDAY 04/03/24 Unknown History Allergy/AdvReac Type Severity Reaction Status Date / Time No Known Allergies Allergy Verified 04/27/24 16:27 Family History Father Diabetes Arthritis Cancer CVA (cerebral vascular accident) Skin cancer Mother CAD (coronary artery disease) Arthritis Parkinsons disease Brother Diabetes Kidney disease Sister Hypothyroid Surgical History History of coronary artery stent placement (12/12/22) H/O hernia repair 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 CVS: Negative for palpitations, chest pain. Respiratory: Negative for shortness of breath, cough. GI: Positive for nausea. No abdominal pain or vomiting. : Negative for dysuria. EXAM <MADISON Perez - Last Filed: 04/27/24 18:45> Physical Exam Narrative Exam Narrative: CONST: Patient sitting in no acute distress. EYES: Normal inspection. NECK: Normal inspection. RESP: No respiratory distress, CTAB. CVS: Regular rate and rhythm, no murmur, no gallop. ABD: Soft and nontender, no guarding or rebound, nondistended. SKIN: Color normal, no rash, warm, dry, intact. EXTREMITIES: Normal appearance, no pedal edema. NEURO: Alert and answering questions appropriately. PSYCH: Normal affect. Const Vital Signs: 04/27/24 16:24 04/27/24 16:27 04/27/24 16:29 Temperature 98 F 98.0 F Temperature Source Oral Oral Pulse Rate 100 98 Respiratory Rate 16 20 H Respiratory Effort Normal Non-Labored Respiratory Pattern Normal Blood Pressure 127/52 H 127/52 H Blood Pressure Mean 77 77 Pulse Ox 90 90 Oxygen Delivery Method Room Air Room Air 04/27/24 17:35 04/27/24 18:23 04/27/24 18:36 Temperature 97.6 F L Temperature Source Temporal Pulse Rate 100 103 H 104 H Respiratory Rate 16 18 20 H Respiratory Effort Respiratory Pattern Blood Pressure 126/45 H 126/45 H Blood Pressure Mean 72 72 Pulse Ox 97 96 Oxygen Delivery Method Room Air Room Air <Dr. Devon Moreno MD - Last Filed: 04/27/24 17:28> Physical Exam Const Vital Signs: 04/27/24 16:24 04/27/24 16:27 04/27/24 16:29 Temperature 98 F 98.0 F Temperature Source Oral Oral Pulse Rate 100 98 Respiratory Rate 16 20 H Respiratory Effort Normal Non-Labored Respiratory Pattern Normal Blood Pressure 127/52 H 127/52 H Blood Pressure Mean 77 77 Pulse Ox 90 90 Oxygen Delivery Method Room Air Room Air 04/27/24 17:35 04/27/24 18:23 04/27/24 18:36 Temperature 97.6 F L Temperature Source Temporal Pulse Rate 100 103 H 104 H Respiratory Rate 16 18 20 H Respiratory Effort Respiratory Pattern Blood Pressure 126/45 H 126/45 H Blood Pressure Mean 72 72 Pulse Ox 97 96 Oxygen Delivery Method Room Air Room Air MDM <MADISON Perez - Last Filed: 04/27/24 18:45> [facility] Narrative Medical decision making narrative: Differential: Diabetic hyperglycemia, HHS, DKA, insulin pump malfunction Patient is type I diabetic with an insulin pump presenting with hyperglycemia that started this morning with nausea and generalized weakness. He appears well and nontoxic with stable vital signs. I checked his insulin pump and it looks like it has been giving him insulin boluses throughout the day. It gave him 18 units around lunch and a few smaller boluses since then. The pump is reading his sugar is over 400 and serum glucose is 800. Sodium is 129, potassium high at 6.5, CO2 17, anion gap 15. There are small ketones. This is consistent with early DKA. He has chronic kidney disease and is minimally higher than baseline at BUN 45, creatinine 2.05 (previously 1.78). Urinalysis negative. He was given IV fluids and started on an insulin drip as well as hyperkalemia protocol. EKG shows normal sinus rhythm at 100 bpm with LBBB and appears unchanged from EKG on 02/24/2024. Patient complained of brief minutes long aching chest pressure so repeat EKG was obtained at 1819 which again is sinus tachycardia with at 102 bpm with no changes. Troponin is pending. Case was discussed with Dr. Rosales for admission to the ICU. 30 minutes of critical care time was consumed by evaluation and treatment of the patient and discussion with consultants. I have personally performed a face to face assessment of the patient and have reviewed the KOLE Note. I performed a substantive portion of the visit including all aspects of the following. My navarro findings include: History is 79-year-old diabetic male with a insulin pump with elevated blood sugars today. Said he just does not feel well. Denies vomiting or fever but he is nauseated. Denies any dysuria. No cough or chest pain. No abdominal pain. Said normally get his blood sugars back down relatively quickly has been unable to today. He has been in DKA before but not for years. Exam is [71-year-old male vital signs stable afebrile. H EENT exam dry mucous membranes otherwise unremarkable. Pupils round react to light. No facial droop. Normal speech. Neck nontender no lymphadenopathy. Lungs clear to auscultation bilaterally. Heart regular rate and rhythm rate about 100 4/6 systolic ejection murmur. Abdomen soft, nontender, nondistended normal bowel sounds without peritoneal signs. Patient moving all 4 extremities. Calves are nontender without edema. He has a wound on his right lower leg. There is no cellulitis. Is not specifically tender. He has had that been taking care of that at home. Neurologically is awake and alert with no focal motor deficits.] Medical Decision Making [79-year-old diabetic with a blood sugar greater than 600. IV fluids. Screening labs.] Other additions or changes: [None] Lab Data Attestation: I reviewed the patient's lab results. Labs: Laboratory Results - last 24 hr 04/27/24 04/27/24 04/27/24 16:39 16:40 17:25 WBC 5.9 RBC 3.99 L Hgb 11.8 L Hct 38.4 L MCV 96.2 H MCH 29.6 MCHC 30.7 L RDW Std Deviation 55.0 H RDW Coeff of Digna 15.5 H Plt Count 217 MPV 9.5 Immature Gran % (Auto) 0.300 Neut % (Auto) 82.1 H Lymph % (Auto) 8.5 L [place] % (Auto) 8.1 Eos % (Auto) 0.5 Baso % (Auto) 0.5 Absolute Neuts (auto) 4.8 Absolute Lymphs (auto) 0.50 L Nucleated RBC % 0 Sodium 129 L Potassium 6.5 H* Chloride 97 L Carbon Dioxide 17.0 L Anion Gap 15 BUN 45 H Creatinine 2.05 H Estim Creat Clear Calc 36.78 Est GFR (MDRD) Af Amer 41 L Est GFR (MDRD) Non-Af 34 L BUN/Creatinine Ratio 22.0 H Glucose 800 H* Calcium 9.2 Urine Color Urine Clarity Urine pH Ur Specific [place] Urine Protein Urine Glucose (UA) Urine Ketones Urine Occult Blood Urine Nitrite Urine Bilirubin Urine Urobilinogen Ur Leukocyte Esterase Urine RBC Urine WBC Ur Squamous Epith Cells Urine Bacteria Urine Mucus Acetone Level SMALL H POC Glucose > 500 H* 04/27/24 17:53 WBC RBC Hgb Hct MCV MCH MCHC RDW Std Deviation RDW Coeff of Digna Plt Count MPV Immature Gran % (Auto) Neut % (Auto) Lymph % (Auto) [place] % (Auto) Eos % (Auto) Baso % (Auto) Absolute Neuts (auto) Absolute Lymphs (auto) Nucleated RBC % Sodium Potassium Chloride Carbon Dioxide Anion Gap BUN Creatinine Estim Creat Clear Calc Est GFR (MDRD) Af Amer Est GFR (MDRD) Non-Af BUN/Creatinine Ratio Glucose Calcium Urine Color Yellow Urine Clarity Sl. Cloudy Urine pH 6.0 Ur Specific [place] 1.010 Urine Protein 15 H Urine Glucose (UA) 1000 H Urine Ketones 50 H Urine Occult Blood 10 H Urine Nitrite Negative Urine Bilirubin Negative Urine Urobilinogen Normal Ur Leukocyte Esterase Negative Urine RBC 0-5 SEEN Urine WBC 0 SEEN Ur Squamous Epith Cells 0-5 SEEN Urine Bacteria 0 SEEN Urine Mucus 0 SEEN Acetone Level POC Glucose Radiography Diagnostic Testing: Clinical Impression(s) from Imaging Studies Chest X-Ray 04/27/24 17:15 IMPRESSION: No radiographic evidence of acute cardiopulmonary disease. Electronically Signed: Con Molina DO at 17:31 EDT Reading Location ID and State: [address] [place] [address] Tel [phone], Service support , ED attending interpretation of 2 view chest x-ray shows normal heart size and no acute infiltrate. <Dr. Devon Moreno MD - Last Filed: 04/27/24 17:28> [facility] MDM Narrative Medical decision making narrative: I have personally performed a face to face assessment of the patient and have reviewed the KOLE Note. I performed a substantive portion of the visit including all aspects of the following. My navarro findings include: History is 79-year-old diabetic male with a insulin pump with elevated blood sugars today. Said he just does not feel well. Denies vomiting or fever but he is nauseated. Denies any dysuria. No cough or chest pain. No abdominal pain. Said normally get his blood sugars back down relatively quickly has been unable to today. He has been in DKA before but not for years. Exam is [71-year-old male vital signs stable afebrile. H EENT exam dry mucous membranes otherwise unremarkable. Pupils round react to light. No facial droop. Normal speech. Neck nontender no lymphadenopathy. Lungs clear to auscultation bilaterally. Heart regular rate and rhythm rate about 100 4/6 systolic ejection murmur. Abdomen soft, nontender, nondistended normal bowel sounds without peritoneal signs. Patient moving all 4 extremities. Calves are nontender without edema. He has a wound on his right lower leg. There is no cellulitis. Is not specifically tender. He has had that been taking care of that at home. Neurologically is awake and alert with no focal motor deficits.] Medical Decision Making [79-year-old diabetic with a blood sugar greater than 600. IV fluids. Screening labs.] Other additions or changes: [None] Lab Data Labs: Laboratory Results - last 24 hr 04/27/24 04/27/24 04/27/24 16:39 16:40 17:25 WBC 5.9 RBC 3.99 L Hgb 11.8 L Hct 38.4 L MCV 96.2 H MCH 29.6 MCHC 30.7 L RDW Std Deviation 55.0 H RDW Coeff of Digna 15.5 H Plt Count 217 MPV 9.5 Immature Gran % (Auto) 0.300 Neut % (Auto) 82.1 H Lymph % (Auto) 8.5 L [place] % (Auto) 8.1 Eos % (Auto) 0.5 Baso % (Auto) 0.5 Absolute Neuts (auto) 4.8 Absolute Lymphs (auto) 0.50 L Nucleated RBC % 0 Sodium 129 L Potassium 6.5 H* Chloride 97 L Carbon Dioxide 17.0 L Anion Gap 15 BUN 45 H Creatinine 2.05 H Estim Creat Clear Calc 36.78 Est GFR (MDRD) Af Amer 41 L Est GFR (MDRD) Non-Af 34 L BUN/Creatinine Ratio 22.0 H Glucose 800 H* Calcium 9.2 Urine Color Urine Clarity Urine pH Ur Specific [place] Urine Protein Urine Glucose (UA) Urine Ketones Urine Occult Blood Urine Nitrite Urine Bilirubin Urine Urobilinogen Ur Leukocyte Esterase Urine RBC Urine WBC Ur Squamous Epith Cells Urine Bacteria Urine Mucus Acetone Level SMALL H POC Glucose > 500 H* 04/27/24 17:53 WBC RBC Hgb Hct MCV MCH MCHC RDW Std Deviation RDW Coeff of Digna Plt Count MPV Immature Gran % (Auto) Neut % (Auto) Lymph % (Auto) [place] % (Auto) Eos % (Auto) Baso % (Auto) Absolute Neuts (auto) Absolute Lymphs (auto) Nucleated RBC % Sodium Potassium Chloride Carbon Dioxide Anion Gap BUN Creatinine Estim Creat Clear Calc Est GFR (MDRD) Af Amer Est GFR (MDRD) Non-Af BUN/Creatinine Ratio Glucose Calcium Urine Color Yellow Urine Clarity Sl. Cloudy Urine pH 6.0 Ur Specific [place] 1.010 Urine Protein 15 H Urine Glucose (UA) 1000 H Urine Ketones 50 H Urine Occult Blood 10 H Urine Nitrite Negative Urine Bilirubin Negative Urine Urobilinogen Normal Ur Leukocyte Esterase Negative Urine RBC 0-5 SEEN Urine WBC 0 SEEN Ur Squamous Epith Cells 0-5 SEEN Urine Bacteria 0 SEEN Urine Mucus 0 SEEN Acetone Level POC Glucose Radiography Diagnostic Testing: Clinical Impression(s) from Imaging Studies Chest X-Ray 04/27/24 17:15 IMPRESSION: No radiographic evidence of acute cardiopulmonary disease. Electronically Signed: Con Molina DO at 17:31 EDT Reading Location ID and State: [facility] / [place] Tel [phone], Service support , <Dr. Devon Moreno MD - Last Filed: 04/27/24 17:28> Critical Care Time Critical Care Time: Yes Critical care time (excluding procedures): 30-74 minutes, Including time spent:, Discussing w/Patient &/or Family/Childcare Center Administrator, Discussing w/Consultants, Arranging Admission or Transfer, Performing Direct Patient Care at Bedside and - (40 min) Discharge Plan Triage Chief Complaint: Weakness ED Midlevel Provider: Edna Nelson ED Provider: Devon Moreno Dx/Rx/DC Orders Clinical Impression: DKA (diabetic ketoacidosis), Acute hyperkalemia, Complication of insulin pump Prescriptions: No Action Glucagon (HCl) Emergency Kit 1 mg recon soln 1 mg SC Q20M PRN (Reason: blood sugar) Rx Instructions: until target blood sugar attained insulin lispro [Humalog U-100 Insulin] 100 unit/mL solution See Rx Instructions SC DAILY Rx Instructions: via pump subcut daily; acetaminophen 500 mg tablet 500 mg PO Q6H PRN (Reason: pain) Dupixent Syringe 100 mg/0.67 mL syringe 200 mg subcut Q2W ezetimibe 10 mg tablet 10 mg PO DAILY pregabalin 100 mg capsule 100 mg PO BID terbinafine HCl 250 mg tablet 250 mg PO QDAY Eliquis 5 mg tablet 5 mg PO BID Qty: 60 2RF atorvastatin 80 MG tablet 80 mg PO QHS tamsulosin 0.4 MG capsule 0.4 mg PO DAILY aspirin 81 MG tablet 81 mg PO QHS finasteride 5 MG tablet 5 mg PO DAILY losartan 100 mg tablet 100 mg PO DAILY levothyroxine 50 mcg tablet 50 mcg PO DAILY Qty: 30 5RF cilostazol 50 mg tablet 50 mg PO BID Qty: 60 3RF [facility] [Primary Care Provider] - Print Language: Citizen Of [place]
[2024-04-27 16:57] LABS: Bedside Glucose > 500 mg/dL (74-106)
[2024-04-27 17:02] LABS: Absolute Neutrophil Count 4.8 X10^3/uL (2.0-7.7); Basophil# 0.03 X10^3/uL; Basophil% 0.5 % (0-1); Eosinophil# 0.03 X10^3/uL; Eosinophils% 0.5 % (0-5); Hematocrit 38.4 % (40-54); Hemoglobin 11.8 g/dL (13.0-16.5); Lymphocyte % 8.5 % (19-41); Mean Corp Hgb Conc 30.7 g/dL (32-36); Mean Corpuscular Hgb 29.6 pg (27.0-32.0); Mean Corpuscular Volume 96.2 fL (80-94); Mean Platelet Vol. 9.5 fl (6.2-12.0); Monocyte# 0.48 X10^3/uL; Monocyte% 8.1 % (0-10); NRBC Flagged by Analyzer 0 % (0-5); Neutrophil # 4.84 X10^3/uL (2.7-7.7); Neutrophil % 82.1 % (47-70); POSITIVE DIFFERENTIAL YES; Platelet Count 217 K/mm3 (150-450); RBC Distribution Width CV 15.5 % (11.6-14.6); Red Blood Count 3.99 M/mm3 (4.6-6.2); White Blood Count 5.9 K/mm3 (4.4-11.0)
[2024-04-27] MEDS: 0.9% Normal Saline (1000mL) 1,000 ML 999 ML IV ×3 (17:04→20:24)
[2024-04-27] MEDS: Ondansetron 4 MG/2 ML Vial IV (17:04)
--- NOTE | 2024-04-27 17:05 | EKG12_ITS ---
Test Reason : GENERAL Blood Pressure : / mmHG Vent. Rate : 100 BPM Atrial Rate : 100 BPM P-R Int : 192 ms QRS Dur : 146 ms QT Int : 410 ms P-R-T Axes : 111 -44 101 degrees QTc Int : 528 ms Normal sinus rhythm Left axis deviation Left bundle branch block Abnormal ECG Confirmed by Elio Ojeda [id number]), managing editor YASMIN BOURNE ([id number]) on 04/29/2024 8:00:19 AM Referred By: Confirmed By:Elio Ojeda
--- NOTE | 2024-04-27 17:15 | RAD_ITS ---
INDICATION: HYPERGLYCEMIA, DIZZINESS EXAMINATION/TECHNIQUE: X-RAY - XR Chest 2 Views COMPARISON: February 24, 2024 FINDINGS: LINES/DEVICES: None. LUNGS: No consolidation, edema or effusion. No pneumothorax. MEDIASTINUM AND CARDIOVASCULAR STRUCTURES: Cardiac silhouette not enlarged. Central airways and mediastinal contour are unremarkable. BONES AND SOFT TISSUES: Old left rib fractures. RAD/Chest PA and Lateral IMPRESSION: No radiographic evidence of acute cardiopulmonary disease. Electronically Signed: Con Molina DO at 17:31 EDT ,
[2024-04-27 17:27] LABS: Anion Gap 15 (5-15); BUN 45 mg/dL (7-18); Calcium,Total 9.2 mg/dL (8.5-10.1); Chloride 97 mmol/L (98-107); Creatinine, Serum 2.05 mg/dL (0.70-1.30); EST Glomerular Filtration Rate 34 mL/min (>60); Est Glom Filt Rate - Afr Amer 41 mL/min (>60); Estimated Creatinine Clearance 36.78 ml/min; Glucose 800 mg/dL (74-106); Potassium 6.5 mmol/L (3.5-5.1); Sodium Level 129 mmol/L (136-145)
[2024-04-27] MEDS: Albuterol 2.5 MG/3 ML VIAL.NEB. INHALATION (17:32)
[2024-04-27] MEDS: Calcium Gluconate 1 GM/10 ML Vial IVP (17:51)
[2024-04-27] MEDS: Insulin Lispro 100 UNIT in 0.9% Normal Saline (100mL Bag) 99 ML 10.3 UNIT CONT INF (17:52)
[2024-04-27 18:00] LABS: Bacteria 0 SEEN /hpf (None Seen); Mucous, Urine 0 SEEN /hpf (<or=2+); White Blood Cells 0 SEEN /hpf (0-5)
[2024-04-27 18:03] LABS: Color, Urine Yellow (Yellow); Glucose, Dipstick 1000 mg/dl (Normal); Ketone-Dipstick 50 mg/dl (Negative); Leukocyte Esterase-Dipstick Negative /ul (Negative); Nitrite-Dipstick Negative (Negative); Occult Blood-Urine 10 /ul (Negative); Protein-Dipstick 15 mg/dl (Negative); Urine Bilirubin Dipstick Negative (Negative); Urine Clarity Sl. Cloudy (Clear); Urine Urobilinogen Normal (Normal)
[2024-04-27 18:10] LABS: Red Blood Cells-Urine 0-5 SEEN /hpf (0-5); Squamous Epithelial Cells - UA 0-5 SEEN /hpf (0-5)
[2024-04-27 18:54] LABS: Troponin-I HS 34 pg/mL (3.0-78.0)
--- NOTE | 2024-04-27 19:01 | EKG12_ITS ---
Test Reason : REPEAT Blood Pressure : / mmHG Vent. Rate : 102 BPM Atrial Rate : 102 BPM P-R Int : 192 ms QRS Dur : 148 ms QT Int : 410 ms P-R-T Axes : 000 -53 089 degrees QTc Int : 534 ms Sinus tachycardia Left axis deviation Left bundle branch block Abnormal ECG Confirmed by Elio Ojeda ([id number]), makeup editor YASMIN BOURNE ([id number]) on 04/29/2024 8:00:31 AM Referred By: Confirmed By:Elio Ojeda
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
[2024-04-27 19:09] LABS: Bedside Glucose > 500 mg/dL (74-106)
[2024-04-27 19:32] LABS: Glucose 728 mg/dL (74-106)
[2024-04-27 20:43] LABS: Hemoglobin A1c 7.3 % (3.8-5.6)
[2024-04-27] MEDS: Atorvastatin Calcium 80 MG Tablet PO (21:04)
[2024-04-27] MEDS: APIXABAN 5 MG TABLET PO (21:04)
[2024-04-27] MEDS: Aspirin E.C. 81 MG Tablet PO (21:06)
[2024-04-27] MEDS: Pregabalin 50 MG Capsule 100 MG PO (21:06)
[2024-04-27] MEDS: 0.9% Normal Saline (1000mL) 1,000 ML 500 ML IV (21:21)
[2024-04-27 21:59] LABS: Procalcitonin 0.87 ng/mL (0.00-0.09)
[2024-04-27] MEDS: 0.9% Saline Lock 10 ML Syringe IV ×2 (22:03→23:14)
[2024-04-27] MEDS: Ampicillin/Sulbactam 3 GM in 0.9% Normal Saline (100mL MB+) 100 ML IV (23:14)
[2024-04-27] MEDS: 0.9% Normal Saline (1000mL) 1,000 ML 250 ML IV (23:28)
[2024-04-27 23:40] LABS: Anion Gap 7 (5-15); BUN 41 mg/dL (7-18); BUN/Creat Ratio 22.5 RATIO (10-20); Calcium,Total 8.3 mg/dL (8.5-10.1); Chloride 108 mmol/L (98-107); Creatinine, Serum 1.82 mg/dL (0.70-1.30); EST Glomerular Filtration Rate 39 mL/min (>60); Est Glom Filt Rate - Afr Amer 47 mL/min (>60); Estimated Creatinine Clearance 40.26 ml/min; Glucose 446 mg/dL (74-106); Potassium 4.5 mmol/L (3.5-5.1); Sodium Level 137 mmol/L (136-145)
--- NOTE | 2024-04-27 23:41 | CPS ---
Patient says he wears CPAP at home but does not think he needs it tonight. No machine is in the room at this time. Nursing notified.
[2024-04-28] VITALS (17 sets, daily range): BP systolic 117–155; BP diastolic 54–95; PULSE 64–85; RESP 12–24; TEMP 35.8–36.7; O2SAT 92–100; BMI 31.4
[2024-04-28 00:15] LABS: Bedside Glucose 481 mg/dL (74-106)
[2024-04-28 00:15] LABS: Bedside Glucose 437 mg/dL (74-106)
[2024-04-28 00:15] LABS: Bedside Glucose > 500 mg/dL (74-106)
[2024-04-28 00:15] LABS: Bedside Glucose 384 mg/dL (74-106)
[2024-04-28 00:15] LABS: Bedside Glucose 391 mg/dL (74-106)
[2024-04-28] MEDS: 0.9% Normal Saline (1000mL) 1,000 ML 125 ML IV (03:11)
[2024-04-28] MEDS: 0.9% Saline Lock 10 ML Syringe IV ×3 (03:11→08:07)
[2024-04-28 03:21] LABS: Absolute Lymphocyte Count 0.31 X10^3/uL (0.83-4.51); Absolute Neutrophil Count 4.2 X10^3/uL (2.0-7.7); Basophil# 0.02 X10^3/uL; Basophil% 0.4 % (0-1); Eosinophil# 0.02 X10^3/uL; Eosinophils% 0.4 % (0-5); Hematocrit 31.4 % (40-54); Lymphocyte # 0.31 X10^3/ul (0.83-4.51); Mean Corp Hgb Conc 31.8 g/dL (32-36); Mean Corpuscular Hgb 30.1 pg (27.0-32.0); Mean Corpuscular Volume 94.6 fL (80-94); Mean Platelet Vol. 9.4 fl (6.2-12.0); Monocyte# 0.61 X10^3/uL; Monocyte% 11.9 % (0-10); NRBC Flagged by Analyzer 0 % (0-5); Neutrophil # 4.16 X10^3/uL (2.7-7.7); Neutrophil % 81.1 % (47-70); POSITIVE DIFFERENTIAL YES; Platelet Count 186 K/mm3 (150-450); RBC Distribution Width CV 15.8 % (11.6-14.6); RBC Distribution Width SD 55.2 fl (35.1-43.9); Red Blood Count 3.32 M/mm3 (4.6-6.2); White Blood Count 5.1 K/mm3 (4.4-11.0)
[2024-04-28 03:58] LABS: Anion Gap 6 (5-15); BUN 37 mg/dL (7-18); BUN/Creat Ratio 23.4 RATIO (10-20); Calcium,Total 8.4 mg/dL (8.5-10.1); Chloride 111 mmol/L (98-107); Creatinine, Serum 1.58 mg/dL (0.70-1.30); EST Glomerular Filtration Rate 45 mL/min (>60); Est Glom Filt Rate - Afr Amer 55 mL/min (>60); Estimated Creatinine Clearance 46.38 ml/min; Glucose 297 mg/dL (74-106); Magnesium 2.3 mg/dL (1.6-2.6); Potassium 4.7 mmol/L (3.5-5.1); Sodium Level 141 mmol/L (136-145); Thyroid Stim Hormone (TSH) 0.61 uIU/mL (0.358-3.74)
[2024-04-28 05:25] LABS: Bedside Glucose 253 mg/dL (74-106)
[2024-04-28 05:25] LABS: Bedside Glucose 263 mg/dL (74-106)
[2024-04-28 05:25] LABS: Bedside Glucose 230 mg/dL (74-106)
[2024-04-28 05:25] LABS: Bedside Glucose 322 mg/dL (74-106)
[2024-04-28 05:25] LABS: Bedside Glucose 328 mg/dL (74-106)
[2024-04-28] MEDS: Ampicillin/Sulbactam 3 GM in 0.9% Normal Saline (100mL MB+) 100 ML IV ×4 (05:45→23:33)
[2024-04-28] MEDS: Levothyroxine 50 MCG Tablet PO (05:46)
[2024-04-28] MEDS: Dext 5%-0.45% NS 1,000 ML 150 ML IV (05:46)
[2024-04-28 06:22] LABS: Bedside Glucose 217 mg/dL (74-106)
[2024-04-28 07:22] LABS: Bedside Glucose 202 mg/dL (74-106)
[2024-04-28] MEDS: Insulin Glargine-YFGN 100 UNIT/ML Pen 20 UNIT SC (08:00)
[2024-04-28] MEDS: Insulin Lispro 100 UNIT/ML INSULN.PEN 7 UNIT SC ×2 (08:00→16:29)
[2024-04-28] MEDS: Insulin Lispro 100 UNIT/ML INSULN.PEN SC ×2 (08:00→16:29)
[2024-04-28] MEDS: Pregabalin 50 MG Capsule 100 MG PO ×2 (08:05→21:43)
[2024-04-28] MEDS: Finasteride 5 MG Tablet PO (08:06)
[2024-04-28] MEDS: APIXABAN 5 MG TABLET PO ×2 (08:06→21:43)
[2024-04-28] MEDS: Tamsulosin HCl 0.4 MG Capsule PO (08:06)
[2024-04-28] MEDS: Ezetimibe 10 MG Tablet PO (08:06)
--- NOTE | 2024-04-28 09:52 | CASEMGMT ---
TOMEKA LIVE Assessment Face to Face with patient for initial transition planning/care coordination assessment. TOMEKA LIVE introduced self and role at [facility], pt voices understanding. Pt is A&Ox4 and is resting comfortably in the chair and is calm. Care providers, pharmacy, and demographics verified. Admitting dx: Weakness, Hyperkalemia LACE Strata: 3 PCP: Dr. Mosquera ([place]) Specialists: (Endo), Alexsander ROSE (Derm) Preferred Pharmacy: [facility] [place] [place], [facility] Prescription Benefit: Yes LNOK: Barbi Hall (Daughter) Living Arrangements: Pt lives alone in a two story home with a FFSU and 2 steps to enter ADLs/IADLs: [place] Transportation: Pt does not drive. Pt daughter, XW, and friend drive him. Pt has used the [facility] Transportation van in the past DME: Working [employer] and enough supplies as well as an insulin pump. CPAP with no additional oxygen. Shower chair. Grab bars. Cane, FWW. HHC/SNF: Denies SNF history or needs. Pt states that a nurse from the [place] comes to his home once every 3 weeks. Pt has been to for OP Tx before. Pt?s goal: Home Plan: Pt states that he wishes to return home once he is medically ready. Pt denies SNF needs. Pt denies OP therapy needs at this time. Pt states that he would like to continue his HHC through the [place] after [place] and states feeling safe with this plan. CM to follow to ensure a safe DC from [facility]. Placido Guzman RN, CM
--- NOTE | 2024-04-28 10:23 | PN.HOSP_ITS ---
Reason for Visit Reason for Visit: Diagnoses Type 1 diabetes mellitus without complications (04/27/24) Type 2 diabetes mellitus with ketoacidosis without coma (04/27/24) Hyperkalemia (04/27/24) Essential (primary) hypertension (04/27/24) Atherosclerotic heart disease of [place] coronary artery without angina pectoris (04/27/24) Single subsegmental pulmonary embolism without acute cor pulmonale (04/27/24) Peripheral vascular disease, unspecified (04/27/24) Chronic kidney disease, unspecified (04/27/24) Presence of cardiac pacemaker (04/27/24) Subjective Subjective Patient feeling stronger today, also feels like his leg is less painful and is feeling better Objective Data Objective Data Vital Signs: Vital Signs Temp Pulse Resp BP Pulse Ox O2 Del Method O2 Flow Rate 97.1 F L 71 12 146/65 H 97 Room Air 2 04/28/24 04:00 04/28/24 07:00 04/28/24 07:00 04/28/24 07:00 04/28/24 07:00 04/28/24 07:00 04/28/24 06:00 Oxygen Flow Rate (L/min) 2 Oxygen Delivery Method Room Air Weight: 101.9 kg Body Mass Index (BMI) 31.4 Intake & Output: Intake and Output for Last 24 Hours 04/26/24 04/27/24 04/28/24 23:59 23:59 23:59 Intake Total 4033.51 / 4037.61 1563.53 / 1563.53 Output Total 700 / 700 775 / 775 Balance 3333.51 / 3337.61 788.53 / 788.53 Lab / Micro Data 04/28/24 03:06 04/28/24 03:06 Labs: Laboratory Results - last 24 hr 04/27/24 16:39: POC Glucose > 500 H* 04/27/24 16:40: WBC 5.9, RBC 3.99 L, Hgb 11.8 L, Hct 38.4 L, MCV 96.2 H, MCH 29.6, MCHC 30.7 L, RDW Std Deviation 55.0 H, RDW Coeff of Digna 15.5 H, Plt Count 217, MPV 9.5, Immature Gran % (Auto) 0.300, Neut % (Auto) 82.1 H, Lymph % (Auto) 8.5 L, [place] % (Auto) 8.1, Eos % (Auto) 0.5, Baso % (Auto) 0.5, Absolute Neuts (auto) 4.8, Absolute Lymphs (auto) 0.50 L, Nucleated RBC % 0, Sodium 129 L, P otassium 6.5 H*, Chloride 97 L, Carbon Dioxide 17.0 L, Anion Gap 15, BUN 45 H, C reatinine 2.05 H, Estim Creat Clear Calc 36.78, Est GFR (MDRD) Af Amer 41 L, Est GFR (MDRD) Non-Af 34 L, BUN/Creatinine Ratio 22.0 H, Glucose 800 H*, Hemoglobin A1c 7.3 H, Calcium 9.2 04/27/24 17:25: Procalcitonin 0.87 H, Acetone Level SMALL H 04/27/24 17:53: Urine Color Yellow, Urine Clarity Sl. Cloudy, Urine pH 6.0, Ur Specific [place] 1.010, Urine Protein 15 H, Urine Glucose (UA) 1000 H, Urine Ketones 50 H, Urine Occult Blood 10 H, Urine Nitrite Negative, Urine Bilirubin Negative, Urine Urobilinogen Normal, Ur Leukocyte Esterase Negative, Urine RBC 0-5 SEEN, Urine WBC 0 SEEN, Ur Squamous Epith Cells 0-5 SEEN, Urine Bacteria 0 SEEN, Urine Mucus 0 SEEN 04/27/24 18:26: Troponin I High Sens 34 04/27/24 18:50: POC Glucose > 500 H* 04/27/24 18:54: Glucose 728 H* 04/27/24 20:07: POC Glucose > 500 H* 04/27/24 21:08: POC Glucose 481 H* 04/27/24 21:59: POC Glucose 437 H 04/27/24 23:03: Sodium 137, Potassium 4.5, Chloride 108 H, Carbon Dioxide 22.0, Anion Gap 7, BUN 41 H, Creatinine 1.82 H, Estim Creat Clear Calc 40.26, Est GFR (MDRD) Af Amer 47 L, Est GFR (MDRD) Non-Af 39 L, BUN/Creatinine Ratio 22.5 H, G lucose 446 H, Calcium 8.3 L 04/27/24 23:05: POC Glucose 391 H 04/27/24 23:56: POC Glucose 384 H 04/28/24 00:58: POC Glucose 328 H 04/28/24 02:02: POC Glucose 322 H 04/28/24 03:04: POC Glucose 263 H 04/28/24 03:06: WBC 5.1, RBC 3.32 L, Hgb 10.0 L, Hct 31.4 L, MCV 94.6 H, MCH 30.1, MCHC 31.8 L, RDW Std Deviation 55.2 H, RDW Coeff of Digna 15.8 H, Plt Count 186, MPV 9.4, Immature Gran % (Auto) 0.200, Neut % (Auto) 81.1 H, Lymph % (Auto) 6.0 L, [place] % (Auto) 11.9 H, Eos % (Auto) 0.4, Baso % (Auto) 0.4, Absolute Neuts (auto) 4.2, Absolute Lymphs (auto) 0.31 L, Nucleated RBC % 0, Sodium 141, Potassium 4.7, Chloride 111 H, Carbon Dioxide 24.0, Anion Gap 6, BUN 37 H, C reatinine 1.58 H, Estim Creat Clear Calc 46.38, Est GFR (MDRD) Af Amer 55 L, Est GFR (MDRD) Non-Af 45 L, BUN/Creatinine Ratio 23.4 H, Glucose 297 H, Calcium 8.4 L, Magnesium 2.3, TSH 0.61 04/28/24 04:02: POC Glucose 253 H 04/28/24 04:59: POC Glucose 230 H 04/28/24 05:00: Acetone Level NEGATIVE 04/28/24 05:59: POC Glucose 217 H 04/28/24 07:04: POC Glucose 202 H Radiography Diagnostic Testing: Radiology Impression Chest X-Ray 04/27/24 17:15 IMPRESSION: No radiographic evidence of acute cardiopulmonary disease. Electronically Signed: Con Molina DO at 17:31 EDT Reading Location ID and State: [facility] / [place] Tel [phone], Service support , Physical Exam Narrative General: Alert, oriented, no apparent distress HEENT: Atraumatic, normocephalic Eyes: Anicteric, normal conjunctiva, extraocular movements grossly intact Neck: Supple Respiratory: Clear to auscultation bilaterally, normal respiratory effort Cardiovascular: Regular rate and rhythm GI: Soft, nontender, nondistended Extremities: No edema Musculoskeletal: Moving all extremities Neuro: No overt focal neurological deficits Skin: Erythema surrounding right yadav lesion improving Psych: Cooperative Assessment & Plan Assessment/Plan (1) DKA (diabetic ketoacidosis): (2) Essential (primary) hypertension: (3) History of permanent cardiac pacemaker placement: (4) PAD (peripheral artery disease): (5) Pulmonary embolus: QUALIFIERS: Pulmonary embolism type: single subsegmental (without acute cor pulmonale) Qualified Code(s): I26.93 - Single subsegmental pulmonary embolism without acute cor pulmonale (6) Type 1 diabetes mellitus without complications: (7) Chronic kidney disease: (8) Atherosclerotic heart disease of [place] coronary artery without angina pectoris: QUALIFIERS: [place] vs. transplanted heart: [place] heart Qualified Code(s): I25.10 - Atherosclerotic heart disease of [place] coronary artery without angina pectoris (9) Acute hyperkalemia: PLAN: Plan #DKA in setting of chronic type 1 diabetes?DKA resolved -Serum glucose in ED 800, anion gap 15 with a bicarb of 17 -Urine ketones 50 -Serum acetone positive, small -Admit to intensive care unit -N.p.o. -Insulin drip started -Aggressive fluid hydration -Glucose checks and DKA protocol -BMP every 4H -Replace electrolytes per protocol -I's and O's -A1c in the a.m. -When serum glucose is <250 mg/dl, change IV fluids to D5%1/2NS at 150 ml/hr and continue insulin drip as per nomogram -Follows with Dr. Vital on outpatient basis -Does have erythema surrounding wound on right yadav, query if component of infection leading to unstable blood glucose versus pump failure -04/28: Gap closed, serum acetone negative, patient's been transition to basal and Premeal as well as carb consistent calorie controlled diet, suspect infection may have been the reason for his high blood glucose # Right lower extremity wound with concerns for cellulitis -Injured in [place] -Will check Pro-Edwardo blood cultures -Will start on antibiotic pending cultures, suspect beginning of infxn may be cause of uncontrolled blood glucose -04/28: Patient improving and blood sugars improving, suspect this may have been the culprit, blood cultures were not obtained yesterday but Pro-Edwardo was elevated and patient improving on antibiotics, if continues to improve will transition to oral antibiotics on discharge, likely tomorrow if patient doing better # Brief episode of chest aching in ED/hx CAD/hx PPM -EKG was stable from earlier -Troponin ordered in ED and was 34 -Hx stent in 2022 and CAD, symptoms atypical and have resolved -Continue aspirin -04/28: Resolved and has not returned # Hyperkalemia -Potassium 6.5 -Potassium lowering cocktail in ED -No EKG changes different from previous -Recheck -04/28: Resolved # CKD stage III b -Is slightly higher than baseline however does not meet criteria for RAHUL, aggressively hydrating, trend BMP -Avoid nephrotoxic agents -Daily BMPs -04/28: Continues to improve # History of PE -Continue Eliquis -04/28: Continue on Eliquis, respiratory status stable #Hypertension -Holding losartan given bump in creatinine, restart/adjust as tolerated -04/28: Can likely restart tomorrow if patient continues to improve #Chronic BPH with obstruction -Continue home medications -04/28: Denies any problems with urination #Hypothyroidism -Continue Synthroid #SANJANA -Continue home NIPPV #DVT ppx: PE Shayna Rosales MD Time spent in the patient's overall evaluation,decision-making process, review of diagnostic data, adjustment of management, discussion with other providers, nursing nursing and ancillary staff involved in patient's care documentation, 37 minutes Charges/Coding Visit Charges Inpatient E&M: 03187 Subs Hosp L2
[2024-04-28 11:51] LABS: Bedside Glucose 140 mg/dL (74-106)
--- NOTE | 2024-04-28 13:46 | NURSING ---
04/28/24@1310- report called to TOMEKA Antony on PCU. Family informed of tx.
[2024-04-28 16:53] LABS: Bedside Glucose 211 mg/dL (74-106)
[2024-04-28] MEDS: Aspirin E.C. 81 MG Tablet PO (21:43)
[2024-04-28] MEDS: Atorvastatin Calcium 80 MG Tablet PO (21:43)
[2024-04-29] MEDS: Insulin Lispro 100 UNIT/ML INSULN.PEN SC ×2 (01:00→08:11)
[2024-04-29 03:00] VITALS: BP 160/85; PULSE 68; RESP 18; TEMP 36.6; O2SAT 99
[2024-04-29] MEDS: Ampicillin/Sulbactam 3 GM in 0.9% Normal Saline (100mL MB+) 100 ML IV ×2 (06:23→11:27)
[2024-04-29 07:11] LABS: Bedside Glucose 227 mg/dL (74-106)
[2024-04-29 07:45] LABS: Anion Gap 1 (5-15); BUN 22 mg/dL (7-18); BUN/Creat Ratio 16.7 RATIO (10-20); Calcium,Total 8.6 mg/dL (8.5-10.1); Chloride 109 mmol/L (98-107); Creatinine, Serum 1.32 mg/dL (0.70-1.30); EST Glomerular Filtration Rate 56 mL/min (>60); Est Glom Filt Rate - Afr Amer 67 mL/min (>60); Estimated Creatinine Clearance 56.06 ml/min; Glucose 226 mg/dL (74-106); Potassium 4.2 mmol/L (3.5-5.1); Sodium Level 137 mmol/L (136-145)
[2024-04-29] MEDS: Insulin Lispro 100 UNIT/ML INSULN.PEN 7 UNIT SC (08:11)
[2024-04-29 08:30] LABS: Bedside Glucose 224 mg/dL (74-106)
[2024-04-29 09:14] VITALS: BP 146/63; PULSE 76; RESP 17; TEMP 36.5; O2SAT 98
[2024-04-29] MEDS: Ezetimibe 10 MG Tablet PO (09:20)
[2024-04-29] MEDS: APIXABAN 5 MG TABLET PO (09:20)
[2024-04-29] MEDS: Pregabalin 50 MG Capsule 100 MG PO (09:20)
[2024-04-29] MEDS: 0.9% Saline Lock 10 ML Syringe IV (09:21)
[2024-04-29] MEDS: Insulin Glargine-YFGN 100 UNIT/ML Pen 20 UNIT SC (09:22)
--- NOTE | 2024-04-29 10:13 | PCM.DC ---
Discharge Instructions Diet Discharge Diet: Carb Control Diet Activity Discharge Activity: - (Increase activity as tolerated) Follow Up Care Test Results: Test results from this visit will be discussed in further detail at your follow-up appointment, if applicable. Discharge Plan Admission Admit Date/Time: 04/27/24 19:04 Primary Reason for Your Visit: Weakness and DKA Attending Provider: Shayna Rosales Primary Care Provider: [facility] Instructions Patient Instructions: ED Abrasion, ED Fall Prevention Additional Instructions / Restrictions: DISCHARGE INSTRUCTIONS PLEASE READ *Please take this with you to your next doctors appointment* -You will be discharged on Keflex 500 mg 4 times daily for 7 days with first dose this evening, you will resume your other home medications -Please resume your insulin pump and glucose checks. Please call your tapping machine operator automatic to schedule a follow-up appointment and if any questions or concerns or if glucose is uncontrolled. If there are any concerning signs or symptoms, however, please present to the emergency department -Would recommend lab work (CBC and BMP) to check your blood counts and kidney function in 2 to 3 days through your primary care physician's office. Please call their office upon discharge to obtain order for lab work. -Please call your primary care provider's office upon discharge to schedule a hospital follow up within 1 week. -For any concerning signs or symptoms please call 911 or proceed to the nearest emergency department Discharge Orders/Prescriptions Prescriptions: New cephalexin 500 mg capsule 500 mg PO Q6H 7 Days Qty: 28 0RF Continued Glucagon (HCl) Emergency Kit 1 mg recon soln 1 mg SC Q20M PRN (Reason: blood sugar) Rx Instructions: until target blood sugar attained insulin lispro [Humalog U-100 Insulin] 100 unit/mL solution See Rx Instructions SC DAILY Rx Instructions: via pump subcut daily; acetaminophen 500 mg tablet 500 mg PO Q6H PRN (Reason: pain) Dupixent Syringe 100 mg/0.67 mL syringe 200 mg subcut Q2W ezetimibe 10 mg tablet 10 mg PO DAILY pregabalin 100 mg capsule 100 mg PO BID terbinafine HCl 250 mg tablet 250 mg PO QDAY Eliquis 5 mg tablet 5 mg PO BID Qty: 60 2RF atorvastatin 80 MG tablet 80 mg PO QHS tamsulosin 0.4 MG capsule 0.4 mg PO DAILY aspirin 81 MG tablet 81 mg PO QHS finasteride 5 MG tablet 5 mg PO DAILY losartan 100 mg tablet 100 mg PO DAILY levothyroxine 50 mcg tablet 50 mcg PO DAILY Qty: 30 5RF cilostazol 50 mg tablet 50 mg PO BID Qty: 60 3RF Referrals / Follow Up: Jake Vital MD [Med Staff - Courtesy Staff] - [facility] [Primary Care Provider] - Within 1 Week Disposition Disposition (needs filled in before D/C Order can be placed): Home, Self Care
--- NOTE | 2024-04-29 10:19 | DS.PCM_ITS ---
Providers Date of Admission: 04/27/24 Date of Discharge: 04/29/24 Primary Care Physician: [facility] Reason For Visit: weakness Diagnosis Discharge Diagnosis (1) DKA (diabetic ketoacidosis): Status: Acute Code(s): E11.10 - Type 2 diabetes mellitus with ketoacidosis without coma (2) Essential (primary) hypertension: Status: Chronic Code(s): I10 - Essential (primary) hypertension (3) History of permanent cardiac pacemaker placement: Status: Chronic Code(s): Z95.0 - Presence of cardiac pacemaker (4) PAD (peripheral artery disease): Status: Acute Code(s): I73.9 - Peripheral vascular disease, unspecified (5) Pulmonary embolus: Status: Acute Code(s): I26.99 - Other pulmonary embolism without acute cor pulmonale Qualifiers: Pulmonary embolism type: single subsegmental (without acute cor pulmonale) Qualified Code(s): I26.93 - Single subsegmental pulmonary embolism without acute cor pulmonale (6) Type 1 diabetes mellitus without complications: Status: Chronic Code(s): E10.9 - Type 1 diabetes mellitus without complications (7) Chronic kidney disease: Status: Chronic Code(s): N18.9 - Chronic kidney disease, unspecified (8) Atherosclerotic heart disease of [place] coronary artery without angina pectoris: Status: Chronic Code(s): I25.10 - Atherosclerotic heart disease of [place] coronary artery without angina pectoris Qualifiers: [place] vs. transplanted heart: [place] heart Qualified Code(s): I25.10 - Atherosclerotic heart disease of [place] coronary artery without angina pectoris (9) Acute hyperkalemia: Status: Acute Code(s): E87.5 - Hyperkalemia Plan #DKA in setting of chronic type 1 diabetes?DKA resolved # Right lower extremity wound with concerns for cellulitis #/hx CAD/hx PPM # Hyperkalemia-resolved # CKD stage III b # History of PE #Hypertension #Chronic BPH with obstruction #Hypothyroidism #SANJANA Medications at Discharge Home Medications aspirin 81 mg tablet,delayed release 81 mg PO QHS HEART HEALTH 09/20/18 atorvastatin 80 mg tablet 80 mg PO QHS CHOLESTEROL 09/20/18 tamsulosin 0.4 mg capsule 0.4 mg PO DAILY PROSTATE 09/20/18 glucagon HCl 1 mg solution for injection (Glucagon (HCl) Emergency Kit) 1 mg subcut Q20M PRN blood sugar 03/23/20 insulin lispro 100 unit/mL subcutaneous solution (Humalog U-100 Insulin) See Rx Instructions subcut DAILY DM 03/23/20 finasteride 5 mg tablet 5 mg PO DAILY prostate 03/28/20 acetaminophen 500 mg tablet 500 mg PO Q6H PRN pain 07/03/22 losartan 100 mg tablet 100 mg PO DAILY blood pressure 03/06/23 dupilumab 100 mg/0.67 mL subcutaneous syringe (Dupixent) 200 mg subcut Q2W 09/05/23 levothyroxine 50 mcg tablet 50 mcg PO DAILY #30 tabs 11/01/23 ezetimibe 10 mg tablet 10 mg PO DAILY 02/20/24 pregabalin 100 mg capsule 100 mg PO BID 02/20/24 cilostazol 50 mg tablet 50 mg PO BID #60 tabs 03/11/24 apixaban 5 mg tablet (Eliquis) 5 mg PO BID #60 tabs 04/03/24 terbinafine HCl 250 mg tablet 250 mg PO QDAY 04/03/24 cephalexin 500 mg capsule 500 mg PO Q6H 7 days #28 caps 04/29/24 Hospital Course Summary of Care Provided Minutes Spent on Discharge: 31 Hospital Course: CONSUELO NEVILLE, is a 79 M with history of CKD, type 1 diabetes, hypothyroidism, SANJANA, hypertension, BPH who presented to [facility] ED 04/27/2024 with generalized weakness and uncontrolled blood sugars. He uses an insulin pump and uses this regularly without difficulty however on the day prior to admission he began having difficulty controlling his blood glucose. In the ED he had a glucose of 800 with a bicarb of 17, gap of 15 and acetone in serum with positive urine ketones. Potassium was also 6.5. He was started on insulin drip, K lowering cocktail and admitted to the ICU. Patient was found to have yadav lesion with erythema surrounding it and there is concern that infection may have caused the uncontrolled blood sugars. He was started on Unasyn and did improve and was also able to be transitioned off of the insulin drip and was transferred to the floor. Patient improved overall and felt much better, no new or acute complaints on day of discharge. Discharge instructions as followed: -You will be discharged on Keflex 500 mg 4 times daily for 7 days with first dose this evening, you will resume your other home medications -Please resume your insulin pump and glucose checks. Please call your retail stock clerk to schedule a follow-up appointment and if any questions or concerns or if glucose is uncontrolled. If there are any concerning signs or symptoms, however, please present to the emergency department -Would recommend lab work (CBC and BMP) to check your blood counts and kidney function in 2 to 3 days through your primary care physician's office. Please call their office upon discharge to obtain order for lab work. -Please call your primary care provider's office upon discharge to schedule a hospital follow up within 1 week. -For any concerning signs or symptoms please call 911 or proceed to the nearest emergency department Physical Exam Narrative General: Alert, oriented, no apparent distress HEENT: Atraumatic, normocephalic Eyes: Anicteric, normal conjunctiva, extraocular movements grossly intact Neck: Supple Respiratory: Clear to auscultation bilaterally, normal respiratory effort Cardiovascular: Regular rate and rhythm GI: Soft, nontender, nondistended Extremities: No edema Musculoskeletal: Moving all extremities Neuro: No overt focal neurological deficits Skin: Erythema surrounding right yadav lesion improving, no warmth or drainage Psych: Cooperative Weight / BMI Weight Weight: 101.9 kg Body Mass Index (BMI) 31.4 ABG / Lab / Microbiology Data 04/28/24 03:06 04/29/24 06:48 Laboratory: Laboratory Results - last 24 hr 04/28/24 11:33: POC Glucose 140 H 04/28/24 16:27: POC Glucose 211 H 04/28/24 23:36: POC Glucose 227 H 04/29/24 06:48: Sodium 137, Potassium 4.2, Chloride 109 H, Carbon Dioxide 27.0, Anion Gap 1 L, BUN 22 H, Creatinine 1.32 H, Estim Creat Clear Calc 56.06, Est GFR (MDRD) Af Amer 67, Est GFR (MDRD) Non-Af 56 L, BUN/Creatinine Ratio 16.7, G lucose 226 H, Calcium 8.6 04/29/24 08:10: POC Glucose 224 H D/C Instructions Discharge Diet: Carb Control Diet Meaningful Use Info Meaningful Use Meaningful Use Diagnoses (Choose all that apply): None applicable Ischemic Stroke Statin Dosing Therapy Reference: STATIN DOSE THERAPY REFERENCE: * Patients > 75 years receive moderate or high dose statin therapy. * Patients 75 years or YOUNGER should receive HIGH intensity statin dose unless contraindicated. You will be required to document reason for non-treatment if statin daily dose does not meet guidelines. HIGH DOSE STATIN THERAPY DAILY Atorvastatin > than or = to 40 mg Rosuvastatin > than or = to 20 mg Amlodipine + Atorvastatin > than or = to 2.5/40 mg Ezetimibe + Simvastatin 10/80 mg Simvastatin 80mg Discharge Plan Admission Admit Date/Time: 04/27/24 19:04 Primary Reason for Your Visit: Weakness and DKA Attending Provider: Shayna Rosales Primary Care Provider: [facility] Instructions Patient Instructions: ED Abrasion, ED Fall Prevention Additional Instructions / Restrictions: DISCHARGE INSTRUCTIONS PLEASE READ *Please take this with you to your next doctors appointment* -You will be discharged on Keflex 500 mg 4 times daily for 7 days with first dose this evening, you will resume your other home medications -Please resume your insulin pump and glucose checks. Please call your retail stock clerk to schedule a follow-up appointment and if any questions or concerns or if glucose is uncontrolled. If there are any concerning signs or symptoms, however, please present to the emergency department -Would recommend lab work (CBC and BMP) to check your blood counts and kidney function in 2 to 3 days through your primary care physician's office. Please call their office upon discharge to obtain order for lab work. -Please call your primary care provider's office upon discharge to schedule a hospital follow up within 1 week. -For any concerning signs or symptoms please call 911 or proceed to the nearest emergency department Discharge Orders/Prescriptions Prescriptions: New cephalexin 500 mg capsule 500 mg PO Q6H 7 Days Qty: 28 0RF Continued Glucagon (HCl) Emergency Kit 1 mg recon soln 1 mg SC Q20M PRN (Reason: blood sugar) Rx Instructions: until target blood sugar attained insulin lispro [Humalog U-100 Insulin] 100 unit/mL solution See Rx Instructions SC DAILY Rx Instructions: via pump subcut daily; acetaminophen 500 mg tablet 500 mg PO Q6H PRN (Reason: pain) Dupixent Syringe 100 mg/0.67 mL syringe 200 mg subcut Q2W ezetimibe 10 mg tablet 10 mg PO DAILY pregabalin 100 mg capsule 100 mg PO BID terbinafine HCl 250 mg tablet 250 mg PO QDAY Eliquis 5 mg tablet 5 mg PO BID Qty: 60 2RF atorvastatin 80 MG tablet 80 mg PO QHS tamsulosin 0.4 MG capsule 0.4 mg PO DAILY aspirin 81 MG tablet 81 mg PO QHS finasteride 5 MG tablet 5 mg PO DAILY losartan 100 mg tablet 100 mg PO DAILY levothyroxine 50 mcg tablet 50 mcg PO DAILY Qty: 30 5RF cilostazol 50 mg tablet 50 mg PO BID Qty: 60 3RF Referrals / Follow Up: Jake Vital MD [Med Staff - Courtesy Staff] - [facility] [Primary Care Provider] - Within 1 Week Disposition Disposition (needs filled in before D/C Order can be placed): Home, Self Care Charges/Coding Visit Charges Inpatient E&M: 53186 Disch Hosp >30min
--- NOTE | 2024-04-29 10:43 | PHA.DC.MC.R ---
Pharmacy [facility] Pharm[facility] Service has performed discharge medication reconciliation and counseling for this patient. 1. CEPHALEXIN 500MG PO Q6H X 7 DAYS The patient's discharge medication list was reviewed for discrepancies and discrepancies were resolved. The patient was counseled on the following discharge medications and changes in medications for homegoing were reviewed. The Reason for Use, instructions for use, and potential side effects were reviewed for all new medications. The patient's questions regarding all of their medications were answered. The patient was able to verbally demonstrate an understanding of their discharge medications. Medications at Discharge Home Medications aspirin 81 mg tablet,delayed release 81 mg PO QHS HEART HEALTH 09/20/18 atorvastatin 80 mg tablet 80 mg PO QHS CHOLESTEROL 09/20/18 tamsulosin 0.4 mg capsule 0.4 mg PO DAILY PROSTATE 09/20/18 glucagon HCl 1 mg solution for injection (Glucagon (HCl) Emergency Kit) 1 mg subcut Q20M PRN blood sugar 03/23/20 insulin lispro 100 unit/mL subcutaneous solution (Humalog U-100 Insulin) See Rx Instructions subcut DAILY DM 03/23/20 finasteride 5 mg tablet 5 mg PO DAILY prostate 03/28/20 acetaminophen 500 mg tablet 500 mg PO Q6H PRN pain 07/03/22 losartan 100 mg tablet 100 mg PO DAILY blood pressure 03/06/23 dupilumab 100 mg/0.67 mL subcutaneous syringe (Dupixent) 200 mg subcut Q2W 09/05/23 levothyroxine 50 mcg tablet 50 mcg PO DAILY #30 tabs 11/01/23 ezetimibe 10 mg tablet 10 mg PO DAILY 02/20/24 pregabalin 100 mg capsule 100 mg PO BID 02/20/24 cilostazol 50 mg tablet 50 mg PO BID #60 tabs 03/11/24 apixaban 5 mg tablet (Eliquis) 5 mg PO BID #60 tabs 04/03/24 terbinafine HCl 250 mg tablet 250 mg PO QDAY 04/03/24 cephalexin 500 mg capsule 500 mg PO Q6H 7 days #28 caps 04/29/24
[2024-04-29] MEDS: Tamsulosin HCl 0.4 MG Capsule PO (10:48)
[2024-04-29] MEDS: Finasteride 5 MG Tablet PO (10:48)
--- NOTE | 2024-04-29 10:48 | CASEMGMT ---
Patient has order for discharge. RN CM in to discuss needs at discharge. Patient denies need for therapy at discharge, states he just walk the whole unit without walker with nursing and feels he is back to his baseline. Patient denies further questions or concerns.
[2024-04-29 11:47] LABS: Bedside Glucose 159 mg/dL (74-106)
[2024-04-29 12:28] VITALS: BP 165/67; PULSE 65; RESP 14; TEMP 36.7; O2SAT 98
[2024-04-29 12:56] LABS: Absolute Lymphocyte Count 0.32 X10^3/uL (0.83-4.51); Absolute Neutrophil Count 4.6 X10^3/uL (2.0-7.7); Basophil# 0.02 X10^3/uL; Basophil% 0.4 % (0-1); Eosinophil# 0.15 X10^3/uL; Eosinophils% 2.7 % (0-5); Hematocrit 34.5 % (40-54); Hemoglobin 10.9 g/dL (13.0-16.5); Lymphocyte # 0.32 X10^3/ul (0.83-4.51); Lymphocyte % 5.7 % (19-41); Mean Corp Hgb Conc 31.6 g/dL (32-36); Mean Corpuscular Hgb 30.2 pg (27.0-32.0); Mean Corpuscular Volume 95.6 fL (80-94); Mean Platelet Vol. 10.1 fl (6.2-12.0); Monocyte# 0.47 X10^3/uL; Monocyte% 8.4 % (0-10); NRBC Flagged by Analyzer 0 % (0-5); Neutrophil # 4.62 X10^3/uL (2.7-7.7); Neutrophil % 82.4 % (47-70); POSITIVE DIFFERENTIAL YES; Platelet Count 201 K/mm3 (150-450); RBC Distribution Width CV 16.2 % (11.6-14.6); Red Blood Count 3.61 M/mm3 (4.6-6.2); White Blood Count 5.6 K/mm3 (4.4-11.0)
== END 2024-04-29 12:51 | disposition home or self-care (01) | DRG 637 ==
LOC: ED 17:08 → ICU 19:43 → PCU 04-28 14:12
PROVIDERS: Internal Medicine; Physician Assistant; Admitting Provider Internal Medicine; Emergency Provider Emergency Medicine; Visit Provider Internal Medicine
DX: E10.10 Type 1 diabetes mellitus with ketoacidosis without coma (principal); I26.93 Single subsegmental thrombotic pulmonary embolism without acute cor pulmonale; N13.8 Other obstructive and reflux uropathy; L03.115 Cellulitis of right lower limb; E10.42 Type 1 diabetes mellitus with diabetic polyneuropathy; E10.51 Type 1 diabetes mellitus with diabetic peripheral angiopathy without gangrene; N18.32 Chronic kidney disease, stage 3b; E10.22 Type 1 diabetes mellitus with diabetic chronic kidney disease; I12.9 Hypertensive chronic kidney disease with stage 1 through stage 4 chronic kidney disease, or unspecified chronic kidney disease; E03.9 Hypothyroidism, unspecified; I73.9 Peripheral vascular disease, unspecified; G47.33 Obstructive sleep apnea (adult) (pediatric); E87.5 Hyperkalemia; E78.5 Hyperlipidemia, unspecified; I25.10 Atherosclerotic heart disease of native coronary artery without angina pectoris; I25.2 Old myocardial infarction; S81.801D Unspecified open wound, right lower leg, subsequent encounter; Z95.5 Presence of coronary angioplasty implant and graft; Z87.891 Personal history of nicotine dependence; Z96.41 Presence of insulin pump (external) (internal); Z79.01 Long term (current) use of anticoagulants; Z79.82 Long term (current) use of aspirin; Z82.3 Family history of stroke; N40.1 Benign prostatic hyperplasia with lower urinary tract symptoms; Z95.0 Presence of cardiac pacemaker
CPT/HCPCS: 36415; 71046; 80048; 81001; 82009; 82947; 82962; 83036; 83735; 84145; 84443; 84484; 85025; 87040; 93005; 94640; 94660; 97162; 97166; 99284; J7030; J7040; A4216; J0295; J0612; J2405; J7799

== ENCOUNTER → 2024-06-05 | Outpatient (CLI) | payer MEDICARE, SELFPAY ==
[2023-04-18 11:37] VITALS: BMI 30.4
--- NOTE | 2024-06-05 13:10 | ART_ITS ---
Reason For Study: Claudication Procedure A bilateral lower extremity continuous wave Doppler with analog waveform analysis,segmental pressures,and ankle brachial indexes without exercise. Left Segmental Pressures Left brachial= 131mmHg. Left posterior tibial artery = 158mmHg. Left dorsalis pedis artery = 184mmHg. Left digit = 120 mmHg. The left dorsalis pedis waveforms are triphasic. The left posterior tibial artery waveforms are triphasic. Right Segmental Pressures Right brachial= 128mmHg. Right thigh = 135mmHg. Right calf = 95mmHg. Right posterior tibial artery = 89mmHg. Right dorsalis pedis artery = 93mmHg. Right digit = 58 mmHg. The right dorsalis pedis waveforms are biphasic. The right posterior tibial artery waveforms are biphasic. Indices The right ankle brachial index by the dorsalis pedis is 0.71. The right ankle brachial index by the posterior tibial artery is 0.68. The right digital-brachial index is 0.44. The left ankle brachial index by the dorsalis pedis is 1.40. The left ankle brachial index by the posterior tibial artery is 1.21. The left digital-brachial index is 0.92. VL/Lower Ext Art Exam w/o Exercis Interpretation Summary Right [place] 0.71, moderate arterial insufficiency. Doppler/PVR waveforms and segm ental pressures reveal distal SFA/popliteal diserase. Left [place] 1.4, normal. TBI and Doppler/PVR waveforms of the left leg normal at r est. Ordering Physician: Luther Mack Referring Physician: [facility] Performed By: Taisha Soiltario RVT
== END | disposition home or self-care (01) ==
PROVIDERS: Referring Provider Surgery Trauma Surgery; Visit Provider Surgery Trauma Surgery
DX: I73.9 Peripheral vascular disease, unspecified (principal)
CPT/HCPCS: 93923

== ENCOUNTER → 2024-09-17 | Outpatient (CLI) | payer MEDICARE, SELFPAY ==
[2023-04-18 11:37] VITALS: BMI 30.4
[2024-09-17 14:39] LABS: Absolute Lymphocyte Count 0.58 X10^3/uL (0.83-4.51); Absolute Neutrophil Count 3.5 X10^3/uL (2.0-7.7); Basophil# 0.05 X10^3/uL; Eosinophil# 0.22 X10^3/uL; Eosinophils% 4.3 % (0-5); Hematocrit 37.2 % (40-54); Hemoglobin 11.9 g/dL (13.0-16.5); Lymphocyte # 0.58 X10^3/ul (0.83-4.51); Lymphocyte % 11.2 % (19-41); Mean Corpuscular Hgb 30.4 pg (27.0-32.0); Mean Corpuscular Volume 95.1 fL (80-94); Mean Platelet Vol. 9.4 fl (6.2-12.0); Monocyte# 0.76 X10^3/uL; Monocyte% 14.7 % (0-10); NRBC Flagged by Analyzer 0 % (0-5); Neutrophil # 3.53 X10^3/uL (2.7-7.7); Neutrophil % 68.4 % (47-70); POSITIVE DIFFERENTIAL YES; Platelet Count 254 K/mm3 (150-450); RBC Distribution Width CV 14.8 % (11.6-14.6); RBC Distribution Width SD 51.6 fl (35.1-43.9); Red Blood Count 3.91 M/mm3 (4.6-6.2); White Blood Count 5.2 K/mm3 (4.4-11.0)
[2024-09-17 15:00] LABS: Anion Gap 4 (5-15); BUN 30 mg/dL (7-18); BUN/Creat Ratio 21.3 RATIO (10-20); Calcium,Total 9.8 mg/dL (8.5-10.1); Chloride 111 mmol/L (98-107); Creatinine, Serum 1.41 mg/dL (0.70-1.30); EST Glomerular Filtration Rate 52 mL/min (>60); Est Glom Filt Rate - Afr Amer 62 mL/min (>60); Glucose 119 mg/dL (74-106); Potassium 4.5 mmol/L (3.5-5.1); Sodium Level 142 mmol/L (136-145)
== END | disposition home or self-care (01) ==
LOC: LAB 13:55
PROVIDERS: Referring Provider Nurse Practitioner Gerontology; Visit Provider Nurse Practitioner Gerontology
DX: R06.09 Other forms of dyspnea (principal)
CPT/HCPCS: 36415; 80048; 83880; 85025

== ENCOUNTER → 2024-10-14 | Outpatient (CLI) | payer MEDICARE, SELFPAY ==
[2023-04-18 11:37] VITALS: BMI 30.4
--- NOTE | 2024-10-14 07:23 | ECHOD_ITS ---
Reason For Study: Dyspnea/SOB Procedure This was a 2D Doppler, Color Flow transthoracic echocardiogram. Exam performed in department. Left Ventricle Normal LV size. The left ventricular ejection fraction is 45 %. Paced septal motion. Mild segmental systolic dysfunction (see wall motion). Infero-Basal: Hypokinetic. Mid-Inferior: Hypokinetic. The rest of the wall segments are normal. Right Ventricle Normal RV size. ICD or pacer leads identified within the right ventricle. Normal systolic function. Atria Normal left atrium. Normal right atrium. Tricuspid Valve Normal tricuspid valve. Aortic Valve Trisinus/trileaflet aortic valve. Mild focal aortic valve calcification. Pulmonic Valve Normal pulmonic valve. Great Vessels Calcified aortic root. The pulmonary artery is normal size. Inferior vena cava collapse with respiration. Pericardium/Pleural No pericardial effusion. MMode/2D Measurements & Calculations LVIDd: 5.6 cm IVSd: 1.2 cm Ao root diam: 3.1 cm LVIDs: 4.4 cm LVPWd: 0.89 cm RVDd: 3.7 cm FS: 20.7 % LAV(MOD-bp): 59.2 ml LVAd ap4: 35.3 cm2 SV(MOD-sp4): 40.9 ml LAV(MOD-bp) Indexed: 26.9 ml/m2 LVLd ap4: 9.1 cm SI(MOD-sp4): 18.6 ml/m2 LAV(MOD-sp2): 56.9 ml EDV(MOD-sp4): 112.1 ml LAV(MOD-sp4): 55.4 ml EDV(sp4-el): 116.6 ml LVAs ap4: 24.9 cm2 LVLs ap4: 7.4 cm ESV(MOD-sp4): 71.2 ml ESV(sp4-el): 70.7 ml EF(MOD-sp4): 36.5 % EF(sp4-el): 39.4 % SV(sp4-el): 46.0 ml LA dimension(2D): 4.3 cm LA A4 area: 18.0 cm2 RA A4 area: 17.5 cm2 TAPSE: 2.1 cm Time Measurements MV dec time: 0.29 sec Doppler Measurements & Calculations MV E max jerome: 60.0 cm/sec Lat Peak E' Jerome: 6.3 cm/sec Med Peak E' Jerome: 4.8 cm/sec MV A max jerome: 95.3 cm/sec E/E' lat: 9.5 E/E' med: 12.5 MV E/A: 0.63 MV V2 max: 108.1 cm/sec MV P1/2t max jerome: 59.2 cm/sec Ao V2 max: 154.6 cm/sec MV max P.7 mmHg MV P1/2t: 114.5 msec Ao max P.6 mmHg MV V2 mean: 47.6 cm/sec Ao V2 mean: 105.7 cm/sec MV mean P.1 mmHg MV dec slope: 151.4 cm/sec2 Ao mean P.1 mmHg MV V2 VTI: 32.4 cm MVA(P1/2t): 1.9 cm2 Ao V2 VTI: 33.5 cm AV (velocity ratio): 0.73 LV V1 max: 107.7 cm/sec PA V2 max: 125.7 cm/sec LV V1 max P.6 mmHg PA V2 mean: 76.9 cm/sec LV V1 mean P.6 mmHg LV V1 mean: 75.4 cm/sec LV V1 VTI: 24.4 cm ECHO/Echo Complete Interpretation Summary Normal LV size. The left ventricular ejection fraction is 45 %. Paced septal motion. Mild segmental systolic dysfunction (see wall motion). Ordering Physician: Gricel Etienne Referring Physician: Gricel Etienne Performed By: Hernandez Gillespie RCS
--- NOTE | 2024-10-14 15:32 | STRESSREP ---
Stress Test Report Pharmacologic myocardial perfusion stress test. 79-year-old man with a history of chest pain Resting EKG demonstrates sinus rhythm with a left bundle branch block with a rate of 62 bpm. Resting blood pressure is 150/78 mmHg. 0.4 mg of regadenoson was infused per usual protocol followed by rapid intravenous saline flush injection. Continuous EKG monitoring was performed. The maximum heart rate was 82 bpm which was 57% of max impacted heart rate the maximum workload was 1 metabolic equivalent. At rest there were no ST or T wave changes noted to suggest ischemia and at peak infusion nonspecific ST changes were noted which did not meet the criteria for ischemia. No clinical angina is noted. The final blood pressure was 140/60 mmHg. Myocardial perfusion protocol. 14.6 mCi of technetium 99m sestamibi was injected at rest. 0.4 mg of regadenoson was infused per usual protocol. At peak infusion 44.8 mCi of technetium 99m sestamibi was injected stress images were obtained stress and rest images were reconstructed and compared in the short axis vertical long and horizontal long axis. Gated images were also obtained. Perfusion SPECT analysis: Review of the stress images demonstrate normal uptake of tracer noted in all areas of the myocardium except for the basal inferoseptal wall with reduced perfusion in the mid anterior wall also with reduced perfusion. The resting images demonstrate a similar pattern. The above is not suggestive of ischemia but a previous infarct in this territory cannot be completely excluded. Gated SPECT analysis: The gated ejection fraction is 45%. Conclusion: Nonischemic pharmacologic myocardial perfusion stress test. Mildly reduced ejection fraction. Previous basal anteroseptal and mid anterior infarct cannot be excluded.
== END | disposition home or self-care (01) ==
LOC: CVS 07:21
PROVIDERS: Referring Provider Nurse Practitioner Gerontology; Visit Provider Nurse Practitioner Gerontology
DX: R06.09 Other forms of dyspnea (principal); R07.9 Chest pain, unspecified; I70.211 Atherosclerosis of native arteries of extremities with intermittent claudication, right leg
CPT/HCPCS: 78452; 93017; 93306; A9500; A4216; J2785

== ENCOUNTER → 2025-01-28 | Outpatient (CLI) | payer MEDICARE, SELFPAY ==
[2023-04-18 11:37] VITALS: BMI 30.4
[2025-01-28 14:08] LABS: Absolute Lymphocyte Count 0.54 X10^3/uL (0.83-4.51); Absolute Neutrophil Count 4.7 X10^3/uL (2.0-7.7); Basophil# 0.04 X10^3/uL; Basophil% 0.6 % (0-1); Eosinophil# 0.21 X10^3/uL; Eosinophils% 3.4 % (0-5); Hematocrit 37.4 % (40-54); Lymphocyte # 0.54 X10^3/ul (0.83-4.51); Lymphocyte % 8.7 % (19-41); Mean Corp Hgb Conc 32.1 g/dL (32-36); Mean Corpuscular Hgb 30.9 pg (27.0-32.0); Mean Corpuscular Volume 96.4 fL (80-94); Mean Platelet Vol. 9.5 fl (6.2-12.0); Monocyte# 0.71 X10^3/uL; Monocyte% 11.5 % (0-10); NRBC Flagged by Analyzer 0 % (0-5); Neutrophil # 4.67 X10^3/uL (2.7-7.7); Neutrophil % 75.5 % (47-70); POSITIVE DIFFERENTIAL YES; Platelet Count 209 K/mm3 (150-450); RBC Distribution Width SD 53.1 fl (35.1-43.9); Red Blood Count 3.88 M/mm3 (4.6-6.2); White Blood Count 6.2 K/mm3 (4.4-11.0)
[2025-01-28 14:36] LABS: AST(SGOT) 23 U/L (<=37); Alanine Aminotransfer ALT/SGPT 27 U/L (<=46); Albumin, Serum 3.9 g/dL (3.4-4.8); Alkaline Phosphatase 30 U/L (40-129); Bilirubin, Direct 0.23 mg/dL (0.00-0.30); Globulin 2.7 g/dL (2.2-4.2); Protein, Total 6.6 g/dL (5.9-8.4); Total Bilirubin 0.48 mg/dL (0.00-1.30)
[2025-01-30 14:08] LABS: QNTFERON TB Mitogen Value 3.29 IU/mL (.); QNTFERON TB Nil Value 0.04 IU/mL (.); QNTFERON TB1+ Ag Value 0.04 IU/mL (.); QNTFERON TB2+ Ag Value 0.04 IU/mL (.); QNTIFERON TB Positive Criteria Negative (Negative)
== END | disposition home or self-care (01) ==
PROVIDERS: Referring Provider Dermatology; Visit Provider Dermatology
DX: L40.0 Psoriasis vulgaris (principal); L21.8 Other seborrheic dermatitis; L20.89 Other atopic dermatitis; Z79.899 Other long term (current) drug therapy
CPT/HCPCS: 36415; 80076; 85025; 86480

== ENCOUNTER 2025-02-01 11:21 | Emergency (ER) | payer MEDICARE, SELFPAY ==
[2023-04-18 11:37] VITALS: BMI 30.4
[2025-02-01 11:22] VITALS: BP 123/64; PULSE 60; RESP 20; TEMP 36.3; O2SAT 100; BMI 32.8
--- NOTE | 2025-02-01 12:08 | EKG12_ITS ---
Test Reason : SYNCOPE Blood Pressure : */* mmHG Vent. Rate : 60 BPM Atrial Rate : 60 BPM P-R Int : 262 ms QRS Dur : 140 ms QT Int : 476 ms P-R-T Axes : * -59 246 degrees QTcB Int : 476 ms Atrial-paced rhythm with prolonged AV conduction Left axis deviation Left bundle branch block Abnormal ECG Confirmed by MARY MIRANDA, MARTELL ([id number]), manager editorial HUSSEIN FLANNERY ([id number]) on 02/03/2025 8:24:03 AM Referred By: RADHA/ILA Confirmed By: MARTELL HERNANDEZ MD
--- NOTE | 2025-02-01 12:13 | EX.ED.DYSGE1 ---
HPI <MADISON Holder - Last Filed: 02/01/25 16:02> History of Present Illness Chief Complaint: Syncope Narrative Narrative: Patient presenting today due to a presyncopal episode that occurred today at [facility]. He reports that he had been standing greeting people and sat back down, he was standing and began to feel pain in his upper back, he then felt lightheaded as if he could pass out. He reports that he has chronic upper back pain that comes and goes, this did not feel any different than normal. He reports that his back pain has resolved. He denies any associated fevers, chills, chest pain, or shortness of breath. No history of blood clots or recent surgery/travel/immobilization. He is currently asymptomatic. He suspects that his blood sugar may have dropped as he is a type I diabetic. He did eat a good breakfast this morning. He has a PMH of CAD, pacemaker placement, HTN, HLD, T1DM, and CKD. 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 Insulin pump titration Presence of insulin pump Diabetes Essential (primary) hypertension Syncope and collapse Secondary pulmonary arterial hypertension correction current use of insulin Atherosclerotic heart disease of [place] coronary artery without angina pectoris Sick sinus syndrome Hyperlipidemia Hyperlipidemia due to type 1 diabetes mellitus Diabetes mellitus type 1 with neurological manifestations Sebaceous cyst Left bundle branch block Syncopal episodes Acute coronary syndrome Seborrheic dermatitis BPH (benign prostatic hyperplasia) Home Medications ?Medication ?Instructions ?Recorded ?Last Taken ?Type aspirin 81 mg tablet,delayed 81 mg PO QHS HEART HEALTH 09/20/18 12/11/22 History release atorvastatin 80 mg tablet 80 mg PO QHS CHOLESTEROL 09/20/18 12/10/22 History tamsulosin 0.4 mg capsule 0.4 mg PO DAILY PROSTATE 09/20/18 12/11/22 History glucagon HCl 1 mg solution for 1 mg subcut Q20M PRN blood sugar 03/23/20 1 Year Ago History injection (Glucagon (HCl) ~12/11/21 Emergency Kit) insulin lispro 100 unit/mL See Rx Instructions subcut DAILY DM 03/23/20 12/11/22 History subcutaneous solution (Humalog U-100 Insulin) finasteride 5 mg tablet 5 mg PO DAILY prostate 03/28/20 12/11/22 History acetaminophen 500 mg tablet 500 mg PO Q6H PRN pain 07/03/22 12/11/22 History losartan 100 mg tablet 100 mg PO DAILY blood pressure 03/06/23 Unknown History dupilumab 100 mg/0.67 mL 200 mg subcut Q2W 09/05/23 Unknown History subcutaneous syringe (Dupixent) levothyroxine 50 mcg tablet 50 mcg PO DAILY #30 tabs 11/01/23 Unknown Rx ezetimibe 10 mg tablet 10 mg PO DAILY 02/20/24 Unknown History pregabalin 100 mg capsule 100 mg PO BID 02/20/24 Unknown History cilostazol 50 mg tablet 50 mg PO BID #60 tabs 03/11/24 Unknown Rx terbinafine HCl 250 mg tablet 250 mg PO QDAY 04/03/24 Unknown History apixaban 5 mg tablet (Eliquis) 5 mg PO BID 07/16/24 Unknown History Allergy/AdvReac Type Severity Reaction Status Date / Time No Known Allergies Allergy Verified 02/01/25 11:22 Family History Father Diabetes Arthritis Cancer CVA (cerebral vascular accident) Skin cancer Mother CAD (coronary artery disease) Arthritis Parkinsons disease Brother Diabetes Kidney disease Sister Hypothyroid Surgical History History of coronary artery stent placement (12/12/22) H/O hernia repair 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) History of appendectomy History of left heart catheterization (2010) Social History household members: none Smoking Status: Former smoker how long ago did patient quit smokin second hand exposure: No alcohol intake: current alcohol intake frequency: holidays/special occasions only substance use type: does not use caffeine: Yes Type: coffee Number of servings: 2 what type of physical activity do you participate in: other frequency: 1-2 times per week ROS <MADISON Holder - Last Filed: 02/01/25 16:02> ROS ED Constitutional Constitutional ED: Denies chills or fever(s) Cardiovascular Cardiovascular: Denies chest pain or palpitations Respiratory/Chest Respiratory/Chest: Denies cough or dyspnea Gastrointestinal Gastrointestinal: Denies abdominal pain, nausea or vomiting Musculoskeletal Musculoskeletal: Reports back pain Integumentary Denies rash Neurologic Neurologic: Denies paresthesias or weakness EXAM <MADISON Holder - Last Filed: 02/01/25 16:02> Physical Exam Const Vital Signs: 02/01/25 11:22 02/01/25 11:48 02/01/25 13:03 Temperature 97.3 F L Temperature Source Temporal Pulse Rate 60 60 Pulse Rate [Lying] Pulse Rate [Sitting (for 1 minute prior to obtaining)] Pulse Rate [Standing (for 1 minute prior to obtaining)] Respiratory Rate 20 H 14 Respiratory Effort Normal Non-Labored Respiratory Pattern Normal Blood Pressure 123/64 H 125/61 H Blood Pressure [Lying] Blood Pressure [Sitting (for 1 minute prior to obtaining)] Blood Pressure [Standing (for 1 minute prior to obtaining)] Blood Pressure Mean 83 82 Blood Pressure Mean [Lying] Blood Pressure Mean [Sitting (for 1 minute prior to obtaining)] Blood Pressure Mean [Standing (for 1 minute prior to obtaining)] Pulse Ox 100 98 Oxygen Delivery Method Room Air Room Air 02/01/25 14:00 02/01/25 14:31 02/01/25 15:23 Temperature 97.8 F Temperature Source Pulse Rate 60 62 Pulse Rate [Lying] 60 Pulse Rate [Sitting (for 1 minute prior to obtaining)] 61 Pulse Rate [Standing (for 1 minute prior to obtaining)] 64 Respiratory Rate 15 15 Respiratory Effort Respiratory Pattern Blood Pressure 139/56 H 147/65 H Blood Pressure [Lying] 137/65 H Blood Pressure [Sitting (for 1 minute prior to obtaining)] 140/63 H Blood Pressure [Standing (for 1 minute prior to obtaining)] 132/56 H Blood Pressure Mean 83 92 Blood Pressure Mean [Lying] 89 Blood Pressure Mean [Sitting (for 1 minute prior to obtaining)] 88 Blood Pressure Mean [Standing (for 1 minute prior to obtaining)] 81 Pulse Ox 97 99 Oxygen Delivery Method Room Air Positive well nourished, well developed and no apparent distress General Appearance ED: well developed HEENT Reports normocephalic and head/scalp atraumatic Mouth ED: Yes moist mucous membranes normal Eyes PERRL and EOMs intact bilaterally Neck full ROM and supple Chest Wall inspection of chest normal Resp normal respiratory effort and clear to auscultation bilaterally Cardio regular rate and regular rhythm GI soft to palpation, non-tender, non-distended and no masses Back/Spine normal ROM and normal to inspection Extremity normal to inspection and full ROM Neuro oriented x3, CN's II-XII intact bilaterally, moves all extremities, no focal motor deficits and no sensory deficits noted Sensorium / Orientation: awake and alert Psych mental status grossly normal and thought process normal Skin no rashes or lesions noted and no wounds <Dr. Kiran Carroll, DO - Last Filed: 02/01/25 15:19> Physical Exam Const Vital Signs: 02/01/25 11:22 02/01/25 11:48 02/01/25 13:03 Temperature 97.3 F L Temperature Source Temporal Pulse Rate 60 60 Pulse Rate [Lying] Pulse Rate [Sitting (for 1 minute prior to obtaining)] Pulse Rate [Standing (for 1 minute prior to obtaining)] Respiratory Rate 20 H 14 Respiratory Effort Normal Non-Labored Respiratory Pattern Normal Blood Pressure 123/64 H 125/61 H Blood Pressure [Lying] Blood Pressure [Sitting (for 1 minute prior to obtaining)] Blood Pressure [Standing (for 1 minute prior to obtaining)] Blood Pressure Mean 83 82 Blood Pressure Mean [Lying] Blood Pressure Mean [Sitting (for 1 minute prior to obtaining)] Blood Pressure Mean [Standing (for 1 minute prior to obtaining)] Pulse Ox 100 98 Oxygen Delivery Method Room Air Room Air 02/01/25 14:00 02/01/25 14:31 02/01/25 15:23 Temperature 97.8 F Temperature Source Pulse Rate 60 62 Pulse Rate [Lying] 60 Pulse Rate [Sitting (for 1 minute prior to obtaining)] 61 Pulse Rate [Standing (for 1 minute prior to obtaining)] 64 Respiratory Rate 15 15 Respiratory Effort Respiratory Pattern Blood Pressure 139/56 H 147/65 H Blood Pressure [Lying] 137/65 H Blood Pressure [Sitting (for 1 minute prior to obtaining)] 140/63 H Blood Pressure [Standing (for 1 minute prior to obtaining)] 132/56 H Blood Pressure Mean 83 92 Blood Pressure Mean [Lying] 89 Blood Pressure Mean [Sitting (for 1 minute prior to obtaining)] 88 Blood Pressure Mean [Standing (for 1 minute prior to obtaining)] 81 Pulse Ox 97 99 Oxygen Delivery Method Room Air [facility] <MADISON Holder - Last Filed: 02/01/25 16:02> [facility] Narrative Medical decision making narrative: Patient presenting due to a presyncopal episode that occurred today in [facility]. He also had upper back pain at that time, he reports that it is unusual for him to have upper back pain as it is a chronic issue for him. He does not have any back pain at this time. He reports that he often feels lightheaded with sitting and standing, orthostatic vital signs obtained and are negative. Cardiac workup obtained, his CBC shows a chronic mild anemia, his creatinine is 1.76 which is consistent with his CKD and previous labs, nonsignificant delta troponin. On reexamination he is doing well, requesting to be discharged home. His vital signs have remained stable, I feel that he can follow-up with his PCP. I recommended he follow-up in the next 5 to 7 days. He will be discharged home in stable condition. Lab Data Labs: Laboratory Results - last 24 hr 02/01/25 02/01/25 11:35 13:46 WBC 5.0 RBC 3.73 L Hgb 11.6 L Hct 35.1 L MCV 94.1 H MCH 31.1 MCHC 33.0 RDW Std Deviation 51.4 H RDW Coeff of Digna 14.8 H Plt Count 202 MPV 9.4 Immature Gran % (Auto) 0.600 Neut % (Auto) 71.3 H Lymph % (Auto) 10.8 L [place] % (Auto) 13.7 H Eos % (Auto) 2.8 Baso % (Auto) 0.8 Absolute Neuts (auto) 3.6 Absolute Lymphs (auto) 0.54 L Nucleated RBC % 0 Sodium 141 Potassium 4.0 Chloride 107 Carbon Dioxide 21.5 Anion Gap 12 BUN 25 H Creatinine 1.76 H Estim Creat Clear Calc 43.03 L Est GFR (MDRD) Non-Af 39 L BUN/Creatinine Ratio 14.1 Glucose 82 Calcium 9.5 Magnesium 2.4 H Troponin T High Sens 34 H Troponin T Hi Sens 2 Hr 30 H EKG Initial EKG: Comments: 60 bpm, atrial paced rhythm, no ST elevation <Dr. Kiran Carroll, DO - Last Filed: 02/01/25 15:19> MDM History & Record Review Discussion w/independent historian: Patient Lab Data Attestation: I reviewed the patient's lab results. Labs: Laboratory Results - last 24 hr 02/01/25 02/01/25 11:35 13:46 WBC 5.0 RBC 3.73 L Hgb 11.6 L Hct 35.1 L MCV 94.1 H MCH 31.1 MCHC 33.0 RDW Std Deviation 51.4 H RDW Coeff of Digna 14.8 H Plt Count 202 MPV 9.4 Immature Gran % (Auto) 0.600 Neut % (Auto) 71.3 H Lymph % (Auto) 10.8 L [place] % (Auto) 13.7 H Eos % (Auto) 2.8 Baso % (Auto) 0.8 Absolute Neuts (auto) 3.6 Absolute Lymphs (auto) 0.54 L Nucleated RBC % 0 Sodium 141 Potassium 4.0 Chloride 107 Carbon Dioxide 21.5 Anion Gap 12 BUN 25 H Creatinine 1.76 H Estim Creat Clear Calc 43.03 L Est GFR (MDRD) Non-Af 39 L BUN/Creatinine Ratio 14.1 Glucose 82 Calcium 9.5 Magnesium 2.4 H Troponin T High Sens 34 H Troponin T Hi Sens 2 Hr 30 H Treatment and Re-Evaluation :: I have personally performed a face to face assessment of the patient and have reviewed the KOLE Note. I performed a substantive portion of the visit including all aspects of the following. My navarro findings include: History is 79-year-old male presenting to the emergency room with near syncope. Patient was at [facility] today when he began to have a discomfort in his upper back. He states he felt like he was going to pass out. He has felt this before and has had near syncope in the past. Patient is worried that his blood pressure was dropping but his blood sugar was 155 now currently 71. He would like something to eat. He denies any palpitations or significant chest pain. No shortness of breath. No nausea vomiting. Exam is afebrile vital signs are stable. Patient appears mild to moderately anxious. Heart rate without murmur lung sounds are clear and equal equal pulses in the upper and lower extremities. Normal skin color. Medical Decison Making EKG and 2 sets of cardiac enzymes are negative. My independent interpretation of the chest x-ray is no acute process. He is not orthostatic. I believe the patient can be discharged home. I will have him follow-up with cardiology or primary care. Discharge Plan Triage Chief Complaint: Syncope ED Midlevel Provider: Sonja Liz ED Provider: Kiran Carroll Dx/Rx/DC Orders Clinical Impression: Near syncope, Type 1 diabetes mellitus without complications, Back pain, Anticoagulated Prescriptions: No Action Glucagon (HCl) Emergency Kit 1 mg recon soln 1 mg SC Q20M PRN (Reason: blood sugar) Rx Instructions: until target blood sugar attained insulin lispro [Humalog U-100 Insulin] 100 unit/mL solution See Rx Instructions SC DAILY Rx Instructions: via pump subcut daily; acetaminophen 500 mg tablet 500 mg PO Q6H PRN (Reason: pain) Dupixent Syringe 100 mg/0.67 mL syringe 200 mg subcut Q2W ezetimibe 10 mg tablet 10 mg PO DAILY pregabalin 100 mg capsule 100 mg PO BID Eliquis 5 mg tablet 5 mg PO BID terbinafine HCl 250 mg tablet 250 mg PO QDAY atorvastatin 80 MG tablet 80 mg PO QHS tamsulosin 0.4 MG capsule 0.4 mg PO DAILY aspirin 81 MG tablet 81 mg PO QHS finasteride 5 MG tablet 5 mg PO DAILY losartan 100 mg tablet 100 mg PO DAILY levothyroxine 50 mcg tablet 50 mcg PO DAILY Qty: 30 5RF cilostazol 50 mg tablet 50 mg PO BID Qty: 60 3RF Primary Care Provider: [facility] Referrals: Care Physician,No Primary [Non-Staff] - Activity Restrictions/Additional Instructions: Follow-up with your PCP in the next 5 to 7 days return for any other concerns. Print Language: [place] Disposition Disposition: Home, Self Care Discharge Date/Time: 02/01/25 15:29
[2025-02-01 12:36] LABS: Absolute Lymphocyte Count 0.54 X10^3/uL (0.83-4.51); Absolute Neutrophil Count 3.6 X10^3/uL (2.0-7.7); Basophil# 0.04 X10^3/uL; Basophil% 0.8 % (0-1); Eosinophil# 0.14 X10^3/uL; Eosinophils% 2.8 % (0-5); Hematocrit 35.1 % (40-54); Hemoglobin 11.6 g/dL (13.0-16.5); Lymphocyte # 0.54 X10^3/ul (0.83-4.51); Lymphocyte % 10.8 % (19-41); Mean Corpuscular Hgb 31.1 pg (27.0-32.0); Mean Corpuscular Volume 94.1 fL (80-94); Mean Platelet Vol. 9.4 fl (6.2-12.0); Monocyte# 0.69 X10^3/uL; Monocyte% 13.7 % (0-10); NRBC Flagged by Analyzer 0 % (0-5); Neutrophil # 3.58 X10^3/uL (2.7-7.7); Neutrophil % 71.3 % (47-70); POSITIVE DIFFERENTIAL YES; Platelet Count 202 K/mm3 (150-450); RBC Distribution Width CV 14.8 % (11.6-14.6); RBC Distribution Width SD 51.4 fl (35.1-43.9); Red Blood Count 3.73 M/mm3 (4.6-6.2)
[2025-02-01 13:03] VITALS: BP 125/61; PULSE 60; RESP 14; O2SAT 98
[2025-02-01 13:05] LABS: Anion Gap 12 (5-15); BUN 25 mg/dL (4-19); BUN/Creat Ratio 14.1 RATIO (10-20); Calcium,Total 9.5 mg/dL (7.6-11.0); Carbon Dioxide 21.5 mmol/L (21.0-32.0); Chloride 107 mmol/L (98-108); Creatinine, Serum 1.76 mg/dL (0.70-1.20); EST Glomerular Filtration Rate 39 (>60); Estimated Creatinine Clearance 43.03 ml/min (50-250); Glucose 82 mg/dL (70-99); Magnesium 2.4 mg/dL (1.5-2.2); Sodium Level 141 mmol/L (133-145); Troponin T High Sensitivity 34 ng/L (<=22)
[2025-02-01 14:00] VITALS: BP 139/56; PULSE 60; RESP 15; O2SAT 97
[2025-02-01 14:13] LABS: Troponin T High Sens 2 HR 30 ng/L (<=22)
[2025-02-01 14:31] VITALS: BP 132/56; BP 137/65; BP 140/63; PULSE 60; PULSE 61; PULSE 64
[2025-02-01 15:23] VITALS: BP 147/65; PULSE 62; RESP 15; TEMP 36.6; O2SAT 99
== END 2025-02-01 15:29 | disposition home or self-care (01) ==
PROVIDERS: Physician Assistant; Emergency Provider Emergency Medicine; Visit Provider Emergency Medicine
DX: R55 Syncope and collapse (principal); E10.42 Type 1 diabetes mellitus with diabetic polyneuropathy; Z79.4 Long term (current) use of insulin; E10.22 Type 1 diabetes mellitus with diabetic chronic kidney disease; I25.10 Atherosclerotic heart disease of native coronary artery without angina pectoris; I12.9 Hypertensive chronic kidney disease with stage 1 through stage 4 chronic kidney disease, or unspecified chronic kidney disease; E78.5 Hyperlipidemia, unspecified; N18.9 Chronic kidney disease, unspecified; D64.9 Anemia, unspecified; I25.2 Old myocardial infarction; N40.0 Benign prostatic hyperplasia without lower urinary tract symptoms; M54.9 Dorsalgia, unspecified; G89.29 Other chronic pain; G47.33 Obstructive sleep apnea (adult) (pediatric); Z95.5 Presence of coronary angioplasty implant and graft; Z95.0 Presence of cardiac pacemaker; Z96.41 Presence of insulin pump (external) (internal); Z79.82 Long term (current) use of aspirin; Z79.01 Long term (current) use of anticoagulants; Z86.711 Personal history of pulmonary embolism; Z79.899 Other long term (current) drug therapy; Z87.891 Personal history of nicotine dependence
CPT/HCPCS: 80048; 83735; 84484; 85025; 93005; 99285; A4216

== ENCOUNTER → 2025-02-18 | Outpatient (CLI) | payer MEDICARE, SELFPAY ==
[2023-04-18 11:37] VITALS: BMI 30.4
[2025-02-18 15:29] LABS: ALB/GLOB Ratio 1.4 RATIO (0.9-2.4); AST(SGOT) 20 U/L (<=37); Alanine Aminotransfer ALT/SGPT 22 U/L (<=46); Albumin, Serum 4.1 g/dL (3.4-4.8); Alkaline Phosphatase 34 U/L (40-129); Anion Gap 13 (5-15); BUN 34 mg/dL (4-19); BUN/Creat Ratio 19.4 RATIO (10-20); Calcium,Total 9.4 mg/dL (7.6-11.0); Carbon Dioxide 21.3 mmol/L (21.0-32.0); Chloride 103 mmol/L (98-108); Cholesterol 110 mg/dL (<=200); Creatinine, Serum 1.74 mg/dL (0.70-1.20); EST Glomerular Filtration Rate 40 (>60); Glucose 193 mg/dL (70-99); High Density Lipoprotein 41 mg/dL; Low Density Lipoprotein Calc. 37 mg/dL; Potassium 4.4 mmol/L (3.3-5.1); Protein, Total 7.2 g/dL (5.9-8.4); Sodium Level 137 mmol/L (133-145); Total Bilirubin 0.57 mg/dL (0.00-1.30); Triglycerides 158 mg/dL; Very Low Density Lipoprotein 32 mg/dL (5-40); cholesterol:hdl ratio screen 2.66
[2025-02-18 15:54] LABS: Hepatitis B Surface Antibody Nonreactive; Hepatitis B Surface Antigen Nonreactive (Nonreactive); Hepatitis C Antibody Nonreactive (Nonreactive)
[2025-02-20 05:07] LABS: Hepatitis B Core Ab Total Negative (Negative)
== END | disposition home or self-care (01) ==
PROVIDERS: Nurse Practitioner Family; Referring Provider Dermatology; Visit Provider Dermatology
DX: L40.0 Psoriasis vulgaris (principal); L21.8 Other seborrheic dermatitis; L20.89 Other atopic dermatitis; Z79.899 Other long term (current) drug therapy
CPT/HCPCS: 36415; 80053; 80061; 84439; 84443; 86704; 86706; 86803; 87340

== ENCOUNTER 2025-03-29 10:08 | Emergency (ER) | payer OTHER, SELFPAY ==
[2023-04-18 11:37] VITALS: BMI 30.4
[2025-03-29] VITALS (9 sets, daily range): BP systolic 120–143; BP diastolic 53–77; PULSE 59–75; RESP 13–22; TEMP 36.5; O2SAT 92–100; BMI 31.6
--- NOTE | 2025-03-29 10:48 | EKG12_ITS ---
Test Reason : SOB Blood Pressure : */* mmHG Vent. Rate : 60 BPM Atrial Rate : 60 BPM P-R Int : 250 ms QRS Dur : 146 ms QT Int : 474 ms P-R-T Axes : * -55 140 degrees QTcB Int : 474 ms Atrial-paced rhythm with prolonged AV conduction Left axis deviation Left bundle branch block Abnormal ECG When compared with ECG of 01-Feb-2025 11:36, T wave inversion no longer evident in Inferior leads Confirmed by Elio Ojeda ([id number]), managing editor HUSSEIN FLANNERY ([id number]) on 04/07/2025 10:05:40 AM Referred By: TODD Confirmed By: Elio Ojeda
--- NOTE | 2025-03-29 11:00 | RAD_ITS ---
PROCEDURE: CHEST PA AND LATERAL 03/29/2025 REASON FOR EXAM: SYNCOPE TECHNIQUE: Frontal and lateral views of the chest. COMPARISON: None FINDINGS: 2.5 x 2.2 cm left lower thoracic opacity may be external to the lung although pulmonary nodule is not excluded; consider CT if there is continued concern. Otherwise no focal consolidations. No pleural effusion or pneumothorax. Atherosclerotic aortic arch. No acute fractures. Left chest pacer. RAD/Chest PA and Lateral IMPRESSION: 2.5 x 2.2 cm left lower thoracic opacity may be external to the lung although p ulmonary nodule is not excluded; consider CT if there is continued concern. Otherwise no focal consolidations. Reading Location: [id number]
[2025-03-29 11:03] LABS: Absolute Lymphocyte Count 0.96 X10^3/uL (0.83-4.51); Absolute Neutrophil Count 4.5 X10^3/uL (2.0-7.7); Basophil# 0.05 X10^3/uL; Basophil% 0.8 % (0-1); Eosinophil# 0.19 X10^3/uL; Hematocrit 38.3 % (40-54); Hemoglobin 12.5 g/dL (13.0-16.5); Lymphocyte # 0.96 X10^3/ul (0.83-4.51); Lymphocyte % 15.2 % (19-41); Mean Corp Hgb Conc 32.6 g/dL (32-36); Mean Corpuscular Hgb 31.4 pg (27.0-32.0); Mean Corpuscular Volume 96.2 fL (80-94); Mean Platelet Vol. 9.5 fl (6.2-12.0); Monocyte# 0.66 X10^3/uL; Monocyte% 10.4 % (0-10); NRBC Flagged by Analyzer 0 % (0-5); Neutrophil # 4.45 X10^3/uL (2.7-7.7); Neutrophil % 70.3 % (47-70); Platelet Count 252 K/mm3 (150-450); RBC Distribution Width CV 14.5 % (11.6-14.6); RBC Distribution Width SD 50.5 fl (35.1-43.9); Red Blood Count 3.98 M/mm3 (4.6-6.2); White Blood Count 6.3 K/mm3 (4.4-11.0)
--- NOTE | 2025-03-29 11:10 | EX.ED.DYSGE1 ---
HPI History of Present Illness Chief Complaint: Syncope Informant: patient Narrative Narrative: Patient is a 80-year-old male with history of coronary disease status post stenting, cardiac pacemaker, hypertension, hyperlipidemia, peripheral arterial disease, CKD and diabetes on an insulin pump. He is presenting after syncopal episode at [facility] today. Patient states he did not sleep well last night. He states that one of his best friends from [employer] has been in the hospital and is not doing well. He notes their other best friend about a month ago. He states this is really been bothering him lately. Last night he went to bed at 2 AM and woke up at 7 AM. He did his normal routine include taking a shower getting ready for [facility]. When he walked into [facility] he started to feel lightheaded. He just got his coffee. He went to sit down. The next and he knows he woke up on the ground. He denies feeling particularly hot. There was bystanders that helped lower him to the ground and he denies any injuries or falls. Patient is on Eliquis. He denies any recent leg swelling. He denies any chest pain or heart racing. Notes he is had prior syncopal episodes has been evaluated in the ER for these in the past. He notes throughout the week he has been distraught over his friend's health but otherwise has been in his normal state of health. Chart review shows that patient is most recently seen on 02/01/2025 for presyncopal episode that occurred while at [facility]. His workup was largely normal including delta high-sensitivity troponin and he ultimately was discharged home. 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 Insulin pump titration Presence of insulin pump Diabetes Essential (primary) hypertension Syncope and collapse Secondary pulmonary arterial hypertension assisted current use of insulin Atherosclerotic heart disease of [place] coronary artery without angina pectoris Sick sinus syndrome Hyperlipidemia Hyperlipidemia due to type 1 diabetes mellitus Diabetes mellitus type 1 with neurological manifestations Sebaceous cyst Left bundle branch block Syncopal episodes Acute coronary syndrome Seborrheic dermatitis BPH (benign prostatic hyperplasia) Home Medications ?Medication ?Instructions ?Recorded ?Last Taken ?Type aspirin 81 mg tablet,delayed 81 mg PO QHS HEART HEALTH 09/20/18 12/11/22 History release atorvastatin 80 mg tablet 80 mg PO QHS CHOLESTEROL 09/20/18 12/10/22 History tamsulosin 0.4 mg capsule 0.4 mg PO DAILY PROSTATE 09/20/18 12/11/22 History glucagon HCl 1 mg solution for 1 mg subcut Q20M PRN blood sugar 03/23/20 1 Year Ago History injection (Glucagon (HCl) ~12/11/21 Emergency Kit) insulin lispro 100 unit/mL See Rx Instructions subcut DAILY DM 03/23/20 12/11/22 History subcutaneous solution (Humalog U-100 Insulin) finasteride 5 mg tablet 5 mg PO DAILY prostate 03/28/20 12/11/22 History acetaminophen 500 mg tablet 500 mg PO Q6H PRN pain 07/03/22 12/11/22 History losartan 100 mg tablet 100 mg PO DAILY blood pressure 03/06/23 Unknown History dupilumab 100 mg/0.67 mL 200 mg subcut Q2W 09/05/23 Unknown History subcutaneous syringe (Dupixent) levothyroxine 50 mcg tablet 50 mcg PO DAILY #30 tabs 11/01/23 Unknown Rx ezetimibe 10 mg tablet 10 mg PO DAILY 02/20/24 Unknown History pregabalin 100 mg capsule 100 mg PO BID 02/20/24 Unknown History cilostazol 50 mg tablet 50 mg PO BID #60 tabs 03/11/24 Unknown Rx terbinafine HCl 250 mg tablet 250 mg PO QDAY 04/03/24 Unknown History apixaban 5 mg tablet (Eliquis) 5 mg PO BID 07/16/24 Unknown History Allergy/AdvReac Type Severity Reaction Status Date / Time No Known Allergies Allergy Verified 03/29/25 10:15 Family History Father Diabetes Arthritis Cancer CVA (cerebral vascular accident) Skin cancer Mother CAD (coronary artery disease) Arthritis Parkinsons disease Brother Diabetes Kidney disease Sister Hypothyroid Surgical History History of coronary artery stent placement (12/12/22) H/O hernia repair 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) History of appendectomy History of left heart catheterization (2010) Social History household members: none Smoking Status: Former smoker how long ago did patient quit smokin second hand exposure: No alcohol intake: current alcohol intake frequency: holidays/special occasions only substance use type: does not use caffeine: Yes Type: coffee Number of servings: 2 what type of physical activity do you participate in: other frequency: 1-2 times per week ROS ROS ED Constitutional Constitutional ED: Denies chills, fever(s) or sweats Eyes Eyes: Denies change in vision Cardiovascular Cardiovascular: Denies chest pain, palpitations or racing heartbeat Respiratory/Chest Respiratory/Chest: Denies cough or dyspnea Gastrointestinal Gastrointestinal: Denies abdominal pain, melena, nausea or vomiting Musculoskeletal Musculoskeletal: Denies arthralgias or myalgias Integumentary Denies rash Neurologic Neurologic: Denies paresthesias or weakness Psychiatric Psychiatric: Reports depression EXAM Physical Exam Const Vital Signs: 03/29/25 10:08 03/29/25 10:10 03/29/25 10:20 Temperature 97.7 F L Temperature Source Axillary Pulse Rate 66 60 Pulse Rate [Lying] Pulse Rate [Sitting (for 1 minute prior to obtaining)] Pulse Rate [Standing (for 1 minute prior to obtaining)] Respiratory Rate 18 22 H Respiratory Effort Non-Labored Respiratory Pattern Tachypnea Blood Pressure 130/58 H 126/62 H Blood Pressure [Lying] Blood Pressure [Sitting (for 1 minute prior to obtaining)] Blood Pressure [Standing (for 1 minute prior to obtaining)] Blood Pressure Mean 82 83 Blood Pressure Mean [Lying] Blood Pressure Mean [Sitting (for 1 minute prior to obtaining)] Blood Pressure Mean [Standing (for 1 minute prior to obtaining)] Pulse Ox 100 100 Oxygen Delivery Method Room Air Room Air 03/29/25 11:08 03/29/25 12:00 03/29/25 13:00 Temperature Temperature Source Pulse Rate 60 62 Pulse Rate [Lying] 59 L Pulse Rate [Sitting (for 1 minute prior to obtaining)] 75 Pulse Rate [Standing (for 1 minute prior to obtaining)] 60 Respiratory Rate 13 Respiratory Effort Respiratory Pattern Blood Pressure 126/62 H 138/62 H Blood Pressure [Lying] 133/59 H Blood Pressure [Sitting (for 1 minute prior to obtaining)] 133/60 H Blood Pressure [Standing (for 1 minute prior to obtaining)] 125/57 H Blood Pressure Mean 83 87 Blood Pressure Mean [Lying] 83 Blood Pressure Mean [Sitting (for 1 minute prior to obtaining)] 84 Blood Pressure Mean [Standing (for 1 minute prior to obtaining)] 79 Pulse Ox 92 100 Oxygen Delivery Method Room Air Room Air 03/29/25 13:00 03/29/25 14:00 03/29/25 15:00 Temperature Temperature Source Pulse Rate 64 61 65 Pulse Rate [Lying] Pulse Rate [Sitting (for 1 minute prior to obtaining)] Pulse Rate [Standing (for 1 minute prior to obtaining)] Respiratory Rate Respiratory Effort Respiratory Pattern Blood Pressure 129/53 H 120/77 143/66 H Blood Pressure [Lying] Blood Pressure [Sitting (for 1 minute prior to obtaining)] Blood Pressure [Standing (for 1 minute prior to obtaining)] Blood Pressure Mean 78 91 91 Blood Pressure Mean [Lying] Blood Pressure Mean [Sitting (for 1 minute prior to obtaining)] Blood Pressure Mean [Standing (for 1 minute prior to obtaining)] Pulse Ox 99 100 100 Oxygen Delivery Method Room Air Room Air Room Air 03/29/25 16:00 03/29/25 16:43 Temperature 97.7 F L Temperature Source Pulse Rate 59 L 59 L Pulse Rate [Lying] Pulse Rate [Sitting (for 1 minute prior to obtaining)] Pulse Rate [Standing (for 1 minute prior to obtaining)] Respiratory Rate 16 Respiratory Effort Respiratory Pattern Blood Pressure 141/64 H 141/64 H Blood Pressure [Lying] Blood Pressure [Sitting (for 1 minute prior to obtaining)] Blood Pressure [Standing (for 1 minute prior to obtaining)] Blood Pressure Mean 89 89 Blood Pressure Mean [Lying] Blood Pressure Mean [Sitting (for 1 minute prior to obtaining)] Blood Pressure Mean [Standing (for 1 minute prior to obtaining)] Pulse Ox 100 Oxygen Delivery Method Positive well nourished and well developed General Appearance ED: well developed and NAD HEENT Reports moist mucous membranes Eyes PERRL General Eye ED: Negative for pale conjunctiva Neck supple and no JVD Chest Wall inspection of chest normal and palpation of chest normal Resp normal respiratory effort and clear to auscultation bilaterally Cardio regular rate, regular rhythm and no murmurs GI normal to inspection, nondistended, normoactive bowel sounds, non-tender and non-distended Extremity normal to inspection Neuro oriented x3 Sensorium / Orientation: alert Motor Exam: general weakness Psych mental status grossly normal Mood & Affect: tearful Skin no rashes or lesions noted and no wounds MDM MDM MDM Narrative Medical decision making narrative: Patient evaluated for syncopal episode at [facility]. It was preceded with a feeling of feeling lightheaded. No fall or injury associated with this as there is bystanders that helped lower him to the ground. He does have a significant cardiac history. Differential includes arrhythmia, pacemaker failure, anemia, electrolyte derangement, RAHUL, hypovolemia and infection as well as vasovagal syncope. Will obtain workup including cardiac labs, EKG chest x-ray. He is anticoagulated on Eliquis and low suspicion for PE as the cause. Will have pacemaker interrogated. Pacemaker does not show any acute events correspond with the syncope today. Workup is largely normal. Patient is given IV fluids. Orthostatics negative the patient is generally feels weak. His chest x-ray did show a questional pulmonary abnormality but given his syncope did obtain CT scan for further evaluation. CT of the chest thankfully did not show any nodules but did show moderate coronary artery calcification and 2 cm pseudo nodule which could reflect gynecomastia. I do not think this is associated with his acute presentation today. Patient reevaluated. He has a son at the bedside. Feels comfortable going home. Discussed at this time there is not appear to be any acute emergent process related to his syncope. Encouraged to follow-up with his wool presser. Given return precautions. Discharged home in stable condition. Lab Data Labs: Laboratory Results - last 24 hr 03/29/25 03/29/25 03/29/25 09:53 11:12 14:20 WBC 6.3 RBC 3.98 L Hgb 12.5 L Hct 38.3 L MCV 96.2 H MCH 31.4 MCHC 32.6 RDW Std Deviation 50.5 H RDW Coeff of Digna 14.5 Plt Count 252 MPV 9.5 Immature Gran % (Auto) 0.300 Neut % (Auto) 70.3 H Lymph % (Auto) 15.2 L Becker % (Auto) 10.4 H Eos % (Auto) 3.0 Baso % (Auto) 0.8 Absolute Neuts (auto) 4.5 Absolute Lymphs (auto) 0.96 Nucleated RBC % 0 Sodium 139 Potassium 4.0 Chloride 107 Carbon Dioxide 18.8 L Anion Gap 14 BUN 34 H Creatinine 1.75 H Estim Creat Clear Calc 42.99 L Est GFR (MDRD) Non-Af 39 L BUN/Creatinine Ratio 19.5 Glucose 184 H Calcium 9.4 Urine Color Yellow Urine Clarity Clear Urine pH 6.0 Ur Specific [place] 1.015 Urine Protein 100 H Urine Glucose (UA) 100 H Urine Ketones Negative Urine Occult Blood 10 H Urine Nitrite Negative Urine Bilirubin Negative Urine Urobilinogen Normal Ur Leukocyte Esterase Negative Urine RBC 0 SEEN Urine WBC 0 SEEN Ur Squamous Epith Cells 0-5 SEEN Urine Bacteria 1+ Urine Mucus 0 SEEN POC Glucose 138 H Radiography Chest X-Ray - ED: 2 View, Read by ED Physician and Read by Radiologist Diagnostic Testing: Clinical Impression(s) from Imaging Studies Chest X-Ray 03/29/25 11:00 IMPRESSION: 2.5 x 2.2 cm left lower thoracic opacity may be external to the lung although pulmonary nodule is not excluded; consider CT if there is continued concern. Otherwise no focal consolidations. Reading Location: [facility] Chest CT 03/29/25 12:22 IMPRESSION: Coronary artery calcification (CAC) is moderate No pulmonary nodules are identified. 2 cm pseudo nodule may reflect gynecomastia [facility] Rhythm Strip Rhythm Strip: Paced Rate: 60 Ectopy: None EKG Initial EKG: Attestation: I personally reviewed and interpreted this EKG as follows: Interpretation: Paced Comments: Atrial paced rhythm with prolonged AV conduction Rate of 60 bpm IL interval 250 Left axis deviation Left bundle branch block No change compared to prior EKG on 02/01/2025 Prior EKG tracings: available for review Prior: Unchanged Discharge Plan Triage Chief Complaint: Syncope ED Provider: Sasha Manzano Dx/Rx/DC Orders Clinical Impression: Syncope and collapse, History of permanent cardiac pacemaker placement Instructions: ED Fainting, Uncertain Cause Prescriptions: No Action Glucagon (HCl) Emergency Kit 1 mg recon soln 1 mg SC Q20M PRN (Reason: blood sugar) Rx Instructions: until target blood sugar attained insulin lispro [Humalog U-100 Insulin] 100 unit/mL solution See Rx Instructions SC DAILY Rx Instructions: via pump subcut daily; acetaminophen 500 mg tablet 500 mg PO Q6H PRN (Reason: pain) Dupixent Syringe 100 mg/0.67 mL syringe 200 mg subcut Q2W ezetimibe 10 mg tablet 10 mg PO DAILY pregabalin 100 mg capsule 100 mg PO BID Eliquis 5 mg tablet 5 mg PO BID terbinafine HCl 250 mg tablet 250 mg PO QDAY atorvastatin 80 MG tablet 80 mg PO QHS tamsulosin 0.4 MG capsule 0.4 mg PO DAILY aspirin 81 MG tablet 81 mg PO QHS finasteride 5 MG tablet 5 mg PO DAILY losartan 100 mg tablet 100 mg PO DAILY levothyroxine 50 mcg tablet 50 mcg PO DAILY Qty: 30 5RF cilostazol 50 mg tablet 50 mg PO BID Qty: 60 3RF [facility] [Primary Care Provider] - Activity Restrictions/Additional Instructions: Please make sure you drink plenty of fluids. Your workup today was largely normal and reassuring. The exact cause of your syncopal episode is not clear. Please return if you have progression of your weakness, further syncope or further concerns. Please follow-up primary care doctor and wool presser for this. Print Language: Greek Disposition Disposition: Home, Self Care Discharge Date/Time: 03/29/25 16:53
[2025-03-29 11:33] LABS: Anion Gap 14 (5-15); BUN 34 mg/dL (4-19); BUN/Creat Ratio 19.5 RATIO (10-20); Calcium,Total 9.4 mg/dL (7.6-11.0); Carbon Dioxide 18.8 mmol/L (21.0-32.0); Chloride 107 mmol/L (98-108); Creatinine, Serum 1.75 mg/dL (0.70-1.20); EST Glomerular Filtration Rate 39 (>60); Estimated Creatinine Clearance 42.99 ml/min (50-250); Glucose 184 mg/dL (70-99); Sodium Level 139 mmol/L (133-145)
[2025-03-29 11:33] LABS: Bedside Glucose 138 mg/dL (74-106)
--- NOTE | 2025-03-29 12:22 | CT_ITS ---
PROCEDURE: CHEST WITHOUT CONTRAST 03/29/2025 REASON FOR EXAM: ABNORMAL CHEST X RAY, SYNCOPE TECHNIQUE: Chest CT without contrast. Coronal and Sagittal reconstruction series were provided. One or more dose reduction techniques were used (e.g., Automated exposure control, adjustment of the mA and/or kV according to patient size, use of iterative reconstruction technique RADIATION DOSE SUMMARY: CTDlvol: 15.09 mGy DLP: 561.89 mGycm COMPARISON: Chest radiograph 0 03 29 2025 FINDINGS: Hardware: left side implanted cardiac device with electrodes entering the heart. Lymph nodes: No lymph nodes identified that might be pathologic size criteria. Heart and Vasculature: Normal heart size. Scattered calcific plaques in the thoracic aorta and aortic arch. No aneurysm. Coronary Artery Calcifications: Moderate degree of calcific coronary artery disease Lungs and Airways: Unremarkable Pleura: Unremarkable Upper Abdomen: Small hiatal hernia. Distended gallbladder with a single tiny cholelith identified Bones: Benign vertebral body hemangioma, lower thoracic spine. No worrisome suspicious lytic or blastic lesions CT/Chest without Contrast IMPRESSION: Coronary artery calcification (CAC) is moderate No pulmonary nodules are identified. 2 cm pseudo nodule may reflect gynecomast ia Reading [facility]
--- NOTE | 2025-03-29 13:55 | CM.ED ---
Social Work: Date of referral: 03/29/25 Reason for referral: [facility] Directives not on file Referred by: Social Work identification Patient provided consent to social work visit. coal chute worker requested a copy of ACD's which patient stated he would try and get a copy and have it dropped off at the hospital. No additional needs/requests identified at this time. Jennifer Crespo, MARKETING OPERATIONS SPECIALIST, DIE CUTTER APPRENTICE
[2025-03-29 14:30] LABS: Mucous, Urine 0 SEEN /hpf (<or=2+); Red Blood Cells-Urine 0 SEEN /hpf (0-5); White Blood Cells 0 SEEN /hpf (0-5)
[2025-03-29 14:32] LABS: Color, Urine Yellow (Yellow); Glucose, Dipstick 100 mg/dl (Normal); Ketone-Dipstick Negative (Negative); Leukocyte Esterase-Dipstick Negative /ul (Negative); Nitrite-Dipstick Negative (Negative); Occult Blood-Urine 10 /ul (Negative); Protein-Dipstick 100 mg/dl (Negative); Specific Gravity, Urine 1.015 (1.002-1.030); Urine Bilirubin Dipstick Negative (Negative); Urine Clarity Clear (Clear); Urine Urobilinogen Normal (Normal)
[2025-03-29 14:39] LABS: Bacteria 1+ /hpf (None Seen); Squamous Epithelial Cells - UA 0-5 SEEN /hpf (0-5)
[2025-03-29] MEDS: 0.9% Normal Saline (1000mL) 1,000 ML 999 ML IV (15:03)
== END 2025-03-29 16:53 | disposition home or self-care (01) ==
PROVIDERS: Emergency Provider Emergency Medicine; Visit Provider Emergency Medicine
DX: R55 Syncope and collapse (principal); E10.42 Type 1 diabetes mellitus with diabetic polyneuropathy; E10.51 Type 1 diabetes mellitus with diabetic peripheral angiopathy without gangrene; E10.22 Type 1 diabetes mellitus with diabetic chronic kidney disease; I25.10 Atherosclerotic heart disease of native coronary artery without angina pectoris; Z79.01 Long term (current) use of anticoagulants; Z95.5 Presence of coronary angioplasty implant and graft; Z95.0 Presence of cardiac pacemaker; N18.9 Chronic kidney disease, unspecified; I12.9 Hypertensive chronic kidney disease with stage 1 through stage 4 chronic kidney disease, or unspecified chronic kidney disease; Z87.891 Personal history of nicotine dependence; E78.5 Hyperlipidemia, unspecified; I73.9 Peripheral vascular disease, unspecified; Z96.41 Presence of insulin pump (external) (internal); F32.A Depression, unspecified
CPT/HCPCS: 71046; 71250; 80048; 81001; 82962; 85025; 93005; 96360; 96361; 99285

== ENCOUNTER → 2025-06-17 | Outpatient (CLI) | payer MEDICARE, SELFPAY ==
[2023-04-18 11:37] VITALS: BMI 30.4
--- NOTE | 2025-06-17 12:30 | ART_ITS ---
Reason For Study Reason For Study: Claudication Procedure A bilateral lower extremity continuous wave Doppler with analog waveform analysis,segmental pressures,and ankle brachial indexes with exercise. Left Segmental Pressures Left brachial= 145mmHg. Left posterior tibial artery = 172mmHg. Left dorsalis pedis artery = 179mmHg. Left digit = 129 mmHg. The left dorsalis pedis waveforms are triphasic. The left posterior tibial artery waveforms are triphasic. Right Segmental Pressures Right brachial= >254mmHg. Right high thigh = >254mmHg. Right low thigh = 111mmHg. Right calf = 89mmHg. Right posterior tibial artery = 98mmHg. Right dorsalis pedis artery = 108mmHg. Right digit = 93 mmHg. The right dorsalis pedis waveforms are biphasic. The right posterior tibial artery waveforms are biphasic. Indices The right ankle brachial index by the dorsalis pedis is 0.74. The right ankle brachial index by the posterior tibial artery is 0.68. The right digital-brachial index is 0.64. The right post exercise ankle brachial index is 0.28. The left ankle brachial index by the dorsalis pedis is 1.23. The left ankle brachial index by the posterior tibial artery is 1.19. The left digital-brachial index is 0.87. The left post exercise ankle brachial index is 1.23. VL/Lower Ext Art Exam w/ Exercise Interpretation Summary Right [place] 0.74, moderate arterial insufficiency. Doppler/PVR waveforms and segm ental pressures reveal distal SFA/popliteal disease. Right lower extremity with abnormal response to exercise and post exercise [place] in the severe category. Left [place] 1.23, normal. TBI and Doppler/PVR waveforms of the left leg normal at rest. Left lower extremity exhibits normal response to exercise. Ordering Physician: Angelika Hoyt Referring Physician: [facility] Performed By: Taisha Solitario RVT
== END | disposition home or self-care (01) ==
LOC: CVS 12:26
PROVIDERS: Referring Provider Physician Assistant; Visit Provider Physician Assistant
DX: I70.211 Atherosclerosis of native arteries of extremities with intermittent claudication, right leg (principal)
CPT/HCPCS: 93924